=== PATIENT | female | born 1980 | race Caucasian/White ===

== ENCOUNTER 2022-11-02 15:25 | Emergency (ER) | payer MEDICAID, SELFPAY ==
[2022-11-02 15:31] VITALS: BP 133/90; PULSE 88; RESP 14; TEMP 36.8; O2SAT 96; BMI 48.2
--- NOTE | 2022-11-02 16:03 | ED.SKABFB1 ---
HPI - Skin/Abscess/Foreign Bdy General Chief complaint: Skin/Abscess/Foreign Body Stated complaint: POST OP COMPLICATION Time Seen by Provider: 11/02/22 15:32 Source: patient Mode of arrival: walk-in History of Present Illness HPI narrative: 42-year-old female presented for a surgical wound check. She had laparoscopic surgery and one of the wounds had a scab and she pulled at it and it mostly came off. No purulent drainage. No fever vomiting or complaints of abdominal pain. This occurred within the last day. Related Data Home Medications Medication Instructions Recorded Confirmed clonidine HCl 0.1 mg tablet 0.1 mg PO DAILY PRN anxiety 11/02/22 11/02/22 fexofenadine 180 mg tablet 180 mg PO DAILY 11/02/22 11/02/22 lamotrigine 100 mg tablet 150 mg PO QPM 11/02/22 11/02/22 meclizine 25 mg tablet 25 mg PO DAILY PRN dizziness 11/02/22 11/02/22 montelukast 10 mg tablet 10 mg PO QPM 11/02/22 11/02/22 omeprazole 20 mg capsule,delayed 20 mg PO BID 11/02/22 11/02/22 release oxycodone-acetaminophen 5 mg-325 1 tab PO .Q4HRs PRN pain 11/02/22 11/02/22 mg tablet tizanidine 4 mg tablet 4 mg PO TID PRN muscle spasticity 11/02/22 11/02/22 Allergies Allergy/AdvReac Type Severity Reaction Status Date / Time codeine Allergy Severe Verified 11/02/22 15:30 morphine Allergy Severe Verified 11/02/22 15:30 Penicillins Allergy Severe Verified 11/02/22 15:30 sulfamethoxazole Allergy Severe Verified 11/02/22 15:30 [From Bactrim] trimethoprim [From Bactrim] Allergy Severe Verified 11/02/22 15:30 Review of Systems ROS Narrative A ten point review of systems is negative except as noted above. Exam Narrative Exam Narrative: Nurses note and vital signs reviewed and patient is not hypoxic. General: The patient appears well and in no apparent distress. Patient is resting comfortably on cart. Skin: Warm, dry, no pallor noted. There is no rash noted. Head: Normocephalic, atraumatic Eye: Normal conjunctiva, no drainage Ears, Nose, Mouth, and Throat: oral mucosa is moist. Nares patent. Cardiovascular: Regular Rate and Rhythm Respiratory: Patient is in no distress, no accessory muscle use Back: non-tender GI: the abdominal wall is examined. Several surgical site wounds are healing quite well. A single one has a bandage over it and a scab which has now fallen off. There is minimal opening with no surrounding erythema or purulent drainage. Musculoskeletal: The patient has no evidence of calf tenderness, no pitting edema, symmetrical pulses noted bilaterally Neurological: A&O, normal speech Psychiatric: Cooperative Constitutional Vital Signs, click to edit/add: Last Vital Signs Temp 98.2 F 11/02/22 15:31 Pulse 88 11/02/22 15:31 Resp 14 11/02/22 15:31 BP 133/90 H 11/02/22 15:31 Pulse Ox 96 11/02/22 15:31 O2 Del Method Room Air 11/02/22 15:48 Course Vital Signs Vital signs: Vital Signs Temperature 98.2 F 11/02/22 15:31 Pulse Rate 88 11/02/22 15:31 Respiratory Rate 14 11/02/22 15:31 Blood Pressure 133/90 H 11/02/22 15:31 Pulse Oximetry 96 11/02/22 15:31 Oxygen Delivery Method Room Air 11/02/22 15:31 Temperature 98.2 F 11/02/22 15:31 Pulse Rate 88 11/02/22 15:31 Respiratory Rate 14 11/02/22 15:31 Blood Pressure 133/90 H 11/02/22 15:31 Pulse Oximetry 96 11/02/22 15:31 Oxygen Delivery Method Room Air 11/02/22 15:48 MDM - Skin/Abscess/Foreign Bdy MDM Narrative Medical decision making narrative: I've no suspicion of true dehiscence or infection. She's given bacitracin ointment. Treatment diagnosis and follow-up were discussed with the patient. Differential Diagnosis Differential diagnosis: Likely abscess of skin or subcutaneous tissue and other (cellulitis, surgical wound dehiscence) Discharge Plan Discharge Chief Complaint: Skin/Abscess/Foreign Body Clinical Impression: Visit for wound check Patient Disposition: Home, Self-Care Time of Disposition Decision: 16:01 Condition: Good Mode of Transportation: Private Vehicle Prescriptions / Home Meds: No Action clonidine HCl 0.1 mg tablet 0.1 mg PO DAILY PRN (Reason: anxiety) fexofenadine 180 mg tablet 180 mg PO DAILY lamotrigine 100 mg tablet 150 mg PO QPM meclizine 25 mg tablet 25 mg PO DAILY PRN (Reason: dizziness) montelukast 10 mg tablet 10 mg PO QPM omeprazole 20 mg capsule,delayed release(DR/EC) 20 mg PO BID oxycodone-acetaminophen 5-325 mg tablet 1 tab PO .Q4HRs PRN (Reason: pain) tizanidine 4 mg tablet 4 mg PO TID PRN (Reason: muscle spasticity) Instructions: Wound Healing and Your Diet (ED) Stand Alone Forms: Portal Instructions Referrals: Physician,Non-Staff, MD [Primary Care Provider] - 1 week
== END 2022-11-02 16:14 | disposition home or self-care (01) ==
PROVIDERS: Emergency Provider Emergency Medicine
DX: Z09 Encounter for follow-up examination after completed treatment for conditions other than malignant neoplasm (principal); Z79.899 Other long term (current) drug therapy
CPT/HCPCS: 99282

== ENCOUNTER 2023-05-03 11:03 | Outpatient (OUT) | payer MEDICAID, SELFPAY ==
[2023-05-03 11:42] LABS: Basophils Absolute Auto 0.1 10^3/uL (0.0-0.1); Eosinophils Absolute Auto 0.2 10^3/uL (0.0-0.7); Eosinophils Percent Auto 2.9 % (0.9-7.0); Hematocrit 41.9 % (36.0-48.0); Hemoglobin 13.8 g/dL (12.0-16.0); Immature Granulocytes Abs Auto 0.01 10^3/uL (0.00-0.03); Immature Granulocytes Pct Auto 0.1 % (0.0-0.5); Lymphocytes Absolute Auto 1.9 10^3/uL (1.2-3.8); Lymphocytes Percent Auto 26.1 % (20.5-60.0); Mean Corpuscular HGB Conc 32.9 g/dL (29.9-35.2); Mean Platelet Volume 11.9 fL (9.5-13.5); Monocytes Absolute Auto 0.5 10^3/uL (0.3-0.8); Monocytes Percent Auto 7.3 % (1.7-12.0); Neutrophils Absolute Auto 4.6 10^3/uL (1.4-6.5); Neutrophils Percent Auto 62.6 % (43.0-75.0); Platelet Count 297 10^3/uL (150-450); Red Blood Count 4.93 10^6/uL (4.20-5.40); Red Cell Distribution Width 13.8 % (11.0-15.0); White Blood Count 7.3 10^3/uL (4.0-11.0)
[2023-05-03 11:48] LABS: Alanine Aminotransferase 19 U/L (14-59); Albumin Level 3.5 g/dL (3.4-5.0); Alkaline Phosphatase 103 U/L (46-116); Anion Gap 10.1; Aspartate Amino Transferase 18 U/L (15-37); Bilirubin Total 0.6 mg/dL (0.2-1.0); Calcium 9.3 mg/dL (8.5-10.1); Carbon Dioxide 27.6 mmol/L (21.0-32.0); Chloride 106 mmol/L (98-107); Estimated GFR (African America >60 (>=60); Estimated GFR (Non-African Ame >60 (>=60); Globulin 3.4 g/dL; Glucose 90 mg/dL (74-106); Magnesium 1.9 mg/dL (1.8-2.4); Phosphorus 3.1 mg/dL (2.6-4.7); Potassium 3.7 mmol/L (3.5-5.1); Sodium 140 mmol/L (136-145); Total Protein 6.9 g/dL (6.4-8.2)
[2023-05-03 13:44] LABS: Percent Iron Saturation 19.8 %
== END 2023-05-03 11:04 | disposition home or self-care (01) ==
LOC: LAB 11:04
PROVIDERS: PCP Family Medicine
DX: R60.9 Edema, unspecified (principal); Z98.84 Bariatric surgery status; I10 Essential (primary) hypertension; K21.00 Gastro-esophageal reflux disease with esophagitis, without bleeding
CPT/HCPCS: 36415; 80053; 82306; 82607; 82728; 82746; 83540; 83550; 83735; 84100; 84425; 85025

== ENCOUNTER 2023-05-21 12:15 | Emergency (ER) | payer MEDICAID, SELFPAY ==
[2023-05-21 12:22] VITALS: BP 130/79; PULSE 80; RESP 15; TEMP 36.8; O2SAT 100; BMI 42.0
--- OUTSIDE RECORDS SUMMARY | 2023-05-21 12:22 | XMS_ITS | CCD ---
Author Name Unknown Address [address] [place] [address] Organization [facility] Care Team Providers Care Supervisor [employer] Name Role Phone HARRIS, DR YOEL Mcarthur Admitting Unavailable NADERER, DR YOEL Mcarthur Attending Unavailable NADERER, DR YOEL Mcarthur Primary Care Unavailable SRUTHI, DR YOSVANY Adames Consulting Unavailable NADERER, DR YOEL Mcarthur Consulting Unavailable NADERER, DR YOEL Mcarthur Admitting Unavailable NADERER, DR YOEL Mcarthur Attending Unavailable NADERER, DR YOEL Mcarthur Primary Care Unavailable NADERER, DR YOEL Mcarthur Consulting Unavailable NADERER, YOEL Attending Unavailable Allergies Allergy Classification Reported Allergen(s) Allergy Type Date of Onset Reaction(s) Facility (2 sources) Morphine; Translations: [morphine] Drug Allergy [facility] Repository (1 source) Penicillin; Translations: [penicillin] Drug Allergy [facility] Repository (1 source) Penicillins Drug allergy (disorder) 12-23-2012 [facility] Repository (1 source) Darvocet-N 100 Drug allergy (disorder) 12-23-2012 [facility] Repository Problems Active Problems Problem Classification Problem Date Documented Date Episodic/Chronic Spondylosis; intervertebral disc disorders; other back problems (4 sources) Other intervertebral disc degeneration, lumbar region; Translations: [OTH IV DISC DEGEN LUMBAR REGION] Onset: 09-08-2021 Chronic Unclassified (2 sources) CONTACT W/AND (SUSP) EXPOS COVID-19; Translations: [CONTACT W/AND (SUSP) EXPOS COVID-19] Onset: 03-12-2022 Viral infection (1 source) COVID-19; Translations: [COVID-19] Onset: 03-12-2022 Past or Other Problems Problem Classification Problem Date Documented Da te Episodic/Chronic Unclassified (1 source) CONTACT W/AND (SUSP) EXPOS COVID-19; Translations: [CONTACT W/AND (SUSP) EXPOS COVID-19] Onset: 02-09-2022 Results Test Name Value Interpretation Reference Range Facility Consultation Noteon 06-27-19 Consultation Note [id number] 2#1.00CD:127 Normal [facility] ECG 12-Leadon 06-26-2022 ECG 12-Lead [id number] 0#1.00CD:127 Normal [facility] RAD - MISCon 06-26-2022 RAD - MISC [id number] 9#1.00CD:127 Normal [facility] RAD - MISC [id number] 0#1.00CD:127 Normal [facility] RAD - Ultrasound Reporton RAD - Ultrasound Report [id number] #1.00CD:127 Normal [facility] Covid-19 PCR (CVDTBH)on 01-24 SARS-CoV-2 (COVID-19) RNA JUDE+probe Ql (Unsp spec) Detected Critically abnormal NOT DETECTED [facility] Comment on above: Result Comment: This test is not yet approved or cleared by the [place] FDA. When there are no FDA-approved or cleared tests available, and other criteria are met, FDA can make tests available under an emergency access mechanism called an Emergency Use Authorization (EUA). The EUA for this test is supported by the [place] of Health and Human Service's (HHS's) declaration that circumstances exist to justify the emergency use of in vitro diagnostics for the detection and/or diagnosis of the virus that causes COVID-19. This EUA will remain in effect (meaning this test can be used) for the duration of the COVID-19 declaration justifying emergency of IVDs, unless it is terminated or revoked by FDA (after which the test may no longer be used). Performed By: #### C VDTB #### [facility] [address] [place] [address] Dr. Abdelrahman Chisholm XR LSPINE 2_3 VIEWSon 2021 XR LSPINE 2_3 VIEWS EXAMINATION: XR LSPINE 2_3 VIEWS HISTORY: Degeneration of lumbar intervertebral disc ; chronic low back pain COMPARISON: CT abdomen pelvis 10/10/2019 FINDINGS: BONES: Mild degenerative facet arthropathy L3-4 through L5-S1. No fracture or spondylolisthesis. DISC SPACES: Mild-moderate narrowing L4-5. Mild narrowing L5-S1. PARASPINOUS: Negative. No paraspinous abnormality is seen. OTHER: Negative. IMPRESSION: 1. Mild/moderate degenerative changes of the lower lumbar spine. Electronically authenticated by: YOSVANY NEGRO Date: 2021-09-08 15:24 Normal [facility] Encounters Encounter Date Encounter Type Care Provider Facility Start: 05-11-2023 End: 05-11-2023 ambulatory YOEL IGLESIAS Not Available Start: 03-06-2022 [facility] Start: 02-09-2022 End: 08-10-[address] YOEL IGLESIAS Facility:[facility] Start: 09-08-2021 End: 09-09-[address] YOEL IGLESIAS Facility:[facility] Payers Date Payer Category Payer Medicaid [id number] 1980 Unknown [id number] 1980 Unknown [id number] 1980 Unknown [id number] 1961 Unknown [id number] Summary Purpose Family History No Family History Records FoundNo Family History Records FoundNo Family History Records Found Advance Directives No Advanced Directives Records FoundNo Advanced Directives Records FoundNo Advanced Directives Records Found Additional Source Comments INFORMATION SOURCE (unrecogn ized section and content) DATE CREATED AUTHOR [facility]/20[facility] DATE CREATED AUTHOR AUTHOR'S ORGANIZ ATION 08/10/2022 [facility] DATE CREATED AUTHOR AUTHOR'S ORGANIZ ATION 2023 [facility] EPIC FOR RECORDS PERTAINING TO PATIENTS WHO ARE OR HAVE BEEN ENROLLED IN A CHEMICAL DEPENDENCY/SUBSTANCEABUSE PROGRAM, SOME INFORMATION MAY BE OMITTED. This clinical summary was aggregated from multiple sources. Caution should be exercised in using it in the provision of clinical care. This summary normalizes information from multiple sources, and as a consequence, information in this document may materially change the coding, format and clinical context of patient data. In addition, data may be omitted in some cases. CLINICAL DECISIONS SHOULD BE BASED ON THE PRIMARY CLINICAL RECORDS. [facility]. provides no warranty or guarantee of the accuracy or completeness of information in this document.
--- NOTE | 2023-05-21 12:29 | ED.FEMALEGU1 ---
HPI - Female Genitourinary General Chief complaint: Abdominal Pain Stated complaint: BLOOD IN URINE/PAIN Time Seen by Provider: 05/21/23 12:25 History of Present Illness HPI Narrative: 43-year-old female presents for bilateral lower abdominal pain. She states that she was in the doctor's office last week and they told her she has blood in her urine and she scheduled next week to have an ultrasound of her kidneys and bladder. She's had no trauma or fever. No vomiting or dysuria. Related Data Home Medications Medication Instructions Recorded Confirmed clonidine HCl 0.1 mg tablet 0.1 mg PO DAILY PRN anxiety 11/02/22 11/02/22 fexofenadine 180 mg tablet 180 mg PO DAILY 11/02/22 11/02/22 lamotrigine 100 mg tablet 150 mg PO QPM 11/02/22 11/02/22 meclizine 25 mg tablet 25 mg PO DAILY PRN dizziness 11/02/22 11/02/22 montelukast 10 mg tablet 10 mg PO QPM 11/02/22 11/02/22 omeprazole 20 mg capsule,delayed 20 mg PO BID 11/02/22 11/02/22 release oxycodone-acetaminophen 5 mg-325 1 tab PO .Q4HRs PRN pain 11/02/22 11/02/22 mg tablet tizanidine 4 mg tablet 4 mg PO TID PRN muscle spasticity 11/02/22 11/02/22 Previous Rx's Medication Instructions Recorded ondansetron 4 mg disintegrating 4 mg PO Q6H PRN nausea and 05/21/23 tablet vomiting #20 tabs tamsulosin 0.4 mg capsule (Flomax) 0.4 mg PO DAILY #7 caps 05/21/23 Allergies Allergy/AdvReac Type Severity Reaction Status Date / Time codeine Allergy Severe Verified 11/02/22 15:30 morphine Allergy Severe Verified 11/02/22 15:30 Penicillins Allergy Severe Verified 11/02/22 15:30 sulfamethoxazole Allergy Severe Verified 11/02/22 15:30 [From Bactrim] trimethoprim [From Bactrim] Allergy Severe Verified 11/02/22 15:30 Review of Systems ROS Narrative A ten point review of systems is negative except as noted above. PFSH PFSH Social History Smoking status: Former smoker Exam Narrative Exam Narrative: Nurses note and vital signs reviewed and patient is not hypoxic. General: The patient appears in no apparent distress. Skin: Warm, dry, no pallor noted. There is no rash noted. Head: Normocephalic, atraumatic Eye: Normal conjunctiva, no drainage Ears, Nose, Mouth, and Throat: oral mucosa is moist. Nares patent. Cardiovascular: Regular Rate and Rhythm Respiratory: Patient is in no distress, no accessory muscle use, lungs are clear to auscultation, no wheezing, rales or rhonchi Back: non-tender, no CVA tenderness bilaterally to percussion. GI: soft, obese, nondistended. She has some mild bilateral lower abdominal tenderness without mass. Musculoskeletal: The patient has no evidence of calf tenderness, no pitting edema, symmetrical pulses noted bilaterally Neurological: A&O, normal speech Psychiatric: Cooperative Constitutional Vital Signs, click to edit/add: Last Vital Signs Temp 98.2 F 05/21/23 12:22 Pulse 80 05/21/23 12:22 Resp 15 05/21/23 12:22 BP 130/79 05/21/23 12:22 Pulse Ox 100 05/21/23 12:22 O2 Del Method Room Air 05/21/23 12:22 Course Vital Signs Vital signs: Vital Signs Temperature 98.2 F 05/21/23 12:22 Pulse Rate 80 05/21/23 12:22 Respiratory Rate 15 05/21/23 12:22 Blood Pressure 130/79 05/21/23 12:22 Pulse Oximetry 100 05/21/23 12:22 Oxygen Delivery Method Room Air 05/21/23 12:22 Temperature 98.2 F 05/21/23 12:22 Pulse Rate 80 05/21/23 12:22 Respiratory Rate 15 05/21/23 12:22 Blood Pressure 130/79 05/21/23 12:22 Pulse Oximetry 100 05/21/23 12:22 Oxygen Delivery Method Room Air 05/21/23 12:22 MDM - Female Genitourinary MDM Narrative Medical decision making narrative: 5 mm kidney stone is identified. She'll follow-up with urology. The patient is already on Percocet at home. Treatment diagnosis and follow up are discussed with the patient. Differential Diagnosis Differential diagnosis: Likely urinary tract infection and other (pyelonephritis, kidney stone) Lab Data Attestation: I reviewed the patient's lab results. Labs: Lab Results 05/21/23 Range/Units 12:30 Urine Color Yellow (YELLOW) Urine Clarity Clear (CLEAR) Urine pH 6.0 (5.0-9.0) Ur Specific [place] 1.025 (1.005-1.025) Urine Protein Negative (NEG/TRACE) mg/dL Urine Glucose (UA) Negative (NEGATIVE) mg/dL Urine Ketones Negative (NEGATIVE) mg/dL Urine Occult Blood Moderate A (NEGATIVE) Urine Nitrite Negative (NEGATIVE) Urine Bilirubin Negative (NEGATIVE) Urine Urobilinogen 0.2 (0.2-1.0) EU/dL Ur Leukocyte Esterase Negative (NEGATIVE) Urine RBC 20-50 A (0-2) #/HPF Urine WBC 2-5 A (NONE SEEN) #/HPF Ur Squamous Epith Cells Moderate A (NONE/RARE) #/LPF Urine Crystals None seen (None Seen) #/HPF Urine Bacteria Moderate A (NONE SEEN) #/HPF Urine Casts None seen (NONE SEEN) #/LPF Urine Mucus Moderate A (NONE SEEN) Imaging Data CT scan - abdomen: Radiologist's impression: ITS Impressions Abdomen/Pelvis CT 05/21/23 13:13 IMPRESSION: 5 mm right ureteropelvic junction stone with moderate associated right hydronephrosis Electronically authenticated by: LINCOLN FAM Date: 05/21/2023 14:11 Discharge Plan Discharge Chief Complaint: Abdominal Pain Clinical Impression: Kidney stone Patient Disposition: Home, Self-Care Time of Disposition Decision: 14:51 Condition: Good Mode of Transportation: Private Vehicle Prescriptions / Home Meds: New tamsulosin [Flomax] 0.4 mg capsule 0.4 mg PO DAILY Qty: 7 0RF ondansetron 4 mg tablet,disintegrating 4 mg PO Q6H PRN (Reason: nausea and vomiting) Qty: 20 0RF No Action clonidine HCl 0.1 mg tablet 0.1 mg PO DAILY PRN (Reason: anxiety) fexofenadine 180 mg tablet 180 mg PO DAILY lamotrigine 100 mg tablet 150 mg PO QPM meclizine 25 mg tablet 25 mg PO DAILY PRN (Reason: dizziness) montelukast 10 mg tablet 10 mg PO QPM omeprazole 20 mg capsule,delayed release(DR/EC) 20 mg PO BID oxycodone-acetaminophen 5-325 mg tablet 1 tab PO .Q4HRs PRN (Reason: pain) tizanidine 4 mg tablet 4 mg PO TID PRN (Reason: muscle spasticity) Instructions: Kidney Stones (ED) Additional Instructions: follow-up with Dr. Varela Stand Alone Forms: Portal Instructions Referrals: Hany Cohen MD [Primary Care Provider] - 1 week
[2023-05-21 13:05] LABS: Bilirubin Urine NEGATIVE (NEGATIVE); Blood Urine MODERATE (NEGATIVE); Clarity Urine CLEAR (CLEAR); Color Urine YELLOW (YELLOW); Glucose Urine UA NEGATIVE (NEGATIVE); Ketones Urine NEGATIVE (NEGATIVE); Leukocyte Esterase Urine NEGATIVE (NEGATIVE); Nitrite Urine NEGATIVE (NEGATIVE); Protein Urine NEGATIVE (NEG/TRACE); Specific Gravity Urine 1.025 (1.005-1.025); Urobilinogen Urine 0.2 EU/dL (0.2-1.0)
[2023-05-21 13:12] LABS: Bacteria Urine MODERATE #/HPF (NONE SEEN); Cast Seen? NONE SEEN #/LPF (NONE SEEN); Crystals Seen? None Seen #/HPF (None Seen); Mucus Urine MODERATE (NONE SEEN); RBC Urine 20-50 #/HPF (0-2); Squamous Epithelial Cell Urine MODERATE #/LPF (NONE/RARE)
--- NOTE | 2023-05-21 13:13 | CT_ITS ---
[address] [address] Patient Name: BEKAH RHODES MRN: [id number] date: 1980 Sex: F Assigned Patient Location: ER Current Patient Location: ER Accession/Order Number: [id number] Exam Date: 05/21/2023 13:47 Report Date: 05/21/2023 14:11 At the request of: JORDEN ORTIZ Procedure: CT abdomen pelvis wo con EXAMINATION: CT abdomen pelvis wo con HISTORY: hematuria, history of kidney stones COMPARISON: 10/10/2019 TECHNIQUE: Axial, Coronal, and Sagittal images were created without IV contrast. Dose reduction techniques were achieved by using automated exposure control and/or adjustment of mA and/or kV according to patient size and/or use of iterative reconstruction technique. FINDINGS: LUNG BASES: No visible pulmonary or pleural disease. LIVER: No enlargement, atrophy, abnormal density, or significant focal lesion. BILIARY: No dilatation or calcification. PANCREAS: No lesion, fluid collection, ductal dilatation, or atrophy. SPLEEN: No enlargement or focal lesion. ADRENALS: No mass or enlargement. KIDNEYS: 5 mm right ureteropelvic junction calcification axial image #55 with moderate right hydronephrosis. Cortical thinning lateral right mid pole kidney. Calcifications inferior right renal cortex. Multiple additional right nephroliths. Normal left kidney. BOWEL/MESENTERY: Suture line along the stomach and distal esophagus. Nonobstructive bowel gas pattern. Normal appendix. AORTA/VASCULAR: No aortic aneurysm RETROPERITONEUM: No mass or adenopathy. LYMPH NODES: No adenopathy. URINARY BLADDER: No visible focal wall thickening, lesion, or calculus. PELVIC ORGANS: Hysterectomy ABDOMINAL WALL: Suprarenal ventral hernia containing mesenteric fat measuring 7.4 cm through a neck measuring 2.8 cm. BONES: No bony lesion or fracture. OTHER: Negative. CT/CT abdomen pelvis wo con IMPRESSION: 5 mm right ureteropelvic junction stone with moderate associated right hydronephrosis Electronically authenticated by: LINCOLN FAM Date: 05/21/2023 14:11
[2023-05-21] MEDS: KETOROLAC TROMETHAMINE 60 MG/2 ML VIAL IM (14:09)
== END 2023-05-21 15:08 | disposition home or self-care (01) ==
PROVIDERS: Emergency Provider Emergency Medicine; PCP Family Medicine
DX: N13.2 Hydronephrosis with renal and ureteral calculous obstruction (principal); Z79.899 Other long term (current) drug therapy; Z87.891 Personal history of nicotine dependence
CPT/HCPCS: 74176; 81001; 84703; 96372; 99285; J1885

== ENCOUNTER 2023-06-11 10:03 | Outpatient (OUT) | payer MEDICAID, SELFPAY ==
--- OUTSIDE RECORDS SUMMARY | 2023-06-11 10:07 | XMS_ITS | CCD ---
Author Name Unknown Address [address] [place] [address] Organization [facility] Care Team Providers Care Time Study Engineer Name Role Phone HARRIS, DR YOEL Mcarthur Admitting Unavailable NADERER, DR YOEL Mcarthur Attending Unavailable NADERER, DR YOEL Mcarthur Primary Care Unavailable SRUTHI, DR YOSVANY Adames Consulting Unavailable NADERER, DR YOEL Mcarthur Consulting Unavailable NADERER, DR YOEL Mcarthur Admitting Unavailable NADERER, DR YOEL Mcarthur Attending Unavailable NADERER, DR YOEL Mcarthur Primary Care Unavailable NADERER, DR YOEL Mcarthur Consulting Unavailable NADERER, YOEL Attending Unavailable NADERER, YOEL Referring Unavailable COOK, Chencho Oneal Attending Unavailable Allergies Allergy Classification Reported Allergen(s) Allergy Type Date of Onset Reaction(s) Facility (2 sources) Morphine; Translations: [morphine] Drug Allergy [facility] Repository (1 source) Penicillins Drug allergy (disorder) 12-23-2012 [facility] Repository (1 source) Darvocet-N 100 Drug allergy (disorder) 12-23-2012 [facility] Rep[facility] (1 source) Penicillin; Translations: [penicillin] Drug Allergy [facility] Repository Problems Active Problems Problem Classification [...] Test Name Value Interpretation Reference Range Facility ED Note-Physicianon 06-08-19 ED Note-Physician [id number]#1.00TIFF Normal [facility] BI MAMMOGRAM SCREENING TOMOS YNTHESIS BILATERALon 05-26-2023 BI MAMMOGRAM SCREENING TOMOSYNTHESIS BILATERAL This is a summary report. The complete report is available in the patient's medical record. If you cannot access the medical record, please contact the sending organization for a detailed fax or copy. EXAMINATION: BI MAMMOGRAM SCREENING TOMOSYNTHESIS BILATERAL CLINICAL HISTORY:Screening COMPARISON: There are no previous mammograms available for comparison. RESULT: Digital mammography and 3D tomosynthesis of bilateral breasts was performed. Density: Almost entirely fatty [1] There is no suspicious mass, asymmetry, architectural distortion, or calcification. IMPRESSION: BIRADS 1 - Negative Follow-up: Routine Screening Mamm Board Certified Radiologists. Accredited by the ACR and FDA. MAMMOGRAPHY IS VERY IMPORTANT TO YOUR HEALTH. THE [employer] GUIDELINES RECOMMEND THAT WOMEN 40 YEARS OF AGE AND OLDER SHOULD HAVE A MAMMOGRAM EVERY YEAR. A REMINDER LETTER WILL BE SENT AT THE APPROPRIATE TIME. THIS FACILITY UTILIZES A REMINDER SYSTEM TO ENSURE ALL PATIENTS RECEIVE REMINDER NOTIFICATIONS AT THE APPROPRIATE TIME BASED ON THE RECOMMENDATIONS OF THIS EXAM. THIS INCLUDES REMINDERS FOR ROUTINE SCREENING MAMMOGRAMS, DIAGNOSTIC MAMMOGRAMS IN WHICH THE PATIENT IS ASKED TO RETURN FOR ADDITIONAL VIEWS, OR OTHER BREAST IMAGING INTERVENTIONS WHEN APPROPRIATE. THE PATIENT WILL BE PLACED IN THE APPROPRIATE REMINDER SYSTEM INCLUDING A REMINDER AT THE APPROPRIATE TIME FOR ANY PENDING ADDITIONAL VIEWS. TRANSCRIBED BY: ELECTRONICALLY SIGNED BY: Reji Mccoy MD Normal Not Available ECG 12-Leadon 06-26-2022 ECG 12-Lead [id number] 530#1.00CD:127 Normal [facility] RAD - MISCon 06-26-2022 RAD - MISC [id number] 539#1.00CD:127 Normal [facility] RAD - MISC [id number] 640#1.00CD:127 Normal [facility] RAD - Ultrasound Reporton RAD - Ultrasound Report [id number]#1.00CD:127 Normal [facility]24 SARS-CoV-2 (COVID-19) RNA JUDE+probe Ql (Unsp spec) Detected Critically abnormal NOT DETECTED [facility] Comment on above: Result Comment: This test is not yet approved or cleared by the [place] FDA. When there are no FDA-approved or cleared tests available, and other criteria are met, FDA can make tests available under an emergency access mechanism called an Emergency Use Authorization (EUA). The EUA for this test is supported by the [employer] of Health and Human Service's (HHS's) declaration [...] longer be used). Performed By: #### [facility] #### [facility] [address] [place] [address] Dr. Abdelrahman Chisholm XR LSPINE 2_3 VIEWSon [...] by: YOSVANY NEGRO Date: 2021-09-08 15:24 Normal [facility] Encounters Encounter Date Encounter Type Care Provider Facility Start: 06-15-2023 ambulatory Chencho ALVARADO Facility :[facility] Start: 05-26-2023 End: 05-27-2023 ambulatory YOEL IGLESIAS Not Available Start: 05-11-2023 End: 05-11-2023 ambulatory YOEL IGLESIAS Not Available Start: 02-09-2022 End: 08-10-[address] YOEL IGLESIAS Facility: Start: 09-08-2021 End: 09-09-[address] YOEL IGLESIAS Facility:[facility] Payers Date Payer Category Payer Medicaid [id number] 1980 Unknown [id number] 2.16.84 [id number] 1980 Unknown [id number] 2.16.84 [id number] 1980 Unknown [id number] 2.16.84 [id number] 1980 Unknown [id number] 2.16.84 [id number] 1980 Unknown [id number] 2.16.8 [id number] 1961 Unknown [id number] Summary Purpose Family History No Family History Records FoundNo Family History Records FoundNo Family History Records Found Advance Directives No Advanced Directives Records FoundNo Advanced Directives Records FoundNo Advanced Directives Records Found Additional Source Comments INFORMATION SOURCE (unrecogn ized section and content) DATE CREATED AUTHOR 08/10/2022 [facility] DATE CREATED AUTHOR AUTHOR'S ORGANIZ ATION 05/30/2023 [facility] dical [facility] DATE CREATED AUTHOR AUTHOR'S ORGANIZ ATION 06/10/2023 [facility] FOR RECORDS PERTAINING TO PATIENTS WHO ARE [...] BE BASED ON THE PRIMARY CLINICAL RECORDS. [facility] provides no warranty or guarantee of the accuracy or completeness of information in this document.
--- NOTE | 2023-06-11 10:18 | US_ITS ---
The [address] [address] Patient Name: BEKAH RHODES MRN: [id number] date: 1980 Sex: F Assigned Patient Location: US Current Patient Location: US Accession/Order Number: [id number] Exam Date: 06/11/2023 10:29 Report Date: 06/11/2023 11:24 At the request of: SHERRIE ALVARADO Procedure: US renal BI EXAM: US renal BI HISTORY: kidney stone COMPARISON: CT abdomen and pelvis 05/21/2023. TECHNIQUE: Real-time ultrasound imaging of the kidneys and bladder. Findings: The right and left kidneys measure 11.6 and 11.2 cm. There is good corticomedullary differentiation bilaterally. There are multiple nonobstructing right renal stones. The largest measures 1.0 cm. There is mild/moderate right renal collecting system dilatation. No left-sided renal stones or collecting system dilatation. No focal mass or perinephric fluid collection. The bladder is partially distended with a prevoid volume of 118 mL. The bilateral ureteral jets are identified. US/US renal BI IMPRESSION: 1. Nonobstructing right renal stones. 2. Mild to moderate right-sided collecting system dilatation. Electronically authenticated by: MOLINA CARRILLO Date: 06/11/2023 11:24
--- NOTE | 2023-06-11 10:18 | XR_ITS ---
The [address] [address] Patient Name: BEKAH RHODES MRN: [id number] date: 1980 Sex: F Assigned Patient Location: US Current Patient Location: US Accession/Order Number: [id number] Exam Date: 06/11/2023 11:01 Report Date: 06/11/2023 12:29 At the request of: SHERRIE ALVARADO Procedure: XR abdomen 1V EXAM: XR abdomen 1V HISTORY: kidney stone COMPARISON: None. TECHNIQUE: AP view of the abdomen. FINDINGS: Nonobstructive bowel gas pattern is noted. There are multiple right renal calculi. The osseous structures are intact. XR/XR abdomen 1V IMPRESSION: Nonobstructive bowel gas pattern. Right nephrolithiasis. Electronically authenticated by: CHARLENE GROSSMAN Date: 06/11/2023 12:29
== END 2023-06-11 10:04 | disposition home or self-care (01) ==
LOC: US 10:05
PROVIDERS: PCP Family Medicine; Visit Provider Urology
DX: N20.1 Calculus of ureter (principal); N20.0 Calculus of kidney
CPT/HCPCS: 74018; 76775

== ENCOUNTER 2023-06-25 08:57 | Outpatient (OUT) | payer MEDICAID, SELFPAY ==
--- OUTSIDE RECORDS SUMMARY | 2023-06-25 09:01 | XMS_ITS | CCD ---
Author Name Unknown Address [address] [place] [address] Organization [facility] Care Team Providers Care President + Publisher Name Role Phone HARRIS, DR YOEL Mcarthur Admitting Unavailable NADERER, DR YOEL Mcarthur Attending Unavailable NADERER, DR YOEL Mcarthur Primary Care Unavailable ZIEBER, DR YOSVANY Adames Consulting Unavailable NADERER, DR YOEL Mcarthur Consulting Unavailable NADERER, DR YOEL Mcarthur Admitting Unavailable NADERER, DR YOEL Mcrathur Attending Unavailable NADERER, DR YOEL Mcarthur Primary Care Unavailable NADERER, DR YOEL Mcarthur Consulting Unavailable NADERER, YOEL Attending Unavailable NADERER, YOEL Referring Unavailable NADERER, YOEL Primary Care Physician [phone] Chencho ALVARADO Attending Unavailable Allergies Allergy Classification Reported Allergen(s) Allergy Type Date of Onset Reaction(s) Facility (2 sources) Morphine; Translations: [morphine] Drug Allergy [facility] Repository (1 source) Penicillins Drug allergy (disorder) 3 [facility] Rep[facility] (1 source) Darvocet-N 100 Drug allergy (disorder) 3 [facility] Rep[facility] (1 source) Morphine; Translations: [morphine] Drug Allergy Unknown (qualifier value) [facility] (1 source) NITROFURANTOIN, MACROCRYSTALS / Nitrofurantoin, Monohydrate; Translations: [nitrofurantoin] Drug Allergy Eruption of skin (disorder), Swelling (finding) [facility] (2 sources) Penicillin; Translations: [penicillin] Drug Allergy Pharyngeal swelling (finding) [facility] Medications Current Medications Medication Drug Class(es) Dates Sig (Normalized) Sig (Original) ALPRAZolam 1 mg oral tablet (1 source) Benzodiazepine Start: 11-02-2019 take 1 tablet by mouth three times daily as needed for anxiety Xanax 1 mg Tab 1 mg = 1 tab(s), Oral, TID, PRN for anxiety, Refills(s) 0 Start Date: 11/02/19 Status: Ordered Lasix (1 source) Loop Diuretic Start: 11-02-2019 Lasix Daily, Refills(s) 0 Start Date: 11/02/19 Status: Ordered hydroCHLOROthiazide 25 mg / lisinopril 20 mg oral tablet (1 source) Thiazide Diuretic, Angiotensin Converting Enzyme Inhibitor Start: 11-02-2019 take 1 tablet by mouth once daily hydrochlorothia zide-lisinopril 25 mg-20 mg Tab tab(s), Oral, Daily, Refill(s) 0 Start Date: 11/02/19 Status: Ordered lamoTRIgine 25 mg oral tablet (1 source) Mood Stabilizer, Anti-epileptic Agent Start: 06-15-2023 take 1 mg by mouth twice daily Lamictal 25 mg Tab mg tab(s), Oral, BID, Refills(s) 0 Start Date: 06/15/23 Status: Ordered pantoprazole 40 mg oral granules (1 source) Proton Pump Inhibitor Start: 06-15-2023 take 1 mg by mouth once daily Protonix 40 mg oral Granule mg EA, Oral, Daily, Refills(s) 0 Start Date: 06/15/23 Status: Ordered Problems Active Problems Problem Classification Problem Date Documented Date Episodic/Chronic Abdominal pain (2 sources) Abdominal pain; Translations: [Unspecified abdominal pain] Onset: 06-15-2023 Episodic Calculus of urinary tract (4 sources) Kidney stone; Translations: [Calculus of kidney] Onset: 06-15-2023 Episodic Essential hypertension (1 source) Hypertensive disorder 11-02-2019 Chronic Genitourinary symptoms and ill-defined conditions (1 source) Urge incontinence of urine 07-23-2020 Chronic Genitourinary symptoms and ill-defined conditions (2 sources) Dysuria; Translations: [Incomplete emptying of bladder] 05-02-2020 Episodic Headache; including migraine (1 source) Headache 11-02-2019 Episodic Mood disorders (1 source) Depressive disorder 11-02-2019 Chronic Other diseases of kidney and ureters (1 source) Urinary tract obstruction; Translations: [Hydronephrosis with renal and ureteral calculous obstruction] Onset: 06-15-2023 Episodic Other diseases of kidney and ureters (1 source) Cyst of kidney 05-02-2020 Episodic Spondylosis; intervertebral disc disorders; other back problems (4 sources) Other intervertebral disc degeneration, lumbar region; Translations: [OTH IV DISC DEGEN LUMBAR REGION] Onset: 09-08-2021 Chronic Unclassified (2 sources) CONTACT W/AND (SUSP) EXPOS COVID-19; Translations: [CONTACT W/AND (SUSP) EXPOS COVID-19] Onset: 03-12-2022 Unclassified (1 source) Obstructive hydronephrosis 06-15-2023 Viral infection (1 source) COVID-19; Translations: [COVID-19] Onset: 03-12-2022 Past or Other Problems Problem Classification Problem Date Documented Da te Episodic/Chronic Unclassified (1 source) CONTACT W/AND (SUSP) EXPOS COVID-19; Translations: [CONTACT W/AND (SUSP) EXPOS COVID-19] Onset: 02-09-2022 Results Test Name Value Interpretation Reference Range Facility Lab Reportson 06-16-2023 Lab Reports [id number] #1.00TIFF Normal [facility] RAD - CT Reporton 06-16-2023 RAD - CT Report [id number] #1.00TIFF Normal [facility] RAD - Ultrasound Reporton RAD - Ultrasound Report [id number] #1.00TIFF Normal [facility] Ambulatory Visit Summaryon 0 06-15-2023 Ambulatory Visit Summary BEKAH RHODES Gerson :1980 Visit Date:06/15/2023 Ambulatory Visit Instructions Your Diagnosis Ureteral stone with hydronephrosis Kidney stone Flank pain Tests Performed XR IVP -- Results Pending -- Please visit your patient portal for your results or contact your primary care physician. Your Care Team Attending Physician - JENNY ARANGO, Chencho Oneal Primary Care Physician - YOEL IGLESIAS MD This Is Your Medications List Contact prescribing physician if questions or concerns alprazolam (Xanax 1 mg Tab) furosemide (Lasix) hydrochlorothiazide- lisinopril (hydrochlorothiazide -lisinopril 25 mg-20 mg Tab) lamotrigine (Lamictal 25 mg Tab) pantoprazole (Protonix 40 mg oral Granule) Procedures Performed Complete hernia, Hysterectomy. Discharge Vitals Blood Pressure 124/84 Height 153 cm Height 60 in Weight 93.4 kg Weight 205.48 lb BMI 39.9 What to do next You Need to Schedule the Following Appointments Follow Up with JENNY ARANGO, SHEA Lopez When: Comments: IVP in 1-2wks Where: [address] [address]- Medications What How Much When Instructions Unchanged alprazolam (Xanax 1 mg Tab) 1 Tablets By Mouth 3 times a day as needed for for anxiety Contact prescribing physician if questions or concerns Unchanged furosemide (Lasix) Every day Contact prescribing physician if questions or concerns Unchanged hydrochlorothiazide- lisinopril (hydrochlorothiazide -lisinopril 25 mg-20 mg Tab) By Mouth Every day Contact prescribing physician if questions or concerns Unchanged lamotrigine (Lamictal 25 mg Tab) By Mouth 2 times a day Contact prescribing physician if questions or concerns Unchanged pantoprazole (Protonix 40 mg oral Granule) By Mouth Every day Contact prescribing physician if questions or concerns Allergies Macrobid (Rash, Swelling) morphine (Unknown) penicillin (Swelling of throat) Problems Ongoing - Any problem that you are currently receiving treatment for. Depression Dysuria Flank pain Headache History of kidney stones Hypertension Incomplete bladder emptying Kidney stone Renal cyst Ureteral stone Ureteral stone with hydronephrosis Urge incontinence Patient Survey You may receive a survey via text or e-mail asking about your office visit. Please share your experience with us by completing your survey. We appreciate your feedback and thank you for choosing us for your care. Education Materials Kidney Stones Kidney stones are rock-like masses that form inside of the kidneys. Kidneys are organs that make pee (urine). A kidney stone may move into other parts of the urinary tract, including: ? The tubes that connect the kidneys to the bladder (ureters). ? The bladder. ? The tube that carries urine out of the body (urethra). Kidney stones can cause very bad pain and can block the flow of pee. The stone usually leaves your body (passes) through your pee. You may need to have a doctor take out the stone. What are the causes? Kidney stones may be caused by: ? A condition in which certain glands make too much parathyroid hormone (primary hyperparathyroidism) . ? A buildup of a type of crystals in the bladder made of a chemical called uric acid. The body makes uric acid when you eat certain foods. ? Narrowing (stricture) of one or both of the ureters. ? A kidney blockage that you were born with. ? Past surgery on the kidney or the ureters, such as gastric bypass surgery. What increases the risk? You are more likely to develop this condition if: ? You have had a kidney stone in the past. ? You have a family history of kidney stones. ? You do not drink enough water. ? You eat a diet that is high in protein, salt (sodium), or sugar. ? You are overweight or very overweight (obese). What are the signs or symptoms? Symptoms of a kidney stone may include: ? Pain in the side of the belly, right below the ribs (flank pain). Pain usually spreads (radiates) to the groin. ? Needing to pee often or right away (urgently). ? Pain when going pee (urinating). ? Blood in your pee (hematuria). ? Feeling like you may vomit (nauseous). ? Vomiting. ? Fever and chills. How is this treated? Treatment depends on the size, location, and makeup of the kidney stones. The stones will often pass out of the body through peeing. You may need to: ? Drink more fluid to help pass the stone. In some cases, you may be given fluids through an IV tube put into one of your veins at the hospital. ? Take medicine for pain. ? Make changes in your diet to help keep kidney stones from coming back. Sometimes, medical procedures are needed to remove a kidney stone. This may involve: ? A procedure to break up kidney stones using a beam of light (laser) or shock waves. ? Surgery to remove the kidney stones. Follow th (more content not included)... [facility] Patient Educationon 06-15-19 Patient Education Urology Kidney Stones Kidney stones are rock-like masses that form inside of the kidneys. Kidneys are organs that make pee (urine). A kidney stone may move into other parts of the urinary tract, including: ? The tubes that connect the kidneys to the bladder (ureters). ? The bladder. ? The tube that carries urine out of the body (urethra). Kidney stones can cause very bad pain and can block the flow of pee. The stone usually leaves your body (passes) through your pee. You may need to have a doctor take out the stone. What are the causes? Kidney stones may be caused by: ? A condition in which certain glands make too much parathyroid hormone (primary hyperparathyroidism) . ? A buildup of a type of crystals in the bladder made of a chemical called uric acid. The body makes uric acid when you eat certain foods. ? Narrowing (stricture) of one or both of the ureters. ? A kidney blockage that you were born with. ? Past surgery on the kidney or the ureters, such as gastric bypass surgery. What increases the risk? You are more likely to develop this condition if: ? You have had a kidney stone in the past. ? You have a family history of kidney stones. ? You do not drink enough water. ? You eat a diet that is high in protein, salt (sodium), or sugar. ? You are overweight or very overweight (obese). What are the signs or symptoms? Symptoms of a kidney stone may include: ? Pain in the side of the belly, right below the ribs (flank pain). Pain usually spreads (radiates) to the groin. ? Needing to pee often or right away (urgently). ? Pain when going pee (urinating). ? Blood in your pee (hematuria). ? Feeling like you may vomit (nauseous). ? Vomiting. ? Fever and chills. How is this treated? Treatment depends on the size, location, and makeup of the kidney stones. The stones will often pass out of the body through peeing. You may need to: ? Drink more fluid to help pass the stone. In some cases, you may be given fluids through an IV tube put into one of your veins at the hospital. ? Take medicine for pain. ? Make changes in your diet to help keep kidney stones from coming back. Sometimes, medical procedures are needed to remove a kidney stone. This may involve: ? A procedure to break up kidney stones using a beam of light (laser) or shock waves. ? Surgery to remove the kidney stones. Follow these instructions at home: Medicines ? Take gxtk-kru-uihstaj and prescription medicines only as told by your doctor. ? Ask your doctor if the medicine prescribed to you requires you to avoid driving or using heavy machinery. Eating and drinking ? Drink enough fluid to keep your pee pale yellow. You may be told to drink at least 8?10 glasses of water each day. This will help you pass the stone. ? If told by your doctor, change your diet. This may include: ? Limiting how much salt you eat. ? Eating more fruits and vegetables. ? Limiting how much meat, poultry, fish, and eggs you eat. ? Follow instructions from your doctor about eating or drinking restrictions. General instructions ? Collect pee samples as told by your doctor. You may need to collect a pee sample: ? 24 hours after a stone comes out. ? 8?12 weeks after a stone comes out, and every 6?12 months after that. ? Strain your pee every time you pee (urinate), for as long as told. Use the strainer that your doctor recommends. ? Do not throw out the stone. Keep it so that it can be tested by your doctor. ? Keep all follow-up visits as told by your doctor. This is important. You may need follow-up tests. How is this prevented? To prevent another kidney stone: ? Drink enough fluid to keep your pee pale yellow. This is the best way to prevent kidney stones. ? Eat healthy foods. ? Avoid certain foods as told by your doctor. You may be told to eat less protein. ? Stay at a healthy weight. Where to find more information ? National Kidney Foundation (NKF): www.kidney.org ? U[employer] Care Foundation (UCF): www.urologyhealth.or g Contact a doctor if: ? You have pain that gets worse or does not get better with medicine. Get help right away if: ? You have a fever or chills. ? You get very bad pain. ? You get new pain in your belly (abdomen). ? You pass out (faint). ? You cannot pee. Summary ? Kidney stones are rock-like masses that form inside of the kidneys. ? Kidney stones can cause very bad pain and can block the flow of pee. ? The stones will often pass out of the body through peeing. ? Drink enough fluid to keep your pee pale yellow. This information is not intended to replace advice given to you by your health care provider. Make sure you discuss any questions you have with your health care provider. Document Revised: 12/15/2021 Document Reviewed: 12/15/2021 [employer] Patient Education ? 2022 [employer]. [facility] Urology Office/Clinic Noteon 06-15-2023 Urology Office/Clinic Note Chief Complaint TBH F/U for lower abdominal pain HPI Staff Pt is here for TBH F/U CT abdominal pelvis wo con @ [facility] 05/21/23 CC lower abdominal pain Last OV was 07/23/20 Previous DX; Kidney stone, flank pain, microscopic hematuria, urge incontinence, hx kidney stones CT @ [facility] on 06/11/23 EMELI @ [facility] 06/11/23 Given Tamsulosin 0.4 mg qd at [facility] She did complete this no concerns with this Culture done- 2 days before ER at PCP PVR 139 Dysuria: denies Incomplete bladder emptying: no Hematuria: last seen blood 2 days before ER trip (Large on UA today) Frequency: _every couple hours Urgency: When she has to go she gets a bad pressure, then when she goes away Nocturia: _sometimes once Stream: _denies hesitation, normal stream Leaking: if she has to urinate bad enough she leaks Post void dripping: denies Wearing pads/ Depends: denies Urge incontinence: denies Stress incontinence: denies Incontinence without Sensory Awareness: denies Abdominal pain: denies Flank pain: denies Sexual complaints: denies History of Present Illness Tests reviewed: reviewed UA, ER notes, KUB, EMELI, CT scan I have reviewed the previous health record information and history for this patient from Dr. Key and external providers. I have reviewed and verified the staff HPI to be accurate for this encounter. Review of Systems PHQ Score Initial Depression Screen Score: 0 SCORE ROS - Provider Constitutional: denies weight loss, denies hot flashes. Eyes: denies eye problems. Gastrointestinal: denies nausea, denies vomiting. Cardiovascular: denies chest pain or angina. Integumentary: no dryness Musculoskeletal: denies musculoskeletal symptoms. ENMT: denies otolaryngeal symptoms. Respiratory: no shortness of breath. Heme/Lymph: denies easy bleeding tendency, denies easy bruising tendency. Psychiatric: no confusion, no anxiety. Genitourinary: See HPI. Physical Exam Vitals & Measurements BP: 124/84 HT: 60 in HT: 153 cm WT: 93.4 kg WT: 205.48 lb BMI: 39.9 General Appearance: alert , no acute distress, well nourished, well developed female. Genitourinary: bladder nonpalpable, no flank pain. Assessment/Plan Prior DLS pt, last seen 07/23/20. 1. Ureteral stone with hydronephrosis (N13.2: Hydronephrosis with renal and ureteral calculous obstruction) [facility] ER visit 05/21/23 c/o bilateral lower abdominal pain. Given Tamsulosin. CT AP wo con - 5mm R UPJ with moderate R hydro. EMELI 06/11/23 - Multiple R nonobstructing renal stones measuring up to 1cm. Mild/moderate R renal dilatation. KUB 06/11/23 - Multiple R renal calculi. Discussed imaging results w/ pt. Most recent pain was yesterday, mostly in lower abdomen. States Tamsulosin helped relieved pain. Reports she has been straining but denies passing any stones. Urine pH today 6. PVR today 139mL. UA today shows large blood and trace leuks, was treated by PCP prior to ER visit. Discussed management options including medical expulsive therapy x 4-6 week vs intervention including extracorporeal shockwave lithotripsy vs ureteroscopy with laser lithotripsy/stone basket extraction possible stent. Risks/benefits of each were discussed including but not limited to: MET- renal damage, pain or infection; ESWL- bleeding, hematoma, pain, infection, inability to break up the stone, ureteral obstruction, cardiac arrhythmias, damage to surrounding structures and need for additional procedures; ureteroscopy - bleeding, pain, infection, damage to surrounding structures, ureteral perforation, stricture, inability to treat the stone and need for additional procedures. If a stent is placed, pt understands this is not permanent and needs to be removed or exchanged within 3 months to prevent encrustation, infection, permanent renal damage and need for more invasive procedures. Given pt does not have severe pain and size of obstructing stone is passable, recommended MET and f/u with IVP to evaluate for stones. Pt agrees with plan. -Cont straining urine -Increase fluid intake -IVP in 1-2 wks -Consider treatment of nonobstructing renal stones after ureteral stone is treated/passed 2. Kidney stone (N20.0: Calculus of kidney) See #1. 3. Flank pain (R10.9: Unspecified abdominal pain) See #1. Portions of this record may have been created with voice recognition artificial intelligence software, specifically [employer], [employer] and or [employer]. Substitutions may have occurred due to the inherent limitations of voice recognition and artificial intelligence software. Follow-up With When Contact Information Chencho ALVARADO MD, URL [address] [address]- Additional Instructions: IVP in 1-2wks Patient Education Kidney Stones, Iaed-iw-Oucg Cleo Shaw, personally scribed for Dr. Alvarado on 06/15/2023 10:54:59. . Documentation recorded by the Cleo valenzuela (more content not included)... [facility] Comment on above: Result Comment: Elec tronically Signed By: Chencho ALVARADO MD\.br\Date and Time Signed: 06/15/23 21:50 EST\.br\Electronically Co-Signed By: Cleo Bonner\.br\Date and Time Co-Signed: 06/15/23 10:55 EST RAD - MISCon 06-14-2023 RAD - MISC [id number] #1.00TIFF [facility] RAD - Ultrasound Reporton RAD - Ultrasound Report [id number] #1.00TIFF [facility] ED Note-Physicianon 06-08-19 ED Note-Physician [id number] #1.00TIFF [facility] BI MAMMOGRAM SCREENING TOMOS YNTHESIS BILATERALon 05-26-2023 [...] IS VERY IMPORTANT TO YOUR HEALTH. THE [employer]IET[employer] GUIDELINES RECOMMEND THAT WOMEN 40 [...] BY: Reji Mccoy MD Normal Not Available Covid-19 PCR ([facility])on 01-24 SARS-CoV-2 (COVID-19) RNA JUDE+probe Ql (Unsp spec) Detected Critically abnormal NOT DETECTED [facility] Comment on above: Result Comment: This test is not yet approved or cleared by the [place] FDA. When there are no FDA-approved or cleared tests available, and other criteria are met, FDA can make tests available under an emergency access mechanism called an Emergency Use Authorization (EUA). The EUA for this test is supported by the [place] of Health and Human Service's (HHS's) declaration [...] longer be used). Performed By: #### C [facility] #### [facility] [address] [address] [address] Abdelrahman Chisholm XR LSPINE 2_3 VIEWSon [...] by: YOSVANY NEGRO Date: 2021-09-08 15:24 Normal [facility] Vital Signs Date Time Vital Sign Value Performing Clinician Telly jeffery 06-15-2023 09:59-0500 Blood Pressure Location Chencho ALVARADO [facility] 06-15-2023 09:59-0500 Diastolic blood pressure 84 mm[Hg] Chencho ALVARADO [facility] 06-15-2023 09:59-0500 Systolic blood pressure 124 mm[Hg] Chencho ALVARADO [facility] Encounters Encounter Date Encounter Type Care Provider Facility Start: 06-15-2023 End: 06-16-2023 ambulatory Chencho ALVARADO Facility:[facility] Start: 06-15-2023 End: 06-15-2023 Patient encounter procedure Chencho ALVARADO [facility] Start: 05-26-2023 End: 05-27-2023 ambulatory YOEL IGLESIAS Not Available Start: 05-11-2023 End: 05-11-2023 ambulatory YOEL IGLESIAS Not Available Start: 02-09-2022 End: 08-10-[address] YOEL IGLESIAS Facility: Start: 09-08-2021 End: 09-09-[address] YOEL IGLESIAS Facility:[facility] Procedures Date Procedure Procedure Detail Performing Clinician Complete hernia (mor phologic abnormality) Chencho ALVARADO Hysterectomy Chencho ALVARADO Immunizations Immunization Date Immunization Notes Care Provider Joaquín parkerelias 01-25-2020 influenza virus vaccine, unspecified formulation Chencho ALVARADO [facility] [place] Payers Date Payer Category Payer Medicaid [id number] 1980 Unknown [id number] 2.16.84 [id number] 1980 Unknown [id number] 2.16.84 [id number] 1980 Unknown [id number] 2.16.84 [id number] 1980 Unknown [id number] 2.16.84 [id number] 1980 Unknown [id number] 2.16.8 [id number] 1959 Unknown [id number] Social History Date Type Detail Facility Tobacco quit 7 years ago Tobacco Use:. Cigarettes [facility] Tobacco smoking status No Smoking Status Entered [facility] Sex Assigned At Female [facility] Functional Status Date Assessment Result Facility 06-15-2023 Functional Status N/A [facility] Discharge instructions 06-15-2023 Note Date & Type Note Facility 06-15-2023 Hospital Discharg e instructions Patient Education 06/15/2023 10:54:16 Kidney Stones, Jdru-pu-Faej Kidney Stones Kidney stones are rock-like masses that form inside of the kidneys. Kidneys are organs that make pee (urine). A kidney stone may move into other parts of the urinary tract, including: The tubes that connect the kidneys to the bladder (ureters). The bladder. The tube that carries urine out of the body (urethra). Kidney stones can cause very bad pain and can block the flow of pee. The stone usually leaves your body (passes) through your pee. You may need to have a doctor take out the stone. What are the causes? Kidney stones may be caused by: A condition in which certain glands make too much parathyroid hormone (primary hyperparathyroidism). A buildup of a type of crystals in the bladder made of a chemical called uric acid. The body makes uric acid when you eat certain foods. Narrowing (stricture) of one or both of the ureters. A kidney blockage that you were born with. Past surgery on the kidney or the ureters, such as gastric bypass surgery. What increases the risk? You are more likely to develop this condition if: You have had a kidney stone in the past. You have a family history of kidney stones. You do not drink enough water. You eat a diet that is high in protein, salt (sodium), or sugar. You are overweight or very overweight (obese). What are the signs or symptoms? Symptoms of a kidney stone may include: Pain in the side of the belly, right below the ribs (flank pain). Pain usually spreads (radiates) to the groin. Needing to pee often or right away (urgently). Pain when going pee (urinating). Blood in your pee (hematuria). Feeling like you may vomit (nauseous). Vomiting. Fever and chills. How is this treated? Treatment depends on the size, location, and makeup of the kidney stones. The stones will often pass out of the body through peeing. You may need to: Drink more fluid to help pass the stone. In some cases, you may be given fluids through an IV tube put into one of your veins at the hospital. Take medicine for pain. Make changes in your diet to help keep kidney stones from coming back. Sometimes, medical procedures are needed to remove a kidney stone. This may involve: A procedure to break up kidney stones using a beam of light (laser) or shock waves. Surgery to remove the kidney stones. Follow these instructions at home: Medicines Take oyca-aiw-mbxxlyq and prescription medicines only as told by your doctor. Ask your doctor if the medicine prescribed to you requires you to avoid driving or using heavy machinery. Eating and drinking Drink enough fluid to keep your pee pale yellow. You may be told to drink at least 8 10 glasses of water each day. This will help you pass the stone. If told by your doctor, change your diet. This may include: ?Limiting how much salt you eat. ?Eating more fruits and vegetables. ?Limiting how much meat, poultry, fish, and eggs you eat. Follow instructions from your doctor about eating or drinking restrictions. General instructions Collect pee samples as told by your doctor. You may need to collect a pee sample: ?24 hours after a stone comes out. ?8 12 weeks after a stone comes out, and every 6 12 months after that. Strain your pee every time you pee (urinate), for as long as told. Use the strainer that your doctor recommends. Do not throw out the stone. Keep it so that it can be tested by your doctor. Keep all follow-up visits as told by your doctor. This is important. You may need follow-up tests. How is this prevented? To prevent another kidney stone: Drink enough fluid to keep your pee pale yellow. This is the best way to prevent kidney stones. Eat healthy foods. Avoid certain foods as told by your doctor. You may be told to eat less protein. Stay at a healthy weight. Where to find more information National Kidney Foundation (NKF): www.kidney.org U[employer] Foundation (UCF): www.urologyhealth.org Contact a doctor if: You have pain that gets worse or does not get better with medicine. Get help right away if: You have a fever or chills. You get very bad pain. You get new pain in your belly (abdomen). You pass out (faint). You cannot pee. Summary Kidney stones are rock-like masses that form inside of the kidneys. Kidney stones can cause very bad pain and can block the flow of pee. The stones will often pass out of the body through peeing. Drink enough fluid to keep your pee pale yellow. This information is not intended to replace advice given to you by your health care provider. Make sure you discuss any questions you have with your health care provider. Document Revised: 12/15/2021 Document Reviewed: 12/15/2021 [employer] Patient Education 2022 [employer] Follow Up Care 06/08/2023 15:05:45 With:JENNY ARANGO, Chencho Oneal, URL Address: [address] [place] [address] [address]- When: Unknown Comments:IVP in 1-2wks [facility] Evaluation + Plan note Note Date & Type Note Facility Evaluation + Plan note No data available for this section [facility] Progress note Note Date & Type Note Facility Progress note No data available for this section [facility] Summary Purpose Family History No Family History Records FoundNo Family History Records Found No data available for this section No Family History Records Found Advance Directives No Advanced Directives Records FoundNo Advanced Directives Records FoundNo Advanced Directives Records Found Additional Source Comments INFORMATION SOURCE (unrecogn ized section and content) DATE CREATED AUTHOR 08/10/2022 [facility] DATE CREATED AUTHOR AUTHOR'S ORGANIZ ATION 05/30/2023 [facility] EPIC DATE CREATED AUTHOR AUTHOR'S ORGANIZ ATION 06/23/2023 [facility] Patient Care team informatio n (unrecognized section and content) Personnel Name: YOEL IGLESIAS MD Address: Address: [address] [place] [id number] FOR RECORDS PERTAINING TO PATIENTS WHO ARE [...] BE BASED ON THE PRIMARY CLINICAL RECORDS. [employer] provides no warranty or guarantee of the accuracy or completeness of information in this document.
--- NOTE | 2023-06-25 09:04 | XR_ITS ---
[address] [address] Patient Name: BEKAH RHODES MRN: [id number] date: 1980 Sex: F Assigned Patient Location: [place] Current Patient Location: [place] Accession/Order Number: [id number] Exam Date: 06/25/2023 09:20 Report Date: 06/25/2023 10:44 At the request of: SHERRIE ALVARADO Procedure: XR IVP w KUB EXAMINATION: XR IVP w KUB HISTORY: kidney stone COMPARISON: CT 05/21/2023, ultrasound 06/11/2023 TECHNIQUE: After obtaining patient consent a animal shelter worker image was obtained followed by injection of 100cc of Omnipaque 300 IV contrast. Immediate nephrographic images were obtained. Corticomedullary and urographic phase images were obtained at 5, 10, 15 and 20 minutes. 15 minute oblique images were also obtained. FINDINGS: KIDNEY/URETER - RIGHT: Extensive nephrolithiasis. KIDNEY/URETER - LEFT: No visible calcifications. PELVIS: Multiple right pelvic calcifications likely representing ureterolithiasis NEPHROGRAPHIC PHASE: Normal, symmetric size, contour, and orientation. Normal and symmetric time of contrast uptake. CORTICOMEDULLARY: No filling defect to suggest a mass. Multiple contrast filling lesions along the lower pole of the right kidney UROGRAPHIC PHASE: Normal caliber, course, and number of ureters. Filling defects in the distal right ureter consistent with ureterolithiasis BLADDER: Normal size and contour. BOWEL: No abnormal dilation or deviation. BONES: No acute abnormality. OTHER: Negative. No abnormal gaseous collections. XR/XR IVP w KUB IMPRESSION: Multiple distal right ureteroliths without hydronephrosis Extensive right nephrolithiasis Right lower pole renal parapelvic cysts/diverticula Electronically authenticated by: LINCOLN FAM Date: 06/25/2023 10:44
== END 2023-06-25 08:58 | disposition home or self-care (01) ==
LOC: FL 08:58
PROVIDERS: PCP Family Medicine; Visit Provider Urology
DX: N13.2 Hydronephrosis with renal and ureteral calculous obstruction (principal)
CPT/HCPCS: 74400; Q9967

== ENCOUNTER 2023-11-18 09:23 | Outpatient (OUT) | payer MEDICAID, SELFPAY ==
--- OUTSIDE RECORDS SUMMARY | 2023-11-18 09:28 | XMS_ITS | CCD ---
Author Organization [facility] Care Team Providers Care Oyster Bed Worker Name Role Phone HARRIS, DR YOEL Mcarthur [...] Referring Unavailable NADERER, YOEL Primary Care Physician COOK, Chencho P Attending Unavailable COOK, Chencho P Referring Unavailable COOK, Chencho P Attending Unavailable COOK, Chencho P Admitting Unavailable COOK, Chencho P Admitting Unavailable COOK, Chencho P Referring Unavailable COOK, Chencho P Attending Unavailable COOK, Chencho P Referring Unavailable COOK, Chencho P Attending Unavailable COOK, Chencho P Admitting Unavailable Allergies Allergy Classification Reported Allergen(s) Allergy Type Date of Onset Reaction(s) Facility (3 sources) Morphine; Translations: [morphine] Drug Allergy [facility] Repository (1 source) Penicillins Drug allergy (disorder) 3 [facility] Rep[facility] (1 source) Darvocet-N 100 Drug allergy (disorder) 3 [facility] (3 sources) Morphine; Translations: [morphine] Drug Allergy Unknown (qualifier value) [facility] (5 sources) NITROFURANTOIN, MACROCRYSTALS / Nitrofurantoin, Monohydrate; Translations: [nitrofurantoin] Drug Allergy Eruption of skin (disorder), Swelling (finding) [facility] (5 sources) Penicillin; Translations: [penicillin] Drug Allergy Pharyngeal swelling (finding) [facility] Medications Current Medications Medication Drug Class(es) Dates Sig (Normalized) Sig (Original) acetaminophen 325 mg / HYDROcodone bitartrate 5 mg oral tablet (1 source) Opioid Agonist Start: 4 End: 4 acetaminophen-hyd rocodone 325 mg-5 mg oral tablet 1 tab(s), Oral, q4hr Pain for 2 day(s), 7 tab(s), Refill(s) 0, [facility] #[id number], 147.4, cm, 10/27/23 13:16:00 EDT, Height/Length Dosing, 89.2, kg, 10/27/23 13:16:00 EDT, Weight Dosing Start Date: 11/11/23 Stop Date: 11/13/23 Status: Ordered ALPRAZolam 1 mg oral tablet (1 source) Benzodiazepine Start: 0 take 1 tablet by mouth three times daily as needed for anxiety Xanax 1 mg Tab 1 mg = 1 tab(s), Oral, TID, PRN for anxiety, Refills(s) 0 Start Date: 11/02/19 Status: Ordered ciprofloxacin 500 mg oral tablet (1 source) Quinolone Antimicrobial Start: 4 End: 4 take 1 tablet by mouth twice daily Cipro 500 mg Tab 500 mg = 1 tab(s), Oral, BID, X 5 day(s), # 10 tab(s), Refills(s) 0, Pharmacy: [facility] #[id number], 147.4, cm, 10/27/23 13:16:00 EDT, Height/Length Dosing, 89.2, kg, 10/27/23 13:16:00 EDT, Weight Dosing Start Date: 11/11/23 Stop Date: 11/16/23 Status: Ordered Lasix (1 source) Loop Diuretic Start: 0 Lasix Daily, Refills(s) 0 Start Date: 11/02/19 Status: Ordered Hair Skin and Nails (2 sources) Start: 4 take 1 tablet by mouth once daily Hair Skin and Nails 1 tab(s), Oral, Daily, Refill(s) 0 Start Date: 10/27/23 Status: Ordered hydroCHLOROthiazide 25 mg / lisinopril 20 mg oral tablet (1 source) Thiazide Diuretic, Angiotensin Converting Enzyme Inhibitor Start: 0 take 1 tablet by mouth once daily hydrochlorothiazi de-lisinopril 25 mg-20 mg Tab tab(s), Oral, Daily, Refill(s) 0 Start Date: 11/02/19 Status: Ordered hydrOXYzine hydrochloride 25 mg oral tablet (2 sources) Antihistamine Start: 4 hydrOXYzine hydrochloride 25 mg Tab 25 mg = 1 tab(s), Oral, PRN as needed for anxiety, Refills(s) 0, Anxiety Start Date: 10/27/23 Status: Ordered lamoTRIgine 150 mg oral tablet (3 sources) Mood Stabilizer, Anti-epileptic Agent Start: 4 take 1 tablet by mouth at bedtime lamotrigine 150 mg Tab 150 mg = 1 tab(s), Oral, Bedtime, Refills(s) 0, Other (see comment) Start Date: 10/27/23 Status: Ordered Start: 06-15-2023 take 1 mg by mouth twice daily Lamictal 25 mg Tab mg tab(s), Oral, BID, Refills(s) 0 Start Date: 06/15/23 Status: Ordered One-A-Day (2 sources) Start: 10-27-2023 take 2 tablets by mouth once daily One-A-Day 2 tab(s), Oral, Daily, Refill(s) 0 Start Date: 10/27/23 Status: Ordered oxybutynin chloride 5 mg oral tablet (1 source) Cholinergic Muscarinic Antagonist Start: 11-11-2023 End: 01-10-2024 take 1 tablet by mouth twice daily oxybutynin 5 mg Tab 5 mg = 1 tab(s), Oral, BID, X 30 day(s), # 60 tab(s), Refills(s) 1, Pharmacy: [facility] #[id number], 147.4, cm, 10/27/23 13:16:00 EDT, Height/Length Dosing, 89.2, kg, 10/27/23 13:16:00 EDT, Weight Dosing Start Date: 11/11/23 Stop Date: 01/10/24 Status: Ordered pantoprazole 40 mg oral granules (3 sources) Proton Pump Inhibitor Start: 06-15-2023 take 1 tablet by mouth twice daily Protonix 40 mg oral Granule 1 tab, Oral, BID, Refills(s) 0, Indigestion Start Date: 06/15/23 Status: Ordered Start: 06-15-2023 take 1 mg by mouth once daily Protonix 40 mg oral Granule mg EA, Oral, Daily, Refills(s) 0 Start Date: 06/15/23 Status: Ordered prazosin 1 mg oral capsule (2 sources) alpha-Adrenergic Eileen Start: 10-27-2023 take 1 capsule by mouth at bedtime prazosin 1 mg Cap 1 mg = 1 cap(s), Oral, Bedtime, Refills(s) 0, Other (see comment) Start Date: 10/27/23 Status: Ordered tamsulosin hydrochloride 0.4 mg oral capsule (2 sources) alpha-Adrenergic Eileen Start: 06-17-2023 take 1 capsule by mouth once daily tamsulosin 0.4 mg Cap 0.4 mg = 1 cap(s), Oral, Daily, # 30 cap(s), Refills(s) 0, Pharmacy: [facility] #[id number], 153, cm, 06/15/23 10:00:00 EST, Height/Length Dosing, 93.4, kg, 06/15/23 10:00:00 EST, Weight Dosing Start Date: 06/17/23 Status: Ordered traZODone hydrochloride 50 mg oral tablet (2 sources) Serotonin Reuptake Inhibitor Start: 10-27-2023 take 1 tablet by mouth once daily at bedtime traZODONE 50 mg Tab 50 mg = 1 tab(s), Oral, Once a day (at bedtime), Refills(s) 0, Insomnia Start Date: 10/27/23 Status: Ordered Viactiv Soft Calcium Chews (2 sources) Start: 10-27-2023 Viactiv Soft Calcium Chews 4, Chewed, Daily, Refill(s) 0 Start Date: 10/27/23 Status: Ordered Problems Active Problems Problem Classification Problem Date Documented Date Episodic/Chronic Abdominal pain (4 sources) Abdominal pain; Translations: [Unspecified abdominal pain] Onset: 06-15-2023 Episodic Anxiety disorders (4 sources) Anxiety; Translations: [Posttraumatic stress disorder] 10-27-2023 Chronic Calculus of urinary tract (10 sources) Kidney stone; Translations: [Calculus of kidney] Onset: 06-15-2023 Episodic Essential hypertension (3 sources) Hypertensive disorder 11-02-2019 Chronic Genitourinary symptoms and ill-defined conditions (3 sources) Urge incontinence of urine 07-23-2020 Chronic Genitourinary symptoms and ill-defined conditions (6 sources) Dysuria; Translations: [Incomplete emptying of bladder] 05-02-2020 Episodic Headache; including migraine (3 sources) Headache 11-02-2019 Episodic Mood disorders (3 sources) Depressive disorder 11-02-2019 Chronic Other diseases of kidney and ureters (1 source) Urinary tract obstruction; Translations: [Hydronephrosis with renal and ureteral calculous obstruction] Onset: 06-15-2023 Episodic Other diseases of kidney and ureters (3 sources) Cyst of kidney 05-02-2020 Episodic Spondylosis; intervertebral disc disorders; other back problems (4 sources) Other intervertebral disc degeneration, lumbar region; Translations: [OTH IV DISC DEGEN LUMBAR REGION] Onset: 09-08-2021 Chronic Unclassified (2 sources) CONTACT W/AND (SUSP) EXPOS COVID-19; Translations: [CONTACT W/AND (SUSP) EXPOS COVID-19] Onset: 03-12-2022 Unclassified (3 sources) Obstructive hydronephrosis 06-15-2023 Viral infection (1 source) COVID-19; Translations: [COVID-19] Onset: 03-12-2022 Past or Other Problems Problem Classification Problem Date Documented Da te Episodic/Chronic Unclassified (1 source) CONTACT W/AND (SUSP) EXPOS COVID-19; Translations: [CONTACT W/AND (SUSP) EXPOS COVID-19] Onset: 02-09-2022 Results Test Name Value Interpretation Reference Range Facility Main OR Intraoperative Recor don 11-12-2023 Main OR Intraoperative Record Main OR Intraoperative Record IntraOp Document Type FT Summary Primary Physician: Chencho ALVARADO MD Finalized Date/Time: 11/12/23 13:35:24 Pt. Name: JUNE RHODES/Sex: 1980 Female Med Rec #: [id number] Physician: Chencho ALVARADO MD Financial #: [id number] Pt. Type: A Room/Bed: 06/24 Admit/Disch: 11/11/23 09:03:11 - 11/11/23 16:16:29 Institution: Case Times FT Entry 1 Patient Times In Room 11/11/23 13:13:00 Out Room 11/11/23 13:51:00 Procedure Times Start 11/11/23 13:27:00 Stop 11/11/23 13:48:00 Anesthesia Times Start 11/11/23 13:13:00 Stop 11/11/23 13:51:00 Last Modified By: Pako CORTEZ, Kristie Lainez 11/11/23 13:52:02 General Comments: 11/12/23 Chart opened to review and send charges [facility] Case Attendance FT Entry 1 Entry 2 Entry 3 Case Attendee Betzy BARRON, Sonja ALVARADO MD, Chencho Bailey RN,Paige Brown Role Performed CAPTAIN'S ASSISTANT Surgeon - Primary Staff - Other Time In 11/11/23 13:13:00 11/11/23 13:13:00 11/11/23 13:13:00 Time Out 11/11/23 13:51:00 11/11/23 13:51:00 11/11/23 13:51:00 Procedure EXTRACORPOREAL SHOCK EXTRACORPOREAL SHOCK EXTRACORPOREAL SHOCK WAVE WAVE WAVE LITHOTRIPSY(Right), LITHOTRIPSY(Right), LITHOTRIPSY(Right), CYSTOSCOPY STENT CYSTOSCOPY STENT CYSTOSCOPY STENT INSERTION(Right) INSERTION(Right) INSERTION(Right) Comments Dr. Goss supervising orientation Last Modified By: Pako CORTEZ, Kristie Min RN, Kristie Min RN, Kristie Lainez 11/11/23 13:52:03 11/11/23 13:52:03 11/11/23 13:52:03 Entry 4 Entry 5 Case Attendee Pako CORTEZ, Parveen Yoder CST Role Performed Groundwater Consultant - Primary Scrub - Primary Time In 11/11/23 13:13:00 11/11/23 13:13:00 Time Out 11/11/23 13:51:00 11/11/23 13:51:00 Procedure EXTRACORPOREAL SHOCK EXTRACORPOREAL SHOCK WAVE WAVE LITHOTRIPSY(Right), LITHOTRIPSY(Right), CYSTOSCOPY STENT CYSTOSCOPY STENT INSERTION(Right) INSERTION(Right) Comments preceptor Last Modified By: Pako CORTEZ, Kristie Min RN, Kristie Lainez 11/11/23 13:52:03 11/11/23 13:52:03 Perioperative Protocols FT Pre-Care Text: Implements protective measures prior to operative or invasive procedure, confirms identity before the operative or invasive procedure, verifies operative procedure, surgical site, and laterality Entry 1 Procedure(s) EXTRACORPOREAL SHOCK Patient Identity Birthday, ID Band Check WAVE Verified (select at LITHOTRIPSY(Right), least 2): CYSTOSCOPY STENT INSERTION(Right) Consents / H and P Anesthesia Consent, Operative Site Present Verified HandP, Surgery/Procedure Marking Verified Consent Surgical Site Yes Laterality Verified Yes Verified Procedure Verified Yes Correct Patient Yes Position Verified Availability Equipment, Implant, Prep Dry n/a Verified (If Medication, X-ray Applicable) PreOp Antibiotic Yes Time Out Sonja Bo CRNA, Given Participants JENNY ARANGO, Lynn Lopez RN,Pako Cobb RN, Anitha Koehler CST, Beau Time Out Complete 11/11/23 13:26:00 Outcomes Met? Yes Last Modified By: Kristie Min RN 11/11/23 13:28:54 Post-Care Text: The patient is free from signs and symptoms of injury caused by extraneous objects Allergy Information FT Pre-Care Text: Verifies allergies Entry 1 Allergies Reviewed? Yes Allergies Reviewed Self/Patient With Outcomes Met? Yes Last Modified By: Paige Bailey RN 11/11/23 12:14:33 Post-Care Text: The patient received appropriate medication(s) safely administered during the perioperative period Surgical Procedures FT Entry 1 Entry 2 Procedure Description Procedure EXTRACORPOREAL SHOCK CYSTOSCOPY STENT WAVE LITHOTRIPSY INSERTION Modifiers Right Right Surgeon Description CYSTOSCOPY RIGHT ESWL CYSTOSCOPY RIGHT ESWL RIGHT STENT PLACEMENT RIGHT STENT PLACEMENT Primary Procedure Yes No Primary Surgeon JENNY ARANGO, Chencho ALVARADO MD, Chencho Oneal Start 11/11/23 13:27:00 11/11/23 13:27:00 Stop 11/11/23 13:48:00 11/11/23 13:48:00 Anesthesia Type General General Surgical Service Urology Urology Wound Class 1 - Clean 2 - Clean-Contaminated Last Modified By: Pako CORTEZ, Kristie Min RN, Kristie Lainez 11/11/23 13:57:50 11/11/23 13:57:50 General Case Data FT Pre-Care Text: Classifies surgical wound, implements aseptic technique, initiates traffic control Entry 1 Case Information OR OR 4 FT Case Level Level 3 Wound Class 2 - Clean-Contaminated Specialty Urology Preop Diagnosis KIDNEY STONE RIGHT Postop Same As Preop Yes Postop Diagnosis KIDNEY STONE RIGHT Outcomes Met? Yes Last Modified By: Kristie Min RN 11/11/23 13:36:23 Post-Care Text: The patient is free from signs and symptoms of infection Skin Assessment (Pre Procedure) FT Pre-Care Text: Implements protective measures to prevent skin/ tissue injury due to thermal or mechanical sources Evaluates for signs and symptoms of physical injury to skin and tissue Entry 1 Skin Integrity Intact, [place], Warm, and Skin Abnormality No Dry Outcomes Met? Yes Last Sandhya (more content not included)... [facility] XR Abdomen 1 Viewon 11-12-19 XR Abdomen 1 View Exam Date/Time: 11/11/2023 09:19 EDT Reason for Exam: Kidney stone Report IMPRESSION: Calcifications as discussed. EXAMINATION/TECHNIQU E: XR Abdomen 1 View HISTORY: Kidney stones. COMPARISON: None RESULT: 1 large calcification versus cluster of multiple calcifications projecting over the right kidney measuring around 1.8 cm. Few possible additional smaller right renal calculi. No distinct calcifications radiographically projecting over the left kidney, or expected course of the ureters. Nonspecific nondilated bowel gas pattern. Lung bases unremarkable. No acute osseous findings. Degenerative changes. Postsurgical material within the epigastric region. No other significant abnormality. Ordering Provider: Chencho ALVARADO FINAL REPORT Dictated: 11/12/2023 12:51 pm Ruddy Ocampo MD Signed (Electronic Signature): 11/12/2023 12:51 pm Signed by: Ruddy Ocampo MD Transcribed by: CRISTOPHER Technologist: JAELYN Technical Comments Radiation Dose: Ka,r in mGy = na DAP = na [facility] Discharge Instructionson Discharge Instructions Discharge Instructions JUNE RHODES Gerson :1980 Visit Date:11/11/2023 Inpatient Discharge Instructions Your Care Team Admitting Physician - Chencho ALVARADO MD Referring Physician - Chencho ALVARADO MD Reason for Your Visit KIDNEY STONE RIGHT Tests Performed XR Abdomen 1 View -- Results Pending -- Please visit your patient portal for your results or contact your primary care physician. This Is Your Medications List acetaminophen-hydroc odone (acetaminophen-hydro codone 325 mg-5 mg oral tablet) ciprofloxacin (Cipro 500 mg Tab) hydrOXYzine (hydrOXYzine hydrochloride 25 mg Tab) lamotrigine (lamotrigine 150 mg Tab) multivitamin (One-A-Day) multivitamin with minerals (Hair Skin and Nails) multivitamin with minerals (Viactiv Soft Calcium Chews) oxybutynin (oxybutynin 5 mg Tab) pantoprazole (Protonix 40 mg oral Granule) prazosin (prazosin 1 mg Cap) tamsulosin (tamsulosin 0.4 mg Cap) trazodone (traZODONE 50 mg Tab) Procedure History Gastric sleeve (2022), Complete hernia, Cyst of fallopian tube, Hysterectomy. What to do next Instructions From Your Doctor Event Name Event Result Discharge Activity Arrange for a responsible adult supervision for 24 hours, Expect mild pain, Expect minimal amount of drainage and/or bleeding Discharge Restrictions No driving, Do not operate machinery or tools, Do not make important decisions for 24 hours, Do not drink alcoholic beverages for 24 hours Discharge Diet(s) Regular Call Your Doctor For Persistent or heavy bleeding, Temperature above 101.5 degrees Discharge Instructions Discharge Instructions New Follow Up Appointments after Discharge Follow Up with Chencho ALVARADO When: Comments: Please call my office to speak with Elizabeth, she is my chief financial officer. Please asked to have the abdominal x-ray request sent to the hospital. Please get this x-ray towards the middle of next week so we can assess what the next step will be. Hopefully we will discuss that the neck step will be to remove the stent. There appears to be excellent fragmentation of your stone today. Please finish your antibiotics as we discussed and I did send prescription for some pain medications and some bladder spasm medications as well. Where: [facility] [address] [address]- Business (1) Medications What How Much When Instructions Next Dose New acetaminophen-hydroc odone (acetaminophen-hydro codone 325 mg-5 mg oral tablet) 1 Tablets By Mouth Every 4 hours as needed for Pain Duration: 2 Days Pickup at [email or web address] #[id number] New ciprofloxacin (Cipro 500 mg Tab) 1 Tablets By Mouth 2 times a day Duration: 5 Days Pickup at [email or web address] #[id number] New oxybutynin (oxybutynin 5 mg Tab) 1 Tablets By Mouth 2 times a day Duration: 30 Days Refills: 1 Pickup at [email or web address] #[email or web address] Unchanged hydrOXYzine (hydrOXYzine hydrochloride 25 mg Tab) 1 Tablets By Mouth As needed for as needed for anxiety Unchanged lamotrigine (lamotrigine 150 mg Tab) 1 Tablets By Mouth At bedtime Unchanged multivitamin (One-A-Day) 2 Tablets By Mouth Every day Unchanged multivitamin with minerals (Hair Skin and Nails) 1 Tablets By Mouth Every day Unchanged multivitamin with minerals (Viactiv Soft Calcium Chews) 4 Chewed Every day Unchanged pantoprazole (Protonix 40 mg oral Granule) 1 tab By Mouth 2 times a day Unchanged prazosin (prazosin 1 mg Cap) 1 Capsules By Mouth At bedtime Unchanged tamsulosin (tamsulosin 0.4 mg Cap) 1 Capsules By Mouth Every day Unchanged trazodone (traZODONE 50 mg Tab) 1 Tablets By Mouth Once a day (at bedtime) Pharmacy Information [email or web address] #[id number]: [address], [place] [id number] [phone] Test Results No qualifying data available. Allergies Macrobid (Rash, Swelling) morphine (Unknown) penicillin (Swelling of throat) Problems Ongoing - Any problem that you are currently receiving treatment for. Anxiety Depression Dysuria Flank pain Headache History of kidney stones Hypertension Incomplete bladder emptying Kidney stone PTSD (post-traumatic stress disorder) Renal cyst Ureteral stone Ureteral stone with hydronephrosis Urge incontinence Devices Implanted/Removed This Visit Notice: You have devices implanted this visit that may not be MRI compatible. Implanted CYSTOSCOPY STENT INSERTION Ureter R VALERIO URETERAL STENT CASCADE 4.9FR VARIABLE 11/11/2023 Education Materials Lithotripsy, Care After This sheet gives you information about how to care for yourself after your procedure. Your health care provider may also give you more specific instructions. If you have problems or questions, contact your health care provider. What can I expect after the procedure? After the procedure, it is common to have: ? Some blood in your urine. This should only last for a few days. ? Soreness in your back, sides, or upper abdomen for a few days. ? Bl (more content not included)... [facility] Comment on above: Result Comment: Elec tronically Signed By: Myrtle CORTEZ, Janene Rodriguez\.sophie\Date and Time Signed: 11/11/23 14:47 EDT Inpatient Patient Summaryon 11-11-2023 Inpatient Patient Summary Inpatient Patient Summary [address] [address] [facility] Clinical Discharge Instructions PERSON INFORMATION Name: JUNE RHODES [facility] Admitting Physician: Chencho ALVARADO MD Attending Physician: Chencho ALVARADO MD PCP: HARRIS ARANGO, YOEL Discharge Diagnosis: Comment: PATIENT EDUCATION INFORMATION Instructions: Lithotripsy, Care After Medication Leaflets: Follow up: With: Address: When: Chencho ALVARADO [address] [place] [address], [address], [place] [phone] Business (1) Comments: Please call my office to speak with Elizabeth, she is my chief financial officer. Please asked to have the abdominal x-ray request sent to the hospital. Please get this x-ray towards the middle of next week so we can assess what the next step will be. Hopefully we will discuss that the neck step will be to remove the stent. There appears to be excellent fragmentation of your stone today. Please finish your antibiotics as we discussed and I did send prescription for some pain medications and some bladder spasm medications as well. MEDICATION LIST New Medications [facility] #[id number], [address], [place] [phone], [phone] acetaminophen-hydroc odone (acetaminophen-hydro codone 325 mg-5 mg oral tablet) 1 Tablets By Mouth every 4 hours as needed Pain for 2 Days. Refills: 0. ciprofloxacin (Cipro 500 mg Tab) 1 Tablets By Mouth 2 times a day for 5 Days. Refills: 0. oxybutynin (oxybutynin 5 mg Tab) 1 Tablets By Mouth 2 times a day for 30 Days. Refills: 1. Medications to Continue with No Changes Other Medications hydrOXYzine (hydrOXYzine hydrochloride 25 mg Tab) 1 Tablets By Mouth as needed as needed for anxiety. lamotrigine (lamotrigine 150 mg Tab) 1 Tablets By Mouth at bedtime., restless leg multivitamin (One-A-Day) 2 Tablets By Mouth every day., bariatric multivitamin with minerals (Hair Skin and Nails) 1 Tablets By Mouth every day. multivitamin with minerals (Viactiv Soft Calcium Chews) 4 Chewed every day. pantoprazole (Protonix 40 mg oral Granule) 1 tab By Mouth 2 times a day. prazosin (prazosin 1 mg Cap) 1 Capsules By Mouth at bedtime., night terror tamsulosin (tamsulosin 0.4 mg Cap) 1 Capsules By Mouth every day. Refills: 0. trazodone (traZODONE 50 mg Tab) 1 Tablets By Mouth once a day (at bedtime). Comment: [facility] Main OR PACU I Recordon 10-24 Main OR PACU I Record Main OR PACU I Record PACU Phase I Document Type FT Summary Primary Physician: Chencho ALVARADO MD Finalized Date/Time: 11/11/23 14:56:51 Pt. Name: MEAGANJUNE/Sex: 1980 Female Med Rec #: [id number] Physician: Chencho ALVARADO MD Financial #: [id number] Pt. Type: A Room/Bed: Admit/Disch: 11/11/23 09:03:11 - Institution: Case Times PACU I FT Pre-Care Text: Identifies barriers to communication and implements measures to provide psychological support Develops individualized plan of care, and ensures continuity of care Maintains patient's dignity and privacy, and maintains patient confidentiality Identifies and reports philosophical, cultural, and spiritual beliefs and values Identifies individual values and wishes concerning care Implements aseptic technique, and administers prescribed antibiotic therapy and immunizing agents as ordered Evaluates postoperative tissue perfusion Implements thermoregulation measures, and monitors body temperature Evaluates postoperative respiratory status Evaluates postoperative cardiac status Evaluates postoperative neurological status Assesses pain control, collaborated in initiating patient-controlled analgesia and implements alternative methods of pain control Verifies allergies, administers prescribed medications and solutions, evaluates response to medications Entry 1 In PACU I 11/11/23 13:53:00 Discharge from PACU 11/11/23 14:23:00 I Outcomes Met? Yes Last Modified By: Nancy Galloway RN 11/11/23 14:56:11 Post-Care Text: The patient demonstrates knowledge of the expected response to the operative or invasive procedure The patient's care is consistent with the individualized perioperative plan of care The patient's right to privacy is maintained The patient's value system, lifestyle, ethnicity, and culture are considered, respected, and incorporated into the perioperative plan of care The patient participates in decisions affecting his or her perioperative plan of care The patient is free from signs and symptoms of infection The patient has wound/tissue perfusion consistent with or improved from baseline levels established preoperatively The patient is at or returning to normothermia at the conclusion of the immediate postoperative period The patient's respiratory function is consistent with or improved from baseline levels established preoperatively The patient's cardiovascular status is consistent with or improved from baseline levels established preoperatively The patient's cardiovascular status is consistent with or improved from baseline levels established preoperatively The patient demonstrates and/or reports adequate pain control throughout the perioperative period The patient received appropriate medication(s), safely administered during the perioperative period Acuity Level PACU I FT Entry 1 Start Time 11/11/23 13:53:00 Stop Time 11/11/23 14:23:00 Acuity Level Acuity Level I Last Modified By: Nancy Galloway RN 11/11/23 14:56:39 Finalized By: Nancy Galloway RN Document Signatures Signed By: Nancy Galloway RN 11/11/23 14:56 Nancy Galloway RN 11/11/23 14:56 Normal [facility] Main OR PACU II Recordon Main OR PACU II Record Main OR PACU II Record PACU Phase II Document Type FT Summary Primary Physician: Chencho ALVARADO MD Finalized Date/Time: 11/11/23 16:13:12 Pt. Name: JUNE RHODES/Sex: 1980 Female Med Rec #: [id number] Physician: Chencho ALVARADO MD Financial #: [id number] Pt. Type: A Room/Bed: Admit/Disch: 11/11/23 09:03:11 - Institution: Case Times PACU II FT Pre-Care Text: Identifies barriers to communication and implements measures to provide psychological support and determines knowledge level Develops individualized plan of care, and ensures continuity of care Maintains patient's dignity and privacy, and maintains patient confidentiality Identifies and reports philosophical, cultural, and spiritual beliefs and values Identifies individual values and wishes concerning care administers prescribed antibiotic therapy and immunizing agents as ordered, Evaluates postoperative tissue perfusion Implements thermoregulation measures, and monitors body temperature Evaluates postoperative respiratory status Evaluates postoperative cardiac status Evaluates postoperative neurological status Assesses pain control, collaborated in initiating patient-controlled analgesia and implements alternative methods of pain control Verifies allergies, administers prescribed medications and solutions, evaluates response to medications Entry 1 In PACU II 11/11/23 14:28:00 Discharge from PACU 11/11/23 15:48:00 II Outcomes Met? Yes Last Modified By: Janene Iraheta RN 11/11/23 16:13:11 Post-Care Text: The patient demonstrates knowledge of the expected response to the operative or invasive procedure The patient's care is consistent with the individualized perioperative plan of care The patient's right to privacy is maintained The patient's value system, lifestyle, ethnicity, and culture are considered, respected, and incorporated into the perioperative plan of care The patient participates in decisions affecting his or her perioperative plan of care. The patient is free from signs and symptoms of infection The patient has wound/tissue perfusion consistent with or improved from baseline levels established preoperatively The patient is at or returning to normothermia at the conclusion of the immediate postoperative period The patient's respiratory function is consistent with or improved from baseline levels established preoperatively The patient's cardiovascular status is consistent with or improved from baseline levels established preoperatively The patient's neurological status is consistent with or improved from baseline levels established preoperatively The patient demonstrates and/or reports adequate pain control throughout the perioperative period The patient received appropriate medication(s), safely administered during the perioperative period Finalized By: Janene Iraheta RN Document Signatures Signed By: Janene Iraheta RN 11/11/23 16:13 Normal [facility] Main OR Preoperative Recordo n 11-11-2023 Main OR Preoperative Record Main OR Preoperative Record PreOp Document Type FT Summary Primary Physician: Chencho ALVARADO MD Finalized Date/Time: 11/11/23 13:47:17 Pt. Name: JUNE RHODES /Sex: 1980 Female Med Rec #: [id number] Physician: Chencho ALVARADO MD Financial #: [id number] Pt. Type: A Room/Bed: Admit/Disch: 11/11/23 09:03:11 - Institution: Case Times PreOp FT Pre-Care Text: Verifies consent for planned procedure, identifies individual values and wishes concerning care, includes family members in perioperative teaching Entry 1 Patient Times. In Pre Surgery 11/11/23 09:05:00 Out Pre Surgery 11/11/23 13:11:00 Outcomes Met? Yes Last Modified By: Kristie Min RN 11/11/23 13:47:16 Post-Care Text: The patient participates in decisions affecting his or her perioperative plan of care Finalized By: Kristie Min RN Document Signatures Signed By: Kristie Min RN 11/11/23 13:47 Normal [facility] Operative Reporton Operative Report Operative Report Patient: JUNE RHODES Age: 43 years Sex: Female : 1980 Associated Diagnoses: None Author: Chencho ALVARADO MD Postoperative Information Date/ Time: 11/11/2023 13:44:00 Postoperative Diagnosis: Right renal calculus, 1.5 cm. Performed by: Chencho Alvarado MD.. Findings: Procedure: Cystoscopy Right double-J stent placement under fluoroscopic guidance ESWL right lower pole renal calculus Anesthesia: General, LMA, 2% Xylocaine jelly per urethra Indications: This is a 43-year-old female who presents for cystoscopy stent placement and lithotripsy of a large right lower pole stone. She states she passes stones all the time. Plan will be for cystoscopy, right stent, and ESWL of this large stone with the inherent risk of bleeding, infection, need for additional procedural intervention, heart and lung problems under anesthesia, stent pain and irritation, among others. She wishes to proceed. She did have preoperative antibiotics she does have sequential compression devices in place and functional bilateral lower extremities throughout the case. Procedure: The patient was brought back to the operating room and a timeout was performed. All are in agreement with the operative plan. After the successful induction of general anesthesia she is placed in a modified dorsolithotomy position on the Siemens litho-star lithotripsy table. She is prepped in usual fashion Betadine solution, draped appropriately. 2% Xylocaine jelly is placed per urethra and a well-lubricated 22 Korean is urethroscope with 30 degree lens then passed into the bladder without difficulty. Panendoscopy reveals no tumors, no stones, no diverticuli. Ureteral orifices are normal. No suspicious lesions. I was able to cannulate the right ureteral orifice with a point 035 guidewire and over that a 4.9 [place] Dornier double-J ureteral stent is then passed into the kidney. Upon removal of the wire there is good curl within the kidney and the urinary bladder. Bladder emptied and the scope was removed. She is repositioned into the supine position and the lithotripsy was initiated. A total of 3000 shocks were given up to level 5 per protocol. There appears to be excellent stone fragmentation of this large lower pole calculus. She tolerates it well. She is transferred [facility] and then back to PACU in satisfactory condition, stable vital signs. Plan to be for discharge home with plans to follow-up hopefully for stent removal after a KUB next week confirms adequate fragmentation. Discussed this postop with her family and she is in agreement with the plan. Antibiotic prescription as well as [place] as well as oxybutynin sent to the pharmacy. Antibiotic consists of Cipro 500 mg p.o. twice daily #10.. Estimated Blood Loss: 0 ml. Complications: None. Anesthesia type: General. Normal [facility] Comment on above: Result Comment: Elec tronically Signed By: Chencho ALVARADO MD\.br\Date and Time Signed: 11/11/23 13:48 EDT Outpatient Surgery Discharge Instructionon 11-11-2023 Outpatient Surgery Discharge Instruction Outpatient Surgery Discharge Instruction [address] [address] Patient Discharge Instructions PERSON INFORMATION Name: JUNE RHODES Date of : 1980 Current Date: 11/11/2023 13:44:41 PHYSICIANS Admitting Physician: Chencho ALVARADO MD Discharge Diagnosis: JUNE RHODES has been given the following list of follow-up instructions, prescriptions, and patient education materials: PATIENT FOLLOW-UP INFORMATION Diet: Regular Discharge Activity: Arrange for a responsible adult supervision for 24 hours, Expect mild pain, Expect minimal amount of drainage and/or bleeding Discharge Restrictions: No driving, Do not operate machinery or tools, Do not make important decisions for 24 hours, Do not drink alcoholic beverages for 24 hours Call Your Doctor For: Persistent or heavy bleeding, Temperature above 101.5 degrees IF UNABLE TO CONTACT YOUR PHYSICIAN AND YOU FEEL IT IS AN EMERGENCY, GO TO THE NEAREST EMERGENCY ROOM OR CALL [address] COURTNEY E, have received the attached patient education materials/instructio ns and have verbalized understanding: May we do a follow up call? Yes No I was present when discharge instructions were given Patient Signature Date Clinican/Nurse Signature Date Follow up: With: Address: When: Chencho ALVARADO [address] [place] [address], [address], [place] [address] Business (1) Comments: Please call my office to speak with Elizabeth, she is my chief financial officer. Please asked to have the abdominal x-ray request sent to the hospital. Please get this x-ray towards the middle of next week so we can assess what the next step will be. Hopefully we will discuss that the neck step will be to remove the stent. There appears to be excellent fragmentation of your stone today. Please finish your antibiotics as we discussed and I did send prescription for some pain medications and some bladder spasm medications as well. Pharmacy Information: You may receive a survey from [employer] asking you to rate your care experience. Your feedback is important and will help us understand what we do well and how we can improve the quality of care we provide to you, your loved ones and our community. It?s an honor to serve you. Thank you for choosing [facility] HERE ARE THE MEDICATION CHANGES THAT OCCURRED DURING YOUR HOSPITAL STAY New Medications [id number], [address], [place] [id number], [phone] acetaminophen-hydroc odone (acetaminophen-hydro codone 325 mg-5 mg oral tablet) 1 Tablets By Mouth every 4 hours as needed Pain for 2 Days. Refills: 0. ciprofloxacin (Cipro 500 mg Tab) 1 Tablets By Mouth 2 times a day for 5 Days. Refills: 0. oxybutynin (oxybutynin 5 mg Tab) 1 Tablets By Mouth 2 times a day for 30 Days. Refills: 1. Medications to Continue with No Changes Other Medications hydrOXYzine (hydrOXYzine hydrochloride 25 mg Tab) 1 Tablets By Mouth as needed as needed for anxiety. lamotrigine (lamotrigine 150 mg Tab) 1 Tablets By Mouth at bedtime., restless leg multivitamin (One-A-Day) 2 Tablets By Mouth every day., bariatric multivitamin with minerals (Hair Skin and Nails) 1 Tablets By Mouth every day. multivitamin with minerals (Viactiv Soft Calcium Chews) 4 Chewed every day. pantoprazole (Protonix 40 mg oral Granule) 1 tab By Mouth 2 times a day. prazosin (prazosin 1 mg Cap) 1 Capsules By Mouth at bedtime., night terror tamsulosin (tamsulosin 0.4 mg Cap) 1 Capsules By Mouth every day. Refills: 0. trazodone (traZODONE 50 mg Tab) 1 Tablets By Mouth once a day (at bedtime). PATIENT EDUCATION INFORMATION Instructions: Lithotripsy, Care After This sheet gives you information about how to care for yourself after your procedure. Your health care provider may also give you more specific instructions. If you have problems or questions, contact your health care provider. What can I expect after the procedure? After the procedure, it is common to have: ? Some blood in your urine. This should only last for a few days. ? Soreness in your back, sides, or upper abdomen for a few days. ? Blotches or bruises on the area where the shock wave entered the skin. ? Pain, discomfort, or nausea when pieces (fragments) of the kidney stone move through the tube that carries urine from the kidney to the bladder (ureter). Stone fragments may pass soon after the procedure, but they may continue to pass for up to 4?8 weeks. ? If you have severe pain or nausea, contact your health care provider. This may be caused by a large stone that was not broken up, and this may m (more content not included)... Normal [facility] BMPon 10-27-2023 Anion gap [Moles/Vol] 10 mmol/L Normal 6-16 [facility] Comment on above: Performed By: #### 2 [id number] #### [facility] [address] [place] [address] Calcium [Mass/Vol] 8.9 mg/dL Normal 8.9-11.1 [facility] Comment on above: Performed By: #### 2 [id number] #### [facility] [address] [place] [address] Chloride [Moles/Vol] 107 mmol/L Normal 101-111 [facility] Comment on above: Performed By: #### 2 [id number] #### [facility] [address] [place] [address] CO2 [Moles/Vol] 28 mmol/L Normal 21-31 [facility] Comment on above: Performed By: #### 2 [id number] #### [facility] [address] [place] [address] Creatinine [Mass/Vol] 0.7 mg/dL Normal 0.5-1.3 [facility] Comment on above: Performed By: #### 2 [id number] #### [facility] [address] [place] [address] Glucose [Mass/Vol] 81 mg/dL Normal 55-199 [facility] Comment on above: Performed By: #### 2 [id number] #### [facility] [address] [place] [address] Potassium [Moles/Vol] 4.2 mmol/L Normal 3.5-5.3 [facility] Comment on above: Performed By: #### 2 [id number] #### [facility] [address] [place] [address] Sodium [Moles/Vol] 141 mmol/L Normal 135-145 [facility] Comment on above: Performed By: #### 2 [id number] #### [facility] [address] [place] [address] Urea nitrogen [Mass/Vol] 18 mg/dL Normal 5-21 [facility] Comment on above: Performed By: #### 2 [id number] #### [facility] [address] [place] [address] Urea nitrogen/Creatinine [Mass ratio] 26 No Units High 10-20 [facility] Comment on above: Performed By: #### 2 [id number] #### [facility] [address] [place] [address] CBC w/ Auto Diffon 4 Basophils/100 WBC (Bld) 0.7 % Normal 0.0-2.0 [facility] Comment on above: Performed By: #### 2 [id number] #### [facility] [address] [place] [address] Basophils/Leukocytes Auto (Bld) [Pure # fraction] 0.0 E9/L Normal 0.0-0.2 [facility] Comment on above: Performed By: #### 2 [id number] #### [facility] [address] [place] [address] Eosinophils (Bld) [#/Vol] 0.2 E9/L Normal 0.0-0.5 [facility] Comment on above: Performed By: #### 2 [id number] #### [facility] [address] [place] [address] Eosinophils/100 WBC (Bld) 2.6 % Normal 0.0-8.0 [facility] Comment on above: Performed By: #### 2 [id number] #### [facility] [address] [place] [address] Erythrocyte distribution width (RBC) [Ratio] 13.5 % Normal 10.9-14.2 [facility] Comment on above: Performed By: #### 2 [id number] #### [facility] [address] [place] [address] Hematocrit (Bld) [Volume fraction] 39.3 % Normal 34.0-46.0 [facility] Comment on above: Performed By: #### 2 [id number] #### [facility] [address] [place] [address] Hemoglobin (Bld) [Mass/Vol] 13.9 g/dL Normal 12.0-16.0 [facility] Comment on above: Performed By: #### 2 [id number] #### [facility] [address] [place] [address] Lymphocytes (Bld) [#/Vol] 1.9 E9/L Normal 1.0-4.0 [facility] Comment on above: Performed By: #### 2 [id number] #### [facility] [address] [place] [address] Lymphocytes/100 WBC (Bld) 27.1 % Normal 14.0-50.0 [facility] Comment on above: Performed By: #### 2 [id number] #### [facility] [address] [place] [address] MCH (RBC) [Entitic mass] 29.7 pg Normal 27.0-34.0 [facility] Comment on above: Performed By: #### 2 [id number] #### [facility] [address] [place] [address] MCHC (RBC) [Mass/Vol] 35.3 g/dL Normal 31.4-36.0 [facility] Comment on above: Performed By: #### 2 [id number] #### [facility] [address] [place] [address] MCV (RBC) [Entitic vol] 84.2 fL Normal 80.0-100.0 [facility] Comment on above: Performed By: #### 2 [id number] #### [facility] [address] [place] [address] Monocytes (Bld) [#/Vol] 0.5 E9/L Normal 0.2-1.0 [facility] Comment on above: Performed By: #### 2 [id number] #### [facility] [address] [place] [address] Neutrophils (Bld) [#/Vol] 4.4 E9/L Normal 2.0-7.5 [facility] Comment on above: Performed By: #### 2 [id number] #### [facility] [address] [place] [address] Neutrophils/100 WBC (Bld) 62.1 % Normal 36.0-75.0 [facility] Comment on above: Performed By: #### 2 [id number] #### [facility] [address] [place] [address] Platelet 272.0 E9/L Normal 150.0-500.0 [facility] Comment on above: Performed By: #### 2 [id number] #### [facility] [address] [place] [address] Platelet mean volume (Bld) [Entitic vol] 9.8 fL Normal 6.4-10.8 [facility] Comment on above: Performed By: #### 2 [id number] #### [facility] [address] [place] [address] RBC (Bld) [#/Vol] 4.7 E12/L Normal 4.3-5.9 [facility] Comment on above: Performed By: #### 2 [id number] #### [facility] [address] [place] [address] WBC corrected for nucl RBC Auto (Bld) [#/Vol] 7.0 E9/L Normal 4.0-11.0 [facility] Comment on above: Performed By: #### 2 [id number] #### [facility] [address] [place] [address] CHEMISTRYOrdered By: SYSTEM SYSTEM on 10-27-2023 Anion gap [Moles/Vol] 10 mmol/L Normal 6 - 16 mEq/L R emisol Chem Calcium [Mass/Vol] 8.9 mg/dL Normal 8.9 - 11. 1 mg/dL [facility] Chloride [Moles/Vol] 107 mmol/L Normal 101 - 1 11 mmol/L [facility] CO2 [Moles/Vol] 28 mmol/L Normal 21 - 31 mmol/L [facility] Creatinine [Mass/Vol] 0.7 mg/dL Normal 0.5 - 1.3 mg/dL [facility] eGFR 108 mL/min/1.73 m2 Normal >=59mL/mi n/1. 73 m2 [facility] Glucose [Mass/Vol] 81 mg/dL Normal 55 - 199 mg/dL [facility] Potassium [Moles/Vol] 4.2 mmol/L Normal 3.5 - 5.3 mmol/L [facility] Sodium [Moles/Vol] 141 mmol/L Normal 135 - 145 mmol/L [facility] Urea nitrogen [Mass/Vol] 18 mg/dL Normal 5 - 21 mg/dL [facility] Urea nitrogen/Creatinine [Mass ratio] 26 mg/mg High 10 - 20 [facility] COAGULATIONOrdered By: Javi Warner on 10-27-2023 aPTT Coag (PPP) [Time] 39.3 s High 25.1 - 36.5 second(s) [facility] Comment on above: Interpretive Data: Jm urban 15 days - 4 weeks 1 - 5 months 6 - 11 months 1 - 5 years 6 - 10 years 11 - 17 years PTT Mean: 35.4 (27.6-45.6) Mean: 33.5 (24.8-40.7) Mean: 32.4 (25.1-40.7) Mean: 31.6 (24.0-39.2) Mean: 31.6 (26.9-38.7) Mean: 31.0 (24.6-38.4) Pediatric Reference ranges were obtained from a study by rosalind Deleon al. prepared from 1437 samples obtained at 7 different centers using the same coagulation reagent and instrumentation as [facility]. Currently there are no coagulation studies available worldwide for children to 14 days, and no normal ranges. Heparin therapeutic range (represented by Anti-Factor Xa activity of 0.2 - 0.4 U/mL) corresponds to PTT of 56.6 - 109.0 sec. INR Coag (PPP) [Relative time] 1.07 {INR} Invalid Interpretation Code [facility] Comment on above: Interpretive Data: I NR results are specifically intended to assess patients stabilized on long-term Anticoagulation therapy suggested INR s Less Intensive Anticoagulation 2.0 3.0 Conventional Range 3.0 4.5 PT Coag (PPP) [Time] 12.0 s Normal 9.4 - 1 2.5 second(s) [facility] Comment on above: Interpretive Data: 1 5 days - 4 weeks 1 - 5 months 6 -11 months 1 5 years 6 10 years 11 -17 years Mean: 11.2 (9.5 12.6) Mean: 11.0 (9.7 12.8) Mean: 11.0 (9.8 13.0) Mean: 11.3 (9.9 13.4) Mean: 11.7 (10.0 14.6) Mean: 11.8 (10.0 - 14.1) Pediatric Reference ranges were obtained from a study by rosalind Deleon al. prepared from 1437 samples obtained at 7 different centers using the same coagulation reagent and instrumentation as [facility]. Currently there are no coagulation studies available worldwide for children to 14 days, and no normal ranges. HEMATOLOGYOrdered By: SYSTEM SYSTEM on 10-27-2023 Basophils/100 WBC (Bld) 0.7 % Normal 0.0 - 2.0 % [facility] Basophils/Leukocytes Auto (Bld) [Pure # fraction] 0.0 E9/L Normal 0.0 - 0.2 E9/L [facility] Eosinophils (Bld) [#/Vol] 0.2 E9/L Normal 0.0 - 0.5 E9/L [facility] Eosinophils/100 WBC (Bld) 2.6 % Normal 0.0 - 8.0 % [facility] Erythrocyte distribution width (RBC) [Ratio] 13.5 % Normal 10.9 - 14.2 % [facility] Hematocrit (Bld) [Volume fraction] 39.3 % Normal 34.0 - 46.0 % [facility] Hemoglobin (Bld) [Mass/Vol] 13.9 g/dL Normal 12.0 - 16.0 gm/dL [facility] Lymphocytes (Bld) [#/Vol] 1.9 E9/L Normal 1.0 - 4.0 E9/L [facility] Lymphocytes/100 WBC (Bld) 27.1 % Normal 14.0 - 50.0 % [facility] MCH (RBC) [Entitic mass] 29.7 pg Normal 27.0 - 34.0 pg [facility] MCHC (RBC) [Mass/Vol] 35.3 g/dL Normal 31.4 - 36.0 gm/dL [facility] MCV (RBC) [Entitic vol] 84.2 fL Normal 80.0 - 100.0 fL [facility] Monocytes (Bld) [#/Vol] 0.5 E9/L Normal 0.2 - 1.0 E9/L [facility] Monocytes/100 WBC (Bld) 7.5 % Normal 4.0 - 14.0 % [facility] Neutrophils (Bld) [#/Vol] 4.4 E9/L Normal 2.0 - 7.5 E9/L [facility] Neutrophils/100 WBC (Bld) 62.1 % Normal 36.0 - 75.0 % [facility] Platelet 272.0 E9/L Normal 150.0 - 500.0 E9/L [facility] Platelet mean volume (Bld) [Entitic vol] 9.8 fL Normal 6.4 - 10.8 fL [facility] RBC (Bld) [#/Vol] 4.7 E12/L Normal 4.3 - 5.9 E12/L [facility] WBC corrected for nucl RBC Auto (Bld) [#/Vol] 7.0 E9/L Normal 4.0 - 11.0 E9/L [facility] PT & PTTon 10-27-2023 aPTT Coag (PPP) [Time] 39.3 second(s) High 25.1-36.5 [facility] Comment on above: Result Comment: Para meter 15 days - 4 weeks 1 - 5 months 6 - 11 months 1 - 5 years 6 - 10 years 11 - 17 years PTT Mean: 35.4 (27.6-45.6) Mean: 33.5 (24.8-40.7) Mean: 32.4 (25.1-40.7) Mean: 31.6 (24.0-39.2) Mean: 31.6 (26.9-38.7) Mean: 31.0 (24.6-38.4) Pediatric Reference ranges were obtained from a study by Cullen Mays et al. prepared from 1437 samples obtained at 7 different centers using the same coagulation reagent and instrumentation as [facility]. Currently there are no coagulation studies available worldwide for children to 14 days, and no normal ranges. Heparin therapeutic range (represented by Anti-Factor Xa activity of 0.2 - 0.4 U/mL) corresponds to PTT of 56.6 - 109.0 sec. Performed By: #### 1 [id number] ####[facility] [address] [place] [address] INR Coag (PPP) [Relative time] 1.07 {INR} Invalid Interpretation Code [facility] Comment on above: Result Comment: INR results are specifically intended to assess patients stabilized on long-term Anticoagulation therapy suggested INR?s ?Less Intensive Anticoagulation? 2.0 ? 3.0 Conventional Range 3.0 ? 4.5 Performed By: #### 1 [id number] ####[facility] [address] [place] [address] PT Coag (PPP) [Time] 12.0 second(s) Normal 9.4-12.5 [facility] Comment on above: Result Comment: 15 d ays - 4 weeks 1 - 5 months 6 -11 months 1 ? 5 years 6 ? 10 years 11 -17 years Mean: 11.2 (9.5 ? 12.6) Mean: 11.0 (9.7 ? 12.8) Mean: 11.0 (9.8 ? 13.0) Mean: 11.3 (9.9 ? 13.4) Mean: 11.7 (10.0 ? 14.6) Mean: 11.8 (10.0 - 14.1) Pediatric Reference ranges were obtained from a study by Cullen Mays et al. prepared from 1437 samples obtained at 7 different centers using the same coagulation reagent and instrumentation as [facility]. Currently there are no coagulation studies available worldwide for children to 14 days, and no normal ranges. Performed By: #### 1 [id number] ####[facility] [address] [place] [address] UA with Cult Rflxon 10-27-19 24 Bacteria Auto Ql (U) Trace Normal Trace [facility] Comment on above: Performed By: #### 4 [id number] #### [facility] [address] [place] [address] Bilirubin Ql (U) Negative Normal Negative [facility] Comment on above: Performed By: #### 4 [id number] #### [facility] [address] [place] [address] Clarity (U) Clear Normal Clear [facility] Comment on above: Performed By: #### 4 [id number] #### [facility] [address] [place] [address] Color (U) Light-Yellow Normal Yellow [facility] Comment on above: Result Comment: Micr oscopic readings are only performed on those samples that meet specific criteria set forth by [facility]. Performed By: #### 4 [id number] #### [facility] [address] [place] [address] Epithelial cells.squamous Auto (Urine sed) [#/Area] 0-2 Invalid Interpretation Code [facility] Comment on above: Performed By: #### 4 [id number] #### [facility] [address] [place] [address] Glucose Ql (U) Negative Normal Negative [place] [facility] Comment on above: Performed By: #### 4 [id number] #### [facility] [address] [place] [address] Hemoglobin Auto test strip (U) [Mass/Vol] Negative Normal Negative [facility] Comment on above: Performed By: #### 4 [id number] #### [facility] [address] [place] [address] Hyaline casts LM Ql (Urine sed) 0-3 Normal 0-3 [facility] Comment on above: Performed By: #### 4 [id number] #### [facility] [address] [place] [address] Ketones Auto test strip Ql (U) Negative Normal Negative [facility] Comment on above: Performed By: #### 4 [id number] #### [facility] [address] [place] [address] Leukocyte esterase Auto test strip Ql (U) 25 Pinky/uL Normal Negative [facility] Comment on above: Performed By: #### 4 [id number] #### [facility] [address] [place] [address] Mucus Auto Ql (U) Trace Normal Negative [facility] Comment on above: Performed By: #### 4 [id number] #### [facility] [address] [place] [address] Nitrite Auto test strip Ql (U) Negative Normal Negative [facility] Comment on above: Performed By: #### 4 [id number] #### [facility] [address] [place] [address] pH (U) 6.0 [pH] Invalid Interpretation Code 5.0-9.0 [facility] Comment on above: Performed By: #### 4 [id number] #### [facility] [address] [place] [address] Protein Ql (U) Negative Normal Negative [facility] Comment on above: Performed By: #### 4 [id number] #### [facility] [address] [place] [address] RBC Ql (U) 4-20 Abnormal 0-3 [facility] Comment on above: Performed By: #### 4 [id number] #### [facility] [address] [place] [address] Specific gravity (U) [Rel density] 1.025 Invalid Interpretation Code 1.005-1.030 [facility] Comment on above: Performed By: #### 4 [id number] #### [facility] [address] [id number] Urobilinogen (U) [Mass/Vol] Negative Normal Negative [facility] Comment on above: Performed By: #### 4 [id number] #### [facility] [address] [id number] WBC Auto (Urine sed) [#/Area] 0-5 Normal 0-5 [facility] Comment on above: Performed By: #### 4 [id number] #### [facility] [address] [id number] Type of Urine collection method Clean Catch Normal [facility] Comment on above: Performed By: #### 4 [id number] #### [facility] [address] [place] [address] URINALYSISOrdered By: SYSTEM SYSTEM on 10-27-2023 Bacteria Auto Ql (U) Trace /HPF Normal Trace/HPF [facility] UA Auto SS Bilirubin Ql (U) Negative Normal Negativemg/dL [facility] Auto SS Clarity (U) Clear (10/27/23 10:58 AM) Normal Clear [facility] UA Auto SS Color (U) Light-Yellow 1 (10/27/23 10:58 AM) Normal Yellow [facility] UA Auto SS Comment on above: Interpretive Data: M icroscopic readings are only performed on those samples that meet specific criteria set forth by [facility]. Epithelial cells.squamous Auto (Urine sed) [#/Area] 0-2 graded/HPF Invalid Interpretation Code [facility] UA Auto SS Glucose Ql (U) Negative Normal Negativemg/dL [facility] UA Auto SS Hemoglobin Auto test strip (U) [Mass/Vol] Negative Normal Negativemg/dL [facility] UA Aut o SS Hyaline casts LM Ql (Urine sed) 0-3 graded/LPF Normal 0-3graded/LPF [facility] UA Auto SS Ketones Auto test strip Ql (U) Negative Normal Negativemg/dL [facility] UA Auto SS Leukocyte esterase Auto test strip Ql (U) 25 Pinky/uL Pinky/uL Normal NegativeLeu/u L [facility] UA Auto SS Mucus Auto Ql (U) Trace graded/LPF Normal Negati vegrade d/LPF [facility] UA Auto SS Nitrite Auto test strip Ql (U) Negative Normal Negativemg/dL [facility] UA Auto SS pH (U) 6.0 *NA* (10/27/23 10:58 AM) Invalid Interpretation Code 5.0 - 9.0 [facility] UA Auto SS Protein Ql (U) Negative Normal Negativemg/dL [facility] UA Auto SS RBC Ql (U) 4-20 graded/HPF Invalid Interpretation Code 0-3graded/HPF [facility] UA Auto SS Specific gravity (U) [Rel density] 1.025 *NA* (10/27/23 10:58 AM) Invalid Interpretation Code 1.005 - 1.030 [facility] UA Auto SS Urobilinogen (U) [Mass/Vol] Negative Normal Negativemg/dL [facility] Auto SS WBC Auto (Urine sed) [#/Area] 0-5 graded/HPF Normal 0-5graded/HPF [facility] UA Auto SS URINALYSISOrdered By: Shayne Butler on 10-27-2023 UA Spec Desc Clean Catch (10/27/23 10:58 AM) Normal [facility] UA Auto SS eGFRon 10-27-2023 eGFR 108 mL/min/1.73 m2 Normal >=59 [facility] Comment on above: Order Comment: Order added by Discern Expert. Performed By: #### 1 [id number] #### [facility] [address] [place] [address] Provider Letteron 07-19-2023 Provider Letter July 19, 2023 JUNE RHODES [address] [place] [id number] : 1980 Dear June , We have been trying to reach you with no success. It is important that you return our call regarding your next kidney stone surgery upon receiving this letter. Also, at the time of your call, please provide us with your current information. Thank you for your prompt attention to this matter. Sincerely, Dr. Chencho Alvarado MD [facility] RAD - MISCon 06-25-2023 [facility] - MISC [id number] #1.00TIFF Normal [facility] Reportson 06-16-2023 Lab Reports [id number] #1.00TIFF Normal [facility] RAD - CT Reporton 06-16-2023 RAD - CT Report [id number] #1.00TIFF Normal [facility] RAD - Ultrasound Reporton RAD - Ultrasound Report [id number] #1.00TIFF Normal [facility] Ambulatory Visit Summaryon 0 06-15-2023 Ambulatory Visit Summary JUNE RHODES :1980 Visit Date:06/15/2023 Ambulatory Visit Instructions Your Diagnosis Ureteral stone with hydronephrosis Kidney stone Flank pain Tests Performed XR IVP -- Results Pending -- Please visit your patient portal for your results or contact your primary care physician. Your Care Team Attending Physician - Chencho ALVARADO MD Primary Care Physician - YOEL IGLESIAS MD [...] Schedule the Following Appointments Follow Up with Chencho ALVARADO MD, SHEA When: Comments: IVP in 1-2wks Where: [address] [place] [id number]- Medications What How Much When Instructions Unchanged [...] Follow th (more content not included)... Normal [facility] Patient Educationon 06-15-19 Patient Education Urology [...] these instructions at home: Medicines ? Take pesz-qnq-ycbdoir and prescription medicines only as told by [...] provider. Document Revised: 12/15/2021 Document Reviewed: 12/15/2021 [employer] Patient Education ? 2022 [employer]. [facility] Urology Office/Clinic Noteon 06-15-2023 Urology Office/Clinic Note Chief Complaint [facility] F/U for lower abdominal pain HPI Staff Pt is here for [facility] F/U CT abdominal pelvis wo con @ [facility] 05/21/23 CC lower abdominal pain Last OV was 07/23/20 Previous DX; Kidney stone, flank pain, microscopic hematuria, urge incontinence, hx kidney stones CT @ [facility] on 06/11/23 EMELI @ [facility] 06/11/23 Given Tamsulosin 0.4 mg qd at [facility] She did complete this no concerns with [...] Hydronephrosis with renal and ureteral calculous obstruction) [facility] ER visit 05/21/23 c/o bilateral lower abdominal [...] with voice recognition artificial intelligence software, specifically Tinitell, Vericant and or [employer] Response. Substitutions may have occurred due to the inherent limitations of voice recognition and artificial intelligence software. Follow-up With When Contact Information JENNY ARANGO, Chencho Oneal, URL [address] [employer] [address] [employer] [address] [address]- Additional Instructions: IVP in 1-2wks Patient Education Kidney Stones, Koim-fg-Ljqb Cleo Shaw, personally scribed for Dr. Alvarado on 06/15/2023 10:54:59. . Documentation recorded by the Cleo valenzuela (more content not included)... Normal [facility] Comment on above: Result Comment: Elec tronically Signed By: Chencho ALVARADO MD\.br\Date and Time Signed: 06/15/23 21:50 EST\.br\Electronically Co-Signed By: Cleo Bonner\.br\Date and Time Co-Signed: 06/15/23 10:55 EST RAD - MISCon 06-13-2023 RAD - MISC [id number] #1.00TIFF Normal [facility] RAD - Ultrasound Reporton RAD - Ultrasound Report [id number] #1.00TIFF Normal [facility] ED Note-Physicianon 06-08-19 ED Note-Physician [id number] #1.00TIFF Normal [facility] BI MAMMOGRAM SCREENING TOMOS YNTHESIS BILATERALon [...] IS VERY IMPORTANT TO YOUR HEALTH. THE [employer] GUIDELINES RECOMMEND THAT WOMEN 40 [...] Mccoy MD Normal Not Available [facility]24 SARS-CoV-2 (COVID-19) RNA JUDE+probe Ql (Unsp spec) Detected Critically abnormal NOT DETECTED [facility] Comment on above: Result Comment: This test is not yet approved or cleared by the [place] FDA. When there are no FDA-approved or cleared tests available, and other criteria are met, FDA can make tests available under an emergency access mechanism called an Emergency Use Authorization (EUA). The EUA for this test is supported by the Nuclear Equipment Research Engineer of Health and Human Service's (HHS's) declaration [...] longer be used). Performed By: #### C [facility] #### [facility] [address] [place] [address] Dr. Abdelrahman Chisholm XR LSPINE 2_3 VIEWSon [...] YOSVANY NEGRO Date: 2021-09-08 15:24 Normal [facility] Vital Signs Date Time Vital Sign Value Performing Clinician Facility 11-11-2023 15:43-0400 Heart rate 58 /min Chencho JENNY [facility] 11-11-2023 15:42-0400 Heart rate 47 /min Chencho COOK [facility] 11-11-2023 15:42-0400 SaO2% (BldA) [Mass fraction] 97 % Chencho COOK [facility] 11-11-2023 15:42-0400 Respiratory rate 16 /min Chencho COOK [facility] 11-11-2023 15:42-0400 Diastolic blood pressure 60 mm[Hg] Chencho COOK [facility] 11-11-2023 15:42-0400 Mean blood pressure 72 mm[Hg] Chencho COOK [facility] 11-11-2023 15:42-0400 Systolic blood pressure 97 mm[Hg] Chencho ALVARADO [facility] 11-11-2023 15:00-0400 Body temperature 97.88 [degF] Chencho ALVARADO [facility] 11-11-2023 14:29-0400 Heart rate 45 /min Chencho ALVARADO [facility] 11-11-2023 14:29-0400 SaO2% (BldA) [Mass fraction] 99 % Chencho ALVARADO [facility] 11-11-2023 14:28-0400 Diastolic blood pressure 71 mm[Hg] Chencho COOK [facility] 11-11-2023 14:28-0400 Mean blood pressure 83 mm[Hg] Chencho COOK [facility] 11-11-2023 14:28-0400 Systolic blood pressure 106 mm[Hg] Chencho COOK [facility] 11-11-2023 14:28-0400 Respiratory rate 16 /min Chencho ALVARADO [facility] 11-11-2023 14:18-0400 Blood Pressure Location Chencho ALVARADO [facility] 11-11-2023 14:18-0400 Body temperature 97.7 [degF] Chencho ALVARADO [facility] 11-11-2023 14:18-0400 Diastolic blood pressure 72 mm[Hg] Chencho ALVARADO [facility] 11-11-2023 14:18-0400 Respiratory rate 10 /min Chencho ALVARADO [facility] 11-11-2023 14:18-0400 SaO2% (BldA) [Mass fraction] 97 % Chencho ALVARADO [facility] 11-11-2023 14:18-0400 Systolic blood pressure 108 mm[Hg] Chencho ALVARADO [facility] 11-11-2023 14:08-0400 Blood Pressure Location Chencho ALVARADO [facility] 11-11-2023 14:08-0400 Respiratory rate 9 /min Chencho ALVARADO [facility] 11-11-2023 14:03-0400 Blood Pressure Location Chencho ALVARADO [facility] 11-11-2023 14:03-0400 Respiratory rate 10 /min Chencho ALVARADO [facility] 11-11-2023 13:53-0400 Body temperature 97.52 [degF] Chencho ALVARADO [facility] 11-11-2023 09:25-0400 Mean blood pressure 72 mm[Hg] Chencho ALVARADO [facility] 11-11-2023 09:25-0400 Respiratory rate 18 /min Chencho ALVARADO [facility] 11-11-2023 09:25-0400 Heart rate 56 /min Chencho ALVARADO [facility] 11-11-2023 09:24-0400 Body temperature 97.7 [degF] Chencho COOK [facility] 10-27-2023 10:35-0400 Blood Pressure Location Chencho ALVARADO [facility] 10-27-2023 10:35-0400 Diastolic blood pressure 80 mm[Hg] Chencho ALVARADO [facility] 10-27-2023 10:35-0400 Heart rate 79 /min Chencho ALVARADO [facility] 10-27-2023 10:35-0400 Mean blood pressure 94 mm[Hg] Chencho ALVARADO [facility] 10-27-2023 10:35-0400 Systolic blood pressure 120 mm[Hg] Chencho ALVARADO [facility] 10-27-2023 10:34-0400 Heart rate 75 /min Chencho ALVARADO [facility] 10-27-2023 10:34-0400 SaO2% (BldA) [Mass fraction] 98 % Chencho ALVARADO [facility] 10-27-2023 10:34-0400 Respiratory rate 18 /min Chencho ALVARADO [facility] 10-27-2023 10:34-0400 Blood Pressure Location Chencho ALVARADO [facility] 10-27-2023 10:34-0400 Diastolic blood pressure 79 mm[Hg] Chencho ALVARADO [facility] 10-27-2023 10:34-0400 Mean blood pressure 96 mm[Hg] Chencho ALVARADO [facility] 10-27-2023 10:34-0400 Systolic blood pressure 129 mm[Hg] Chencho ALVARADO [facility] 10-27-2023 10:34-0400 Body temperature 98.78 [degF] Chencho ALVARADO [facility] 06-15-2023 09:59-0500 Blood Pressure Location Chencho ALVARADO [facility] 06-15-2023 09:59-0500 Diastolic blood pressure 84 mm[Hg] Chencho ALVARADO [facility] 06-15-2023 09:59-0500 Systolic blood pressure 124 mm[Hg] Chencho ALVARADO [facility] Encounters Encounter Date Encounter Type Care Provider Facility Start: 11-11-2023 End: 11-11-2023 Admission to same day surgery center Chencho Jm ALVARADO [facility] Start: 11-11-2023 End: 11-11-2023 ambulatory Chencho ALVARADO [place] Start: 10-27-2023 End: 10-27-2023 ambulatory Chencho ALVARADO [facility] Start: 10-27-2023 End: 10-27-2023 Patient encounter procedure Chencho ALVARADO [facility] Start: 06-15-2023 End: 06-15-2023 ambulatory Chencho ALVARADO Facility:[facility] Start: 06-15-2023 End: 06-15-2023 Patient encounter procedure Chencho ALVARADO [facility] Start: 05-26-2023 End: 05-27-2023 ambulatory YOEL IGLESIAS Not Available Start: 05-11-2023 End: 05-11-2023 ambulatory YOEL IGLESIAS Not Available Start: 02-09-2022 End: 08-10-[address] YOEL IGLESIAS Facility:[facility] Start: 09-08-2021 End: 09-09-[address] YOEL IGLESIAS Facility:[facility] Procedures Date Procedure Procedure Detail Performing Clinician Start: 11-11-2023 Extracorporeal shock wave lithotripsy of calculus of kidney [facility] Start: 04-26-2022 Gastric sleeve [facility] Complete hernia (morphologic abnormality) [facility] Cyst of fallopian tu be (disorder) [facility] Hysterectomy [facility] Immunizations Immunization Date Immunization Notes Care Provider Fa arianna 01-25-2020 influenza virus vaccine, unspecified formulation [facility] Payers Date Payer Category Payer Medicaid [id number] 1980 Unknown [id number] 2.16.84 [id number] 1980 Unknown [id number] 2.16.84 [id number] 1980 Unknown [id number] 2.16.84 [id number] 1980 Unknown [id number] 2.16.84 [id number] 1980 Unknown [id number] 2.16.8 [id number] 1980 Unknown [id number] 2.16.8 [id number] 1980 Unknown [id number] 2.16.8 [id number] 1961 Unknown [id number] Social History Date Type Detail Facility Tobacco quit 7 years ago Tobacco Use:. Cigarettes [facility] Tobacco smoking status No Smoking Status Entered [facility] Sex Assigned At Female [facility] Medical Equipment Procedure Code Equipment Code Equipment Origin al Text Equipment Identifier Dates CYSTOSCOPY STENT INSERTION Chencho ALVARADO MD 11/11/23 Unknown Ureter R FDA Start: 11-11-2023 Functional Status Date Assessment Result Facility 10-27-2023 Functional Status No [facility] 06-15-2023 Functional Status N/A [facility] 11-11-2023 Note Date & Type Note Facility 11-11-2023 Hospital Discharg e instructions Patient Education 11/11/2023 14:46:10 Post Op Patient Instructions - FT (CUSTOM) 11/11/2023 13:40:14 Lithotripsy, Care After Lithotripsy, Care After This sheet gives you information about how to care for yourself after your procedure. Your health care provider may also give you more specific instructions. If you have problems or questions, contact your health care provider. What can I expect after the procedure? After the procedure, it is common to have: Some blood in your urine. This should only last for a few days. Soreness in your back, sides, or upper abdomen for a few days. Blotches or bruises on the area where the shock wave entered the skin. Pain, discomfort, or nausea when pieces (fragments) of the kidney stone move through the tube that carries urine from the kidney to the bladder (ureter). Stone fragments may pass soon after the procedure, but they may continue to pass for up to 4 8 weeks. ?If you have severe pain or nausea, contact your health care provider. This may be caused by a large stone that was not broken up, and this may mean that you need more treatment. Some pain or discomfort during urination. Some pain or discomfort in the lower abdomen or (in men) at the base of the penis. Follow these instructions at home: Medicines Take qjfr-ssh-yzmkjsg and prescription medicines only as told by your health care provider. If you were prescribed an antibiotic medicine, take it as told by your health care provider. Do not stop taking the antibiotic even if you start to feel better. Ask your health care provider if the medicine prescribed to you requires you to avoid driving or using machinery. Eating and drinking Drink enough fluid to keep your urine pale yellow. This helps any remaining pieces of the stone to pass. It can also help prevent new stones from forming. Eat plenty of fresh fruits and vegetables. Follow instructions from your health care provider about eating or drinking restrictions. You may be instructed to: ?Reduce how much salt (sodium) you eat or drink. Check ingredients and nutrition facts on packaged foods and beverages to see how much sodium they contain. ?Reduce how much meat you eat. Eat the recommended amount of calcium for your age and gender. Ask your health care provider how much calcium you should have. General instructions Get plenty of rest. Return to your normal activities as told by your health care provider. Ask your health care provider what activities are safe for you. Most people can resume normal activities 1 2 days after the procedure. If you were given a sedative during the procedure, it can affect you for several hours. Do not drive or operate machinery until your health care provider says that it is safe. Your health care provider may direct you to lie in a certain position (postural drainage) and tap firmly (percuss) over your kidney area to help stone fragments pass. Follow instructions as told by your health care provider. If directed, strain all urine through the strainer that was provided by your health care provider. ?Keep all fragments for your health care provider to see. Any stones that are found may be sent to a medical lab for examination. The stone may be as small as a grain of salt. Keep all follow-up visits as told by your health care provider. This is important. Contact a health care provider if: You have a fever or chills. You have nausea that is severe or does not go away. You have any of these urinary symptoms: ?Blood in your urine for longer than your health care provider told you to expect. ?Urine that smells bad or unusual. ?Feeling a strong urge to urinate after emptying your bladder. ?Pain or burning with urination that does not go away. ?Urinating more often than usual and this does not go away. You have a stent and it comes out. Get help right away if: You have severe pain in your back, sides, or upper abdomen. You have any of these urinary symptoms: ?Severe pain while urinating. ?More blood in your urine or having blood in your urine when you did not before. ?Passing blood clots in your urine. ?Passing only a small amount of urine or being unable to pass any urine at all. You have severe nausea that leads to persistent vomiting. You faint. Summary After this procedure, it is common to have some pain, discomfort, or nausea when pieces (fragments) of the kidney stone move through the tube that carries urine from the kidney to the bladder (ureter). If this pain or nausea is severe, however, you should contact your health care provider. Return to your normal activities as told by your health care provider. Ask your health care provider what activities are safe for you. Drink enough fluid to keep your urine pale yellow. This helps any remaining pieces of the stone to pass, and it can help prevent new stones from forming. If directed, strain your urine and keep all fragments for your health care provider to see. Fragments or stones may be as small as a grain of salt. Get help right away if you have severe pain in your back, sides, or upper abdomen, or if you have severe pain while urinating. This information is not intended to replace advice given to you by your health care provider. Make sure you discuss any questions you have with your health care provider. Document Revised: 03/09/2022 Document Reviewed: 12/15/2021 [employer] Patient Education 2022 [employer]. Follow Up Care 09/15/2023 10:32:08 With:Chencho ALVARADO Address: [address] [id number] [facility] (1) When: Unknown Comments:Please call my office to speak with Elizabeth, she is my chief financial officer. Please asked to have the abdominal x-ray request sent to the hospital. Please get this x-ray towards the middle of next week so we can assess what the next step will be. Hopefully we will discuss that the neck step will be to remove the stent. There appears to be excellent fragmentation of your stone today.Please finish your antibiotics as we discussed and I did send prescription for some pain medications and some bladder spasm medications as well. [facility] Clinical Note 11-11-2023 Note Date & Type Note Facility 11-11-2023 Note Patient Education - Text Nephrology Lithotripsy, Care After This sheet gives you information about how to care for yourself after your procedure. Your health care provider may also give you more specific instructions. If you have problems or questions, contact your health care provider. What can I expect after the procedure? After the procedure, it is common to have: ? Some blood in your urine. This should only last for a few days. ? Soreness in your back, sides, or upper abdomen for a few days. ? Blotches or bruises on the area where the shock wave entered the skin. ? Pain, discomfort, or nausea when pieces (fragments) of the kidney stone move through the tube that carries urine from the kidney to the bladder (ureter). Stone fragments may pass soon after the procedure, but they may continue to pass for up to 4?8 weeks. ? If you have severe pain or nausea, contact your health care provider. This may be caused by a large stone that was not broken up, and this may mean that you need more treatment. ? Some pain or discomfort during urination. ? Some pain or discomfort in the lower abdomen or (in men) at the base of the penis. Follow these instructions at home: Medicines ? Take plqo-mut-brzehqm and prescription medicines only as told by your health care provider. ? If you were prescribed an antibiotic medicine, take it as told by your health care provider. Do not stop taking the antibiotic even if you start to feel better. ? Ask your health care provider if the medicine prescribed to you requires you to avoid driving or using machinery. Eating and drinking ? Drink enough fluid to keep your urine pale yellow. This helps any remaining pieces of the stone to pass. It can also help prevent new stones from forming. ? Eat plenty of fresh fruits and vegetables. ? Follow instructions from your health care provider about eating or drinking restrictions. You may be instructed to: ? Reduce how much salt (sodium) you eat or drink. Check ingredients and nutrition facts on packaged foods and beverages to see how much sodium they contain. ? Reduce how much meat you eat. ? Eat the recommended amount of calcium for your age and gender. Ask your health care provider how much calcium you should have. General instructions ? Get plenty of rest. ? Return to your normal activities as told by your health care provider. Ask your health care provider what activities are safe for you. Most people can resume normal activities 1?2 days after the procedure. ? If you were given a sedative during the procedure, it can affect you for several hours. Do not drive or operate machinery until your health care provider says that it is safe. ? Your health care provider may direct you to lie in a certain position (postural drainage) and tap firmly (percuss) over your kidney area to help stone fragments pass. Follow instructions as told by your health care provider. ? If directed, strain all urine through the strainer that was provided by your health care provider. ? Keep all fragments for your health care provider to see. Any stones that are found may be sent to a medical lab for examination. The stone may be as small as a grain of salt. ? Keep all follow-up visits as told by your health care provider. This is important. Contact a health care provider if: ? You have a fever or chills. ? You have nausea that is severe or does not go away. ? You have any of these urinary symptoms: ? Blood in your urine for longer than your health care provider told you to expect. ? Urine that smells bad or unusual. ? Feeling a strong urge to urinate after emptying your bladder. ? Pain or burning with urination that does not go away. ? Urinating more often than usual and this does not go away. ? You have a stent and it comes out. Get help right away if: ? You have severe pain in your back, sides, or upper abdomen. ? You have any of these urinary symptoms: ? Severe pain while urinating. ? More blood in your urine or having blood in your urine when you did not before. ? Passing blood clots in your urine. ? Passing only a small amount of urine or being unable to pass any urine at all. ? You have severe nausea that leads to persistent vomiting. ? You faint. Summary ? After this procedure, it is common to have some pain, discomfort, or nausea when pieces (fragments) of the kidney stone move through the tube that carries urine from the kidney to the bladder (ureter). If this pain or nausea is severe, however, you should contact your health care provider. ? Return to your normal activities as told by your health care provider. Ask your health care provider what activities are safe for you. ? Drink enough fluid to keep your urine pale yellow. This helps any remaining pieces of the stone to pass, and it can help prevent ne (more content not included)... [facility] Discharge instructions 06-15-2023 Note Date & Type Note Facility 06-15-2023 Hospital Discharg e instructions Patient Education 06/15/2023 10:54:16 Kidney Stones, [id number] Kidney Stones Kidney stones are rock-like masses [...] Follow these instructions at home: Medicines Take [id number] and prescription medicines only as told by [...] provider. Document Revised: 12/15/2021 Document Reviewed: 12/15/2021 [employer] Patient Education 2022 [employer]. Follow Up Care 06/08/2023 15:05:45 With:JENNY ARANGO, Chencho Oneal, URL Address: [address] [place], [place] [id number]- When: Unknown Comments:IVP in 1-2wks [facility] Evaluation + Plan note Note Date & Type Note Facility Evaluation + Plan note No data available for this section [facility] Evaluation + Plan note Note Date & Type Note Facility Evaluation + Plan note Future Appointments Appointment Date:11/11/2023 11:15:00 AM Scheduled Provider: Location:[facility] Appointment Type:Surgery [facility] Hospital Discharge instructions Note Date & Type Note Facility Hospital Discharge instructions No data available for this section [facility] Progress note Note Date & Type Note Facility Progress note No data available for this section [facility] Summary Purpose Family History No Family History Records FoundNo Family History Records Found No data available for this section No data available for this section No Family History Records FoundNo Family History [...] content) DATE CREATED AUTHOR 08/10/2022 [facility] DATE CREATED AUTHOR AUTHOR'S ORGANIZ ATION 05/30/2023 [facility] EPIC DATE CREATED AUTHOR AUTHOR'S ORGANIZ ATION 10/28/2023 [facility] DATE CREATED AUTHOR AUTHOR'S ORGANIZ ATION 11/18/2023 [facility] Patient Care team informatio n (unrecognized section and content) Personnel Name: YOEL IGLESIAS MD Address: Address: [address] [place] [address] Personnel Name: YOEL IGLESIAS MD Address: Address: [address] [place] [address] Personnel Name: YOEL IGLESIAS MD Address: Address: [address] [place] [address] FOR RECORDS PERTAINING TO PATIENTS WHO ARE [...] BE BASED ON THE PRIMARY CLINICAL RECORDS. [facility] [employer] [facility]. provides no warranty or guarantee of the accuracy or completeness of information in this document.
--- NOTE | 2023-11-18 09:29 | XR_ITS ---
The [address] [address] Patient Name: BEKAH RHODES MRN: [id number] date: 1980 Sex: F Assigned Patient Location: RAD Current Patient Location: [facility] Accession/Order Number: [id number] Exam Date: 11/18/2023 09:30 Report Date: 11/18/2023 13:25 At the request of: SHERRIE ALVARADO Procedure: XR abdomen 1V EXAMINATION: XR abdomen 1V HISTORY: Kidney Stones N20.0 COMPARISON: 06/11/2023 FINDINGS: KIDNEY/URETER - RIGHT: Decreased and right nephrolithiasis. Right double-J ureteral stent in normal position KIDNEY/URETER - LEFT: No visible renal or ureteral calcifications. PELVIS: No visible ureteral calcifications. Any visible calcifications favor phleboliths. BOWEL: No abnormal dilation or deviation. BONES: No acute abnormality. OTHER: Negative. No abnormal gaseous collections. XR/XR abdomen 1V IMPRESSION: Right ureteral stent with nephrolithiasis Electronically authenticated by: [facility] Date: 11/18/2023 13:25
== END 2023-11-18 09:24 | disposition home or self-care (01) ==
LOC: RAD 09:24
PROVIDERS: PCP Family Medicine; Visit Provider Urology
DX: N20.0 Calculus of kidney (principal); Z96.0 Presence of urogenital implants
CPT/HCPCS: 74018

== ENCOUNTER 2024-03-01 12:51 | Outpatient (RCR) | payer MEDICAID, SELFPAY | END 2024-03-18 13:50 | disposition home or self-care (01) | LOC: PT 12:51 | PROVIDERS: PCP Family Medicine; Visit Provider Family Medicine | DX: M54.50 Low back pain, unspecified (principal) | CPT/HCPCS: 97113; 97162 ==

== ENCOUNTER 2024-06-24 09:22 | Emergency (ER) | payer MEDICAID, SELFPAY ==
--- OUTSIDE RECORDS SUMMARY | 2024-06-24 09:33 | XMS_ITS | CCD ---
Author Organization [facility] Care Team Providers Care Medical Insurance Clerk Name Role Phone HARRIS, DR HANY Mcarthur Admitting Unavailable NADERER, DR HANY Mcarthur Attending Unavailable NADERER, DR HANY Mcarthur Primary Care Unavailable ZIEBER, DR YOSVANY Adames Consulting Unavailable NADERER, DR HANY Mcarthur Consulting Unavailable NADERER, DR HANY Mcarthur Admitting Unavailable NADERER, DR HANY Mcarthur Attending Unavailable NADERER, DR HANY Mcarthur Primary Care Unavailable NADERER, DR HANY Mcarthur Consulting Unavailable NADEREZacarias, HANY Primary Care Physician Chencho HANEY Attending Unavailable COOK, Chencho P Referring Unavailable COOK, Chencho P Attending Unavailable COOK, Chencho P Admitting Unavailable Naderer Hany ARANGO Primary Care Provider Chencho HANEY P Admitting Unavailable COOK, Chencho P Attending Unavailable COOK, Chencho P Referring Unavailable COOK, Chencho P Admitting Unavailable COOK, Chencho P Attending Unavailable COOK, Chencho P Referring Unavailable COOK, Chencho P Admitting Unavailable COOK, Chencho P Attending Unavailable COOK, Chencho P Referring Unavailable Jaycee Khanna Attending Unavailable Madi PMHNP-BC, Rosina Unavailable Lyndon ARANGO, Chencho P Unavailable [phone] 1 HANY IGLESIAS Attending Unavailable NADERER, HANY Attending Unavailable BARRAZAROSINA CHENG Attending Unavailable NADERER, HANY Referring Unavailable NADERER, HANY Attending Unavailable NADERER, HANY Attending Unavailable NADERER, HANY Attending Unavailable Allergies Allergy Classification Reported Allergen(s) Allergy Type Date of Onset Reaction(s) Facility (3 sources) Morphine; Translations: [morphine] Drug Allergy [facility] (1 source) Penicillins Drug allergy (disorder) 3 [facility] (1 source) Darvocet-N 100 Drug allergy (disorder) 3 [facility] (4 sources) Morphine; Translations: [morphine] Drug Allergy Unknown (qualifier value) [facility] (6 sources) NITROFURANTOIN, MACROCRYSTALS / Nitrofurantoin, Monohydrate; Translations: [nitrofurantoin] Drug Allergy Eruption of skin (disorder), Swelling (finding) [facility] (6 sources) Penicillin; Translations: [penicillin] Drug Allergy Pharyngeal swelling (finding) [facility] (20 sources) Ciprofloxacin; Translations: [ciprofloxacin] Drug Allergy 4 Eruption of skin (disorder) [facility] (19 sources) Morphine Drug Allergy 4 [facility] (19 sources) Penicillins Propensity to adverse reactions 4 [facility] (3 sources) fentaNYL Drug Allergy 5 Other [facility] (3 sources) venlafaxine Drug Allergy 5 GI intolerance [facility] Medications Current Medications Medication Drug Class(es) Dates Sig (Normalized) Sig (Original) acetaminophen 325 mg / HYDROcodone bitartrate 5 mg oral tablet (1 source) Opioid Agonist Start: 11-11-2023 End: 11-13-2023 acetaminophen-hyd rocodone 325 mg-5 mg oral tablet 1 tab(s), Oral, q4hr Pain for 2 day(s), 7 tab(s), Refill(s) 0, [id number], 147.4, cm, 10/27/23 13:16:00 EDT, Height/Length Dosing, 89.2, kg, 10/27/23 13:16:00 EDT, Weight Dosing Start Date: 11/11/23 Stop Date: 11/13/23 Status: Ordered acetaminophen 325 mg / oxyCODONE hydrochloride 5 mg oral tablet (20 sources) Opioid Agonist Start: 06-22-2024 End: 07-22-2024 take 1 tablet by mouth four times daily as needed for pain oxyCODONE-acetami nophen (Percocet) 5-325 MG tablet Indications: DDD (degenerative disc disease), lumbar Take 1 tablet by mouth 4 (four) times a day as needed for severe pain 120 tablet 06/22/2024 07/22/2024 Active Start: 03-09-2024 End: 06-22-2024 take 1 tablet by mouth every six hours for pain oxyCODONE-acetaminophen (Percocet) 5-325 MG tablet Indications: DDD (degenerative disc disease), lumbar Take 1 tablet by mouth every 6 (six) hours if needed for severe pain 120 tablet 05/19/2024 06/22/2024 Discontinued (Reorder) Start: 12-14-2023 take 1 tablet by campos th every six hours for pain acetaminophen-oxycodone 300 mg-5 mg oral tablet 1 tab(s), Oral, q6hr for pain, Refill(s) 0 Start Date: 12/14/23 Status: Ordered Start: 11-29-2023 End: 03-15-2024 take 1 tablet by mouth four times daily as needed for pain oxyCODONE-acetaminophen (Percocet) 5-325 MG tablet Indications: DDD (degenerative disc disease), lumbar Take 1 tablet by mouth 4 (four) times a day as needed for severe pain 120 tablet 12/17/2023 01/17/2024 Discontinued (Reorder) ALPRAZolam 1 mg oral tablet (1 source) Benzodiazepine Start: 11-02-2019 take 1 tablet by mouth three times daily as needed for anxiety Xanax 1 mg Tab 1 mg = 1 tab(s), Oral, TID, PRN for anxiety, Refills(s) 0 Start Date: 11/02/19 Status: Ordered betamethasone 0.5 mg/ml / clotrimazole 10 mg/ml topical cream (11 sources) Azole Antifungal, Corticosteroid Start: 05-19-2024 End: 06-13-2024 clotrimazole-betamethas one (Lotrisone) cream Indications: Tinea corporis Apply topically 2 (two) times a day 45 g 06/13/2024 Active cefdinir 300 mg oral capsule (2 sources) Cephalosporin Antibacterial Start: 04-12-2024 End: 04-22-2024 take 1 capsule by mouth in the morning cefdinir (Omnicef) 300 MG capsule Indications: Acute bronchitis due to other specified organisms Take 1 capsule (300 mg) by mouth in the morning and 1 capsule (300 mg) before bedtime. Do all this for 10 days. 20 capsule 04/12/2024 04/22/2024 Active celecoxib 200 mg oral capsule (5 sources) Nonsteroidal Anti-inflammatory Drug Start: 12-17-2023 End: 12-16-2024 take 1 capsule by mouth in the morning celecoxib (CeleBREX) 200 MG capsule Indications: DDD (degenerative disc disease), lumbar Take 1 capsule (200 mg) by mouth in the morning and 1 capsule (200 mg) before bedtime. 60 capsule 11 12/17/2023 03/01/2024 Discontinued ciprofloxacin 500 mg oral tablet (1 source) Quinolone Antimicrobial Start: 11-11-2023 End: 11-16-2023 take 1 tablet by mouth twice daily Cipro 500 mg Tab 500 mg = 1 tab(s), Oral, BID, X 5 day(s), # 10 tab(s), Refills(s) 0, Pharmacy: [facility] #[id number], 147.4, cm, 10/27/23 13:16:00 EDT, Height/Length Dosing, 89.2, kg, 10/27/23 13:16:00 EDT, Weight Dosing Start Date: 11/11/23 Stop Date: 11/16/23 Status: Ordered cloNIDine hydrochloride 0.1 mg oral tablet (5 sources) Central alpha-2 Adrenergic Agonist Start: 06-13-2024 End: 06-21-2024 take 1 tablet by mouth four times daily as needed for anxiety cloNIDine (Catapres) 0.1 MG tablet Indications: Generalized anxiety disorder (CMS/HCC) Take 1 tablet (0.1 mg) by mouth 4 (four) times a day as needed (Anxiety) 60 tablet 3 06/13/2024 06/21/2024 Discontinued (Ineffective) doxepin hydrochloride 25 mg oral capsule (20 sources) Tricyclic Antidepressant Start: 06-21-2024 End: 07-05-2024 doxepin (SINEquan) 25 MG capsule Indications: Psychophysiological insomnia Take 2 capsules (50 mg) by mouth at bedtime for 7 days, THEN 1 capsule (25 mg) at bedtime for 7 days. Take 2 capsules by mouth at bedtime for 7 days then 1 capsule by mouth at bedtime for 7 days, then stop medication.. 21 capsule 06/21/2024 07/05/2024 Active Start: 04-12-2024 End: 06-21-2024 take 1 capsule by mouth at bedtime doxepin (SINEquan) 75 MG capsule Indications: Primary insomnia Take 1 capsule (75 mg) by mouth at bedtime 30 capsule 5 04/12/2024 06/21/2024 Discontinued (Ineffective) Start: 03-01-2024 End: 04-12-2024 take 1 capsule by mouth at bedtime doxepin (SINEquan) 50 MG capsule Indications: Primary insomnia Take 1 capsule (50 mg) by mouth at bedtime 30 capsule 3 03/01/2024 04/12/2024 Discontinued (Reorder) fexofenadine hydrochloride 180 mg oral tablet (18 sources) Histamine-1 Receptor Antagonist Start: 03-03-2023 End: 06-21-2024 take 1 tablet by mouth in the morning RA Allergy Relief 180 MG tablet Take 180 mg by mouth in the morning. 03/03/2023 06/21/2024 Discontinued (Therapy completed) furosemide 40 mg oral tablet (7 sources) Loop Diuretic Start: 06-13-2024 take 1 tablet by mouth once daily furosemide (Lasix) 40 MG tablet Indications: Bilateral leg edema Take 1 tablet (40 mg) by mouth Daily 30 tablet 5 06/13/2024 Active Start: 11-02-2019 Lasix Daily, R efills(s) 0 Start Date: 11/02/19 Status: Ordered Hair Skin and Nails (3 sources) Start: 10-27-2023 take 1 tablet by mouth once daily Hair Skin and Nails 1 tab(s), Oral, Daily, Refill(s) 0 Start Date: 10/27/23 Status: Ordered hydroCHLOROthiazide 25 mg / lisinopril 20 mg oral tablet (1 source) Thiazide Diuretic, Angiotensin Converting Enzyme Inhibitor Start: 11-02-2019 take 1 tablet by mouth once daily hydrochlorothiaz leonie-lisinopril 25 mg-20 mg Tab tab(s), Oral, Daily, Refill(s) 0 Start Date: 11/02/19 Status: Ordered hydrOXYzine hydrochloride 25 mg oral tablet (20 sources) Antihistamine Start: 12-17-2023 End: 12-16-2024 take 1 tablet by mouth four times daily as needed for anxiety hydrOXYzine HCl (Atarax) 25 MG tablet Indications: Generalized anxiety disorder (CMS/HCC) Take 1 tablet (25 mg) by mouth 4 (four) times a day as needed for anxiety 60 tablet 4 06/13/2024 Active Start: 10-27-2023 hydrOXYzine hy drochloride 25 mg Tab 25 mg = 1 tab(s), Oral, PRN as needed for anxiety, Refills(s) 0, Anxiety Start Date: 10/27/23 Status: Ordered lamoTRIgine 150 mg oral tablet (20 sources) Mood Stabilizer, Anti-epileptic Agent Start: 12-17-2023 End: 12-16-2024 take 1 tablet by mouth at bedtime lamoTRIgine (LaMICtal) 150 MG tablet Indications: Moderate mood disorder (CMS/HCC) Take 1 tablet (150 mg) by mouth at bedtime 90 tablet 3 12/17/2023 12/16/2024 Active Start: 10-27-2023 take 1 tablet by campos th at bedtime lamotrigine 150 mg Tab 150 mg = 1 tab(s), Oral, Bedtime, Refills(s) 0, Other (see comment) Start Date: 10/27/23 Status: Ordered Start: 06-15-2023 take 1 mg by mouth twice daily Lamictal 25 mg Tab mg tab(s), Oral, BID, Refills(s) 0 Start Date: 06/15/23 Status: Ordered meclizine hydrochloride 25 mg oral tablet (19 sources) Antiemetic Start: 12-17-2023 End: 12-16-2024 take 1 tablet by mouth four times daily as needed for dizziness meclizine (Antivert) 25 MG tablet Indications: Other acute sinusitis, recurrence not specified Take 1 tablet (25 mg) by mouth 4 (four) times a day as needed for dizziness 30 tablet 2 12/17/2023 12/16/2024 Active montelukast 10 mg oral tablet (19 sources) Leukotriene Receptor Antagonist Start: 12-17-2023 End: 12-16-2024 take 1 tablet by mouth at bedtime montelukast (Singulair) 10 MG tablet Indications: Other acute sinusitis, recurrence not specified Take 1 tablet (10 mg) by mouth at bedtime 30 tablet 11 12/17/2023 12/16/2024 Active nystatin 100 unt/mg topical powder (16 sources) Polyene Antifungal Start: 03-01-2024 nystatin (Mycostatin) [id number] UNIT/GM powder Indications: Panniculitis Apply topically 2 (two) times a day 60 g 3 03/01/2024 Active One-A-Day (3 sources) Start: 10-27-2023 take 2 tablets by mouth once daily One-A-Day 2 tab(s), Oral, Daily, Refill(s) 0 Start Date: 10/27/23 Status: Ordered oxybutynin chloride 5 mg oral tablet (2 sources) Cholinergic Muscarinic Antagonist Start: 11-11-2023 End: 01-10-2024 take 1 tablet by mouth twice daily oxybutynin 5 mg Tab 5 mg = 1 tab(s), Oral, BID, X 30 day(s), # 60 tab(s), Refills(s) 1, Pharmacy: [facility] #[id number], 147.4, cm, 10/27/23 13:16:00 EDT, Height/Length Dosing, 89.2, kg, 10/27/23 13:16:00 EDT, Weight Dosing Start Date: 11/11/23 Stop Date: 01/10/24 Status: Ordered pantoprazole 40 mg delayed release oral tablet (20 sources) Proton Pump Inhibitor Start: 03-01-2024 take 1 tablet by mouth in the morning pantoprazole (ProtoNix) 40 MG EC tablet Indications: Gastroesophageal reflux disease without esophagitis Take 1 tablet (40 mg) by mouth in the morning and 1 tablet (40 mg) before bedtime. Do not crush, chew, or split.. 03/01/2024 Active Start: 12-17-2023 End: 12-16-2024 take 1 tablet by mouth before mealtime pantoprazole (ProtoNix) 20 MG EC tablet Indications: Gastroesophageal reflux disease without esophagitis Take 1 tablet (20 mg) by mouth in the morning. Take before meals. Do not crush, chew, or split.. 30 tablet 12/17/2023 03/01/2024 Discontinued (Dose adjustment) Start: 06-15-2023 take 1 tablet by campos th twice daily Protonix 40 mg oral Granule 1 tab, Oral, BID, Refills(s) 0, Indigestion Start Date: 06/15/23 Status: Ordered Start: 06-15-2023 take 1 mg by mouth once daily Protonix 40 mg oral Granule mg EA, Oral, Daily, Refills(s) 0 Start Date: 06/15/23 Status: Ordered PARoxetine hydrochloride 40 mg oral tablet (20 sources) Serotonin Reuptake Inhibitor Start: 06-13-2024 take 1 tablet by mouth in the morning PARoxetine (Paxil) 40 MG tablet Indications: Mild mood disorder (CMS/HCC) Take 1 tablet (40 mg) by mouth in the morning. 30 tablet 5 06/13/2024 Active Start: 04-12-2024 End: 06-13-2024 take 1 tablet by mouth in the morning PARoxetine (Paxil) 20 MG tablet Indications: Mild mood disorder (CMS/HCC) Take 1 tablet (20 mg) by mouth in the morning. 30 tablet 3 04/12/2024 06/13/2024 Discontinued (Reorder) Start: 03-01-2024 End: 04-12-2024 take 1 tablet by mouth in the morning PARoxetine (Paxil) 10 MG tablet Indications: Mild mood disorder (CMS/HCC) Take 1 tablet (10 mg) by mouth in the morning. 30 tablet 3 03/01/2024 04/12/2024 Discontinued (Reorder) pramipexole dihydrochloride 0.5 mg oral tablet (19 sources) Nonergot Dopamine Agonist Start: 12-17-2023 End: 12-16-2024 take 1 tablet by mouth at bedtime pramipexole (Mirapex) 0.5 MG tablet Indications: Restless leg syndrome TAKE 1 TABLET BY MOUTH AT BEDTIME 30 tablet 5 06/13/2024 Active prazosin 5 mg oral capsule (20 sources) alpha-Adrenergi c Eileen Start: 12-17-2023 End: 12-16-2024 take 1 capsule by mouth at bedtime prazosin (Minipress) 5 MG capsule Indications: Generalized anxiety disorder (CMS/HCC) Take 1 capsule (5 mg) by mouth at bedtime 30 capsule 11 12/17/2023 12/16/2024 Active Start: 10-27-2023 take 1 capsule by mo [facility] at bedtime prazosin 1 mg Cap 1 mg = 1 cap(s), Oral, Bedtime, Refills(s) 0, Other (see comment) Start Date: 10/27/23 Status: Ordered predniSONE 50 mg oral tablet (2 sources) Start: 04-12-2024 End: 04-18-2024 take 1 tablet by mouth once daily predniSONE (Deltasone) 50 MG tablet Indications: Acute bronchitis due to other specified organisms Take 1 tablet (50 mg) by mouth Daily for 6 days 6 tablet 04/12/2024 04/18/2024 Active QUEtiapine 25 mg oral tablet (3 sources) Atypical Antipsychotic Start: 06-21-2024 End: 07-21-2024 take 0.5 tablet by mouth at bedtime QUEtiapine (SEROquel) 25 MG tablet Indications: Cyclothymic disorder (CMS/HCC) , PTSD (post-traumatic stress disorder) (CMS/HCC) , Moderate episode of recurrent major depressive disorder (CMS/HCC) , Generalized anxiety disorder (CMS/HCC) Take 0.5 tablets (12.5 mg) by mouth at bedtime 15 tablet 1 06/21/2024 07/21/2024 Active sucralfate 100 mg/ml oral suspension (19 sources) Aluminum Complex Start: 12-17-2023 End: 12-16-2024 take 10 mL by mouth every six hours sucralfate (Carafate) 1 GM/10ML suspension Indications: Gastroesophageal reflux disease without esophagitis Take 10 mL (1 g) by mouth every 6 (six) hours 1200 mL 11 12/17/2023 12/16/2024 Active sulfamethoxazole 800 mg / trimethoprim 160 mg oral tablet (1 source) Dihydrofolate Reductase Inhibitor Antibacterial, Sulfonamide Antimicrobial Start: 12-15-2023 End: 12-20-2023 Bactrim D.S. 800 mg-160 mg Tab 1 tab(s), Oral, BID for 5 day(s), 10 tab(s), Refill(s) 0, [facility], 147.5, cm, 12/15/23 14:23:00 EDT, Height/Length Dosing, 87.9, kg, 12/15/23 14:23:00 EDT, Weight Dosing Start Date: 12/15/23 Stop Date: 12/20/23 Status: Ordered tamsulosin hydrochloride 0.4 mg oral capsule (2 sources) alpha-Adrenergic Eileen Start: 06-17-2023 take 1 capsule by mouth once daily tamsulosin 0.4 mg Cap 0.4 mg = 1 cap(s), Oral, Daily, # 30 cap(s), Refills(s) 0, Pharmacy: [facility] #[id number], 153, cm, 06/15/23 10:00:00 EST, Height/Length Dosing, 93.4, kg, 06/15/23 10:00:00 EST, Weight Dosing Start Date: 06/17/23 Status: Ordered terbinafine 250 mg oral tablet (2 sources) Allylamine Antifungal Start: 05-19-2024 End: 06-02-2024 take 1 tablet by mouth once daily terbinafine (LamISIL) 250 MG tablet Indications: Tinea corporis Take 1 tablet (250 mg) by mouth Daily for 14 days 14 tablet 05/19/2024 06/02/2024 Active traZODone hydrochloride 50 mg oral tablet (8 sources) Serotonin Reuptake Inhibitor Start: 12-17-2023 End: 03-01-2024 take 1 tablet by mouth at bedtime traZODone (Desyrel) 50 MG tablet Indications: Primary insomnia Take 1 tablet (50 mg) by mouth at bedtime 30 tablet 3 12/17/2023 03/01/2024 Discontinued Start: 10-27-2023 take 1 tablet by campos th once daily at bedtime traZODONE 50 mg Tab 50 mg = 1 tab(s), Oral, Once a day (at bedtime), Refills(s) 0, Insomnia Start Date: 10/27/23 Status: Ordered triamcinolone acetonide 5 mg/ml topical cream (18 sources) Corticosteroid Start: 05-11-2023 End: 06-21-2024 triamcinolone (Kenalog) 0.5 % cream Indications: Dyshidrotic eczema Apply topically 3 (three) times a day 60 g 2 05/11/2023 06/21/2024 Discontinued (Therapy completed) Viactiv Soft Calcium Chews (3 sources) Start: 10-27-2023 Viactiv Soft C alcium Chews 4, Chewed, Daily, Refill(s) 0 Start Date: 10/27/23 Status: Ordered Problems Active Problems Problem Classification Problem Date Documented Date Episodic/Chronic Abdominal pain (5 sources) Abdominal pain; Translations: [Unspecified abdominal pain] Onset: 06-15-2023 Episodic Anxiety disorders (20 sources) Anxiety; Translations: [Posttraumatic stress disorder] Onset: 05-11-2023 10-27-2023 Chronic Esophageal disorders (20 sources) Gastroesophageal reflux disease without esophagitis; Translations: [Gastro-esophageal reflux disease without esophagitis] Onset: 05-11-2023 05-11-2023 Chronic Essential hypertension (20 sources) Hypertensive disorder; Translations: [Benign essential hypertension] Onset: 05-11-2023 11-02-2019 Chronic Genitourinary symptoms and ill-defined conditions (4 sources) Urge incontinence of urine 07-23-2020 Chronic Headache; including migraine (4 sources) Headache 11-02-2019 Episodic Miscellaneous mental health disorders (20 sources) Primary insomnia; Translations: [Primary insomnia] Onset: 05-11-2023 Resolved: 06-21-2024 05-11-2023 Chronic Mood disorders (20 sources) Depressive disorder; Translations: [Mild mood disorder] Onset: 05-11-2023 Resolved: 06-21-2024 11-02-2019 Chronic Mycoses (13 sources) Tinea corporis; Translations: [Tinea corporis] Onset: 05-19-2024 05-19-2024 Episodic Other diseases of kidney and ureters (19 sources) Renal mass; Translations: [Other specified disorders of kidney and ureter] Onset: 05-11-2023 05-11-2023 Chronic Other diseases of kidney and ureters (1 source) Urinary tract obstruction; Translations: [Hydronephrosis with renal and ureteral calculous obstruction] Onset: 06-15-2023 Episodic Other diseases of kidney and ureters (4 sources) Cyst of kidney 05-02-2020 Episodic Other hereditary and degenerative nervous system conditions (19 sources) Restless legs; Translations: [Restless legs syndrome] Onset: 05-11-2023 05-11-2023 Chronic Other nutritional; endocrine; and metabolic disorders (13 sources) Obesity caused by energy imbalance; Translations: [Class 2 obesity due to excess calories without serious comorbidity with body mass index (BMI) of 39.0 to 39.9 in adult] Onset: 05-19-2024 05-19-2024 Chronic Other upper respiratory disease (19 sources) Allergic rhinitis due to pollen; Translations: [Allergic rhinitis due to pollen] Onset: 05-11-2023 05-11-2023 Chronic Residual codes; unclassified (8 sources) Bilateral lower limb edema; Translations: [Localized edema] Onset: 06-13-2024 06-13-2024 Episodic Spondylosis; intervertebral disc disorders; other back problems (20 sources) Other intervertebral disc degeneration, lumbar region; Translations: [Degeneration of lumbar intervertebral disc] Onset: 09-08-2021 Chronic Unclassified (2 sources) CONTACT W/AND (SUSP) EXPOS COVID-19; Translations: [CONTACT W/AND (SUSP) EXPOS COVID-19] Onset: 03-12-2022 Unclassified (4 sources) Obstructive hydronephrosis 06-15-2023 Viral infection (1 source) COVID-19; Translations: [COVID-19] Onset: 03-12-2022 Past or Other Problems Problem Classification Problem Date Documented Da te Episodic/Chronic Acute bronchitis (14 sources) Acute infective bronchitis; Translations: [Acute bronchitis due to other specified organisms] Onset: 04-12-2024 Resolved: 04-24-2024 04-12-2024 Episodic Calculus of urinary tract (20 sources) Kidney stone; Translations: [Calculus of kidney] Onset: 05-11-2023 Episodic Genitourinary symptoms and ill-defined conditions (20 sources) Dysuria; Translations: [Incomplete emptying of bladder] Onset: 05-11-2023 Resolved: 04-24-2024 05-02-2020 Episodic Mood disorders (19 sources) Mood disorders Onset: 05-11-2023 05-11-2023 Other connective tissue disease (18 sources) Panniculitis; Translations: [Panniculitis, unspecified] Onset: 03-01-2024 Resolved: 04-24-2024 03-01-2024 Episodic Other endocrine disorders (19 sources) Disorder of endocrine system; Translations: [Endocrine disorder, unspecified] Onset: 05-11-2023 05-11-2023 Episodic Other non-traumatic joint disorders (19 sources) Pain in left knee; Translations: [Pain in joint, lower leg] Onset: 05-11-2023 05-11-2023 Episodic Other screening for suspected conditions (not mental disorders or infectious disease) (19 sources) Patient encounter status; Translations: [Encounter for screening mammogram for malignant neoplasm of breast] Onset: 05-11-2023 Resolved: 04-24-2024 05-11-2023 Episodic Other skin disorders (19 sources) Vesicular eczema; Translations: [Dyshidrosis [pompholyx]] Onset: 05-11-2023 05-11-2023 Episodic Otitis media and related conditions (19 sources) Dysfunction of left eustachian tube; Translations: [Unspecified Eustachian tube disorder, left ear] Onset: 05-11-2023 Resolved: 04-24-2024 05-11-2023 Episodic Residual codes; unclassified (19 sources) History of bilateral salpingo-oophorecto my; Translations: [Acquired absence of ovaries, bilateral] Onset: 05-11-2023 05-11-2023 Episodic Unclassified (1 source) CONTACT W/AND (SUSP) EXPOS COVID-19; Translations: [CONTACT W/AND (SUSP) EXPOS COVID-19] Onset: 02-09-2022 Results Test Name Value Interpretation Reference Range Facility [facility] 12-26-19 24 Calcium oxalate dihydrate Infrared spectroscopy (Stone) [Mass fraction] 20 % Invalid Interpretation Code [facility] Comment on above: Performed By: #### 1 [id number] #### [facility] [address] [place] [address] Calcium oxalate monohydrate (Stone) [Mass fraction] 60 % Invalid Interpretation Code [facility] Comment on above: Performed By: #### [id number] #### [facility] [address] [place] [address] Calculus analysis [Interp] Comment Invalid Interpretation Code [facility] Comment on above: Result Comment: Calc ium phosphate (hydroxyl form) includes hydroxyapatite, amorphous calcium phosphate, and whitlockite. Hydroxyapatite is the most common of the calcium phosphate salts found in human kidney stones. Performed By: #### 1 [id number] #### [facility] [address] [place] [address] Color (Stone) Stevenson Invalid Interpretation Code [facility] Comment on above: Performed By: #### 1 [id number] #### [facility] [address] [place] [address] Composition Comment Invalid Interpretation Code [facility] Comment on above: Result Comment: Perc entage (Represents the % composition) Performed By: #### 1 [id number] #### [facility] [address] [place] [address] Disclaimer: Comment Invalid Interpretation Code [facility] Comment on above: Result Comment: This test was developed and its performance characteristics determined by [facility]. It has not been cleared or approved by the Food and Drug Administration. Performed at: [facility] [address] [id number] PhD Jamil San Performed By: #### 1 [id number] #### [facility] [address] [place] [address] Hydroxyapatite: 20 % Invalid Interpretation Code [facility] Comment on above: Performed By: #### 1 [id number] #### [facility] [address] [place] [address] Laboratory comment Nikhil (Report) Comment Invalid Interpretation Code [facility] Comment on above: Result Comment: Gwyn marx questions regarding Calculi Analysis contact [facility] at: [phone]. Performed By: #### 1 [id number] #### [facility] [address] [place] [address] Please Note: Comment Invalid Interpretation Code [facility] Comment on above: Result Comment: Calc deana report will follow via computer, mail or sulfuric acid plant supervisor delivery. Performed By: #### 1 [id number] #### [facility] [address] [place] [address] Size (Stone) [Entitic vol] 2x2 Invalid Interpretation Code [facility] Comment on above: Result Comment: Mult iple pieces received. Dimensions of the largest piece reported. Performed By: #### 1 [id number] #### [facility] [address] [place] [address] Specimen source subject Nom Kidney Invalid Interpretation Code [facility] Comment on above: Performed By: #### 1 [id number] #### [facility] [address] [place] [address] Stone Photo Comment Invalid Interpretation Code [facility] Comment on above: Result Comment: Phot ograph will follow under a separate cover Performed By: #### 1 [id number] #### [facility] [address] [place] [address] Weight (Stone) 8 mg Invalid Interpretation Code [facility] Comment on above: Performed By: #### 1 [id number] #### [facility] [address] [place] [address] Main OR Intraoperative Recor don 12-16-2023 Main OR Intraoperative Record Main OR Intraoperative Record IntraOp Document Type FT Summary Primary Physician: Chencho HANEY MD Finalized Date/Time: 12/16/23 11:46:04 Pt. Name: RHODESJUNE HANCOCK D.O.B./Sex: 1980 Female Med Rec #: [id number] Physician: Chencho HANEY MD Financial #: [id number] Pt. Type: A Room/Bed: [place] [address] Admit/Disch: 12/15/23 13:42:32 - 12/15/23 18:45:00 Institution: Case Times FT Entry 1 Patient Times In Room 12/15/23 16:32:00 Out Room 12/15/23 17:15:00 Procedure Times Start 12/15/23 16:41:00 Stop 12/15/23 17:10:00 Anesthesia Times Start 12/15/23 16:32:00 Stop 12/15/23 17:15:00 Last Modified By: Frida Carmona 12/15/23 17:19:18 General Comments: 12/16/23 Chart opened to review and send charges [facility]oth CSFA Case Attendance FT Entry 1 Entry 2 Entry 3 Case Attendee Hernandez Jerez MD, Frida Henry Role Performed Anesthesiologist Surgeon - Primary Combiner - Primary Manager Site Time In 12/15/23 16:32:00 12/15/23 16:32:00 12/15/23 16:32:00 Time Out 12/15/23 17:15:00 12/15/23 17:15:00 12/15/23 17:15:00 Procedure CYSTOSCOPY CYSTOSCOPY CYSTOSCOPY URETEROSCOPY(Right), URETEROSCOPY(Right), URETEROSCOPY(Right), CYSTOSCOPY STENT CYSTOSCOPY STENT CYSTOSCOPY STENT REMOVAL(Right) REMOVAL(Right) REMOVAL(Right) Comments IS SUPERVISING Last Modified By: Frida Carmona Kelsie E Burgderfer, Kelsie E 12/15/23 17:19:18 12/15/23 17:19:18 12/15/23 17:19:18 Entry 4 Entry 5 Entry 6 Case Attendee Misha Uriarte Courtney N Lyons, Courtney M Role Performed Scrub - Primary Textile Conservator Textile Conservator Time In 12/15/23 16:32:00 12/15/23 16:32:00 12/15/23 16:32:00 Time Out 12/15/23 17:15:00 12/15/23 17:15:00 12/15/23 17:15:00 Procedure CYSTOSCOPY CYSTOSCOPY CYSTOSCOPY URETEROSCOPY(Right), URETEROSCOPY(Right), URETEROSCOPY(Right), CYSTOSCOPY STENT CYSTOSCOPY STENT CYSTOSCOPY STENT REMOVAL(Right) REMOVAL(Right) REMOVAL(Right) Comments Last Modified By: Frida Carmona Kelsie E Burgderfer, Kelsie E 12/15/23 17:19:18 12/15/23 17:19:18 12/15/23 17:19:18 Entry 7 Case Attendee Jesus Parson Role Performed Staff - Other Time In 12/15/23 16:32:00 Time Out 12/15/23 17:15:00 Procedure CYSTOSCOPY URETEROSCOPY(Right), CYSTOSCOPY STENT REMOVAL(Right) Comments Last Modified By: Frida Carmona 12/15/23 17:19:18 General Comments: MARIANO TOVAR [facility] REP, IN ATTENDANCE.DAWNA KOCH RN. Perioperative Protocols FT Pre-Care Text: Implements protective measures prior to operative or invasive procedure, confirms identity before the operative or invasive procedure, verifies operative procedure, surgical site, and laterality Entry 1 Procedure(s) CYSTOSCOPY Patient Identity Birthday, ID Band URETEROSCOPY(Right), Verified (select at Check, Patient CYSTOSCOPY STENT least 2): Participation REMOVAL(Right) Consents / H and P Anesthesia Consent, Operative Site N/A Verified H&P, Surgery/Procedure Marking Verified Consent, Transfusion Consent Surgical Site Yes Laterality Verified Yes Verified Procedure Verified Yes Correct Patient Yes Position Verified Availability Equipment, Implant, Prep Dry n/a Verified (If Medication, X-ray Applicable) PreOp Antibiotic Yes Time Out Hernandez Jerez, Given Participants LYNDON ARANGO, Chencho Oneal, Frida Carmona, Misha Uriarte, June San, June Garcia Time Out Complete 12/15/23 16:39:00 Outcomes Met? Yes Last Modified By: Frida Carmona 12/15/23 16:45:05 Post-Care Text: The patient is free from signs and symptoms of injury caused by extraneous objects Allergy Information FT Pre-Care Text: Verifies allergies Entry 1 Allergies Reviewed? Yes Allergies Reviewed Self/Patient With Outcomes Met? Yes Last Modified By: Frida Carmona 12/15/23 16:27:34 Post-Care Text: The patient received appropriate medication(s) safely administered during the perioperative period Surgical Procedures FT Entry 1 Entry 2 Procedure Description Procedure CYSTOSCOPY URETEROSCOPY CYSTOSCOPY STENT REMOVAL Modifiers Right Right Surgeon Description CYSTO, URETEROSCOPY, CYSTO, URETEROSCOPY, NEPHROSCOPY, BASKET AND NEPHROSCOPY, BASKET AND RIGHT STENT REMOVAL RIGHT STENT REMOVAL Primary Procedure Yes No Primary Surgeon Chencho HANEY MD, MD, Gregory P Start 12/15/23 16:41:00 12/15/23 16:41:00 Stop 12/15/23 17:10:00 12/15/23 17:10:00 Anesthesia Type General General Surgical Service Urology Urology Wound Class 2 - Clean-Contaminated 2 - Clean-Contaminated Last Modified By: Frida Carmona Kelsie E 12/15/23 17:12:44 12/15/23 17:12:49 General Case Data FT Pre-Care Text: Classifies surgical wound, implements aseptic technique, initiates traffic control Entry 1 Case Information OR OR 1 FT Case Level Level 3 Wound Class 2 - Clean-Contaminated Sp (more content not included)... Normal [facility] Discharge Instructionson Discharge Instructions Discharge Instructions JUNE RHODES :1980 Visit Date:12/15/2023 Inpatient Discharge Instructions Your Care Team Admitting Physician - Chencho HANEY MD Referring Physician - Chencho HANEY MD Reason for Your Visit KIDNEY STONE Tests Performed Calculi Analysis Urinary -- Results Pending -- XR Abdomen 1 View -- Results Pending -- Please visit your patient portal for your results or contact your primary care physician. This Is Your Medications List acetaminophen-oxycod one (acetaminophen-oxyco done 300 mg-5 mg oral tablet) hydrOXYzine (hydrOXYzine hydrochloride 25 mg Tab) lamotrigine (lamotrigine 150 mg Tab) multivitamin (One-A-Day) multivitamin with minerals (Hair Skin and Nails) multivitamin with minerals (Viactiv Soft Calcium Chews) oxybutynin (oxybutynin 5 mg Tab) pantoprazole (Protonix 40 mg oral Granule) prazosin (prazosin 1 mg Cap) sulfamethoxazole-tri methoprim (Bactrim D.S. 800 mg-160 mg Tab) trazodone (traZODONE 50 mg Tab) Procedure History ESWL of kidney (11/11/2023), Gastric sleeve (2022), Complete hernia, Cyst of [...] Appointments after Discharge Follow Up with Chencho HANEY When: Within 6 months Comments: Call for followup appointment, with an abdominal X-ray prior to your visit. You may have had the metabolic workup in the past, which would require a 24-hour urine collection and some blood work. If this has not been within the last 2 to 3 years however you may consider repeating this. Please call my office to let us know if you would like to proceed with that prior to your next visit. I did send an antibiotic prescription to your pharmacy. Where: [facility] [address] [place], [place] [id number] Business (1) Medications What How Much When Instructions Next Dose New sulfamethoxazole-tri methoprim (Bactrim D.S. 800 mg-160 mg Tab) 1 Tablets By Mouth 2 times a day Duration: 5 Days Pickup at [facility] Unchanged acetaminophen-oxycod one (acetaminophen-oxyco done 300 mg-5 mg oral tablet) 1 Tablets By Mouth Every 6 hours as needed for for pain Unchanged hydrOXYzine (hydrOXYzine hydrochloride 25 mg Tab) [...] Calcium Chews) 4 Chewed Every day Unchanged oxybutynin (oxybutynin 5 mg Tab) 1 Tablets By Mouth 2 times a day Duration: 30 Days Unchanged pantoprazole (Protonix 40 mg oral Granule) 1 tab By Mouth 2 times a day Unchanged prazosin (prazosin 1 mg Cap) 1 Capsules By Mouth At bedtime Unchanged trazodone (traZODONE 50 mg Tab) 1 Tablets By Mouth Once a day (at bedtime) Pharmacy Information [facility]: [address], [place] [id number] [phone] Test Results No qualifying data available. Allergies Macrobid (Rash, Swelling) ciprofloxacin (Rash) morphine (Unknown) penicillin (Swelling of throat) Problems Ongoing - Any problem that you are currently receiving treatment for. Anxiety Depression Dysuria Flank pain Headache History of kidney stones Hypertension Incomplete bladder emptying Kidney stone PTSD (post-traumatic stress disorder) Renal cyst Ureteral stone Ureteral stone with hydronephrosis Urge incontinence Education Materials [facility] [place], [place] Dr. Chencho Garza Post-operative Instructions for Ureteroscopy, Laser Lithotripsy, Stone Extraction and Stent Placement There are no incisions or dressings to be concerned with, as the procedure was performed inside the urinary system. For 24 hours after surgery: ? No driving or operating machinery ? Do not make important decisions ? Do not consume alcohol, sleeping pills Stent Placement Your stent was removed and not replaced! You could however have some flank pain from the procedure today, due to some swelling of the ureter which is the tube between the kidney and the bladder. This usually last less than 24 hours or so if it occurs. Diet You may resume your normal di (more content not included)... Normal [facility] Comment on above: Result Comment: Elec tronically Signed By: Wiliam CORTEZ, Saritha Brown\.sophie\Date and Time Signed: 12/15/23 17:36 EDT Inpatient Patient Summaryon 12-15-2023 Inpatient Patient Summary Inpatient Patient Summary [address] [address] [facility] Clinical Discharge Instructions PERSON INFORMATION Name: JUNE RHODES [facility]#:[id number] PHYSICIANS Admitting Physician: Chencho HANEY MD Attending Physician: Chencho HANEY MD PCP: HARRIS ARANGO, HANY Discharge Diagnosis: Comment: PATIENT EDUCATION INFORMATION Instructions: [id number] Utereroscopy,Lithotr ipsy, Stone Extraction, Stent Placement (Custom); Post Op Patient Instructions - FT (Custom) (CUSTOM) Medication Leaflets: Follow up: With: Address: When: Chencho HANEY [address] [place] [address], [address], [place] [id number] Business (1) Within 6 months Comments: Call for followup appointment, with an abdominal X-ray prior to your visit. You may have had the metabolic workup in the past, which would require a 24-hour urine collection and some blood work. If this has not been within the last 2 to 3 years however you may consider repeating this. Please call my office to let us know if you would like to proceed with that prior to your next visit. I did send an antibiotic prescription to your pharmacy. MEDICATION LIST New Medications [facility], [address], [place] [id number], [phone] sulfamethoxazole-tri methoprim (Bactrim D.S. 800 mg-160 mg Tab) 1 Tablets By Mouth 2 times a day for 5 Days. Refills: 0. Medications to Continue with No Changes Other Medications acetaminophen-oxycod one (acetaminophen-oxyco done 300 mg-5 mg oral tablet) 1 Tablets By Mouth every 6 hours as needed for pain. hydrOXYzine (hydrOXYzine hydrochloride 25 mg Tab) 1 Tablets By Mouth as needed as needed for anxiety. lamotrigine (lamotrigine 150 mg Tab) 1 Tablets By Mouth at bedtime., restless leg multivitamin (One-A-Day) 2 Tablets By Mouth every day., bariatric multivitamin with minerals (Hair Skin and Nails) 1 Tablets By Mouth every day. multivitamin with minerals (Viactiv Soft Calcium Chews) 4 Chewed every day. oxybutynin (oxybutynin 5 mg Tab) 1 Tablets By Mouth 2 times a day for 30 Days. Refills: 1. pantoprazole (Protonix 40 mg oral Granule) 1 tab By Mouth 2 times a day. prazosin (prazosin 1 mg Cap) 1 Capsules By Mouth at bedtime., night terror trazodone (traZODONE 50 mg Tab) 1 Tablets By Mouth once a day (at bedtime). Comment: Normal [facility] Main OR PACU I Recordon 11-25 Main OR PACU I Record Main OR PACU I Record PACU Phase I Document Type FT Summary Primary Physician: Chencho HANEY MD Finalized Date/Time: 12/15/23 17:49:49 Pt. Name: JUNE RHODES/Sex: 1980 Female Med Rec #: [id number] Physician: Chencho HANYE MD Financial #: [id number] Pt. Type: A Room/Bed: [place] [address] Admit/Disch: 12/15/23 13:42:32 - Institution: Case Times PACU I FT [...] to medications Entry 1 In PACU I 12/15/23 17:17:00 Discharge from PACU 12/15/23 17:47:00 I Outcomes Met? Yes Last Modified By: RANDY VARNER RN 12/15/23 17:49:37 Post-Care Text: The patient demonstrates knowledge of [...] PACU I FT Entry 1 Start Time 12/15/23 17:17:00 Stop Time 12/15/23 17:47:00 Acuity Level Acuity Level I Last Modified By: RANDY VARNER RN 12/15/23 17:49:46 Finalized By: RANDY VARNER RN Document Signatures Signed By: RANDY VARNER RN 12/15/23 17:49 Normal [facility] Main OR PACU II Recordon Main OR PACU II Record Main OR PACU II Record PACU Phase II Document Type FT Summary Primary Physician: Chencho HANEY MD Finalized Date/Time: 12/15/23 18:27:49 Pt. Name: JUNE RHODES/Sex: 1980 Female Med Rec #: [id number] Physician: Chencho HANEY MD Financial #: [id number] Pt. Type: A Room/Bed: [place] [address] Admit/Disch: 12/15/23 13:42:32 - 12/15/23 18:45:00 Institution: Case Times PACU II FT Pre-Care [...] to medications Entry 1 In PACU II 12/15/23 17:45:00 Discharge from PACU 12/15/23 18:45:00 II Outcomes Met? Yes Last Modified By: Saritha Swain RN 12/15/23 18:27:48 Post-Care Text: The patient demonstrates knowledge of [...] administered during the perioperative period Finalized By: Saritha Swain RN Document Signatures Signed By: Saritha Swain RN 12/15/23 18:27 [facility] Main OR Preoperative Recordo n 12-15-2023 Main OR Preoperative Record Main OR Preoperative Record PreOp Document Type FT Summary Primary Physician: Chencho HANEY MD Finalized Date/Time: 12/15/23 16:42:28 Pt. Name: JUNE RHODES /Sex: 1980 Female Med Rec #: [id number] Physician: Chencho HANEY MD Financial #: [id number] Pt. Type: A Room/Bed: [facility] Admit/Disch: 12/15/23 13:42:32 - Institution: Case Times PreOp FT Pre-Care Text: Verifies consent for planned procedure, identifies individual values and wishes concerning care, includes family members in perioperative teaching Entry 1 Patient Times. In Pre Surgery 12/15/23 13:55:00 Out Pre Surgery 12/15/23 16:30:00 Outcomes Met? Yes Last Modified By: Frida Carmona 12/15/23 16:42:27 Post-Care Text: The patient participates in decisions affecting his or her perioperative plan of care Finalized By: Frida Carmona Document Signatures Signed By: Frida Carmona 12/15/23 16:42 Normal [facility] Operative Reporton Operative Report Operative Report Patient: JUNE RHODES Age: 43 years Sex: Female : 1980 Associated Diagnoses: None Author: Chencho HANEY MD Postoperative Information Date/ Time: 12/15/2023 17:21:00 Postoperative Diagnosis: Right renal calculi Status post cystoscopy, right double-J stent, right ESWL. Performed by: Chencho Haney MD. Findings: Procedure: Cystoscopy Right ureteral stent removal Right ureteroscopy/nephros copy with basket extraction right renal calculi Right retrograde pyelogram Anesthesia: General, LMA, 2% Xylocaine jelly per urethra Indications: This is a 43-year-old female with a history of multiple kidney stones and she is status post cystoscopy, right double-J stent, and ESWL right renal calculi. Postoperative KUB demonstrated multiple small fragments and she agrees with my recommendation to proceed with a retrograde ureteroscopic and nephroscopic approach with basket extraction of remaining fragments and possible laser ablation. She is aware that a stent replacement could be indicated. She understands and agrees with that plan. She is aware the risk of bleeding, infection, heart and lung problems under anesthesia, among others. She did receive preoperative antibiotics and she does have sequential compression devices in place and functional bilateral lower extremities throughout the case. Procedure: The patient was brought back to the operating room and a timeout was performed. All are in agreement with the operative plan as she is identified appropriately. After the successful induction of general anesthesia she is placed in a modified dorsolithotomy position and prepped in usual fashion Betadine solution. She is draped appropriately and 2% Xylocaine jelly is placed per urethra. A well-lubricated 22 Swedish is urethroscope with 30 degree lens then passed into the bladder without difficulty. No tumors, no stones, no diverticuli. The left orifice is normal. The right orifice is seen and has the stent coming through it with a moderate amount of inflammation around it. A 0.035 guidewire was negotiated up the right ureter without difficulty into the kidney. The existing stent was grasped with an alligator forceps, removed, and discarded. The ureteral access sheath was subsequently placed over the wire up to the level of the right ureteropelvic junction and the inner trocar portion was removed. Panendoscopy subsequently was performed. Retrograde pyelogram was performed to aid in negotiating throughout the entire kidney. Each infundibulum and calyx was identified and examined. Only minimal stone dust was noted except in the extreme right lower pole. There was a stone fragment still present but this was located medially and the most inferior calyx. I could barely see the lateral aspect of the stone but could not negotiate the scope in order for a basket to either retrieve or move the stone. Multiple attempts were made and after about 15 minutes further attempts were aborted. The rest of the kidney was again examined. Ureteroscopy was carried down the entire ureter at the and the extreme proximal portion contain 2 small stones which were basketed free and sent to pathology for evaluation. Ureteroscopy was carried all the way down to the ureterovesical junction. Although there is some moderate excoriation and some moderate oozing I did not feel that a stent replacement was indicated. Therefore I decided not to replace it. All instruments were removed as well as the access sheath. The bladder was inspected and found to be without any stone fragments. Bladder emptied scope removed and the procedure was terminated. She tolerates it well. She is transferred to the [facility] and then back to PACU in satisfactory condition, stable vital signs. Plan to be for discharge home with plans to follow-up in 6 months with a KUB. Discussed this with her postop and he is in agreement with the plan. She already has some pain medications to use on a as needed basis. I sent a prescription for Bactrim DS 1 tab p.o. twice daily to her pharmacy. She will make a decision whether or not to repeat a metabolic workup prior to the 6-month visit.. Estimated Blood Loss: 2 ml. Complications: None. Normal [facility] Comment on above: Result Comment: Elec tronically Signed By: Chencho HANEY MD\.br\Date and Time Signed: 12/15/23 17:25 EDT Outpatient Surgery Discharge Instructionon 12-15-2023 Outpatient Surgery Discharge Instruction Outpatient Surgery Discharge Instruction [place] [id number] Patient Discharge Instructions PERSON INFORMATION Name: JUNE RHODES Date of : 1980 Current Date: 12/15/2023 17:21:10 PHYSICIANS Admitting Physician: Chencho HANEY MD Discharge Diagnosis: RHODES JUNE Nieto has been given the following list of [...] THE NEAREST EMERGENCY ROOM OR CALL [address], have received the attached patient education materials/instructio ns and have verbalized understanding: May we do a follow up call? Yes No I was present when discharge instructions were given Patient Signature Date Clinican/Nurse Signature Date Follow up: With: Address: When: Chencho HANEY [address] [place], [place] [address], [address], [facility] [place] [address] Business (1) Within 6 months Comments: Call for followup appointment, with an abdominal X-ray prior to your visit. You may have had the metabolic workup in the past, which would require a 24-hour urine collection and some blood work. If this has not been within the last 2 to 3 years however you may consider repeating this. Please call my office to let us know if you would like to proceed with that prior to your next visit. I did send an antibiotic prescription to your pharmacy. Pharmacy Information: You may receive a survey from [facility] Arguello asking you to rate your care experience. Your feedback is important and will help us understand what we do well and how we can improve the quality of care we provide to you, your loved ones and our community. It?s an honor to serve you. Thank you for choosing [facility] HERE ARE THE MEDICATION CHANGES THAT OCCURRED DURING YOUR HOSPITAL STAY New Medications [facility], [address] [place] [id number], [phone] sulfamethoxazole-tri methoprim (Bactrim D.S. 800 mg-160 mg Tab) 1 Tablets By Mouth 2 times a day for 5 Days. Refills: 0. Medications to Continue with No Changes Other Medications acetaminophen-oxycod one (acetaminophen-oxyco done 300 mg-5 mg oral tablet) 1 Tablets By Mouth every 6 hours as needed for pain. hydrOXYzine (hydrOXYzine hydrochloride 25 mg Tab) 1 Tablets By Mouth as needed as needed for anxiety. lamotrigine (lamotrigine 150 mg Tab) 1 Tablets By Mouth at bedtime., restless leg multivitamin (One-A-Day) 2 Tablets By Mouth every day., bariatric multivitamin with minerals (Hair Skin and Nails) 1 Tablets By Mouth every day. multivitamin with minerals (Viactiv Soft Calcium Chews) 4 Chewed every day. oxybutynin (oxybutynin 5 mg Tab) 1 Tablets By Mouth 2 times a day for 30 Days. Refills: 1. pantoprazole (Protonix 40 mg oral Granule) 1 tab By Mouth 2 times a day. prazosin (prazosin 1 mg Cap) 1 Capsules By Mouth at bedtime., night terror trazodone (traZODONE 50 mg Tab) 1 Tablets By Mouth once a day (at bedtime). PATIENT EDUCATION INFORMATION Instructions: [facility] [place], [place] Dr. Chencho Garza Post-operative Instructions for Ureteroscopy, Laser Lithotripsy, Stone Extraction and Stent Placement There are no incisions or dressings to be concerned with, as the procedure was performed inside the urinary system. For 24 hours after surgery: ? No driving or operating machinery ? Do not make important decisions ? Do not consume alcohol, sleeping pills Stent Placement Your stent was removed and not replaced! You could however have some flank pain from the procedure today, due to some swelling of the ureter which is the tube between the kidney and the bladder. This usually last less than 24 hours or so if it occurs. Diet You may resume your normal diet, but you may want to start slowly and avoid spicy food, caffeine, carbonated beverages and alcohol, especially if you have a stent. Your diet and fluid intake may make irritation from the stent worse. Activity You may resume your normal activities, although you should take (more content not included)... Normal [facility] XR Abdomen 1 Viewon 12-15-19 24 XR Abdomen 1 View Exam Date/Time: 12/15/2023 13:59 EDT Reason for Exam: Kidney stone Report IMPRESSION: RIGHT URETERAL STENT IN EXPECTED POSITION. APPROXIMATELY 2 MM RIGHT LOWER POLE RENAL CALCULUS. EXAM: XR Abdomen 1 View DATE: 12/15/2023 1:47 PM CLINICAL HISTORY: Kidney stone. COMPARISON: 11/11/2023. TECHNIQUE: Two supine radiographs of the abdomen and pelvis were obtained. FINDINGS: A right ureteral stent is noted in expected position. An approximately 2 mm right lower pole renal calculus appears similar. There are no other urinary tract calculi identified, by plain radiography. There is a nonobstructive bowel gas pattern, with mild gas and stool noted in the colon and rectum. There are no other significant changes identified. The visualized lung bases are clear. Ordering Provider: Chencho HANEY FINAL REPORT Dictated: 12/15/2023 2:16 pm Osvaldo Heaton MD Signed (Electronic Signature): 12/15/2023 2:16 pm Signed by: Osvaldo Heaton MD Transcribed by: CRISTOPHER Technologist: MAURICIO Technical Comments Radiation Dose: Ka,r in mGy = na DAP = na Normal [facility] Main OR Intraoperative Recor don 11-12-2023 Main OR Intraoperative Record Main OR Intraoperative Record IntraOp Document Type FT Summary Primary Physician: Chencho HANEY MD Finalized Date/Time: 11/12/23 13:35:24 Pt. Name: MEAGANJUNE/Sex: 1980 Female Med Rec #: [id number] Physician: Chencho HANEY MD Financial #: [id number] Pt. Type: A Room/Bed: Admit/Disch: 11/11/23 09:03:11 - 11/11/23 16:16:29 Institution: Case Times FT Entry 1 Patient Times In Room 11/11/23 13:13:00 Out Room 11/11/23 13:51:00 Procedure Times Start 11/11/23 13:27:00 Stop 11/11/23 13:48:00 Anesthesia Times Start 11/11/23 13:13:00 Stop 11/11/23 13:51:00 Last Modified By: Kristie Min RN 11/11/23 13:52:02 General Comments: 11/12/23 Chart opened to review and send charges [facility] CSFA Case Attendance FT Entry 1 Entry 2 Entry 3 Case Attendee Betzy BARRON, Sonja HANEY MD, Chencho Bailey RN,Paige Brown Role Performed AIR FILLER Surgeon - Primary Staff - Other Time In 11/11/23 13:13:00 11/11/23 13:13:00 11/11/23 13:13:00 Time Out 11/11/23 13:51:00 11/11/23 13:51:00 11/11/23 13:51:00 Procedure EXTRACORPOREAL SHOCK EXTRACORPOREAL SHOCK EXTRACORPOREAL SHOCK WAVE WAVE WAVE LITHOTRIPSY(Right), LITHOTRIPSY(Right), LITHOTRIPSY(Right), CYSTOSCOPY STENT CYSTOSCOPY STENT CYSTOSCOPY STENT INSERTION(Right) INSERTION(Right) INSERTION(Right) Comments Dr. Goss supervising orientation Last Modified By: Pako RN, Kristie Min RN, Kristie Min RN, Kristie Lainez 11/11/23 13:52:03 11/11/23 13:52:03 11/11/23 13:52:03 Entry 4 Entry 5 Case Attendee Pako CORTEZ, Parveen Yoder CST Role Performed Combiner - Primary Scrub - Primary Time In [...] Time Out Sonja Bo CRNA, Given Participants LYNDON ARANGO, Chencho Oneal, Lynn CORTEZ,Pako Cobb RN, Anitha Koehler CST, Beau Time [...] PLACEMENT Primary Procedure Yes No Primary Surgeon LYNDON ARANGO, Chencho HANEY MD, Chencho Oneal Start 11/11/23 13:27:00 11/11/23 13:27:00 Stop 11/11/23 13:48:00 11/11/23 13:48:00 Anesthesia Type General General Surgical Service Urology Urology Wound Class 1 - Clean 2 - Clean-Contaminated Last Modified By: Kristie Min RN, RN, Amy J 11/11/23 13:57:50 11/11/23 13:57:50 General Case Data [...] and tissue Entry 1 Skin Integrity Intact, [place], Warm, and Skin Abnormality No Dry Outcomes Met? Yes Last Sandhya (more content not included)... Normal [facility] XR Abdomen 1 Viewon 11-12-19 24 XR Abdomen 1 View Exam Date/Time: 11/11/2023 [...] No other significant abnormality. Ordering Provider: Chencho HANEY FINAL REPORT Dictated: 11/12/2023 12:51 pm Ruddy Ocampo MD Signed (Electronic Signature): 11/12/2023 12:51 pm Signed by: Ruddy Ocampo MD Transcribed by: DP Technologist: DPR Technical Comments Radiation Dose: Ka,r in mGy = na DAP = na Normal [facility] Discharge Instructionson Discharge Instructions Discharge Instructions JUNE RHODES :1980 Visit Date:11/11/2023 Inpatient Discharge Instructions Your Care Team Admitting Physician - Chencho HANEY MD Referring Physician - Chencho HANEY MD Reason for Your Visit KIDNEY STONE [...] Appointments after Discharge Follow Up with Chencho HANEY When: Comments: Please call my office to speak with Elizabeth, she is my operations scheduler. Please asked to have the abdominal x-ray [...] some bladder spasm medications as well. Where: [facility] [address] [place] [phone] Business (1) Medications What How Much When Instructions Next Dose New acetaminophen-hydroc odone (acetaminophen-hydro codone 325 mg-5 mg oral tablet) 1 Tablets By Mouth Every 4 hours as needed for Pain Duration: 2 Days Pickup at [facility]77100 New ciprofloxacin (Cipro 500 mg Tab) 1 Tablets By Mouth 2 times a day Duration: 5 Days Pickup at [facility]98 New oxybutynin (oxybutynin 5 mg Tab) 1 Tablets By Mouth 2 times a day Duration: 30 Days Refills: 1 Pickup at [facility] #[id number] Unchanged hydrOXYzine (hydrOXYzine hydrochloride 25 mg Tab) [...] Once a day (at bedtime) Pharmacy Information [facility] #[id number]: [address], [place] [id number] [phone] Test Results No qualifying data available. Allergies [...] ? Bl (more content not included)... Normal [facility] Comment on above: Result Comment: Elec tronically Signed By: Janene Iraheta RN\.br\Date and Time Signed: 11/11/23 14:47 EDT Inpatient Patient Summaryon 11-11-2023 Inpatient Patient Summary Inpatient Patient Summary [address] [address] [facility] Clinical Discharge Instructions PERSON INFORMATION Name: JUNE RHODES [facility]#:[id number] PHYSICIANS Admitting Physician: Chencho HANEY MD Attending Physician: Chencho HANEY MD PCP: HANY IGLESIAS MD Discharge Diagnosis: Comment: PATIENT EDUCATION INFORMATION Instructions: Lithotripsy, Care After Medication Leaflets: Follow up: With: Address: When: Chencho LYNDON [address], [address], [facility] [address] [place] [address] Business (1) Comments: Please call my office to speak with Elizabeth, she is my operations scheduler. Please asked to have the abdominal x-ray [...] well. MEDICATION LIST New Medications [id number], [address], [place] [id number], [phone] acetaminophen-hydroc odone (acetaminophen-hydro codone 325 mg-5 mg [...] once a day (at bedtime). Comment: Brittney [facility] Main OR PACU I Recordon 10-24 Main OR PACU I Record Main OR PACU I Record PACU Phase I Document Type FT Summary Primary Physician: Chencho HANEY MD Finalized Date/Time: 11/11/23 14:56:51 Pt. Name: JUNE RHODES [place] Sow/Sex: 1980 Female Med Rec #: [id number] Physician: Chencho HANEY MD Financial #: [id number] Pt. Type: A Room/Bed: 06/24 Admit/Disch: 11/11/23 09:03:11 - Institution: Case Times [...] 11/11/23 14:56 Nancy Galloway RN 11/11/23 14:56 [facility] Main OR PACU II Recordon Main OR PACU II Record Main OR PACU II Record PACU Phase II Document Type FT Summary Primary Physician: Chencho HANEY MD Finalized Date/Time: 11/11/23 16:13:12 Pt. Name: JUNE RHODES/Sex: 1980 Female Med Rec #: [id number] Physician: Chencho HANEY MD Financial #: [id number] Pt. Type: A Room/Bed: [place] [address] Admit/Disch: 11/11/23 09:03:11 - Institution: Case Times [...] By: Janene Iraheta RN 11/11/23 16:13 Normal [facility] Main OR Preoperative Recordo n 11-11-2023 Main OR Preoperative Record Main OR Preoperative Record PreOp Document Type FT Summary Primary Physician: Chencho HANEY MD Finalized Date/Time: 11/11/23 13:47:17 Pt. Name: JUNE RHODES/Sex: 1980 Female Med Rec #: [id number] Physician: Chencho HANEY MD Financial #: [id number] Pt. Type: A Room/Bed: Admit/Disch: 11/11/23 09:03:11 [...] By: Kristie Min RN 11/11/23 13:47 Normal [facility] Operative Reporton Operative Report Operative Report Patient: JUNE RHODES Age: 43 years Sex: Female : 1980 Associated Diagnoses: None Author: Chencho HANEY MD Postoperative Information Date/ Time: 11/11/2023 13:44:00 Postoperative Diagnosis: Right renal calculus, 1.5 cm. Performed by: Chencho Haney MD. Findings: Procedure: Cystoscopy Right double-J stent placement [...] placed per urethra and a well-lubricated 22 Swedish is urethroscope with 30 degree lens then passed into the bladder without difficulty. Panendoscopy reveals no tumors, no stones, no diverticuli. Ureteral orifices are normal. No suspicious lesions. I was able to cannulate the right ureteral orifice with a point 035 guidewire and over that a 4.9 Swedish Dornier double-J ureteral stent is then passed [...] it well. She is transferred to the rbig arm and then back to PACU in satisfactory condition, stable vital signs. Plan to be for discharge home with plans to follow-up hopefully for stent removal after a KUB next week confirms adequate fragmentation. Discussed this postop with her family and she is in agreement with the plan. Antibiotic prescription as well as [place] as well as oxybutynin sent to the pharmacy. Antibiotic consists of Cipro 500 mg p.o. twice daily #10.. Estimated Blood Loss: 0 ml. Complications: None. Anesthesia type: General. Normal [facility] Comment on above: Result Comment: Elec tronically Signed By: Chencho HANEY MD\.br\Date and Time Signed: 11/11/23 13:48 EDT Outpatient Surgery Discharge Instructionon 11-11-2023 Outpatient Surgery Discharge Instruction Outpatient Surgery Discharge Instruction [place] [id number] Patient Discharge Instructions PERSON INFORMATION Name: JUNE RHODES Date of : 1980 Current Date: 11/11/2023 13:44:41 PHYSICIANS Admitting Physician: Chencho HANEY MD Discharge Diagnosis: JUNE RHODES has been [...] THE NEAREST EMERGENCY ROOM OR CALL 911 I, RHODES, JUNE E, have received the attached patient education materials/instructio ns and have verbalized understanding: May we do a follow up call? Yes No I was present when discharge instructions were given Patient Signature Date Clinican/Nurse Signature Date Follow up: With: Address: When: Chencho HANEY [address] [place], [place] [address], [address], [place] [address] Business (1) Comments: Please call my office to speak with Elizabeth, she is my operations scheduler. Please asked to have the abdominal x-ray [...] Information: You may receive a survey from Dayana Arguello asking you to rate your care experience. Your feedback is important and will help us understand what we do well and how we can improve the quality of care we provide to you, your loved ones and our community. It?s an honor to serve you. Thank you for choosing [facility] HERE ARE THE MEDICATION CHANGES THAT OCCURRED DURING YOUR HOSPITAL STAY New Medications [id number], [address], [place] [id number], [phone] acetaminophen-hydroc odone (acetaminophen-hydro codone 325 mg-5 mg [...] may m (more content not included)... Normal [facility] BMPon 10-27-2023 Anion gap [Moles/Vol] 10 mmol/L Normal 6-16 [facility] Comment on above: Performed By: #### 2 [id number] #### [facility] [address] [place] [address] Calcium [Mass/Vol] 8.9 mg/dL Normal 8.9-11.1 [facility] Comment on above: Performed By: #### 2 [id number] #### [facility] [address] [place] [address] Chloride [Moles/Vol] 107 mmol/L Normal 101-111 [facility] Comment on above: Performed By: #### 2 [id number] #### [facility] [address] [place] [address] CO2 [Moles/Vol] 28 mmol/L Normal 21-[address] [facility] Comment on above: Performed By: #### 2 [id number] #### [facility] [address] [place] [address] Creatinine [Mass/Vol] 0.7 mg/dL Normal 0.5-1.3 [facility] Comment on above: Performed By: #### 2 [id number] #### [facility] [address] [place] [address] Glucose [Mass/Vol] 81 mg/dL Normal 55-199 [facility] Comment on above: Performed By: #### 2 [id number] #### [facility] [address] [place] [address] Potassium [Moles/Vol] 4.2 mmol/L Normal 3.5-5.3 [facility] Comment on above: Performed By: #### 2 [id number] #### [facility] [address] [place] [address] Sodium [Moles/Vol] 141 mmol/L Normal 135-145 [facility] Comment on above: Performed By: #### 2 [id number] #### [facility] [address] [place] [address] Urea nitrogen [Mass/Vol] 18 mg/dL Normal 5-21 [facility] Comment on above: Performed By: #### 2 [id number] #### [facility] [address] [place] [address] Urea nitrogen/Creatinine [Mass ratio] 26 No Units High 10-20 [facility] Comment on above: Performed By: #### 2 [id number] #### [facility] [address] [place] [address] CBC w/ Auto Diffon 4 Basophils/100 WBC (Bld) 0.7 % Normal 0.0-2.0 [facility] Comment on above: Performed By: #### 2 [id number] #### [facility] [address] [place] [address] Basophils/Leukocytes Auto (Bld) [Pure # fraction] 0.0 E9/L Normal 0.0-0.2 [facility] Comment on above: Performed By: #### 2 [id number] #### [facility] [address] [place] [address] Eosinophils (Bld) [#/Vol] 0.2 E9/L Normal 0.0-0.5 [facility] Comment on above: Performed By: #### 2 [id number] #### [facility] [address] [place] [address] Eosinophils/100 WBC (Bld) 2.6 % Normal 0.0-8.0 [facility] Comment on above: Performed By: #### 2 [id number] #### [facility] [address] [place] [address] Erythrocyte distribution width (RBC) [Ratio] 13.5 % Normal 10.9-14.2 [facility] Comment on above: Performed By: #### 2 [id number] #### [facility] [address] [place] [address] Hematocrit (Bld) [Volume fraction] 39.3 % Normal 34.0-46.0 [facility] Comment on above: Performed By: #### 2 [id number] #### [facility] [address] [place] [address] Hemoglobin (Bld) [Mass/Vol] 13.9 g/dL Normal 12.0-16.0 [facility] Comment on above: Performed By: #### 2 [id number] #### [facility] [address] [place] [address] Lymphocytes (Bld) [#/Vol] 1.9 E9/L Normal 1.0-4.0 [facility] Comment on above: Performed By: #### 2 [id number] #### [facility] [address] [place] [address] Lymphocytes/100 WBC (Bld) 27.1 % Normal 14.0-50.0 [facility] Comment on above: Performed By: #### 2 [id number] #### [facility] [address] [place] [address] MCH (RBC) [Entitic mass] 29.7 pg Normal 27.0-34.0 [facility] Comment on above: Performed By: #### 2 [id number] #### [facility] [address] [place] [address] MCHC (RBC) [Mass/Vol] 35.3 g/dL Normal 31.4-36.0 [facility] Comment on above: Performed By: #### 2 [id number] #### [facility] [address] [place] [address] MCV (RBC) [Entitic vol] 84.2 fL Normal 80.0-100.0 [facility] Comment on above: Performed By: #### 2 [id number] #### [facility] [address] [place] [address] Monocytes (Bld) [#/Vol] 0.5 E9/L Normal 0.2-1.0 [facility] Comment on above: Performed By: #### 2 [id number] #### [facility] [address] [place] [address] Neutrophils (Bld) [#/Vol] 4.4 E9/L Normal 2.0-7.5 [facility] Comment on above: Performed By: #### 2 [id number] #### [facility] [address] [place] [address] Neutrophils/100 WBC (Bld) 62.1 % Normal 36.0-75.0 [facility] Comment on above: Performed By: #### 2 026191 #### [facility] [address] [place] [address] Platelet 272.0 E9/L Normal 150.0-500.0 [facility] Comment on above: Performed By: #### 2 [id number] #### [facility] [address] [place] [address] Platelet mean volume (Bld) [Entitic vol] 9.8 fL Normal 6.4-10.8 [facility] Comment on above: Performed By: #### 2 [id number] #### [facility] [address] [place] [address] RBC (Bld) [#/Vol] 4.7 E12/L Normal 4.3-5.9 [facility] Comment on above: Performed By: #### 2 [id number] #### [facility] [address] [place] [address] WBC corrected for nucl RBC Auto (Bld) [#/Vol] 7.0 E9/L Normal 4.0-11.[address] [facility] Comment on above: Performed By: #### 2 [id number] #### [facility] [address] [place] [address] CHEMISTRYOrdered By: SYSTEM SYSTEM on 10-27-2023 Anion [...] 39.3 s High 25.1 - 36.5 second(s) [facility] Auto Coag Comment on above: Interpretive Data: [...] the same coagulation reagent and instrumentation as [facility]. Currently there are no coagulation studies available worldwide for children to 14 days, and no normal ranges. Heparin therapeutic range (represented by Anti-Factor Xa activity of 0.2 - 0.4 U/mL) corresponds to PTT of 56.6 - 109.0 sec. INR Coag (PPP) [Relative time] 1.07 {INR} Invalid Interpretation Code [facility] Auto Coag Comment on above: Interpretive Data: I NR results are specifically intended to assess patients stabilized on long-term Anticoagulation therapy suggested INR s Less Intensive Anticoagulation 2.0 3.0 Conventional Range 3.0 4.5 PT Coag (PPP) [Time] 12.0 s Normal 9.4 - 1 2.5 second(s) [facility] Auto Coag Comment on above: Interpretive Data: [...] the same coagulation reagent and instrumentation as [facility]. Currently there are no coagulation studies available [...] Coag (PPP) [Time] 39.3 second(s) High 25.1-36.5 [facility] Comment on above: Result Comment: Para [...] the same coagulation reagent and instrumentation as [facility]. Currently there are no coagulation studies available worldwide for children to 14 days, and no normal ranges. Heparin therapeutic range (represented by Anti-Factor Xa activity of 0.2 - 0.4 U/mL) corresponds to PTT of 56.6 - 109.0 sec. Performed By: #### 1 [id number] ####[facility] [address] [place] [address] INR Coag (PPP) [Relative time] 1.07 {INR} Invalid Interpretation Code [facility] Comment on above: Result Comment: INR results are specifically intended to assess patients stabilized on long-term Anticoagulation therapy suggested INR?s ?Less Intensive Anticoagulation? 2.0 ? 3.0 Conventional Range 3.0 ? 4.5 Performed By: #### 1 [id number] ####[facility] [address] [place] [address] PT Coag (PPP) [Time] 12.0 second(s) Normal 9.4-12.5 [facility] Comment on above: Result Comment: 15 [...] the same coagulation reagent and instrumentation as [facility]. Currently there are no coagulation studies available worldwide for children to 14 days, and no normal ranges. Performed By: #### 1 [id number] ####[facility] [address] [place] [address] UA with Cult Rflxon 10-27-19 24 Bacteria Auto Ql (U) Trace Normal Trace Fish er [facility] Comment on above: Performed By: #### 4 [id number] #### [facility] [address] [place] [address] Bilirubin Ql (U) Negative Normal Negative [facility] Comment on above: Performed By: #### 4 [id number] #### [facility] [address] [place] [address] Clarity (U) Clear Normal Clear [facility] Comment on above: Performed By: #### 4 [id number] #### [facility] [address] [place] [address] Color (U) Light-Yellow Normal Yellow [facility] Comment on above: Result Comment: Micr oscopic readings are only performed on those samples that meet specific criteria set forth by [facility]. Performed By: #### 4 [id number] #### [facility] [address] [place] [address] Epithelial cells.squamous Auto (Urine sed) [#/Area] 0-2 Invalid Interpretation Code [facility] Comment on above: Performed By: #### 4 [id number] #### [facility] [address] [place] [address] Glucose Ql (U) Negative Normal Negative [facility] Comment on above: Performed By: #### 4 [id number] #### [facility] [address] [place] [address] Hemoglobin Auto test strip (U) [Mass/Vol] Negative Normal Negative [facility] Comment on above: Performed By: #### 4 [id number] #### [facility] [address] [place] [address] Hyaline casts LM Ql (Urine sed) 0-3 Normal 0-3 [facility] Comment on above: Performed By: #### 4 [id number] #### [facility] [address] [place] [address] Ketones Auto test strip Ql (U) Negative Normal Negative [facility] Comment on above: Performed By: #### 4 [id number] #### [facility] [address] [place] [address] Leukocyte esterase Auto test strip Ql (U) 25 Pinky/uL Normal Negative [facility] Comment on above: Performed By: #### 4 [id number] #### [facility] [address] [place] [address] Mucus Auto Ql (U) Trace Normal Negative [facility] Comment on above: Performed By: #### 4 [id number] #### [facility] [address] [place] [address] Nitrite Auto test strip Ql (U) Negative Normal Negative [facility] Comment on above: Performed By: #### 4 [id number] #### [facility] [address] [place] [address] pH (U) 6.0 [pH] Invalid Interpretation Code 5.0-9.0 [facility] Comment on above: Performed By: #### 4 [id number] #### [facility] [address] [place] [address] Protein Ql (U) Negative Normal Negative [facility] Comment on above: Performed By: #### 4 [id number] #### [facility] [address] [place] [address] RBC Ql (U) 4-20 Abnormal 0-3 [facility] Comment on above: Performed By: #### 4 [id number] #### [facility] [address] [place] [address] Specific gravity (U) [Rel density] 1.025 Invalid Interpretation Code 1.005-1.030 [facility] Comment on above: Performed By: #### 4 [id number] #### [facility] [address] [place] [address] Urobilinogen (U) [Mass/Vol] Negative Normal Negative [facility] Comment on above: Performed By: #### 4 [id number] #### [facility] [address] [place] [address] WBC Auto (Urine sed) [#/Area] 0-5 Normal 0-5 [facility] Comment on above: Performed By: #### [id number] #### [facility] [address] [place] [address] Type of Urine collection method Clean Catch Normal [facility] Comment on above: Performed By: #### [id number] #### [facility] [address] [place] [address] URINALYSISOrdered By: SYSTEM SYSTEM on 10-27-2023 Bacteria Auto Ql (U) Trace /HPF Normal Trace/HPF [facility] UA Auto SS Bilirubin Ql (U) Negative Normal Negativemg/dL [facility] UA Auto SS Clarity (U) Clear (10/27/23 10:58 AM) Normal Clear [facility] UA Auto SS Color (U) Light-Yellow 1 (10/27/23 10:58 AM) Normal Yellow [facility] UA Auto SS Comment on above: Interpretive Data: M icroscopic readings are only performed on those samples that meet specific criteria set forth by [facility]. Epithelial cells.squamous Auto (Urine sed) [...] (U) 4-20 graded/HPF Invalid Interpretation Code 0-3graded/HPF [facility] UA Auto SS Specific gravity (U) [Rel density] 1.025 *NA* (10/27/23 10:58 AM) Invalid Interpretation Code 1.005 - 1.030 [facility] UA Auto SS Urobilinogen (U) [Mass/Vol] Negative Normal Negativemg/dL [facility] UA Auto SS WBC Auto (Urine sed) [#/Area] 0-5 graded/HPF Normal 0-5graded/HPF [facility] UA Auto SS URINALYSISOrdered By: Shayne Butler on 10-27-2023 UA Spec Desc Clean Catch (10/27/23 10:58 AM) Normal [facility] UA Auto SS eGFRon 10-27-2023 eGFR 108 mL/min/1.73 m2 Normal >=59 [facility] Comment on above: Order Comment: Order added by Discern Expert. Performed By: #### 1 [id number] #### [facility] [address] [place] [address] Provider Letteron 07-19-2023 Provider Letter July 19, 2023 JUNE RHODES [address] [place] [id number] : 1980 Dear June , We have been trying to reach you with no success. It is important that you return our call regarding your next kidney stone surgery upon receiving this letter. Also, at the time of your call, please provide us with your current information. Thank you for your prompt attention to this matter. Sincerely, Dr. Chencho Haney MD Normal [facility] RAD - MISCon 06-25-2023 RAD - MISC [id number] #1.00TIFF Normal [facility] Lab Reportson 06-16-2023 Lab Reports [id number] #1.00TIFF Normal [facility] RAD - CT Reporton 06-16-2023 RAD - CT Report [id number] #1.00TIFF Normal [facility] RAD - Ultrasound Reporton RAD - Ultrasound Report [id number] #1.00TIFF Brittney Campos [facility] Ambulatory Visit Summaryon 0 06-15-2023 Ambulatory Visit Summary JUNE RHODES :1980 Visit Date:06/15/2023 Ambulatory Visit Instructions Your Diagnosis Ureteral stone with hydronephrosis Kidney stone Flank pain Tests Performed XR IVP -- Results Pending -- Please visit your patient portal for your results or contact your primary care physician. Your Care Team Attending Physician - Chencho HANEY MD Primary Care Physician - HANY IGLESIAS MD This Is Your Medications List [...] Schedule the Following Appointments Follow Up with LYNDON ARANGO, Chencho Oneal, URL When: Comments: IVP in 1-2wks Where: [address] [place] [address]- Medications What How Much When Instructions Unchanged [...] Follow th (more content not included)... Normal [facility] Patient Educationon 06-15-19 Patient Education Urology [...] these instructions at home: Medicines ? Take nhqj-iqn-qqtnhud and prescription medicines only as told by [...] provider. Document Revised: 12/15/2021 Document Reviewed: 12/15/2021 [employer] Patient Education ? 2022 [employer]. [employer]yeeeah [facility] Urology Office/Clinic Noteon 06-15-2023 Urology Office/Clinic Note Chief Complaint [facility] F/U for lower abdominal pain HPI Staff Pt is here for TBH F/U CT abdominal pelvis wo con @ [facility] 05/21/23 CC lower abdominal pain Last OV was 07/23/20 Previous DX; Kidney stone, flank pain, microscopic hematuria, urge incontinence, hx kidney stones CT @ [facility] on 06/11/23 EMELI @ [facility] 06/11/23 Given Tamsulosin 0.4 mg qd at [facility] She did complete this no concerns [...] Hydronephrosis with renal and ureteral calculous obstruction) [facility] ER visit 05/21/23 c/o bilateral lower [...] with voice recognition artificial intelligence software, specifically Machine [employer], [employer] and or [employer]. Substitutions may have occurred due to the inherent limitations of voice recognition and artificial intelligence software. Follow-up With When Contact Information Chencho HANEY MD, URL [address] [address]- Additional Instructions: IVP in 1-2wks Patient Education Kidney Stones, Cxsf-qk-Moyy Cleo Shaw, personally scribed for Dr. Haney on 06/15/2023 10:54:59. . Documentation recorded by the Cleo valenzuela (more content not included)... Normal [facility] Comment on above: Result Comment: Elec tronically Signed By: Chencho HANEY MD\.br\Date and Time Signed: 06/15/23 21:50 EST\.br\Electronically Co-Signed By: Cleo Bonner\.br\Date and Time Co-Signed: 06/15/23 10:55 EST RAD - MISCon 06-13-2023 RAD - MISC [id number] #1.00TIFF Normal [facility] RAD - Ultrasound Reporton RAD - Ultrasound Report [id number] #1.00TIFF Normal [facility] ED Note-Physicianon 06-08-19 ED Note-Physician [id number] #1.00TIFF Normal [facility]24 SARS-CoV-2 (COVID-19) RNA JUDE+probe Ql (Unsp spec) Detected Critically abnormal NOT DETECTED [facility] Comment on above: Result Comment: This test is not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 irritability, mind going blank, muscle tension, sleep disturbance. Symptoms have been going on for over 6 months. MARLYS-7 score of 19 Panic attacks: Patient admits to panic attacks that is triggered by thoughts, people or things. She denies having unexpected episodes of panic attacks. Social anxiety: Patient DOES ENDORSE having symptoms of unrealistic fear of embarrassing or humiliating self, being scrutinized by others, and reports of avoiding social situations. Symptoms have been going on for over 6 months. PTSD: Patient DOES ENDORSE a history of trauma or traumatic stress. Patient also admits to experiencing hypervigilance, feeling hyper-alert, increased startle response, intrusive thoughts, nightmares, flashbacks, avoidance and agoraphobia. OCD: Patient DOES ENDORSE obsessive thoughts that are recurrent and persistent; compulsive and repetitive behaviors; both of which the patient considers to be time-consuming and causing significant distress in daily life. Patient examples include: putting things in a certain order and always having to put things in even numbers. Psychosis: Patient DENIES having delusions, visual hallucinations, auditory hallucinations, thought insertion, paranoia, thought broadcasting. Eating Disorder: Patient DENIES any significant weight loss/gain, purging food, counting calories, intense fear of weight gain, episodes of binge eating. Patient denies any history of being diagnosed with an eating disorder. SUBJECTIVE: PAST MEDICAL HISTORY: Past Medical History: Diagnosis Date Benign essential hypertension (CMS/HCC) Chronic pain of left knee Chronic seasonal allergic rhinitis due to pollen DDD (degenerative disc disease), lumbar Eustachian tube dysfunction, left MARLYS (generalized anxiety disorder) (CMS/HCC) GERD without esophagitis H/O gastric sleeve 2022 Hormone disorder Insomnia, persistent Mood disorder (CMS/HCC) Multiple renal calculi Right kidney mass RLS (restless legs syndrome) S/P bilateral salpingo-oophorectomy Sleep difficulties Surgical menopause Patient denies any history of heart problems, head trauma, seizures, stroke/TIA, infectious disorders (e.g., meningitis), lung disorders, tics/tourette s, eating disorders. MEDICATIONS: Current Outpatient Medications Medication Instructions clotrimazole-betamethasone (Lotrisone) cream Topical, 2 times daily doxepin (SINEquan) 25 MG capsule Take 2 capsules (50 mg) by mouth at bedtime for 7 days, THEN 1 capsule (25 mg) at bedtime for 7 days. Take 2 capsules by mouth at bedtime for 7 days then 1 capsule by mouth at bedtime for 7 days, then stop medication.. furosemide (LASIX) 40 mg, Oral, Daily hydrOXYzine HCl (ATARAX) 25 mg, Oral, 4 times daily PRN lamoTRIgine (LAMICTAL) 150 mg, Oral, Nightly meclizine (ANTIVERT) 25 mg, Oral, 4 times daily PRN montelukast (SINGULAIR) 10 mg, Oral, Nightly nystatin (Mycostatin) 378809 UNIT/GM powder Topical, 2 times daily oxyCODONE-acetaminophen (Percocet) 5-325 MG tablet 1 tablet, Oral, Every 6 hours PRN pantoprazole (PROTONIX) 40 mg, Oral, 2 times daily, Do not crush, chew, or split. PARoxetine (PAXIL) 40 mg, Oral, Every morning pramipexole (MIRAPEX) 0.5 mg, Oral, Nightly prazosin (MINIPRESS) 5 mg, Oral, Nightly QUEtiapine (SEROQUEL) 12.5 mg, Oral, Nightly sucralfate (CARAFATE) 1 g, Oral, Every 6 hours scheduled ALLERGIES: Allergies Allergen Reactions Ciprofloxacin Effexor [Venlafaxine] GI intolerance Profuse vomiting Fentanyl Other Went into shock Morphine Sulfate (Concentrate) Penicillins SURGICAL HISTORY: Past Surgical History: Procedure Laterality Date SECTION, LOW TRANSVERSE 06/1999 SECTION, LOW TRANSVERSE 01/2002 EXPLORATORY LAPAROTOMY bilateral salpingo-oophorectomy and lysis of adhesions GASTRIC BYPASS Gastric sleeve SALPINGOOPHORECTOMY Bilateral Lysis of adhesions TOTAL ABDOMINAL HYSTERECTOMY TB FAMILY HISTORY: Family History Problem Relation Name Age of Onset Kidney disease Mother Diabetes Mother Bipolar disorder Mother Schizophrenia Mother Suicidality Mother Heart disease Father Suicidality Sister Suicidality Brother comitted suicide Bulimia Mother's Sister Hypertension Maternal Grandfather Kidney disease Maternal Grandmother Diabetes Maternal Grandmother Osteoporosis Maternal Grandmother Hypotension Maternal Grandmother SOCIAL HISTORY: Social History Tobacco Use Smoking status: Former Current packs/day: 0.50 Average packs/day: 0.5 packs/day for 20.0 years (10.0 ttl pk-yrs) Types: Cigarettes Smokeless tobacco: Never Vaping Use Vaping status: Never Used Substance Use Topics Alcohol use: Not Currently Comment: caffiene- occasional pop Drug use: Not Currently Types: Marijuana Comment: teenahe Patient Care Team: Hany Iglesias MD as PCP - General (Family Medicine) [facility] Practitioner (Behavioral Health) Chencho Haney MD as Referring Physician (Urology) MENTAL STATUS EXAM Appearance Appearance: Normal grooming and hygiene. Appears stated age. Dressed appropriately for weather. Behavior Calm, cooperative, pleasant. Good posture. Psychomotor Activity Intact. No abnormal movements noted. Eye contact Good Speech Normal, clear, regular rate, rhythm and volume Affect Full range. Stable. Appropriate and congruent with mood. Tearful Mood Anxious, Depressed, and Irritable Thought Process Organized, logical, and goal directed Thought Content: Denies suicidal and homicidal ideation. Perception: Denies auditory or visual hallucinations. No evidence of delusions. Cognition Alert and attentive during visit Memory Immediate, recent and remote memory intact Insight Good. Acknowledges predominant symptoms of illness and need for treatment Judgement Good. Able to make reasonable life decisions. OBJECTIVE: Visit Vitals BP 138/82 (BP Location: Right arm, Patient Position: Sitting) Pulse 84 Wt 199 lb BMI 38.86 kg/m OB Status Hysterectomy Smoking Status Former BSA 1.96 m Lab results: Lab Results Component Value Date GLU 90 05/03/2023 CALCIUM 9.3 05/03/2023 NA 140 05/03/2023 K 3.7 05/03/2023 CO2 27.6 05/03/2023 BUN 16.0 05/03/2023 CREATININE 0.80 05/03/2023 ASSESSMENT AND PLAN: Impression: Patient's symptoms do not fit criteria for bipolar 2 disorder given her symptoms have only last 3 days at the most. She has significant history of trauma that I feel is contributing to a lot of her symptoms. She believes she is on a lot of medications and would like to be less if she can. She does not feel that the Clonidine and Doxepin have been effective and is willing to stop these. She was encouraged to utilize the PRN Hydroxyzine up to 4 times a day for her anxiety. We discussed recently changes to her Paroxetine and how it can take up to 8 weeks to see full benefit from her recent med change. We discussed other options with an SGA to help with her mood, irritability, anxiety and sleep. We discussed Seroquel as a potential option and she is willing to try this. She is also agreeable to counseling to help with coping skills and treatment of her grief and trauma. She does have a history of gastric bypass so she may need higher doses of medications due to how she metabolizes. She also states she is getting lab work completed through PCP and urologist in the future. Will review these once they are complete and add any additional labs if needed. 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[facility]) - Ambulatory referral to Psychiatry PTSD (post-traumatic stress disorder) ([facility]) Moderate episode of recurrent major depressive disorder ([facility]) Generalized anxiety disorder ([facility]) - Ambulatory referral to Psychiatry Social anxiety disorder ([facility]) Mixed obsessional thoughts and acts ([facility]) Psychophysiological insomnia Treatment Plan/Recommendations: - Continue Lamictal for bipolar depression. - Continue Prazosin for PTSD-related nightmares. - Continue Paroxetine 40 mg for depression, anxiety, PTSD. - Continue Hydroxyzine PRN for anxiety. Encouraged her to utilize this more frequently. - Stop Clonidine due to ineffectiveness in improvement anxiety. - Wean off Doxepin due to ineffectiveness. Decrease Doxepin to 50 mg daily for 1 week then decrease to 25 mg daily for 1 week, then stop medication. - Start Seroquel 12.5 mg for bipolar disorder, anxiety, sleep, mood irritability. - Encouraged counseling for additional mental health support and treatment. Patient agreeable to this and informed how to schedule appointment. - RTC in 4-6 weeks to re-evaluate symptoms. Discussed follow-up plan with patient, and encouraged patient to call office sooner if symptoms worsen or if any questions/concerns arise. Reviewed the risks, benefits, and potential side effects from the medications. The patient agrees the benefits outweigh the risks and agrees to treat their symptoms. Discussed treatment plan, the patient was allowed time to ask questions, and the patient agreed with the plan moving forward. Instructed patient to call office with any complications or potential side effects. Patient instructed to present to the local ER or call Suicide Hotline (259) for any psychosis, suicidal or homicidal ideation, or with any risk of harm to self or others. Patient was seen Face to Face, Total time spent with patient was 70 minutes, which includes reviewing chart documents, previous notes/records, counseling and discussion with patient and/or coordination of care as described above. documented in this encounter [facility] 06-13-2024 History of Present illness Narrative Associated Problem(s): Primary insomnia Sleeping well with medication and continue. Associated Problem(s): Mild mood disorder (CMS/HCC) Symptoms improved but still present and increase paxil. Warned will take 2-3 weeks to notice improvement in mood. Continue lamictal. Associated Problem(s): Generalized anxiety disorder (CMS/HCC) Symptoms improved but still present and increase paxil. Warned will take 2-3 weeks to notice improvement in mood. Continue lamictal. Start clonidine PRN. Associated Problem(s): Essential hypertension, benign (CMS/HCC) BP elevated but previously controlled and monitor PRN. Discussed DASH diet. Associated Problem(s): Degeneration of 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 back pain and lower extremity pain Pain unchanged and continue medication PRN. Associated Problem(s): Class 2 obesity due to excess calories without serious comorbidity with body mass index (BMI) of 39.0 to 39.9 in adult Weight loss indicated. Associated Problem(s): Bilateral leg edema Edema worse and start lasix PRN. Elevate legs PRN. Images from the original note were not included. Subjective Patient ID: June Rhodes is a 44 y.o. female who presents for Follow-up (2 M). Follow up HTN, back pain, mood disorder, anxiety, and insomnia. BP elevated today and not on medication since weight loss surgery. Not monitoring BP away from office. BP normal the past several office visits. Back pain unchanged. Continued pain in low back and across top hips. Pain radiates into gluteal region and down both legs. Frequent tightness and spasms in back. Continued radicular symptoms and weakness in right leg. At times hard to lift leg and difficult to go up stairs. Using percocet and helps. Mood improved with paxil. Not as down or sad and overall happier. Able to do more and interacting better with others. Tolerating medication without side effects. Still occasional symptoms and room for improvement. Anxiety worse. Nervous and worry all the time. Stressed out and overwhelmed. Thought racing and hard to clear mind. Muñoz, irritable and snapping at others. Easily upset and overreact. Sleeping well with doxepin and prazosin. Able to fall asleep and but still wakes up after few hours and hard to stay asleep. Not rested in rested in am. C/o swelling to feet and ankles for several weeks. Review of Systems Respiratory: Negative for cough, shortness of breath and wheezing. Cardiovascular: Negative for chest pain and palpitations. Gastrointestinal: Negative for abdominal pain, diarrhea, nausea and vomiting. Genitourinary: Negative for dysuria. Objective Physical Exam Constitutional: General: She is not in acute distress. Appearance: Normal appearance. HENT: Head: Normocephalic. Right Ear: Tympanic membrane normal. Left Ear: Tympanic membrane normal. Eyes: Extraocular Movements: Extraocular movements intact. Pupils: Pupils are equal, round, and reactive to light. Cardiovascular: Rate and Rhythm: Normal rate and regular rhythm. Heart sounds: No murmur heard. No friction rub. No gallop. Pulmonary: Effort: Pulmonary effort is normal. Breath sounds: Normal breath sounds. No wheezing, rhonchi or rales. Abdominal: General: Bowel sounds are normal. There is no distension. Palpations: Abdomen is soft. Tenderness: There is no abdominal tenderness. There is no guarding or rebound. Musculoskeletal: Cervical back: Neck supple. Right lower leg: No edema. Left lower leg: No edema. Neurological: Mental Status: She is alert. Assessment/Plan Problem List Items Addressed This Visit Essential hypertension, benign (CMS/HCC) - Primary BP elevated but previously controlled and monitor PRN. Discussed DASH diet. Degeneration of 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 back pain and lower extremity pain Pain unchanged and continue medication PRN. Generalized anxiety disorder (CMS/HCC) Symptoms improved but still present and increase paxil. Warned will take 2-3 weeks to notice improvement in mood. Continue lamictal. Start clonidine PRN. Relevant Medications cloNIDine (Catapres) 0.1 MG tablet Primary insomnia Sleeping well with medication and continue. Mild mood disorder (CMS/HCC) Symptoms improved but still present and increase paxil. Warned will take 2-3 weeks to notice improvement in mood. Continue lamictal. Relevant Medications PARoxetine (Paxil) 40 MG tablet Tinea corporis Relevant Medications clotrimazole-betamethasone (Lotrisone) cream Class 2 obesity due to excess calories without serious comorbidity with body mass index (BMI) of 39.0 to 39.9 in adult Weight loss indicated. Bilateral leg edema Edema worse and start lasix PRN. Elevate legs PRN. Relevant Medications furosemide (Lasix) 40 MG tablet documented in this encounter [facility] 05-19-2024 History of Present illness Narrative Associated Problem(s): Class 2 obesity due to excess calories without serious comorbidity with body mass index (BMI) of 39.0 to 39.9 in adult Weight loss indicated. Images from the original note were not included. Subjective Patient ID: June Rhodes is a 44 y.o. female who presents for Follow-up (Ring worm on left leg,). C/o rash for about 2 weeks. Taking care of cats for past 1 1/2 months and found to have ringworm. Her own cats developed ringworm then patient and boyfriend developed rash. Round, red spots on chest, arms, and legs. Very itchy and occasionally valdivia. Raised edges and central crusting. Using OTC antifungal cream and most spots improved but no change to lesions on legs or arm. Continues to be very itchy. Review of Systems Respiratory: Negative for cough, shortness of breath and wheezing. Cardiovascular: Negative for chest pain and palpitations. Gastrointestinal: Negative for abdominal pain, diarrhea, nausea and vomiting. Genitourinary: Negative for dysuria. Objective Physical Exam Constitutional: General: She is not in acute distress. Appearance: Normal appearance. HENT: Head: Normocephalic. Right Ear: Tympanic membrane normal. Left Ear: Tympanic membrane normal. Eyes: Extraocular Movements: Extraocular movements intact. Pupils: Pupils are equal, round, and reactive to light. Cardiovascular: Rate and Rhythm: Normal rate and regular rhythm. Heart sounds: No murmur heard. No friction rub. No gallop. Pulmonary: Effort: Pulmonary effort is normal. Breath sounds: Normal breath sounds. No wheezing, rhonchi or rales. Abdominal: General: Bowel sounds are normal. There is no distension. Palpations: Abdomen is soft. Tenderness: There is no abdominal tenderness. There is no guarding or rebound. Musculoskeletal: Cervical back: Neck supple. Right lower leg: No edema. Left lower leg: No edema. Neurological: Mental Status: She is alert. Assessment/Plan Problem List Items Addressed This Visit Tinea corporis - Primary Relevant Medications clotrimazole-betamethasone (Lotrisone) cream terbinafine (LamISIL) 250 MG tablet Class 2 obesity due to excess calories without serious comorbidity with body mass index (BMI) of 39.0 to 39.9 in adult Weight loss indicated. Other Visit Diagnoses DDD (degenerative disc disease), lumbar Relevant Medications oxyCODONE-acetaminophen (Percocet) 5-325 MG tablet documented in this encounter [facility] 04-12-2024 History of Present illness Narrative Associated Problem(s): Primary insomnia Sleeping improved with doxepin but still waking up and increase dose. Associated Problem(s): Mild mood disorder (CMS/HCC) Symptoms improved but still present and increase paxil. Warned will take 2-3 weeks to notice improvement in mood. Continue lamictal. Associated Problem(s): Generalized anxiety disorder (CMS/HCC) Symptoms improved but still present and increase paxil. Warned will take 2-3 weeks to notice improvement in mood. Continue lamictal. Associated Problem(s): Essential hypertension, benign (CMS/HCC) BP stable and monitor. Increase fluids. Associated Problem(s): Degeneration of 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 back pain and lower extremity pain Pain unchanged and continue medication PRN. Associated Problem(s): Acute bronchitis due to other specified organisms Take antibiotics BID for 10 days. Use prednisone for inflammation. Use sudafed or other decongestants as needed. Use Robitussin or Robitussin-DM for cough. Can use afrin for congestion but no longer than 3 days. Can use Mucinex to bring up phlegm. Use Motrin or Tylenol as needed for fever, aches, or pains. Increase fluid intake and rest. Should improve over next 5-7 days and if no better or worse call for re-evaluation. Images from the original note were not included. Subjective Patient ID: June Rhodes is a 43 y.o. female who presents for Follow-up (1 m) and Cough. Follow up HTN, back pain, mood disorder, anxiety, and insomnia. BP remains normal after weight loss surgery and not on medication. Tries to increase fluids. Back pain unchanged. Continued pain in low back and across top hips. Pain radiates into gluteal region and down both legs. Frequent tightness and spasms in back. Continued radicular symptoms and weakness in right leg. At times hard to lift leg and difficult to go up stairs. Using percocet and helps. Mood improved with paxil. Not as down or sad and overall happier. Able to do more and interacting better with others. Tolerating medication without side effects. Still occasional symptoms and room for improvement. Sleeping better with doxepin and prazosin. Able to fall asleep and but still wakes up after few hours and hard to stay asleep. Not rested in rested in am. C/o cough, congestion, and rhinorrhea x 2 weeks. Afebrile. Severe fatigue and no energy. Frequent cough productive green sputum. Chest tight and SOB. SEN and sinus pressure in forehead and cheeks along with postnasal drip. Ears plugged and popping. Sore throat and pain to swallow. Mild nausea. Son recently sick. Using OTC medication and mild relief. No improvement in symptoms since onset. Review of Systems Respiratory: Negative for cough, shortness of breath and wheezing. Cardiovascular: Negative for chest pain and palpitations. Gastrointestinal: Negative for abdominal pain, diarrhea, nausea and vomiting. Genitourinary: Negative for dysuria. Objective Physical Exam Constitutional: General: She is not in acute distress. Appearance: Normal appearance. HENT: Head: Normocephalic. Right Ear: Tympanic membrane normal. Left Ear: Tympanic membrane normal. Eyes: Extraocular Movements: Extraocular movements intact. Pupils: Pupils are equal, round, and reactive to light. Cardiovascular: Rate and Rhythm: Normal rate and regular rhythm. Heart sounds: No murmur heard. No friction rub. No gallop. Pulmonary: Effort: Pulmonary effort is normal. Breath sounds: Normal breath sounds. No wheezing, rhonchi or rales. Abdominal: General: Bowel sounds are normal. There is no distension. Palpations: Abdomen is soft. Tenderness: There is no abdominal tenderness. There is no guarding or rebound. Musculoskeletal: Cervical back: Neck supple. Right lower leg: No edema. Left lower leg: No edema. Neurological: Mental Status: She is alert. Assessment/Plan Problem List Items Addressed This Visit Essential hypertension, benign (CMS/HCC) - Primary BP stable and monitor. Increase fluids. Degeneration of 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 back pain and lower extremity pain Pain unchanged and continue medication PRN. Relevant Medications oxyCODONE-acetaminophen (Percocet) 5-325 MG tablet Generalized anxiety disorder (CMS/HCC) Symptoms improved but still present and increase paxil. Warned will take 2-3 weeks to notice improvement in mood. Continue lamictal. Primary insomnia Sleeping improved with doxepin but still waking up and increase dose. Relevant Medications doxepin (SINEquan) 75 MG capsule Mild mood disorder (CMS/HCC) Symptoms improved but still present and increase paxil. Warned will take 2-3 weeks to notice improvement in mood. Continue lamictal. Relevant Medications PARoxetine (Paxil) 20 MG tablet Acute bronchitis due to other specified organisms Take antibiotics BID for 10 days. Use prednisone for inflammation. Use sudafed or other decongestants as needed. Use Robitussin or Robitussin-DM for cough. Can use afrin for congestion but no longer than 3 days. Can use Mucinex to bring up phlegm. Use Motrin or Tylenol as needed for fever, aches, or pains. Increase fluid intake and rest. Should improve over next 5-7 days and if no better or worse call for re-evaluation. Relevant Medications predniSONE (Deltasone) 50 MG tablet cefdinir (Omnicef) 300 MG capsule documented in this encounter [facility] 03-01-2024 History of Present illness Narrative Associated Problem(s): Primary insomnia Able to fall asleep but waking up and add doxepin. Associated Problem(s): Generalized anxiety disorder (CMS/HCC) Symptoms worse and add paxil. Warned will take 2-3 weeks to notice improvement in mood. Continue lamictal. Use hydroxyzine PRN. Associated Problem(s): Mild mood disorder (CMS/HCC) Symptoms worse and add paxil. Warned will take 2-3 weeks to notice improvement in mood. Continue lamictal. Associated Problem(s): Essential hypertension, benign (CMS/HCC) BP stable and monitor. Increase fluids. Associated Problem(s): DDD (degenerative disc disease), lumbar Pain unchanged and continue medication PRN. Images from the original note were not included. Subjective Patient ID: June Rhodes is a 43 y.o. female who presents for Follow-up (3 m) and Tremors (In hands/ goes numb as well). Follow up HTN, back pain, mood disorder, anxiety, insomnia, and GERD. BP remains normal after weight loss surgery and not on medication. Tries to increase fluids. Back pain unchanged. Continued pain in low back and across top hips. Pain radiates into gluteal region and down both legs. Frequent tightness and spasms in back. Continued radicular symptoms and weakness in right leg. At times hard to lift leg and difficult to go up stairs. Using percocet and helps. Mood recently worse. Down, sad, and no motivation. Not want to do things or be around others. Tired all the time and doesn't feel happy. Anxiety worse. Nervous and worry all the time. Stressed out and overwhelmed. Thought racing and hard to clear mind. Muñoz, irritable and snapping at others. Easily upset and overreact. Still not sleeping well and did not tolerate trazodone due to sedation. Taking prazosin which helps with nightmares. Able to fall asleep and but wakes up after few hours and hard to stay asleep. Not rested in rested in am. Prior weight loss surgery and lost over 150 pounds. C/o excess folds of abdominal skin and developing rash. Skin red and raw. At times itchy and other times open and bleeding. Using OTC but not helping. Tremor Review of Systems Respiratory: Negative for cough, shortness of breath and wheezing. Cardiovascular: Negative for chest pain and palpitations. Gastrointestinal: Negative for abdominal pain, diarrhea, nausea and vomiting. Genitourinary: Negative for dysuria. Neurological: Positive for tremors. Objective Physical Exam Constitutional: General: She is not in acute distress. Appearance: Normal appearance. HENT: Head: Normocephalic. Right Ear: Tympanic membrane normal. Left Ear: Tympanic membrane normal. Eyes: Extraocular Movements: Extraocular movements intact. Pupils: Pupils are equal, round, and reactive to light. Cardiovascular: Rate and Rhythm: Normal rate and regular rhythm. Heart sounds: No murmur heard. No friction rub. No gallop. Pulmonary: Effort: Pulmonary effort is normal. Breath sounds: Normal breath sounds. No wheezing, rhonchi or rales. Abdominal: General: Bowel sounds are normal. There is no distension. Palpations: Abdomen is soft. Tenderness: There is no abdominal tenderness. There is no guarding or rebound. Musculoskeletal: Cervical back: Neck supple. Right lower leg: No edema. Left lower leg: No edema. Neurological: Mental Status: She is alert. Assessment/Plan Problem List Items Addressed This Visit Essential hypertension, benign (CMS/HCC) - Primary BP stable and monitor. Increase fluids. DDD (degenerative disc disease), lumbar Pain unchanged and continue medication PRN. Generalized anxiety disorder (CMS/HCC) Symptoms worse and add paxil. Warned will take 2-3 weeks to notice improvement in mood. Continue lamictal. Use hydroxyzine PRN. Relevant Orders Ambulatory referral to Psychiatry Gastroesophageal reflux disease without esophagitis Relevant Medications pantoprazole (ProtoNix) 40 MG EC tablet Primary insomnia Able to fall asleep but waking up and add doxepin. Relevant Medications doxepin (SINEquan) 50 MG capsule Mild mood disorder (CMS/HCC) Symptoms worse and add paxil. Warned will take 2-3 weeks to notice improvement in mood. Continue lamictal. Relevant Medications PARoxetine (Paxil) 10 MG tablet Other Relevant Orders Ambulatory referral to Psychiatry Panniculitis Relevant Medications nystatin (Mycostatin) 009463 UNIT/GM powder documented in this encounter [facility] 12-19-2023 Note Progress Note-Mimi brown Patient: JUNE RHODES Age: 43 years Sex: Female : 1980 Associated Diagnoses: None Author: MD Wolfgang, [facility] Postoperative Information Postoperative disposition: Postoperative disposition: To PACU. Optimetrix number: Optimetrix number [id number]. Anesthetic utilized: General. Health Status Allergies: Allergic Reactions (Selected) Moderate Macrobid- Rash and swelling. Severity Not Documented Ciprofloxacin- Rash. Morphine- Unknown. Penicillin- Swelling of throat. Physical Examination VS/Measurements Pain Assessment: Controlled. General: Awake, Alert, Appropriate. Respiratory: Adequate air exchange. Cardiovascular: Stable, Normal peripheral perfusion. Neurological: Normal sensory function, Normal motor function. Assessment Anesthetic outcome No anesthetic complications noted. Adequate pain relief. able to void without difficulty, able to ambulate with assist, tolerating PO intake, no N/V. Review / Management Condition: Stable. Plan Transfer/Discharge: Transfer/Discharge Discharge when meets criteria ( To home ). [facility] Comment on above: Result Comment: Elec tronically Signed By: MD Wolfgang, Julius Olsen\.br\Date and Time Signed: 12/19/23 16:48 EDT 12-19-2023 Note Progress Note-Physic stephanie Patient: JUNE RHODES Age: 43 years Sex: Female : 1980 Associated Diagnoses: None Author: MD Goss Ahmad F Preoperative Information Time patient last ate or drank:=== (npo 8 hours) Anesthesia history: Patient history: No prior anesthesia problems. Re-evaluation prior to induction: Completed, Initial evaluation reviewed. Review of Systems Respiratory: No shortness of breath. Cardiovascular: No chest pain. Hematology/Lymphatics: No bruising tendency, No bleeding tendency. Health Status Allergies: Allergic Reactions (All) Moderate Macrobid- Rash and swelling. Severity Not Documented Ciprofloxacin- Rash. Morphine- Unknown. Penicillin- Swelling of throat. Current medications: (Selected) Prescriptions Prescribed Bactrim D.S. 800 mg-160 mg Tab: 1 tab(s), Oral, BID for 5 day(s), 10 tab(s), Refill(s) 0, [id number], 147.5, cm, 12/15/23 14:23:00 EDT, Height/Length Dosing, 87.9, kg, 12/15/23 14:23:00 EDT, Weight Dosing oxybutynin 5 mg Tab: 5 mg = 1 tab(s), Oral, BID, X 30 day(s), # 60 tab(s), Refills(s) 1, Pharmacy: [facility][id number], 147.4, cm, 10/27/23 13:16:00 EDT, Height/Length Dosing, 89.2, kg, 10/27/23 13:16:00 EDT, Weight Dosing Documented Medications Documented Hair Skin and Nails: 1 tab(s), Oral, Daily, Refill(s) 0 One-A-Day: 2 tab(s), Oral, Daily, Refill(s) 0 Protonix 40 mg oral Granule: 1 tab, Oral, BID, Refills(s) 0, Indigestion Viactiv Soft Calcium Chews: 4, Chewed, Daily, Refill(s) 0 acetaminophen-oxycodone 300 mg-5 mg oral tablet: 1 tab(s), Oral, q6hr for pain, Refill(s) 0 hydrOXYzine hydrochloride 25 mg Tab: 25 mg = 1 tab(s), Oral, PRN as needed for anxiety, Refills(s) 0, Anxiety lamotrigine 150 mg Tab: 150 mg = 1 tab(s), Oral, Bedtime, Refills(s) 0, Other (see comment) prazosin 1 mg Cap: 1 mg = 1 cap(s), Oral, Bedtime, Refills(s) 0, Other (see comment) traZODONE 50 mg Tab: 50 mg = 1 tab(s), Oral, Once a day (at bedtime), Refills(s) 0, Insomnia Problem list: All Problems Depression / SNOMED CT 53826339 / Confirmed Headache / SNOMED CT 77650530 / Confirmed Hypertension / SNOMED CT 4244504231 / Confirmed Renal cyst / SNOMED CT 6635155604 / Confirmed Ureteral stone / SNOMED CT 46666033 / Confirmed Dysuria / SNOMED CT 96504536 / Confirmed Urge incontinence / SNOMED CT 448197291 / Confirmed Incomplete bladder emptying / SNOMED CT 437142028 / Confirmed History of kidney stones / SNOMED CT 2099510694 / Confirmed Kidney stone / SNOMED CT 480941577 / Confirmed Ureteral stone with hydronephrosis / SNOMED CT 1727165943 / Confirmed Flank pain / SNOMED CT 683878583 / Confirmed PTSD (post-traumatic stress disorder) / SNOMED CT 78314346 / Confirmed Anxiety / SNOMED CT 07418664 / Confirmed Canceled: Kidney stone / SNOMED CT 969657416 Histories Past Medical History: No active or resolved past medical history items have been selected or recorded. Family History: Kidney stone Mother Grandparent Hypertension Grandparent Heart disease Grandparent Mother Diabetes mellitus type 1 Mother Procedure history: Cystoscopy, stent removal ([id number]) on 12/15/2023 at 43 Years. R ESWL and cysto stent insert ([id number]) on 11/11/2023 at 43 Years. Gastric sleeve ([id number]) in 2022 at 42 Years. Hysterectomy (205150510). Complete hernia (330784182). Cyst of fallopian tube removal (86964300). Social History Social & Psychosocial Habits Alcohol 12/15/2023 Risk Assessment: Denies Alcohol Use Substance Abuse 12/15/2023 Risk Assessment: Denies Substance Abuse Tobacco 12/15/2023 Risk Assessment: Denies Tobacco Use 12/15/2023 Tobacco Use: Former smoker, quit more 12/15/2023 Tobacco Use: quit 7 years ago Type: Cigarettes . Physical Examination Please see preop flow sheet Airway: Mallampati classification: II (soft palate, fauces, uvula visible). Respiratory: Lungs are clear to auscultation. Cardiovascular: Normal rate, Regular rhythm. Neurologic: Alert. Review / Management Results review Interpretation of Outside Results Chest x-ray results Radiology results ECG interpretation Condition Plan [place] [employer]hesi[employer] (ASA) physical status classification: Class III. Anesthetic Preoperative Plan Anesthesia: General. . Anesthetic plan, risks, benefits, and alternatives discussed with the patient and/or family. Risks discussed: nausea, vomiting, headache, sore throat, dental injury, serious complications. Patient verbalized understanding. Communication: face to face with patient 5 minutes. [facility] Comment on above: Result Comment: Elec tronically Signed By: MD Wolfgang, Julius Olsen\.br\Date and Time Signed: 12/19/23 16:47 EDT 12-15-2023 Hospital Discharge instructions Patient Education 12/15/2023 17:19:12 [id number] Utereroscopy,Lithotripsy, Stone Extraction, Stent Placement (Custom) [facility] [place], [place] Dr. Chencho Garza Post-operative Instructions for Ureteroscopy, Laser Lithotripsy, Stone Extraction and Stent Placement There are no incisions or dressings to be concerned with, as the procedure was performed inside the urinary system. For 24 hours after surgery: No driving or operating machinery Do not make important decisions Do not consume alcohol, sleeping pills Stent Placement Your stent was removed and not replaced! You could however have some flank pain from the procedure today, due to some swelling of the ureter which is the tube between the kidney and the bladder. This usually last less than 24 hours or so if it occurs. Diet You may resume your normal diet, but you may want to start slowly and avoid spicy food, caffeine, carbonated beverages and alcohol, especially if you have a stent. Your diet and fluid intake may make irritation from the stent worse. Activity You may resume your normal activities, although you should take it easy on the day of the procedure. Minimizing activity may decrease the back discomfort and irritation from the stent, if present. Medications You may resume your home medications unless instructed otherwise. Hold aspirin, ibuprofen, Coumadin (warfarin) and other blood thinners until your office visit (we will discuss when to resume these medications) Take your prescribed medications as directed, including your antibiotics. You may also be given a prescription for pain medicine or medicines to help with the bladder irritation from stent, if present. Things to watch for which would require an Emergency Room Visit (or call 911) (This is not a complete list) Fever over 101.5 degrees, with or without chills Severe bleeding Severe drug reactions with itching, hives, rash, or severe flank pain Tenderness or swelling or the calves, chest pain, or shortness of breath Please call the office to arrange for your post-operative appointment (with XRAY) in about six months [phone] 12/15/2023 17:16:21 Post Op Patient Instructions - FT (Custom) (CUSTOM) Follow Up Care 12/02/2023 14:11:05 With:Chencho HANEY Address: [address] [id number]- Business (1) When:6 months Comments:Call for followup appointment, with an abdominal X-ray prior to your visit. You may have had the metabolic workup in the past, which would require a 24-hour urine collection and some blood work. If this has not been within the last 2 to 3 years however you may consider repeating this. Please call my office to let us know if you would like to proceed with that prior to your next visit.I did send an antibiotic prescription to your pharmacy. [facility] 12-15-2023 Note Patient Education - Text [facility] [place], [place] Dr. Chencho Garza Post-operative Instructions for Ureteroscopy, Laser Lithotripsy, Stone Extraction and Stent Placement There are no incisions or dressings to be concerned with, as the procedure was performed inside the urinary system. For 24 hours after surgery: ? No driving or operating machinery ? Do not make important decisions ? Do not consume alcohol, sleeping pills Stent Placement Your stent was removed and not replaced! You could however have some flank pain from the procedure today, due to some swelling of the ureter which is the tube between the kidney and the bladder. This usually last less than 24 hours or so if it occurs. Diet You may resume your normal diet, but you may want to start slowly and avoid spicy food, caffeine, carbonated beverages and alcohol, especially if you have a stent. Your diet and fluid intake may make irritation from the stent worse. Activity You may resume your normal activities, although you should take it easy on the day of the procedure. Minimizing activity may decrease the back discomfort and irritation from the stent, if present. Medications ? You may resume your home medications unless instructed otherwise. ? Hold aspirin, ibuprofen, Coumadin (warfarin) and other blood thinners until your office visit (we will discuss when to resume these medications) ? Take your prescribed medications as directed, including your antibiotics. You may also be given a prescription for pain medicine or medicines to help with the bladder irritation from stent, if present. Things to watch for which would require an Emergency Room Visit (or call 911) (This is not a complete list) ? Fever over 101.5 degrees, with or without chills ? Severe bleeding ? Severe drug reactions with itching, hives, rash, or severe flank pain ? Tenderness or swelling or the calves, chest pain, or shortness of breath Please call the office to arrange for your post-operative appointment (with XRAY) in about six months [phone] [facility] 12-15-2023 Evaluation + Plan note Diagnostic Tests PendingCalculi Analysis Urinary 12/15/23 [facility] 11-18-2023 Note Progress Note-Mimi brown Patient: JUNE RHODES Age: 43 years Sex: Female : 1980 Associated Diagnoses: None Author: MD Wolfgang, Julius Olsen Postoperative Information Postoperative disposition: Postoperative disposition: To PACU. Optimetrix number: Optimetrix number [id number]. Anesthetic utilized: General. Health Status Allergies: Allergic Reactions (Selected) Moderate Macrobid- Rash and swelling. Severity Not Documented Morphine- Unknown. Penicillin- Swelling of throat. Physical Examination VS/Measurements Pain Assessment: Controlled. General: Awake, Alert, Appropriate. Respiratory: Adequate air exchange. Cardiovascular: Stable, Normal peripheral perfusion. Neurological: Normal sensory function, Normal motor function. Assessment Anesthetic outcome No anesthetic complications noted. Adequate pain relief. able to void without difficulty, able to ambulate with assist, tolerating PO intake, no N/V. Review / Management Condition: Stable. Plan Transfer/Discharge: Transfer/Discharge Discharge when meets criteria ( To home ). [facility] Comment on above: Result Comment: Elec tronically Signed By: MD Goss Ahmad F\.br\Date and Time Signed: 11/18/23 07:46 EDT 11-18-2023 Note Progress Note-Physic stephanie Patient: JUNE RHODES Age: 43 years Sex: Female : 1980 Associated Diagnoses: None Author: MD Goss Ahmad F Preoperative Information Time patient last ate or drank:=== (npo 8 hours) Anesthesia history: Patient history: No prior anesthesia problems. Re-evaluation prior to induction: Completed, Initial evaluation reviewed. Review of Systems Respiratory: No shortness of breath. Cardiovascular: No chest pain. Hematology/Lymphatics: No bruising tendency, No bleeding tendency. Health Status Allergies: Allergic Reactions (All) Moderate Macrobid- Rash and swelling. Severity Not Documented Morphine- Unknown. Penicillin- Swelling of throat. Current medications: (Selected) Prescriptions Prescribed oxybutynin 5 mg Tab: 5 mg = 1 tab(s), Oral, BID, X 30 day(s), # 60 tab(s), Refills(s) 1, Pharmacy: [facility] #[id number], 147.4, cm, 10/27/23 13:16:00 EDT, Height/Length Dosing, 89.2, kg, 10/27/23 13:16:00 EDT, Weight Dosing tamsulosin 0.4 mg Cap: 0.4 mg = 1 cap(s), Oral, Daily, # 30 cap(s), Refills(s) 0, Pharmacy: [facility] #[id number], 153, cm, 06/15/23 10:00:00 EST, Height/Length Dosing, 93.4, kg, 06/15/23 10:00:00 EST, Weight Dosing Documented Medications Documented Hair Skin and Nails: 1 tab(s), Oral, Daily, Refill(s) 0 One-A-Day: 2 tab(s), Oral, Daily, Refill(s) 0 Protonix 40 mg oral Granule: 1 tab, Oral, BID, Refills(s) 0, Indigestion Viactiv Soft Calcium Chews: 4, Chewed, Daily, Refill(s) 0 hydrOXYzine hydrochloride 25 mg Tab: 25 mg = 1 tab(s), Oral, PRN as needed for anxiety, Refills(s) 0, Anxiety lamotrigine 150 mg Tab: 150 mg = 1 tab(s), Oral, Bedtime, Refills(s) 0, Other (see comment) prazosin 1 mg Cap: 1 mg = 1 cap(s), Oral, Bedtime, Refills(s) 0, Other (see comment) traZODONE 50 mg Tab: 50 mg = 1 tab(s), Oral, Once a day (at bedtime), Refills(s) 0, Insomnia Problem list: All Problems Depression / SNOMED CT 57539347 / Confirmed Headache / SNOMED CT 63015908 / Confirmed Hypertension / SNOMED CT 8245857509 / Confirmed Renal cyst / SNOMED CT 0671059636 / Confirmed Ureteral stone / SNOMED CT 01908847 / Confirmed Dysuria / SNOMED CT 55909466 / Confirmed Urge incontinence / SNOMED CT 229750036 / Confirmed Incomplete bladder emptying / SNOMED CT 759830629 / Confirmed History of kidney stones / SNOMED CT 9487471008 / Confirmed Kidney stone / SNOMED CT 722427173 / Confirmed Ureteral stone with hydronephrosis / SNOMED CT 3610876826 / Confirmed Flank pain / SNOMED CT 628583523 / Confirmed PTSD (post-traumatic stress disorder) / SNOMED CT 37580049 / Confirmed Anxiety / SNOMED CT 96954823 / Confirmed Canceled: Kidney stone / SNOMED CT 185492347 Histories Past Medical History: No active or resolved past medical history items have been selected or recorded. Family History: Kidney stone Mother Grandparent Hypertension Grandparent Heart disease Grandparent Mother Diabetes mellitus type 1 Mother Procedure history: R ESWL and cysto stent insert ([id number]) on 11/11/2023 at 43 Years. Gastric sleeve ([id number]) in 2022 at 42 Years. Hysterectomy (166818019). Complete hernia (490333706). Cyst of fallopian tube removal (67959720). Social History Social & Psychosocial Habits Alcohol 10/27/2023 Risk Assessment: Denies Alcohol Use Substance Abuse 10/27/2023 Risk Assessment: Denies Substance Abuse Tobacco 10/27/2023 Risk Assessment: Denies Tobacco Use 10/27/2023 Tobacco Use: Former smoker, quit more 10/27/2023 Tobacco Use: quit 7 years ago Type: Cigarettes . Physical Examination Please see preop flow sheet Airway: Mallampati classification: II (soft palate, fauces, uvula visible). Respiratory: Lungs are clear to auscultation. Cardiovascular: Normal rate, Regular rhythm. Neurologic: Alert. Review / Management Results review Interpretation of Outside Results Chest x-ray results Radiology results ECG interpretation Condition Plan [place] [employer] (ASA) physical status classification: Class III. Anesthetic Preoperative Plan Anesthesia: General. . Anesthetic plan, risks, benefits, and alternatives discussed with the patient and/or family. Risks discussed: nausea, vomiting, headache, sore throat, dental injury, serious complications. Patient verbalized understanding. Communication: face to face with patient 5 minutes. [facility] Comment on above: Result Comment: Elec tronically Signed By: MD Wolfgang, Julius Olsen\.sophie\Date and Time Signed: 11/18/23 07:41 EDT 11-11-2023 Hospital Discharge instructions Patient Education 11/11/2023 14:46:10 Post Op [...] Follow these instructions at home: Medicines Take cpfq-sur-jehyzyy and prescription medicines only as told by [...] provider. Document Revised: 03/09/2022 Document Reviewed: 12/15/2021 [employer] Patient Education 2022 [employer]. Follow Up Care 09/15/2023 10:32:08 With:Chencho HANEY Address: [address] [place] [phone] Business (1) When: Unknown Comments:Please call my office to speak with Elizabeth, she is my operations scheduler. Please asked to have the abdominal x-ray [...] and some bladder spasm medications as well. [facility] 11-11-2023 Note Patient Education - Text Nephrology [...] these instructions at home: Medicines ? Take eenq-ktz-hjaetmd and prescription medicines only as told by [...] help prevent ne (more content not included)... [facility] 06-15-2023 Hospital Discharge instructions Patient Education 06/15/2023 10:54:16 Kidney Stones, Cwxy-ks-Otgq Kidney Stones Kidney stones are rock-like masses [...] Follow these instructions at home: Medicines Take qqhy-vaz-qxdppgz and prescription medicines only as told by [...] provider. Document Revised: 12/15/2021 Document Reviewed: 12/15/2021 [employer] Patient Education 2022 [employer]. Follow Up Care 06/08/2023 15:05:45 With:LYNDON ARANGO, Chencho Oneal, URL Address: [address] [place], [place] [id number]- When: Unknown Comments:IVP in 1-2wks [facility] Evaluation + Plan note No data available for this section [facility] Evaluation + Plan note Future Appointments Appointment Date:11/11/2023 11:15:00 AM Scheduled Provider: Location:[facility] Appointment Type:Surgery FT [facility] Evaluation note Diagnosis Essential hypertension, benign (CMS/HCC)- Primary Essential hypertension, benign DDD (degenerative disc disease), lumbar Degeneration of lumbar or lumbosacral intervertebral disc Gross hematuria Calculus, renal Calculus of kidney Dyshidrotic eczema Primary insomnia Persistent disorder of initiating or maintaining sleep Mild mood disorder (CMS/HCC) Unspecified episodic mood disorder Generalized anxiety disorder (CMS/HCC) Generalized anxiety disorder Gastroesophageal reflux disease without esophagitis Esophageal reflux Screening mammogram for breast cancer Annual physical exam- Primary Routine general medical examination at a health care facility Renal calculi Calculus of kidney Colon cancer screening Special screening for malignant neoplasms, colon DDD (degenerative disc disease), lumbar Degeneration of lumbar or lumbosacral intervertebral disc Mild mood disorder (CMS/HCC) Unspecified episodic mood disorder Morbid (severe) obesity due to excess calories (CMS/HCC) Body mass index (BMI) 40.0-44.9, adult (CMS/HCC) DDD (degenerative disc disease), lumbar Degeneration of lumbar or lumbosacral intervertebral disc [facility] Diagnosis Essential hypertension, benign (CMS/HCC)- Primary Essential hypertension, benign DDD (degenerative disc disease), lumbar Degeneration of lumbar or lumbosacral intervertebral disc Gross hematuria Calculus, renal Calculus of kidney Dyshidrotic eczema Primary insomnia Persistent disorder of initiating or maintaining sleep Mild mood disorder (CMS/HCC) Unspecified episodic mood disorder Generalized anxiety disorder (CMS/HCC) Generalized anxiety disorder Gastroesophageal reflux disease without esophagitis Esophageal reflux Screening mammogram for breast cancer Annual physical exam- Primary Routine general medical examination at a health care facility Renal calculi Calculus of kidney Colon cancer screening Special screening for malignant neoplasms, colon DDD (degenerative disc disease), lumbar Degeneration of lumbar or lumbosacral intervertebral disc Mild mood disorder (CMS/HCC) Unspecified episodic mood disorder Morbid (severe) obesity due to excess calories (CMS/HCC) Body mass index (BMI) 40.0-44.9, adult (CMS/HCC) Essential hypertension, benign (CMS/HCC)- Primary Essential hypertension, benign Gastroesophageal reflux disease without esophagitis Esophageal reflux Mild mood disorder (CMS/HCC) Unspecified episodic mood disorder Generalized anxiety disorder (CMS/HCC) Generalized anxiety disorder Primary insomnia Persistent disorder of initiating or maintaining sleep Degeneration of 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 back pain and lower extremity pain Panniculitis Panniculitis, unspecified site [facility]* Diagnosis Essential hypertension, benign (CMS/HCC)- Primary Essential hypertension, benign DDD (degenerative disc disease), lumbar Degeneration of lumbar or lumbosacral intervertebral disc Gross hematuria Calculus, renal Calculus of kidney Dyshidrotic eczema Primary insomnia Persistent disorder of initiating or maintaining sleep Mild mood disorder (CMS/HCC) Unspecified episodic mood disorder Generalized anxiety disorder (CMS/HCC) Generalized anxiety disorder Gastroesophageal reflux disease without esophagitis Esophageal reflux Screening mammogram for breast cancer Annual physical exam- Primary Routine general medical examination at a health care facility Renal calculi Calculus of kidney Colon cancer screening Special screening for malignant neoplasms, colon DDD (degenerative disc disease), lumbar Degeneration of lumbar or lumbosacral intervertebral disc Mild mood disorder (CMS/HCC) Unspecified episodic mood disorder Morbid (severe) obesity due to excess calories (CMS/HCC) Body mass index (BMI) 40.0-44.9, adult (CMS/HCC) Essential hypertension, benign (CMS/HCC)- Primary Essential hypertension, benign Gastroesophageal reflux disease without esophagitis Esophageal reflux Mild mood disorder (CMS/HCC) Unspecified episodic mood disorder Generalized anxiety disorder (CMS/HCC) Generalized anxiety disorder Primary insomnia Persistent disorder of initiating or maintaining sleep Degeneration of 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 back pain and lower extremity pain Panniculitis Panniculitis, unspecified site DDD (degenerative disc disease), lumbar Degeneration of lumbar or lumbosacral intervertebral disc [facility]* Diagnosis Essential hypertension, benign (CMS/HCC)- Primary Essential hypertension, benign DDD (degenerative disc disease), lumbar Degeneration of lumbar or lumbosacral intervertebral disc Gross hematuria Calculus, renal Calculus of kidney Dyshidrotic eczema Primary insomnia Persistent disorder of initiating or maintaining sleep Mild mood disorder (CMS/HCC) Unspecified episodic mood disorder Generalized anxiety disorder (CMS/HCC) Generalized anxiety disorder Gastroesophageal reflux disease without esophagitis Esophageal reflux Screening mammogram for breast cancer Annual physical exam- Primary Routine general medical examination at a health care facility Renal calculi Calculus of kidney Colon cancer screening Special screening for malignant neoplasms, colon DDD (degenerative disc disease), lumbar Degeneration of lumbar or lumbosacral intervertebral disc Mild mood disorder (CMS/HCC) Unspecified episodic mood disorder Morbid (severe) obesity due to excess calories (CMS/HCC) Body mass index (BMI) 40.0-44.9, adult (CMS/HCC) Essential hypertension, benign (CMS/HCC)- Primary Essential hypertension, benign Gastroesophageal reflux disease without esophagitis Esophageal reflux Mild mood disorder (CMS/HCC) Unspecified episodic mood disorder Generalized anxiety disorder (CMS/HCC) Generalized anxiety disorder Primary insomnia Persistent disorder of initiating or maintaining sleep Degeneration of 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 back pain and lower extremity pain Panniculitis Panniculitis, unspecified site Essential hypertension, benign (CMS/HCC)- Primary Essential hypertension, benign Mild mood disorder (CMS/HCC) Unspecified episodic mood disorder Generalized anxiety disorder (CMS/HCC) Generalized anxiety disorder Primary insomnia Persistent disorder of initiating or maintaining sleep Acute bronchitis due to other specified organisms Degeneration of 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 back pain and lower extremity pain documented [facility]* Diagnosis DDD (degenerative disc disease), lumbar Degeneration of lumbar or lumbosacral intervertebral disc documented [facility]* Diagnosis Essential hypertension, benign (CMS/HCC)- Primary Essential hypertension, benign DDD (degenerative disc disease), lumbar Degeneration of lumbar or lumbosacral intervertebral disc Gross hematuria Calculus, renal Calculus of kidney Dyshidrotic eczema Primary insomnia Persistent disorder of initiating or maintaining sleep Mild mood disorder (CMS/HCC) Unspecified episodic mood disorder Generalized anxiety disorder (CMS/HCC) Generalized anxiety disorder Gastroesophageal reflux disease without esophagitis Esophageal reflux Screening mammogram for breast cancer Annual physical exam- Primary Routine general medical examination at a health care facility Renal calculi Calculus of kidney Colon cancer screening Special screening for malignant neoplasms, colon DDD (degenerative disc disease), lumbar Degeneration of lumbar or lumbosacral intervertebral disc Mild mood disorder (CMS/HCC) Unspecified episodic mood disorder Morbid (severe) obesity due to excess calories (CMS/HCC) Body mass index (BMI) 40.0-44.9, adult (CMS/HCC) Essential hypertension, benign (CMS/HCC)- Primary Essential hypertension, benign Gastroesophageal reflux disease without esophagitis Esophageal reflux Mild mood disorder (CMS/HCC) Unspecified episodic mood disorder Generalized anxiety disorder (CMS/HCC) Generalized anxiety disorder Primary insomnia Persistent disorder of initiating or maintaining sleep Degeneration of 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 back pain and lower extremity pain Panniculitis Panniculitis, unspecified site Essential hypertension, benign (CMS/HCC)- Primary Essential hypertension, benign Mild mood disorder (CMS/HCC) Unspecified episodic mood disorder Generalized anxiety disorder (CMS/HCC) Generalized anxiety disorder Primary insomnia Persistent disorder of initiating or maintaining sleep Acute bronchitis due to other specified organisms Degeneration of 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 back pain and lower extremity pain Tinea corporis- Primary Dermatophytosis of the body DDD (degenerative disc disease), lumbar Degeneration of lumbar or lumbosacral intervertebral disc Class 2 obesity due to excess calories without serious comorbidity with body mass index (BMI) of 39.0 to 39.9 in adult documented [facility]* Diagnosis Essential hypertension, benign (CMS/HCC)- Primary Essential hypertension, benign DDD (degenerative disc disease), lumbar Degeneration of lumbar or lumbosacral intervertebral disc Gross hematuria Calculus, renal Calculus of kidney Dyshidrotic eczema Primary insomnia Persistent disorder of initiating or maintaining sleep Mild mood disorder (CMS/HCC) Unspecified episodic mood disorder Generalized anxiety disorder (CMS/HCC) Generalized anxiety disorder Gastroesophageal reflux disease without esophagitis Esophageal reflux Screening mammogram for breast cancer Annual physical exam- Primary Routine general medical examination at a health care facility Renal calculi Calculus of kidney Colon cancer screening Special screening for malignant neoplasms, colon DDD (degenerative disc disease), lumbar Degeneration of lumbar or lumbosacral intervertebral disc Mild mood disorder (CMS/HCC) Unspecified episodic mood disorder Morbid (severe) obesity due to excess calories (CMS/HCC) Body mass index (BMI) 40.0-44.9, adult (CMS/HCC) Essential hypertension, benign (CMS/HCC)- Primary Essential hypertension, benign Gastroesophageal reflux disease without esophagitis Esophageal reflux Mild mood disorder (CMS/HCC) Unspecified episodic mood disorder Generalized anxiety disorder (CMS/HCC) Generalized anxiety disorder Primary insomnia Persistent disorder of initiating or maintaining sleep Degeneration of 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 back pain and lower extremity pain Panniculitis Panniculitis, unspecified site Essential hypertension, benign (CMS/HCC)- Primary Essential hypertension, benign Mild mood disorder (CMS/HCC) Unspecified episodic mood disorder Generalized anxiety disorder (CMS/HCC) Generalized anxiety disorder Primary insomnia Persistent disorder of initiating or maintaining sleep Acute bronchitis due to other specified organisms Degeneration of 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 back pain and lower extremity pain Tinea corporis- Primary Dermatophytosis of the body DDD (degenerative disc disease), lumbar Degeneration of lumbar or lumbosacral intervertebral disc Class 2 obesity due to excess calories without serious comorbidity with body mass index (BMI) of 39.0 to 39.9 in adult Essential hypertension, benign (CMS/HCC)- Primary Essential hypertension, benign Bilateral leg edema Edema Mild mood disorder (CMS/HCC) Unspecified episodic mood disorder Generalized anxiety disorder (CMS/HCC) Generalized anxiety disorder Degeneration of 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 back pain and lower extremity pain Primary insomnia Persistent disorder of initiating or maintaining sleep Class 2 obesity due to excess calories without serious comorbidity with body mass index (BMI) of 39.0 to 39.9 in adult Tinea corporis Dermatophytosis of the body documented in [facility]* Diagnosis Essential hypertension, benign (CMS/HCC)- Primary Essential hypertension, benign DDD (degenerative disc disease), lumbar Degeneration of lumbar or lumbosacral intervertebral disc Gross hematuria Calculus, renal Calculus of kidney Dyshidrotic eczema Primary insomnia Persistent disorder of initiating or maintaining sleep Mild mood disorder (CMS/HCC) Unspecified episodic mood disorder Generalized anxiety disorder (CMS/HCC) Generalized anxiety disorder Gastroesophageal reflux disease without esophagitis Esophageal reflux Screening mammogram for breast cancer Annual physical exam- Primary Routine general medical examination at a health care facility Renal calculi Calculus of kidney Colon cancer screening Special screening for malignant neoplasms, colon DDD (degenerative disc disease), lumbar Degeneration of lumbar or lumbosacral intervertebral disc Mild mood disorder (CMS/HCC) Unspecified episodic mood disorder Morbid (severe) obesity due to excess calories (CMS/HCC) Body mass index (BMI) 40.0-44.9, adult (CMS/HCC) Essential hypertension, benign (CMS/HCC)- Primary Essential hypertension, benign Gastroesophageal reflux disease without esophagitis Esophageal reflux Mild mood disorder (CMS/HCC) Unspecified episodic mood disorder Generalized anxiety disorder (CMS/HCC) Generalized anxiety disorder Primary insomnia Persistent disorder of initiating or maintaining sleep Degeneration of 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 back pain and lower extremity pain Panniculitis Panniculitis, unspecified site Essential hypertension, benign (CMS/HCC)- Primary Essential hypertension, benign Mild mood disorder (CMS/HCC) Unspecified episodic mood disorder Generalized anxiety disorder (CMS/HCC) Generalized anxiety disorder Primary insomnia Persistent disorder of initiating or maintaining sleep Acute bronchitis due to other specified organisms Degeneration of 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 back pain and lower extremity pain Tinea corporis- Primary Dermatophytosis of the body DDD (degenerative disc disease), lumbar Degeneration of lumbar or lumbosacral intervertebral disc Class 2 obesity due to excess calories without serious comorbidity with body mass index (BMI) of 39.0 to 39.9 in adult Essential hypertension, benign (CMS/HCC)- Primary Essential hypertension, benign Bilateral leg edema Edema Mild mood disorder (CMS/HCC) Unspecified episodic mood disorder Generalized anxiety disorder (CMS/HCC) Generalized anxiety disorder Degeneration of 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 back pain and lower extremity pain Primary insomnia Persistent disorder of initiating or maintaining sleep Class 2 obesity due to excess calories without serious comorbidity with body mass index (BMI) of 39.0 to 39.9 in adult Tinea corporis Dermatophytosis of the body Cyclothymic disorder (CMS/HCC) Cyclothymic disorder PTSD (post-traumatic stress disorder) (CMS/HCC) Posttraumatic stress disorder Moderate episode of recurrent major depressive disorder (CMS/HCC) Generalized anxiety disorder (CMS/HCC) Generalized anxiety disorder Social anxiety disorder (CMS/HCC) Social phobia Mixed obsessional thoughts and acts (CMS/HCC) Psychophysiological insomnia Persistent disorder of initiating or maintaining sleep documented [facility]* Diagnosis Essential hypertension, benign (CMS/HCC)- Primary Essential hypertension, benign DDD (degenerative disc disease), lumbar Degeneration of lumbar or lumbosacral intervertebral disc Gross hematuria Calculus, renal Calculus of kidney Dyshidrotic eczema Primary insomnia Persistent disorder of initiating or maintaining sleep Mild mood disorder (CMS/HCC) Unspecified episodic mood disorder Generalized anxiety disorder (CMS/HCC) Generalized anxiety disorder Gastroesophageal reflux disease without esophagitis Esophageal reflux Screening mammogram for breast cancer Annual physical exam- Primary Routine general medical examination at a health care facility Renal calculi Calculus of kidney Colon cancer screening Special screening for malignant neoplasms, colon DDD (degenerative disc disease), lumbar Degeneration of lumbar or lumbosacral intervertebral disc Mild mood disorder (CMS/HCC) Unspecified episodic mood disorder Morbid (severe) obesity due to excess calories (CMS/HCC) Body mass index (BMI) 40.0-44.9, adult (CMS/HCC) Essential hypertension, benign (CMS/HCC)- Primary Essential hypertension, benign Gastroesophageal reflux disease without esophagitis Esophageal reflux Mild mood disorder (CMS/HCC) Unspecified episodic mood disorder Generalized anxiety disorder (CMS/HCC) Generalized anxiety disorder Primary insomnia Persistent disorder of initiating or maintaining sleep Degeneration of 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 back pain and lower extremity pain Panniculitis Panniculitis, unspecified site Essential hypertension, benign (CMS/HCC)- Primary Essential hypertension, benign Mild mood disorder (CMS/HCC) Unspecified episodic mood disorder Generalized anxiety disorder (CMS/HCC) Generalized anxiety disorder Primary insomnia Persistent disorder of initiating or maintaining sleep Acute bronchitis due to other specified organisms Degeneration of 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 back pain and lower extremity pain Tinea corporis- Primary Dermatophytosis of the body DDD (degenerative disc disease), lumbar Degeneration of lumbar or lumbosacral intervertebral disc Class 2 obesity due to excess calories without serious comorbidity with body mass index (BMI) of 39.0 to 39.9 in adult Essential hypertension, benign (CMS/HCC)- Primary Essential hypertension, benign Bilateral leg edema Edema Mild mood disorder (CMS/HCC) Unspecified episodic mood disorder Generalized anxiety disorder (CMS/HCC) Generalized anxiety disorder Degeneration of 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 back pain and lower extremity pain Primary insomnia Persistent disorder of initiating or maintaining sleep Class 2 obesity due to excess calories without serious comorbidity with body mass index (BMI) of 39.0 to 39.9 in adult Tinea corporis Dermatophytosis of the body DDD (degenerative disc disease), lumbar Degeneration of lumbar or lumbosacral intervertebral disc documented in this encounter [facility] No data available for this section [facility] No data available for this section [facility] Marya Summary Purpose Family History No Family History Records Found No data available [...] content) DATE CREATED AUTHOR 08/10/2022 [facility] DATE CREATED AUTHOR AUTHOR'S ORGANIZ ATION 10/28/2023 [facility] DATE CREATED AUTHOR AUTHOR'S ORGANIZ ATION 12/26/2023 Campos Otto [facility] DATE CREATED AUTHOR AUTHOR'S ORGANIZ ATION 06/19/2024 Campos Otto [facility] DATE CREATED AUTHOR AUTHOR'S ORGANIZ ATION 06/23/2024 [facility] EPIC Patient Care team informatio n (unrecognized section and content) Medical Insurance Clerk Relationship Specialty Start Date End Date Hany Iglesias MD [address] [place] [address] PCP - General Family Medicine 11/29/23 Medical Insurance Clerk Relationship Specialty Start Date End Date Hany Iglesias MD [address] [place] [address] PCP - General Family Medicine 11/29/23 Medical Insurance Clerk Relationship Specialty Start Date End Date Hany Iglesias MD [address] [place] [address] PCP - General Family Medicine 11/29/23 Medical Insurance Clerk Relationship Specialty Start Date End Date Hany Iglesias MD [address] [place] [address] PCP - General Family Medicine 11/29/23 Medical Insurance Clerk Relationship Specialty Start Date End Date Hany Iglesias MD [address] [place] [address] PCP - General Family Medicine 11/29/23 Medical Insurance Clerk Relationship Specialty Start Date End Date Hany Iglesias MD [address] [place] [address] PCP - General Family Medicine 11/29/23 Medical Insurance Clerk Relationship Specialty Start Date End Date Hany Iglesias MD [address] [place] [phone] PCP - General Family Medicine 11/29/23 Medical Insurance Clerk Relationship Specialty Start Date End Date Hany Iglesias MD [address] [place] [phone] PCP - General Family Medicine 11/29/23 Medical Insurance Clerk Relationship Specialty Start Date End Date Hany Iglesias MD [address] [place] [phone] PCP - General Family Medicine 11/29/23 Medical Insurance Clerk Relationship Specialty Start Date End Date Hany Iglesias MD [address] [place] [phone] PCP - General Family Medicine 11/29/23 Medical Insurance Clerk Relationship Specialty Start Date End Date Hany Iglesias MD [address] [place] [phone] PCP - General Family Medicine 11/29/23 Medical Insurance Clerk Relationship Specialty Start Date End Date Hany Iglesias MD [address] [place] [phone] PCP - General Family Medicine 11/29/23 Rosina Barraza, [facility]- [address] [facility] [place] [phone] Nurse Practitioner Behavioral Health 06/21/24 Chencho Haney MD [address] [place] [address] Referring Physician Urology 06/21/24 Medical Insurance Clerk Relationship Specialty Start Date End Date Hany Iglesias MD [address] [place] [phone] PCP - General Family Medicine 11/29/23 Rosina Barraza [facility] [address] [facility] [address] [place] [address] Nurse Practitioner Behavioral Health 06/21/24 Chencho Haney MD [address] [place] [address] Referring Physician Urology 06/21/24 Reason for Visit (unrecogniz ed section and content) Reason Onset Date Comments Med Refill 02/14/2024 Reason Comments Follow-up 3 m Tremors In hands/ goes numb as well Reason Comments Med Refill Reason Comments Follow-up 1 m Cough Reason Onset Date Comments Med Refill 12/17/2023 Reason Onset Date Comments Med Refill 01/17/2024 Reason Comments Follow-up Ring worm on left le g, Reason Comments Follow-up 2 M Reason Comments Psychiatric Evaluation Specialty Diagnoses / Procedures Referred By Contact Referred To Contact Psychiatry / Behavioral Health Diagnoses Mild mood disorder (CMS/HCC) Generalized anxiety disorder (CMS/HCC) Procedures [facility] OFFICE/OUTPATIENT NEW HIGH MDM 60 MINUTES Hany Iglesias MD [address] [place] [address] Phone: tel: fax: Rosina Barraza, [facility] [address] [facility] [address] [place] [address] Phone: tel: fax: Referral ID Status Reason Start Date Expiration Date V isits Requested Visits Authorized [id number] Closed Specialty Services Required 03/01/2024 08/28/2024 1 1 Reason Onset Date Comments Med Refill 06/22/2024 FOR RECORDS PERTAINING TO PATIENTS WHO ARE [...] BE BASED ON THE PRIMARY CLINICAL RECORDS. [facility]. provides no warranty or guarantee of the accuracy or completeness of information in this document.
[2024-06-24 09:37] VITALS: BP 114/84; PULSE 93; TEMP 37.8; O2SAT 96; BMI 38.1
--- NOTE | 2024-06-24 10:11 | ED.GENADUL1 ---
HPI HPI - General Adult General Chief complaint: Upper Respiratory Infection Stated complaint: FEVER Time Seen by Provider: 06/24/24 09:31 Source: patient Mode of arrival: walk-in Limitations: no limitations History of Present Illness HPI narrative: cc = flulike illness Patient complains of 2 days of headaches, fatigue, generalized muscle aches, cough. She denies any GI symptoms. She has been taking Tylenol but is unable to take NSAIDs due to her gastric bypass history. She admits to some sore throat. No known ill contacts Related Data Home Medications ?Medication ?Instructions ?Recorded ?Confirmed clonidine HCl 0.1 mg tablet 0.1 mg PO DAILY PRN anxiety 11/02/22 11/02/22 fexofenadine 180 mg tablet 180 mg PO DAILY 11/02/22 11/02/22 lamotrigine 100 mg tablet 150 mg PO QPM 11/02/22 11/02/22 meclizine 25 mg tablet 25 mg PO DAILY PRN dizziness 11/02/22 11/02/22 montelukast 10 mg tablet 10 mg PO QPM 11/02/22 11/02/22 omeprazole 20 mg capsule,delayed 20 mg PO BID 11/02/22 11/02/22 release oxycodone-acetaminophen 5 mg-325 1 tab PO .Q4HRs PRN pain 11/02/22 11/02/22 mg tablet tizanidine 4 mg tablet 4 mg PO TID PRN muscle spasticity 11/02/22 11/02/22 Previous Rx's ?Medication ?Instructions ?Recorded ondansetron 4 mg disintegrating 4 mg PO Q6H PRN nausea and 05/21/23 tablet vomiting #20 tabs tamsulosin 0.4 mg capsule (Flomax) 0.4 mg PO DAILY #7 caps 05/21/23 kcelytsvualztto-hofvppjxfceaarh-OV 10 ml PO Q6H PRN cold symptoms 06/24/24 2 mg-30 mg-10 mg/5 mL oral syrup #200 mL (Bromfed DM) Allergies Allergy/AdvReac Type Severity Reaction Status Date / Time codeine Allergy Severe Verified 11/02/22 15:30 morphine Allergy Severe Verified 11/02/22 15:30 Penicillins Allergy Severe Verified 11/02/22 15:30 sulfamethoxazole (From Allergy Severe Verified 11/02/22 15:30 Bactrim) trimethoprim (From Bactrim) Allergy Severe Verified 11/02/22 15:30 Opioid HPI Opioid Management Most Recent Opioid Data: Last Pain Scale 8 05/21/23 14:09 05/21/23 [facility] Social History Smoking status: Former smoker Exam Narrative Exam Narrative: Nurses notes and vital signs reviewed and patient is not hypoxic. Temperature elevation at 100.1 General: Well-appearing and in no apparent distress. Skin: Warm, dry, no pallor noted. No rash. Neck: Supple, non-tender. No meningismus Eye: Pupils are equal, round and EOMI. No scleral icterus. Ears, Nose, Mouth, and Throat: TM are clear, mild posterior oropharynx erythema without exudate or oral lesions. Moderate nasal mucosal hypertrophy Oral mucosa is moist, uvula is mid-line Cardiovascular: Regular Rate and Rhythm without murmur, gallop or rub. Respiratory: No accessory muscle use or respiratory distress. Lungs are clear to auscultation, no wheezing, rales or rhonchi Back: No CVA tenderness Musculoskeletal: normal ROM GI: Abdomen is soft, non-distended. Normal bowel sounds. No tenderness to palpation. No rebound, guarding, or rigidity noted. Neurological: A&O x4. No cranial nerve dysfunction observed. No truncal ataxia. Moves all extremities. Sensation intact. Psychiatric: Cooperative and interactive. Normal mood and affect. Constitutional Vital Signs, click to edit/add: Last Vital Signs Temp 100.1 F 06/24/24 09:37 Pulse 93 H 06/24/24 09:37 Resp 18 06/24/24 09:37 BP 114/84 06/24/24 09:37 Pulse Ox 96 06/24/24 09:37 O2 Del Method Room Air 06/24/24 09:37 Course Vital Signs Vital signs: Vital Signs Temperature 100.1 F 06/24/24 09:37 Pulse Rate 93 H 06/24/24 09:37 Respiratory Rate 18 06/24/24 09:37 Blood Pressure 114/84 06/24/24 09:37 Pulse Oximetry 96 06/24/24 09:37 Oxygen Delivery Method Room Air 06/24/24 09:37 Temperature 100.1 F 06/24/24 09:37 Pulse Rate 93 H 06/24/24 09:37 Respiratory Rate 18 06/24/24 09:37 Blood Pressure 114/84 06/24/24 09:37 Pulse Oximetry 96 06/24/24 09:37 Oxygen Delivery Method Room Air 06/24/24 09:37 Medical Decision Making MDM Narrative Medical decision making narrative: Patient presents with flulike illness. She is taking Tylenol at home. She complains about the cough causing throat pain but I do not see any evidence of acute bacterial infection of the throat. She had I discussed her symptoms, her diagnosis and expectations for treatment. I recommend that she continue to take Tylenol. I prescribed Bromfed for her cough. Discharge Plan Discharge Chief Complaint: Upper Respiratory Infection Clinical Impression: Viral infection, Upper respiratory infection Patient Disposition: Home, Self-Care Time of Disposition Decision: 10:13 Prescriptions / Home Meds: New axjeyogoffajdir-gaastmrhi-MX [Bromfed DM] 2-30-10 mg/5 mL syrup 10 ml PO Q6H PRN (Reason: cold symptoms) Qty: 200 0RF No Action clonidine HCl 0.1 mg tablet 0.1 mg PO DAILY PRN (Reason: anxiety) fexofenadine 180 mg tablet 180 mg PO DAILY lamotrigine 100 mg tablet 150 mg PO QPM meclizine 25 mg tablet 25 mg PO DAILY PRN (Reason: dizziness) montelukast 10 mg tablet 10 mg PO QPM omeprazole 20 mg capsule,delayed release(DR/EC) 20 mg PO BID oxycodone-acetaminophen 5-325 mg tablet 1 tab PO .Q4HRs PRN (Reason: pain) tizanidine 4 mg tablet 4 mg PO TID PRN (Reason: muscle spasticity) tamsulosin [Flomax] 0.4 mg capsule 0.4 mg PO DAILY Qty: 7 0RF ondansetron 4 mg tablet,disintegrating 4 mg PO Q6H PRN (Reason: nausea and vomiting) Qty: 20 0RF Print Language: Arabic Instructions: Upper Respiratory Infection (ED), Viral Syndrome (ED) Referrals: Hany Cohen MD [Primary Care Provider] - 1 week
[2024-06-24 10:25] VITALS: O2SAT 97
[2024-06-24 10:26] VITALS: BP 120/74; PULSE 87; O2SAT 97
== END 2024-06-24 10:31 | disposition home or self-care (01) ==
PROVIDERS: Emergency Provider Emergency Medicine; PCP Family Medicine
DX: J06.9 Acute upper respiratory infection, unspecified (principal); Z98.84 Bariatric surgery status; Z87.891 Personal history of nicotine dependence; R50.9 Fever, unspecified
CPT/HCPCS: 99283

== ENCOUNTER 2024-06-29 09:14 | Outpatient (OUT) | payer MEDICAID, SELFPAY ==
--- OUTSIDE RECORDS SUMMARY | 2024-06-29 09:34 | XMS_ITS | CCD ---
Author Organization [facility] Care Team Providers Care Filter Press Pumper Name Role Phone HARRIS, DR HANY Mcarthur [...] Khanna Attending Unavailable Madi PMHNP-BC, Rosina Unavailable [phone] Lyndon ARANGO, Chencho P Unavailable [phone] HANY IGLESIAS Attending Unavailable NADERER, HANY Attending Unavailable BARRAZAROSINA CHENG Attending Unavailable NADERER, HANY Referring Unavailable NADERER, HANY Attending Unavailable NADERER, HANY Attending Unavailable NADERER, HANY Attending Unavailable Allergies Allergy Classification Reported Allergen(s) Allergy Type Date of Onset Reaction(s) Facility (3 sources) Morphine; Translations: [morphine] Drug Allergy [facility] (1 source) Penicillins Drug allergy (disorder) 3 [facility] (1 source) Darvocet-N 100 Drug allergy (disorder) 3 [facility] (4 sources) Morphine; Translations: [morphine] Drug Allergy Unknown (qualifier value) [facility] (6 sources) NITROFURANTOIN, MACROCRYSTALS / Nitrofurantoin, Monohydrate; Translations: [nitrofurantoin] Drug Allergy Eruption of skin (disorder), Swelling (finding) [facility] (6 sources) Penicillin; Translations: [penicillin] Drug Allergy Pharyngeal swelling (finding) [facility] (20 sources) Ciprofloxacin; Translations: [ciprofloxacin] Drug Allergy 4 Eruption of skin (disorder) [facility] (19 sources) Morphine Drug Allergy 4 [facility] (19 sources) Penicillins Propensity to adverse reactions 4 [facility] (3 sources) fentaNYL Drug Allergy 5 Other [facility] (3 sources) venlafaxine Drug Allergy 5 GI intolerance [facility] Medications Current Medications Medication Drug Class(es) Dates Sig (Normalized) Sig (Original) acetaminophen 325 mg / HYDROcodone bitartrate 5 mg oral tablet (1 source) Opioid Agonist Start: 11-11-2023 End: 11-13-2023 acetaminophen-hyd rocodone 325 mg-5 mg oral tablet 1 tab(s), Oral, q4hr Pain for 2 day(s), 7 tab(s), Refill(s) 0, [id number], 147.4, cm, 10/27/23 13:16:00 EDT, Height/Length Dosing, [...] day(s), # 10 tab(s), Refills(s) 0, Pharmacy: [facility] #[id number], 147.4, cm, 10/27/23 13:16:00 EDT, Height/Length Dosing, [...] sources) Polyene Antifungal Start: 03-01-2024 nystatin (Mycostatin) 196283 UNIT/GM powder Indications: Panniculitis Apply topically 2 [...] day(s), # 60 tab(s), Refills(s) 1, Pharmacy: [facility] #[id number], 147.4, cm, 10/27/23 13:16:00 EDT, Height/Length Dosing, [...] Start: 10-27-2023 take 1 capsule by mo [facility] at bedtime prazosin 1 mg Cap 1 [...] 5 day(s), 10 tab(s), Refill(s) 0, [facility], 147.5, cm, 12/15/23 14:23:00 EDT, Height/Length Dosing, 87.9, kg, 12/15/23 14:23:00 EDT, Weight Dosing Start Date: 12/15/23 Stop Date: 12/20/23 Status: Ordered tamsulosin hydrochloride 0.4 mg oral capsule (2 sources) alpha-Adrenergic Elieen Start: 06-17-2023 take 1 capsule by mouth once daily tamsulosin 0.4 mg Cap 0.4 mg = 1 cap(s), Oral, Daily, # 30 cap(s), Refills(s) 0, Pharmacy: [facility] #[id number], 153, cm, 06/15/23 10:00:00 EST, Height/Length Dosing, [...] [Mass fraction] 20 % Invalid Interpretation Code [facility] Comment on above: Performed By: #### 1 [id number] #### [facility] [address] [place] [address] Calcium oxalate monohydrate (Stone) [Mass fraction] 60 % Invalid Interpretation Code [facility] Comment on above: Performed By: #### 1 [id number] #### [facility] [address] [place] [address] Calculus analysis [Interp] Comment Invalid Interpretation Code [facility] Comment on above: Result Comment: Calc ium phosphate (hydroxyl form) includes hydroxyapatite, amorphous calcium phosphate, and whitlockite. Hydroxyapatite is the most common of the calcium phosphate salts found in human kidney stones. Performed By: #### 1 [id number] #### [facility] [address] [place] [address] Color (Stone) Stevenson Invalid Interpretation Code [facility] Comment on above: Performed By: #### 1 [id number] #### [facility] [address] [place] [address] Composition Comment Invalid Interpretation Code [facility] Comment on above: Result Comment: Perc entage (Represents the % composition) Performed By: #### 1 [id number] #### [facility] [address] [place] [address] Disclaimer: Comment Invalid Interpretation Code [facility] Comment on above: Result Comment: This test was developed and its performance characteristics determined by [facility]. It has not been cleared or approved by the Food and Drug Administration. Performed at: [facility] [address] [id number] PhD Jamil San Performed By: #### 1 [id number] #### [facility] [address] [place] [address] Hydroxyapatite: 20 % Invalid Interpretation Code [facility] Comment on above: Performed By: #### 1 [id number] #### [facility] [address] [place] [address] Laboratory comment Nikhil (Report) Comment Invalid Interpretation Code [facility] Comment on above: Result Comment: Gwyn marx questions regarding Calculi Analysis contact [facility] at: [phone]. Performed By: #### 1 [id number] #### [facility] [address] [place] [address] Please Note: Comment Invalid Interpretation Code [facility] Comment on above: Result Comment: Calc deana report will follow via computer, mail or raw juice weigher delivery. Performed By: #### 1 [id number] #### [facility] [address] [place] [address] Size (Stone) [Entitic vol] 2x2 Invalid Interpretation Code [facility] Comment on above: Result Comment: Mult iple pieces received. Dimensions of the largest piece reported. Performed By: #### 1 [id number] #### [facility] [address] [place] [address] Specimen source subject Nom Kidney Invalid Interpretation Code [facility] Comment on above: Performed By: #### 1 [id number] #### [facility] [address] [place] [address] Stone Photo Comment Invalid Interpretation Code [facility] Comment on above: Result Comment: Phot ograph will follow under a separate cover Performed By: #### 1 [id number] #### [facility] [address] [place] [address] Weight (Stone) 8 mg Invalid Interpretation Code [facility] Comment on above: Performed By: #### 1 [id number] #### [facility] [address] [place] [address] Main OR Intraoperative Recor don 12-16-2023 Main OR Intraoperative Record Main OR Intraoperative Record IntraOp Document Type FT Summary Primary Physician: Chencho HANEY MD Finalized Date/Time: 12/16/23 11:46:04 Pt. Name: RHODESJUNE HANCOCK D.O.B./Sex: 1980 Female Med Rec #: [id number] Physician: Chencho HANEY MD Financial #: [id number] Pt. Type: A Room/Bed: [place] [address] Admit/Disch: 12/15/23 13:42:32 - 12/15/23 18:45:00 Institution: [...] Henry Role Performed Anesthesiologist Surgeon - Primary Cupola Repairer - Primary Residential Team Leader Time In 12/15/23 16:32:00 12/15/23 16:32:00 12/15/23 [...] Courtney M Role Performed Scrub - Primary Acoustical Tile Drill Press Operator Acoustical Tile Drill Press Operator Time In 12/15/23 16:32:00 12/15/23 16:32:00 12/15/23 [...] Carmona 12/15/23 17:19:18 General Comments: MARIANO TOVAR [employer] [facility], [place] ATTENDANCE.DAWNA KOCH RN. Perioperative Protocols [...] Jerez, Given Participants LYNDON ARANGO, Chencho Oneal, rFida Carmona, Misha Uriarte, June aSn, June Garcia Time Out Complete 12/15/23 16:39:00 [...] Clean-Contaminated Sp (more content not included)... Normal [facility] Discharge Instructionson Discharge Instructions Discharge Instructions [...] an antibiotic prescription to your pharmacy. Where: [facility] [address] [place], [place] [id number] Business (1) Medications What How Much When Instructions Next Dose New sulfamethoxazole-tri methoprim (Bactrim D.S. 800 mg-160 mg Tab) 1 Tablets By Mouth 2 times a day Duration: 5 Days Pickup at [facility] Unchanged acetaminophen-oxycod one (acetaminophen-oxyco done 300 [...] Once a day (at bedtime) Pharmacy Information [facility]: [address], [place] [id number] [phone] Test Results No qualifying data available. Allergies [...] hydronephrosis Urge incontinence [employer] [facility] [place], [place] Dr. Chencho Garza Post-operative Instructions for [...] normal di (more content not included)... Normal [facility] Comment on above: Result Comment: Elec tronically Signed By: Wiliam CORTEZ, Saritha Brown\.sophie\Date and Time Signed: 12/15/23 17:36 EDT Inpatient Patient Summaryon 12-15-2023 Inpatient Patient Summary Inpatient Patient Summary [address] [address] [facility] Clinical Discharge Instructions PERSON INFORMATION Name: JUNE RHODES [facility]#:[id number] PHYSICIANS Admitting Physician: Chencho HANEY MD Attending Physician: Chencho HANEY MD PCP: HARRIS ARANGO, HANY Discharge Diagnosis: Comment: PATIENT EDUCATION INFORMATION Instructions: [id number]-Mpqt-ec Utereroscopy,Lithotr ipsy, Stone Extraction, Stent Placement (Custom); Post Op Patient Instructions - FT (Custom) (CUSTOM) Medication Leaflets: Follow up: With: Address: When: Chencho HANEY [address] [place] [address], [address], [place] [id number] Business (1) Within 6 months Comments: Call [...] to your pharmacy. MEDICATION LIST New Medications [facility], [address], [place] [id number], [phone] sulfamethoxazole-tri methoprim (Bactrim D.S. 800 mg-160 mg [...] once a day (at bedtime). Comment: Normal [facility] Main OR PACU I Recordon 11-25 Main OR PACU I Record Main OR PACU I Record PACU Phase I Document Type FT Summary Primary Physician: Chencho HANEY MD Finalized Date/Time: 12/15/23 17:49:49 Pt. Name: UJNE RHODES/Sex: 1980 Female Med Rec #: [id number] Physician: Chencho HANEY MD Financial #: [id number] Pt. Type: A Room/Bed: [place] [address] Admit/Disch: 12/15/23 13:42:32 - Institution: Case Times [...] By: RANDY VARNER RN 12/15/23 17:49 Normal [facility] Main OR PACU II Recordon Main OR PACU II Record Main OR PACU II Record PACU Phase II Document Type FT Summary Primary Physician: Chencho HANEY MD Finalized Date/Time: 12/15/23 18:27:49 Pt. Name: JUNE RHODES/Sex: 1980 Female Med Rec #: [id number] Physician: Chencho HANEY MD Financial #: [id number] Pt. Type: A Room/Bed: [place] [address] Admit/Disch: 12/15/23 13:42:32 - 12/15/23 18:45:00 Institution: [...] Signed By: Saritha Swain RN 12/15/23 18:27 [facility] Main OR Preoperative Recordo n 12-15-2023 Main OR Preoperative Record Main OR Preoperative Record PreOp Document Type FT Summary Primary Physician: Chencho HANEY MD Finalized Date/Time: 12/15/23 16:42:28 Pt. Name: JUNE RHODES /Sex: 1980 Female Med Rec #: [id number] Physician: Chencho HANEY MD Financial #: [id number] Pt. Type: A Room/Bed: [facility] Admit/Disch: 12/15/23 13:42:32 - Institution: Case Times [...] Signed By: Frida Carmona 12/15/23 16:42 Normal [facility] Operative Reporton Operative Report Operative Report [...] is placed per urethra. A well-lubricated 22 Uzbek is urethroscope with 30 degree lens then [...] it well. She is transferred to the [facility] and then back to PACU in [...] Blood Loss: 2 ml. Complications: None. Normal [facility] Comment on above: Result Comment: Elec tronically Signed By: Chencho HANEY MD\.br\Date and Time Signed: 12/15/23 17:25 EDT Outpatient Surgery Discharge Instructionon 12-15-2023 Outpatient Surgery Discharge Instruction Outpatient Surgery Discharge Instruction [place] [address] Patient Discharge Instructions PERSON INFORMATION Name: JUNE [...] Follow up: With: Address: When: Chencho HANEY [address] [place], [place] [address], [address], [facility] [address] [place] [address] Business (1) Within 6 months Comments: Call [...] You may receive a survey from [employer] asking you to rate your care experience. Your feedback is important and will help us understand what we do well and how we can improve the quality of care we provide to you, your loved ones and our community. It?s an honor to serve you. Thank you for choosing [facility] HERE ARE THE MEDICATION CHANGES THAT OCCURRED DURING YOUR HOSPITAL STAY New Medications [facility], [address] [place] [id number], [phone] sulfamethoxazole-tri methoprim (Bactrim D.S. 800 mg-160 mg [...] bedtime). PATIENT EDUCATION INFORMATION Instructions: [facility] [place], [place] Dr. Chencho Garza Post-operative Instructions for [...] should take (more content not included)... Normal [facility] XR Abdomen 1 Viewon 12-15-19 24 [...] mGy = na DAP = na Normal [facility] Main OR Intraoperative Recor don 11-12-2023 Main OR Intraoperative Record Main OR Intraoperative Record IntraOp Document Type FT Summary Primary Physician: Chencho HANEY MD Finalized Date/Time: 11/12/23 13:35:24 Pt. Name: MEAGANJUNE/Sex: 1980 Female Med Rec #: [id number] Physician: Chencho HANEY MD Financial #: [id number] Pt. Type: A Room/Bed: Admit/Disch: 11/11/23 09:03:11 [...] MD, Chencho Bailey RN,Paige Brown Role Performed FISH SKINNING MACHINE FEEDER Surgeon - Primary Staff - Other Time [...] Pako CORTEZ, Parveen Yoder CST Role Performed Cupola Repairer - Primary Scrub - Primary Time In [...] and tissue Entry 1 Skin Integrity Intact, [place], Warm, and Skin Abnormality No Dry Outcomes Met? Yes Last Sandhya (more content not included)... Normal [facility] XR Abdomen 1 Viewon 11-12-19 24 [...] mGy = na DAP = na Normal [facility] Discharge Instructionson Discharge Instructions Discharge Instructions [...] to speak with Elizabeth, she is my farm operations technical director. Please asked to have the abdominal x-ray [...] some bladder spasm medications as well. Where: [facility] [address] [place] [phone] Business (1) Medications What How Much When Instructions Next Dose New acetaminophen-hydroc odone (acetaminophen-hydro codone 325 mg-5 mg oral tablet) 1 Tablets By Mouth Every 4 hours as needed for Pain Duration: 2 Days Pickup at [facility] #26798 New ciprofloxacin (Cipro 500 mg Tab) 1 Tablets By Mouth 2 times a day Duration: 5 Days Pickup at [facility] #67153 New oxybutynin (oxybutynin 5 mg Tab) 1 Tablets By Mouth 2 times a day Duration: 30 Days Refills: 1 Pickup at [facility] #89947 Unchanged hydrOXYzine (hydrOXYzine hydrochloride 25 mg Tab) [...] day (at bedtime) Pharmacy Information [facility] #[id number]: [address], [place] [id number] [phone] Test Results No qualifying data available. Allergies [...] ? Bl (more content not included)... Normal [facility] Comment on above: Result Comment: Elec tronically Signed By: Janene Iraheta RN\.br\Date and Time Signed: 11/11/23 14:47 EDT Inpatient Patient Summaryon 11-11-2023 Inpatient Patient Summary Inpatient Patient Summary [address] [address] [facility] Clinical Discharge Instructions PERSON INFORMATION Name: JUNE RHODES [facility]#:[id number] PHYSICIANS Admitting Physician: Chencho HANEY MD Attending Physician: Chencho HANEY MD PCP: HANY IGLESIAS MD Discharge Diagnosis: Comment: PATIENT EDUCATION INFORMATION Instructions: Lithotripsy, Care After Medication Leaflets: Follow up: With: Address: When: Chencho LYNDON [address], [address], [facility] [address] [place] [address] Business (1) Comments: Please call my office to speak with Elizabeth, she is my farm operations technical director. Please asked to have the abdominal x-ray [...] well. MEDICATION LIST New Medications [facility] #[id number], [address], [place] [id number], [phone] acetaminophen-hydroc odone (acetaminophen-hydro codone 325 mg-5 mg [...] once a day (at bedtime). Comment: Brittney [facility] Main OR PACU I Recordon 10-24 Main OR PACU I Record Main OR PACU I Record PACU Phase I Document Type FT Summary Primary Physician: Chencho HANEY MD Finalized Date/Time: 11/11/23 14:56:51 Pt. Name: JUNE RHODES [place] Sow/Sex: 1980 Female Med Rec #: [id number] Physician: Chencho HANEY MD Financial #: [id number] Pt. Type: A Room/Bed: 06/24 Admit/Disch: 11/11/23 [...] 11/11/23 14:56 Nancy Galloway RN 11/11/23 14:56 [facility] Main OR PACU II Recordon Main OR PACU II Record Main OR PACU II Record PACU Phase II Document Type FT Summary Primary Physician: Chencho HANEY MD Finalized Date/Time: 11/11/23 16:13:12 Pt. Name: JUNE RHODES/Sex: 1980 Female Med Rec #: [id number] Physician: Chencho HANEY MD Financial #: [id number] Pt. Type: A Room/Bed: [place] [address] Admit/Disch: 11/11/23 09:03:11 - Institution: Case Times [...] By: Janene Iraheta RN 11/11/23 16:13 Normal [facility] Main OR Preoperative Recordo n 11-11-2023 Main OR Preoperative Record Main OR Preoperative Record PreOp Document Type FT Summary Primary Physician: Chencho HANEY MD Finalized Date/Time: 11/11/23 13:47:17 Pt. Name: JUNE RHODES/Sex: 1980 Female Med Rec #: [id number] Physician: Chencho HANEY MD Financial #: [id number] Pt. Type: A Room/Bed: Admit/Disch: 11/11/23 09:03:11 [...] Kristie Min RN 11/11/23 13:47 Normal [facility] Operative Reporton Operative Report Operative Report [...] placed per urethra and a well-lubricated 22 Uzbek is urethroscope with 30 degree lens then passed into the bladder without difficulty. Panendoscopy reveals no tumors, no stones, no diverticuli. Ureteral orifices are normal. No suspicious lesions. I was able to cannulate the right ureteral orifice with a point 035 guidewire and over that a 4.9 Uzbek Dornier double-J ureteral stent is then passed [...] it well. She is transferred to the [facility] and then back to PACU in satisfactory condition, stable vital signs. Plan to be for discharge home with plans to follow-up hopefully for stent removal after a KUB next week confirms adequate fragmentation. Discussed this postop with her family and she is in agreement with the plan. Antibiotic prescription as well as [place] as well as oxybutynin sent to the pharmacy. Antibiotic consists of Cipro 500 mg p.o. twice daily #10.. Estimated Blood Loss: 0 ml. Complications: None. Anesthesia type: General. Normal [facility] Comment on above: Result Comment: Elec tronically Signed By: Chencho HANEY MD\.br\Date and Time Signed: 11/11/23 13:48 EDT Outpatient Surgery Discharge Instructionon 11-11-2023 Outpatient Surgery Discharge Instruction Outpatient Surgery Discharge Instruction [place] [id number] Patient Discharge Instructions PERSON INFORMATION Name: JUNE [...] Follow up: With: Address: When: Chencho HANEY [address] [place], [place] [address], [address], [place] [address] Business (1) Comments: Please call my office to speak with Elizabeth, she is my farm operations technical director. Please asked to have the abdominal x-ray [...] to serve you. Thank you for choosing [facility] HERE ARE THE MEDICATION CHANGES THAT OCCURRED DURING YOUR HOSPITAL STAY New Medications [id number], [address], [place] [phone], [phone] acetaminophen-hydroc odone (acetaminophen-hydro codone 325 mg-5 mg [...] may m (more content not included)... Normal [facility] BMPon 10-27-2023 Anion gap [Moles/Vol] 10 mmol/L Normal 6-16 [facility] Comment on above: Performed By: #### 2 [id number] #### [facility] [address] [place] [address] Calcium [Mass/Vol] 8.9 mg/dL Normal 8.9-11.1 [facility] Comment on above: Performed By: #### 2 [id number] #### [facility] [address] [place] [address] Chloride [Moles/Vol] 107 mmol/L Normal 101-111 [facility] Comment on above: Performed By: #### 2 [id number] #### [facility] [address] [place] [address] CO2 [Moles/Vol] 28 mmol/L Normal 21-[address] [facility] Comment on above: Performed By: #### 2 [id number] #### [facility] [address] [place] [address] Creatinine [Mass/Vol] 0.7 mg/dL Normal 0.5-1.3 [facility] Comment on above: Performed By: #### 2 [id number] #### [facility] [address] [place] [address] Glucose [Mass/Vol] 81 mg/dL Normal 55-199 [facility] Comment on above: Performed By: #### 2 [id number] #### [facility] [address] [place] [address] Potassium [Moles/Vol] 4.2 mmol/L Normal 3.5-5.3 [facility] Comment on above: Performed By: #### 2 [id number] #### [facility] [address] [place] [address] Sodium [Moles/Vol] 141 mmol/L Normal 135-145 [facility] Comment on above: Performed By: #### 2 [id number] #### [facility] [address] [place] [address] Urea nitrogen [Mass/Vol] 18 mg/dL Normal 5-21 [facility] Comment on above: Performed By: #### 2 [id number] #### [facility] [address] [place] [address] Urea nitrogen/Creatinine [Mass ratio] 26 No Units High 10-20 [facility] Comment on above: Performed By: #### 2 [id number] #### [facility] [address] [place] [address] CBC w/ Auto Diffon 4 Basophils/100 WBC (Bld) 0.7 % Normal 0.0-2.0 [facility] Comment on above: Performed By: #### 2 [id number] #### [facility] [address] [place] [address] Basophils/Leukocytes Auto (Bld) [Pure # fraction] 0.0 E9/L Normal 0.0-0.2 [facility] Comment on above: Performed By: #### 2 [id number] #### [facility] [address] [place] [address] Eosinophils (Bld) [#/Vol] 0.2 E9/L Normal 0.0-0.5 [facility] Comment on above: Performed By: #### 2 [id number] #### [facility] [address] [place] [address] Eosinophils/100 WBC (Bld) 2.6 % Normal 0.0-8.0 [facility] Comment on above: Performed By: #### 2 [id number] #### [facility] [address] [place] [address] Erythrocyte distribution width (RBC) [Ratio] 13.5 % Normal 10.9-14.2 [facility] Comment on above: Performed By: #### 2 [id number] #### [facility] [address] [place] [address] Hematocrit (Bld) [Volume fraction] 39.3 % Normal 34.0-46.0 [facility] Comment on above: Performed By: #### 2 [id number] #### [facility] [address] [place] [address] Hemoglobin (Bld) [Mass/Vol] 13.9 g/dL Normal 12.0-16.0 [facility] Comment on above: Performed By: #### 2 [id number] #### [facility] [address] [place] [address] Lymphocytes (Bld) [#/Vol] 1.9 E9/L Normal 1.0-4.0 [facility] Comment on above: Performed By: #### 2 [id number] #### [facility] [address] [place] [address] Lymphocytes/100 WBC (Bld) 27.1 % Normal 14.0-50.0 [facility] Comment on above: Performed By: #### 2 [id number] #### [facility] [address] [place] [address] MCH (RBC) [Entitic mass] 29.7 pg Normal 27.0-34.0 [facility] Comment on above: Performed By: #### 2 [id number] #### [facility] [address] [place] [address] MCHC (RBC) [Mass/Vol] 35.3 g/dL Normal 31.4-36.0 [facility] Comment on above: Performed By: #### 2 [id number] #### [facility] [address] [place] [address] MCV (RBC) [Entitic vol] 84.2 fL Normal 80.0-100.0 [facility] Comment on above: Performed By: #### 2 [id number] #### [facility] [address] [place] [address] Monocytes (Bld) [#/Vol] 0.5 E9/L Normal 0.2-1.0 [facility] Comment on above: Performed By: #### 2 [id number] #### [facility] [address] [place] [address] Neutrophils (Bld) [#/Vol] 4.4 E9/L Normal 2.0-7.5 [facility] Comment on above: Performed By: #### 2 [id number] #### [facility] [address] [place] [address] Neutrophils/100 WBC (Bld) 62.1 % Normal 36.0-75.0 [facility] Comment on above: Performed By: #### 2 [id number] #### [facility] [address] [place] [address] Platelet 272.0 E9/L Normal 150.0-500.0 [facility] Comment on above: Performed By: #### 2 [id number] #### [facility] [address] [place] [address] Platelet mean volume (Bld) [Entitic vol] 9.8 fL Normal 6.4-10.8 [facility] Comment on above: Performed By: #### 2 [id number] #### [facility] [address] [place] [address] RBC (Bld) [#/Vol] 4.7 E12/L Normal 4.3-5.9 [facility] Comment on above: Performed By: #### 2 [id number] #### [facility] [address] [place] [address] WBC corrected for nucl RBC Auto (Bld) [#/Vol] 7.0 E9/L Normal 4.0-11.[address] [facility] Comment on above: Performed By: #### 2 [id number] #### [facility] [address] [place] [address] CHEMISTRYOrdered By: SYSTEM SYSTEM on 10-27-2023 Anion [...] 39.3 s High 25.1 - 36.5 second(s) [facility] Comment on above: Interpretive Data: [...] the same coagulation reagent and instrumentation as [facility]. Currently there are no coagulation studies available worldwide for children to 14 days, and no normal ranges. Heparin therapeutic range (represented by Anti-Factor Xa activity of 0.2 - 0.4 U/mL) corresponds to PTT of 56.6 - 109.0 sec. INR Coag (PPP) [Relative time] 1.07 {INR} Invalid Interpretation Code [facility] Comment on above: Interpretive Data: I NR results are specifically intended to assess patients stabilized on long-term Anticoagulation therapy suggested INR s Less Intensive Anticoagulation 2.0 3.0 Conventional Range 3.0 4.5 PT Coag (PPP) [Time] 12.0 s Normal 9.4 - 1 2.5 second(s) [facility] Comment on above: Interpretive Data: [...] the same coagulation reagent and instrumentation as [facility]. Currently there are no coagulation studies available [...] Coag (PPP) [Time] 39.3 second(s) High 25.1-36.5 [facility] Comment on above: Result Comment: Para [...] the same coagulation reagent and instrumentation as [facility]. Currently there are no coagulation studies available worldwide for children to 14 days, and no normal ranges. Heparin therapeutic range (represented by Anti-Factor Xa activity of 0.2 - 0.4 U/mL) corresponds to PTT of 56.6 - 109.0 sec. Performed By: #### 1 [id number] ####[facility] [address] [place] [address] INR Coag (PPP) [Relative time] 1.07 {INR} Invalid Interpretation Code [facility] Comment on above: Result Comment: INR results are specifically intended to assess patients stabilized on long-term Anticoagulation therapy suggested INR?s ?Less Intensive Anticoagulation? 2.0 ? 3.0 Conventional Range 3.0 ? 4.5 Performed By: #### 1 [id number] ####[facility] [address] [place] [address] PT Coag (PPP) [Time] 12.0 second(s) Normal 9.4-12.5 [facility] Comment on above: Result Comment: 15 [...] the same coagulation reagent and instrumentation as [facility]. Currently there are no coagulation studies available worldwide for children to 14 days, and no normal ranges. Performed By: #### 1 [id number] ####[facility] [address] [place] [address] UA with Cult Rflxon 10-27-19 24 Bacteria Auto Ql (U) Trace Normal Trace Fish er [facility] Comment on above: Performed By: #### 4 [id number] #### [facility] [address] [place] [address] Bilirubin Ql (U) Negative Normal Negative [facility] Comment on above: Performed By: #### 4 [id number] #### [facility] [address] [place] [address] Clarity (U) Clear Normal Clear [facility] Comment on above: Performed By: #### 4 [id number] #### [facility] [address] [place] [address] Color (U) Light-Yellow Normal Yellow [facility] Comment on above: Result Comment: Micr oscopic readings are only performed on those samples that meet specific criteria set forth by [facility]. Performed By: #### 4 [id number] #### [facility] [address] [place] [address] Epithelial cells.squamous Auto (Urine sed) [#/Area] 0-2 Invalid Interpretation Code [facility] Comment on above: Performed By: #### 4 [id number] #### [facility] [address] [place] [address] Glucose Ql (U) Negative Normal Negative [facility] Comment on above: Performed By: #### 4 [id number] #### [facility] [address] [place] [address] Hemoglobin Auto test strip (U) [Mass/Vol] Negative Normal Negative [facility] Comment on above: Performed By: #### 4 [id number] #### [facility] [address] [place] [address] Hyaline casts LM Ql (Urine sed) 0-3 Normal 0-3 [facility] Comment on above: Performed By: #### 4 [id number] #### [facility] [address] [place] [address] Ketones Auto test strip Ql (U) Negative Normal Negative [facility] Comment on above: Performed By: #### 4 [id number] #### [facility] [address] [place] [address] Leukocyte esterase Auto test strip Ql (U) 25 Pinky/uL Normal Negative [facility] Comment on above: Performed By: #### 4 [id number] #### [facility] [address] [place] [address] Mucus Auto Ql (U) Trace Normal Negative [facility] Comment on above: Performed By: #### 4 [id number] #### [facility] [address] [place] [address] Nitrite Auto test strip Ql (U) Negative Normal Negative [facility] Comment on above: Performed By: #### 4 [id number] #### [facility] [address] [place] [address] pH (U) 6.0 [pH] Invalid Interpretation Code 5.0-9.0 [facility] Comment on above: Performed By: #### 4 [id number] #### [facility] [address] [place] [address] Protein Ql (U) Negative Normal Negative [facility] Comment on above: Performed By: #### 4 [id number] #### [facility] [address] [place] [address] RBC Ql (U) 4-20 Abnormal 0-3 [facility] Comment on above: Performed By: #### 4 [id number] #### [facility] [address] [place] [address] Specific gravity (U) [Rel density] 1.025 Invalid Interpretation Code 1.005-1.030 [facility] Comment on above: Performed By: #### 4 [id number] #### [facility] [address] [place] [address] Urobilinogen (U) [Mass/Vol] Negative Normal Negative [facility] Comment on above: Performed By: #### 4 [id number] #### [facility] [address] [place] [address] WBC Auto (Urine sed) [#/Area] 0-5 Normal 0-5 [facility] Comment on above: Performed By: #### 4 [id number] #### [facility] [address] [place] [address] Type of Urine collection method Clean Catch Normal [facility] Comment on above: Performed By: #### 4 [id number] #### [facility] [address] [place] [address] URINALYSISOrdered By: SYSTEM SYSTEM on 10-27-2023 Bacteria [...] that meet specific criteria set forth by [facility]. Epithelial cells.squamous Auto (Urine sed) [...] (U) 4-20 graded/HPF Invalid Interpretation Code 0-3graded/HPF [facility] UA Auto SS Specific gravity (U) [Rel density] 1.025 *NA* (10/27/23 10:58 AM) Invalid Interpretation Code 1.005 - 1.030 [facility] UA Auto SS Urobilinogen (U) [Mass/Vol] Negative Normal Negativemg/dL [facility] UA Auto SS WBC Auto (Urine sed) [#/Area] 0-5 graded/HPF Normal 0-5graded/HPF [facility] UA Auto SS URINALYSISOrdered By: Shayne Butler on 10-27-2023 UA Spec Desc Clean Catch (10/27/23 10:58 AM) Normal [facility] UA Auto SS eGFRon 10-27-2023 eGFR 108 mL/min/1.73 m2 Normal >=59 [facility] Comment on above: Order Comment: Order added by Discern Expert. Performed By: #### 1 [id number] #### [facility] [address] [place] [address] Provider Letteron 07-19-2023 Provider Letter July 19, 2023 JUNE RHODES [address] [place] [id number] : 1980 Dear June , We have been trying to reach you with no success. It is important that you return our call regarding your next kidney stone surgery upon receiving this letter. Also, at the time of your call, please provide us with your current information. Thank you for your prompt attention to this matter. Sincerely, Dr. Chencho Haney MD Normal [facility] RAD - MISCon 06-25-2023 RAD - MISC [id number] #1.00TIFF Normal [facility] Lab Reportson 06-16-2023 Lab Reports [id number] #1.00TIFF Normal [facility] RAD - CT Reporton 06-16-2023 RAD - CT Report [id number] #1.00TIFF Normal [facility] RAD - Ultrasound Reporton RAD - Ultrasound Report [id number] #1.00TIFF Brittney Campos [facility] Ambulatory Visit Summaryon 0 06-15-2023 [...] 1-2wks Where: [address] [place] [address]- Medications What How Much When Instructions Unchanged [...] Follow th (more content not included)... Normal [facility] Patient Educationon 06-15-19 Patient Education Urology [...] these instructions at home: Medicines ? Take tcha-ryq-pfzkzza and prescription medicines only as told by [...] provider. Document Revised: 12/15/2021 Document Reviewed: 12/15/2021 [employer] Patient Education ? 2022 [employer] [facility] Urology Office/Clinic Noteon 06-15-2023 Urology Office/Clinic Note Chief Complaint [facility] F/U for lower abdominal pain HPI Staff Pt is here for [facility] F/U CT abdominal pelvis wo con @ [facility] 05/21/23 CC lower abdominal pain Last OV was 07/23/20 Previous DX; Kidney stone, flank pain, microscopic hematuria, urge incontinence, hx kidney stones CT @ [facility] on 06/11/23 EMELI @ [facility] 06/11/23 Given Tamsulosin 0.4 mg qd at [facility] She did complete this no concerns with [...] Hydronephrosis with renal and ureteral calculous obstruction) [facility] ER visit 05/21/23 c/o bilateral lower abdominal [...] with voice recognition artificial intelligence software, specifically [employer], [email or web address] and or [employer]. Substitutions may have occurred due to the inherent limitations of voice recognition and artificial intelligence software. Follow-up With When Contact Information Chencho HANEY MD, URL [address] [address]- Additional Instructions: IVP in 1-2wks Patient Education Kidney Stones, Dbhw-iv-Qzel Cleo Shaw, personally scribed for Dr. Haney on 06/15/2023 10:54:59. . Documentation recorded by the Cleo valenzuela (more content not included)... Normal [facility] Comment on above: Result Comment: Elec tronically Signed By: Chencho HANEY MD\.br\Date and Time Signed: 06/15/23 21:50 EST\.br\Electronically Co-Signed By: Cleo Bonner\.br\Date and Time Co-Signed: 06/15/23 10:55 EST RAD - MISCon 06-13-2023 RAD - MISC [id number] #1.00TIFF Normal [facility] RAD - Ultrasound Reporton RAD - Ultrasound Report [id number] #1.00TIFF Normal [facility] ED Note-Physicianon 06-08-19 ED Note-Physician [id number] #1.00TIFF Normal [facility] Cov[facility] 01[facility]24 SARS-CoV-2 (COVID-19) RNA JUDE+probe Ql (Unsp spec) Detected Critically abnormal NOT DETECTED [facility] Comment on above: Result Comment: This test is not yet approved or cleared by the [place] FDA. When there are no FDA-approved or cleared tests available, and other criteria are met, FDA can make tests available under an emergency access mechanism called an Emergency Use Authorization (EUA). The EUA for this test is supported by the [employer] Superintendent of Health and Human Service's (HHS's) declaration [...] be used). Performed By: #### [facility] #### [facility] [address] [place] [address] Dr. Abdelrahman Chisholm XR LSPINE 2_3 VIEWSon [...] by: YOSVANY NEGRO Date: 2021-09-08 15:24 Normal [facility] Vital Signs Date Time Vital Sign Value Performing Clinician Facility 06-21-2024 08:54-0500 Body mass index (BMI) [Ratio] 38.86 kg/m2 Rosina Barraza PMHNP-BC Work Phone: [facility] 06-21-2024 08:54-0500 Body weight 90.27 kg RosinaJeNaCell PMHNP-BC Work Phone: [facility] 06-21-2024 08:54-0500 Diastolic blood pressure 82 mm[Hg] Rosina Barraza PMHNP-BC Work Phone: [facility] 06-21-2024 08:54-0500 Heart rate 84 /min Rosina Barraza PMHNP-BC Work Phone: [facility] 06-21-2024 08:54-0500 Systolic blood pressure 138 mm[Hg] Rosina Barraza PMHNP-BC Work Phone: [facility] 06-13-2024 09:37-0500 Body height 152.4 cm Hany Iglesias MD Work Phone: [facility] 06-13-2024 09:37-0500 Body mass index (BMI) [Ratio] 39.84 kg/m2 Hany Iglesias MD Work Phone: [facility] 06-13-2024 09:37-0500 Body temperature 97.11 [degF] Hany Iglesias MD Work Phone: [facility] 06-13-2024 09:37-0500 Body weight 92.53 kg Hany Iglesias MD Work Phone: [facility] 06-13-2024 09:37-0500 Diastolic blood pressure 84 mm[Hg] Hany Iglesias MD Work Phone: [facility] 06-13-2024 09:37-0500 Heart rate 85 /min Hany Iglesias MD Work Phone: [facility] 06-13-2024 09:37-0500 Respiratory rate 20 /min Hany Iglesias MD Work Phone: [facility] 06-13-2024 09:37-0500 SaO2% (BldA) [Mass fraction] 99 % Hany Iglesias MD Work Phone: [facility] 06-13-2024 09:37-0500 Systolic blood pressure 154 mm[Hg] Hany Iglesias MD Work Phone: [facility] 05-19-2024 09:25-0500 Body height 152.4 cm Hany Iglesias MD Work Phone: [facility] 05-19-2024 09:25-0500 Body mass index (BMI) [Ratio] 39.65 kg/m2 Hany Iglesias MD Work Phone: [facility] 05-19-2024 09:25-0500 Body temperature 97.81 [degF] Hany Iglesias MD Work Phone: [facility] 05-19-2024 09:25-0500 Body weight 92.08 kg Hany Iglesias MD Work Phone: [facility] 05-19-2024 09:25-0500 Diastolic blood pressure 70 mm[Hg] Hany Iglesias MD Work Phone: [facility] 05-19-2024 09:25-0500 Heart rate 86 /min Hany Iglesias MD Work Phone: [facility] 05-19-2024 09:25-0500 Respiratory rate 22 /min Hany Iglesias MD Work Phone: [facility] 05-19-2024 09:25-0500 SaO2% (BldA) [Mass fraction] 99 % Hany Iglesias MD Work Phone: [facility] 05-19-2024 09:25-0500 Systolic blood pressure 126 mm[Hg] Hany Iglesias MD Work Phone: [facility] 04-12-2024 09:42-0500 Body height 147.3 cm Hany Iglesias MD Work Phone: [facility] 04-12-2024 09:42-0500 Body mass index (BMI) [Ratio] 40.34 kg/m2 Hany Iglesias MD Work Phone: [facility] 04-12-2024 09:42-0500 Body temperature 96.6 [degF] Hany Iglesias MD Work Phone: [facility] 04-12-2024 09:42-0500 Body weight 87.54 kg Hany Iglesias MD Work Phone: [facility] 04-12-2024 09:42-0500 Diastolic blood pressure 78 mm[Hg] Hany Iglesias MD Work Phone: [facility] 04-12-2024 09:42-0500 Heart rate 91 /min Hany Iglesias MD Work Phone: [facility] 04-12-2024 09:42-0500 Respiratory rate 20 /min Hany Iglesias MD Work Phone: [facility] 04-12-2024 09:42-0500 SaO2% (BldA) [Mass fraction] 99 % Hany Iglesias MD Work Phone: [facility] 04-12-2024 09:42-0500 Systolic blood pressure 130 mm[Hg] Hany Iglesias MD Work Phone: [facility] 03-01-2024 10:14-0500 Body height 147.3 cm Hany Iglesias MD Work Phone: [facility] 03-01-2024 10:14-0500 Body mass index (BMI) [Ratio] 40.96 kg/m2 Hany Iglesias MD Work Phone: [facility] 03-01-2024 10:14-0500 Body temperature 97.81 [degF] Hany Iglesias MD Work Phone: [facility] 03-01-2024 10:14-0500 Body weight 88.91 kg Hany Iglesias MD Work Phone: [facility] 03-01-2024 10:14-0500 Diastolic blood pressure 70 mm[Hg] Hany Iglesias MD Work Phone: [facility] 03-01-2024 10:14-0500 Heart rate 79 /min Hany Iglesias MD Work Phone: [facility] 03-01-2024 10:14-0500 Respiratory rate 20 /min Hany Iglesias MD Work Phone: [facility] 03-01-2024 10:14-0500 SaO2% (BldA) [Mass fraction] 99 % Hany Iglesias MD Work Phone: [facility] 03-01-2024 10:14-0500 Systolic blood pressure 120 mm[Hg] Hany Iglesias MD Work Phone: [facility] 12-15-2023 17:49-0400 Heart rate 43 /min Chencho HANEY [facility] 12-15-2023 17:49-0400 SaO2% (BldA) [Mass fraction] 99 % Chencho HANEY [facility] 12-15-2023 17:48-0400 Diastolic blood pressure 69 mm[Hg] Chencho HANEY [facility] 12-15-2023 17:48-0400 Mean blood pressure 96 mm[Hg] Chencho HANEY [facility] 12-15-2023 17:48-0400 Systolic blood pressure 151 mm[Hg] Chencho HANEY [facility] 12-15-2023 17:47-0400 Respiratory rate 16 /min Chencho HANEY [facility] 12-15-2023 17:42-0400 Body temperature 98.24 [degF] Chencho HANEY [facility] 12-15-2023 17:30-0400 Diastolic blood pressure 93 mm[Hg] Chencho COOK [facility] 12-15-2023 17:30-0400 Heart rate 67 /min Chencho COOK [facility] 12-15-2023 17:30-0400 Mean blood pressure 105 mm[Hg] Chencho COOK [facility] 12-15-2023 17:30-0400 Respiratory rate 11 /min Chencho COOK [facility] 12-15-2023 17:30-0400 SaO2% (BldA) [Mass fraction] 98 % Chencho COOK [facility] 12-15-2023 17:30-0400 Systolic blood pressure 128 mm[Hg] Chencho COOK [facility] 12-15-2023 17:25-0400 Diastolic blood pressure 74 mm[Hg] Chencho COOK [facility] 12-15-2023 17:25-0400 Heart rate 72 /min Chencho COOK [facility] 12-15-2023 17:25-0400 Mean blood pressure 93 mm[Hg] Chencho COOK [facility] 12-15-2023 17:25-0400 Respiratory rate 17 /min Chencho COOK [facility] 12-15-2023 17:25-0400 SaO2% (BldA) [Mass fraction] 100 % Chencho COOK [facility] 12-15-2023 17:25-0400 Systolic blood pressure 131 mm[Hg] Chencho COOK [facility] 12-15-2023 17:20-0400 Mean blood pressure 100 mm[Hg] Chencho COOK [facility] 12-15-2023 17:20-0400 Respiratory rate 15 /min Chencho HANEY [facility] 12-15-2023 17:17-0400 Body temperature 97.7 [degF] Chencho COOK [facility] 12-15-2023 14:18-0400 Mean blood pressure 96 mm[Hg] Chencho COOK [facility] 12-15-2023 14:17-0400 Body temperature 98.06 [degF] Chencho HANEY [facility] 12-15-2023 14:17-0400 Mean blood pressure 82 mm[Hg] Chencho HANEY [facility] 12-15-2023 14:17-0400 Respiratory rate 18 /min Chencho HANEY [facility] 11-11-2023 15:43-0400 Heart rate 58 /min Chencho HANEY [facility] 11-11-2023 15:42-0400 Heart rate 47 /min Chencho HANEY [facility] 11-11-2023 15:42-0400 SaO2% (BldA) [Mass fraction] 97 % Chencho HANEY [facility] 11-11-2023 15:42-0400 Respiratory rate 16 /min Chencho COOK [facility] 11-11-2023 15:42-0400 Diastolic blood pressure 60 mm[Hg] Chencho COOK [facility] 11-11-2023 15:42-0400 Mean blood pressure 72 mm[Hg] Chencho COOK [facility] 11-11-2023 15:42-0400 Systolic blood pressure 97 mm[Hg] Chencho HANEY [facility] 11-11-2023 15:00-0400 Body temperature 97.88 [degF] Chencho HANEY [facility] 11-11-2023 14:29-0400 Heart rate 45 /min Chencho HANEY [facility] 11-11-2023 14:29-0400 SaO2% (BldA) [Mass fraction] 99 % Chencho HANEY [facility] 11-11-2023 14:28-0400 Diastolic blood pressure 71 mm[Hg] Chencho HANEY [facility] 11-11-2023 14:28-0400 Mean blood pressure 83 mm[Hg] Chencho HANEY [facility] 11-11-2023 14:28-0400 Systolic blood pressure 106 mm[Hg] Chencho HANEY [facility] 11-11-2023 14:28-0400 Respiratory rate 16 /min Chencho HANEY [facility] 11-11-2023 14:18-0400 Blood Pressure Location Chencho HANEY [facility] 11-11-2023 14:18-0400 Body temperature 97.7 [degF] Chencho HANEY [facility] 11-11-2023 14:18-0400 Diastolic blood pressure 72 mm[Hg] Chencho HANEY [facility] 11-11-2023 14:18-0400 Respiratory rate 10 /min Chencho HANEY [facility] 11-11-2023 14:18-0400 SaO2% (BldA) [Mass fraction] 97 % Chencho HANEY [facility] 11-11-2023 14:18-0400 Systolic blood pressure 108 mm[Hg] Chencho COOK [facility] 11-11-2023 14:08-0400 Blood Pressure Location Chencho COOK [facility] 11-11-2023 14:08-0400 Respiratory rate 9 /min Chencho COOK [facility] 11-11-2023 14:03-0400 Blood Pressure Location Chencho COOK [facility] 11-11-2023 14:03-0400 Respiratory rate 10 /min Chencho COOK [facility] 11-11-2023 13:53-0400 Body temperature 97.52 [degF] [facility] [facility] 11-11-2023 09:25-0400 Mean blood pressure 72 mm[Hg] Chencho COOK [facility] 11-11-2023 09:25-0400 Respiratory rate 18 /min Chencho COOK [facility] 11-11-2023 09:25-0400 Heart rate 56 /min Chencho COOK [facility] 11-11-2023 09:24-0400 Body temperature 97.7 [degF] Chencho COOK [facility] 10-27-2023 10:35-0400 Blood Pressure Location Chencho COOK [facility] 10-27-2023 10:35-0400 Diastolic blood pressure 80 mm[Hg] Chencho COOK [facility] 10-27-2023 10:35-0400 Heart rate 79 /min Chencho COOK [facility] 10-27-2023 10:35-0400 Mean blood pressure 94 mm[Hg] Chencho COOK [facility] 10-27-2023 10:35-0400 Systolic blood pressure 120 mm[Hg] Chencho COOK [facility] 10-27-2023 10:34-0400 Heart rate 75 /min Chencho COOK [facility] 10-27-2023 10:34-0400 SaO2% (BldA) [Mass fraction] 98 % Chencho HANEY [facility] 10-27-2023 10:34-0400 Respiratory rate 18 /min Chencho HANEY [facility] 10-27-2023 10:34-0400 Blood Pressure Location Chencho HANEY [facility] 10-27-2023 10:34-0400 Diastolic blood pressure 79 mm[Hg] Chencho COOK [facility] 10-27-2023 10:34-0400 Mean blood pressure 96 mm[Hg] Chencho COOK [facility] 10-27-2023 10:34-0400 Systolic blood pressure 129 mm[Hg] Chencho COOK [facility] 10-27-2023 10:34-0400 Body temperature 98.78 [degF] Chencho COOK [facility] 06-15-2023 09:59-0500 Blood Pressure Location Chencho COOK [facility] 06-15-2023 09:59-0500 Diastolic blood pressure 84 mm[Hg] Chencho COOK [facility] 06-15-2023 09:59-0500 Systolic blood pressure 124 mm[Hg] Chencho COOK [facility] Encounters Encounter Date Encounter Type Care Provider Facility Start: 07-11-2024 ambulatory Jaycee Robbins y:ROMY Gustafson Start: 06-22-2024 End: 06-22-2024 Refill Hany Iglesias MD Work Phone: [facility] Comment on above: DDD (degenerative di sc disease), lumbar Start: 06-21-2024 End: 06-21-2024 Bamboo flowsheet [facility]: [facility] Start: 06-21-2024 End: 06-21-2024 Bamboo flowsheet Rosina Barraza [facility]- Work Phone: [facility] Start: [...] 02-14-2024 Refill Hany Iglesias MD Work Phone: [facility] Comment on above: DDD (degenerative di sc disease), lumbar Start: 01-17-2024 End: 01-17-2024 Refill Lisette Rodas [facility] Comment on above: DDD (degenerative di sc disease), lumbar Start: 12-17-2023 End: 12-17-2023 Refill Hany Iglesias MD Work Phone: [facility] Comment on above: DDD (degenerative di sc disease), lumbar Start: 12-15-2023 End: 12-15-2023 Admission to same day surgery center Chencho HANEY [facility] Start: 12-15-2023 End: 12-15-2023 ambulatory Chencho HANEY Facility[place] Start: 11-29-2023 End: 04-24-2024 Patient encounter procedure Hany Iglesias MD Work Phone: [facility] Start: 11-29-2023 End: 11-29-2023 ambulatory HANY IGLESIAS Not Available Start: 11-11-2023 End: 11-11-2023 Admission to same day surgery center Chencho HANEY [facility] Start: 11-11-2023 End: 11-11-2023 ambulatory Chencho HANEY Facility:[facility] Start: 10-27-2023 End: 10-27-2023 ambulatory Chencho HANEY Facility:[facility] Start: 10-27-2023 End: 10-27-2023 Patient encounter procedure Chencho HANEY [facility] Start: 06-15-2023 End: 06-15-2023 ambulatory Chencho HANEY Facility: [facility] Start: 06-15-2023 End: 06-15-2023 Patient encounter procedure Chencho Oneal LYNDON [facility] Start: 02-09-2022 End: 08-10-[address] [...] Screening for malign ant neoplasm of colon [facility] Start: 08-30-2024 End: 08-30-2024 Patient encounter procedure 08/30/2024 8:15 AM EDT Office Visit [facility] [address] [place] [address] Hany Iglesias MD [address] [place] [address] [facility] Start: 07-24-2024 End: 07-24-2024 Patient encounter procedure 07/24/2024 2:30 PM EDT Office Visit [facility] [address] [place] [address] Barraza Rosina, HNP- [address] [place] [address] [facility] Start: 07-13-2024 End: 07-13-2024 Clinical Support 07/13/2024 10:00 AM EDT Clinical Support [facility] [address] [place] [phone] Javy Rivera LPC [facility] Start: 06-21-2024 End: 06-21-2024 Patient encounter procedure [...] [facility] [address] [place] [address] Hany Iglesias MD [address] [place] [address] Arrived [facility] Comment on above: Arrived Start: 04-25-2024 End: 04-25-2024 Patient encounter procedure 04/25/2024 10:00 AM EST Office Visit [facility] [address] [facility] [address] [place] [address] Rosina Barraza NP [address] [facility] [address] [place] [address] [facility] Start: 04-12-2024 End: 04-12-2024 Patient encounter procedure [facility] Comment on above: Arrived Start: 03-01-2024 End: 03-01-2024 Patient encounter procedure 03/01/2024 10:15 AM EST [facility] [address] [place] [address] Hany Iglesias MD [address] [place] [address] [facility] Start: 12-26-2023 Influenza vaccination Influenza Vacc ine (#1) [facility] Start: 1980 Screening for malign ant neoplasm of colon [facility] Immunizations Immunization Date Immunization Notes Care Provider Fa cili 01-25-2020 influenza virus vaccine, unspecified formulation Chencho HANEY [facility] Payers Date Payer Category Payer Medicaid [id number] 2022 Medicaid [id number] 1980 Unknown [id number] 2.16.84 [id number] 1980 Unknown [id number] 2.16.84 0.1.258474.3.579.2.593 1978 Unknown [id number] 2.16.8 40.1.833088.3.579.2.727 1978 Unknown [id number] 2.16.8 40.1.704417.3.579.2.727 1978 Unknown [id number] 2.16.8 40.1.307972.3.579.2.727 1978 Unknown [id number] 2.16.8 40.1.199899.3.579.2.727 1978 Unknown [id number] 2.16.8 40.1.558259.3.579.2.727 1978 Unknown [id number] 2.16.84 0.1.204001.3.579.2.1259 1978 Unknown [id number] 2.16.84 0.1.866950.3.579.2.9 1978 Unknown [id number] 2.16.84 0.1.913385.3.579.2.9 1978 Unknown [id number] 2.16.84 0.1.717857.3.579.2.9 1978 Unknown [id number] 2.16.84 0.1.877004.3.579.2.1259 1978 Unknown [id number] 2.16.84 0.1.730347.3.579.2.1259 1959 Unknown [id number] Social History Date Type Detail Facility Tobacco quit 7 years ago Tobacco Use:. Cigarettes [facility] Tobacco smoking status No Smokin g Status Entered [facility] [employer] Start: 11-29-2023 End: 06-21-2024 Sex Assigned At Female [facility] Start: 05-11-2023 [facility] History of tobacco use Cigarette Smoker [facility] Start: 05-11-2023 End: 06-21-2024 Cigarettes smoked current (pack per day) - Reported 0.5 [facility] Start: 05-11-2023 End: 06-21-2024 Tobacco use and exposure Smokeless tobacco non-user [facility] Start: 1980 Sex assigned at Not on file [facility] Start: 06-21-2024 Tobacco smoking stat us NDIS Ex-smoker [facility] History of tobacco use Current smoker [facility] Start: 06-21-2024 Alcoholic beverage intake Ex-drinker (finding) [facility] Start: 06-21-2024 Education 16 [facility] Start: 06-21-2024 Alcohol Comment caffiene- occa sional pop [facility] Medical Equipment Procedure Code Equipment Code Equipment Origin al Text Equipment Identifier Dates CYSTOSCOPY STENT INSERTION Chencho HANEY MD 11/11/23 Unknown Ureter R FDA Start: 11-11-2023 CYSTOSCOPY STENT INSERTION Chencho HANEY MD P 11/11/23 Unknown Ureter R FDA Start: 11-11-2023 Functional Status Date Assessment Result Facility 12-14-2023 Functional Status No [facility] 12-03-2023 Functional Status No [facility] 10-27-2023 Functional Status No [facility] 06-15-2023 Functional Status N/A [facility] Clinical Notes 06-15-2023 to 06-21-2024 Rosina [...] son Education: Graduated from High School. Attended [employer] for [employer] 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[facility]) - Ambulatory referral to Psychiatry PTSD (post-traumatic stress disorder) ([facility]) Moderate episode of recurrent major depressive disorder ([facility]) Generalized anxiety disorder ([facility]) - Ambulatory referral to Psychiatry Social anxiety disorder ([facility]) Mixed obsessional thoughts and acts ([facility]) Psychophysiological insomnia Treatment Plan/Recommendations: - Continue [...] the local ER or call Suicide Hotline (542) for any psychosis, suicidal or homicidal ideation, or with any risk of harm to self or others. Patient was seen Face to Face, Total time spent with patient was 70 minutes, which includes reviewing chart documents, previous notes/records, counseling and discussion with patient and/or coordination of care as described above. documented in this encounter [facility] 06-13-2024 History of Present illness Narrative Associated [...] MG tablet documented in this encounter [facility] 05-19-2024 History of Present illness Narrative Associated [...] MG tablet documented in this encounter [facility] 04-12-2024 History of Present illness Narrative Associated [...] MG capsule documented in this encounter [facility] 03-01-2024 History of Present illness Narrative Associated [...] to Psychiatry Panniculitis Relevant Medications nystatin (Mycostatin) 358966 UNIT/GM powder documented in this encounter [facility] 12-19-2023 Note Progress Note-Mimi brown Patient: JUNE RHODES Age: 43 years Sex: Female : 1980 Associated Diagnoses: None Author: MD Wolfgang, [facility] Postoperative Information Postoperative disposition: Postoperative disposition: To PACU. Optimetrix number: Optimetrix number [id number]. Anesthetic utilized: General. Health Status Allergies: Allergic [...] when meets criteria ( To home ). [facility] Comment on above: Result Comment: Elec [...] for 5 day(s), 10 tab(s), Refill(s) 0, [facility], 147.5, cm, 12/15/23 14:23:00 EDT, Height/Length Dosing, 87.9, kg, 12/15/23 14:23:00 EDT, Weight Dosing oxybutynin 5 mg Tab: 5 mg = 1 tab(s), Oral, BID, X 30 day(s), # 60 tab(s), Refills(s) 1, Pharmacy: [facility] #[id number], 147.4, cm, 10/27/23 13:16:00 EDT, Height/Length Dosing, [...] list: All Problems Depression / SNOMED CT 16562747 / Confirmed Headache / SNOMED CT 07327842 / Confirmed Hypertension / SNOMED CT 2761578484 / Confirmed Renal cyst / SNOMED CT 8252221797 / Confirmed Ureteral stone / SNOMED CT 99767387 / Confirmed Dysuria / SNOMED CT 25104195 / Confirmed Urge incontinence / SNOMED CT 798990370 / Confirmed Incomplete bladder emptying / SNOMED CT 890103817 / Confirmed History of kidney stones / SNOMED CT 2404839831 / Confirmed Kidney stone / SNOMED CT 741394693 / Confirmed Ureteral stone with hydronephrosis / SNOMED CT 9334792155 / Confirmed Flank pain / SNOMED CT 449192545 / Confirmed PTSD (post-traumatic stress disorder) / SNOMED CT 37472996 / Confirmed Anxiety / SNOMED CT 51432952 / Confirmed Canceled: Kidney stone / SNOMED CT 424467466 Histories Past Medical History: No active or resolved past medical history items have been selected or recorded. Family History: Kidney stone Mother Grandparent Hypertension Grandparent Heart disease Grandparent Mother Diabetes mellitus type 1 Mother Procedure history: Cystoscopy, stent removal ([id number]) on 12/15/2023 at 43 Years. R ESWL and cysto stent insert ([id number]) on 11/11/2023 at 43 Years. Gastric sleeve (3459497858) in 2022 at 42 Years. Hysterectomy (085585480). Complete hernia (978906105). Cyst of fallopian tube removal (26262509). Social History Social & Psychosocial Habits Alcohol [...] results Radiology results ECG interpretation Condition Plan [place] [employer] of Anesthesiologists (ASA) physical status classification: Class III. Anesthetic Preoperative Plan Anesthesia: General. . Anesthetic plan, risks, benefits, and alternatives discussed with the patient and/or family. Risks discussed: nausea, vomiting, headache, sore throat, dental injury, serious complications. Patient verbalized understanding. Communication: face to face with patient 5 minutes. [facility] Comment on above: Result Comment: Elec tronically Signed By: MD Wolfgang, Julius Olsen\.br\Date and Time Signed: 12/19/23 16:47 EDT 12-15-2023 Hospital Discharge instructions Patient Education 12/15/2023 17:19:12 Jfxi-Cxyl-my Utereroscopy,Lithotripsy, Stone Extraction, Stent Placement (Custom) [facility] [place], [place] Dr. Chencho Garza Post-operative Instructions for [...] appointment (with XRAY) in about six months [phone] 12/15/2023 17:16:21 Post Op Patient Instructions - FT (Custom) (CUSTOM) Follow Up Care 12/02/2023 14:11:05 With:Chencho HANEY Address: [address] [phone]- Business (1) When:6 months Comments:Call for followup [...] send an antibiotic prescription to your pharmacy. [facility] 12-15-2023 Note Patient Education - Text [facility] [place], [place] Dr. Chencho Garza Post-operative Instructions for [...] appointment (with XRAY) in about six months [phone] [facility] 12-15-2023 Evaluation + Plan note Diagnostic Tests PendingCalculi Analysis Urinary 12/15/23 [facility] 11-18-2023 Note Progress Note-Mimi brown Patient: JUNE RHODES Age: 43 years Sex: Female : 1980 Associated Diagnoses: None Author: MD Wolfgang, Julius Olsen Postoperative Information Postoperative disposition: Postoperative disposition: To PACU. Optimetrix number: Optimetrix number [id number]. Anesthetic utilized: General. Health Status Allergies: Allergic [...] when meets criteria ( To home ). [facility] Comment on above: Result Comment: Elec [...] day(s), # 60 tab(s), Refills(s) 1, Pharmacy: [facility] #[id number], 147.4, cm, 10/27/23 13:16:00 EDT, Height/Length Dosing, 89.2, kg, 10/27/23 13:16:00 EDT, Weight Dosing tamsulosin 0.4 mg Cap: 0.4 mg = 1 cap(s), Oral, Daily, # 30 cap(s), Refills(s) 0, Pharmacy: [facility] #[id number], 153, cm, 06/15/23 10:00:00 EST, Height/Length Dosing, [...] list: All Problems Depression / SNOMED CT 37095927 / Confirmed Headache / SNOMED CT 32522748 / Confirmed Hypertension / SNOMED CT 0878389542 / Confirmed Renal cyst / SNOMED CT 3217755968 / Confirmed Ureteral stone / SNOMED CT 06879026 / Confirmed Dysuria / SNOMED CT 57809882 / Confirmed Urge incontinence / SNOMED CT 820993347 / Confirmed Incomplete bladder emptying / SNOMED CT 334005759 / Confirmed History of kidney stones / SNOMED CT 6137808640 / Confirmed Kidney stone / SNOMED CT 393715471 / Confirmed Ureteral stone with hydronephrosis / SNOMED CT 8195451404 / Confirmed Flank pain / SNOMED CT 599965824 / Confirmed PTSD (post-traumatic stress disorder) / SNOMED CT 10980042 / Confirmed Anxiety / SNOMED CT 44380801 / Confirmed Canceled: Kidney stone / SNOMED CT 432646862 Histories Past Medical History: No active or resolved past medical history items have been selected or recorded. Family History: Kidney stone Mother Grandparent Hypertension Grandparent Heart disease Grandparent Mother Diabetes mellitus type 1 Mother Procedure history: R ESWL and cysto stent insert ([id number]) on 11/11/2023 at 43 Years. Gastric sleeve (8248453755) in 2022 at 42 Years. Hysterectomy (130671103). Complete hernia (848976608). Cyst of fallopian tube removal (57173678). Social History Social & Psychosocial Habits Alcohol [...] results Radiology results ECG interpretation Condition Plan [place] [employer] of Anesthesiologists (ASA) physical status classification: Class III. Anesthetic Preoperative Plan Anesthesia: General. . Anesthetic plan, risks, benefits, and alternatives discussed with the patient and/or family. Risks discussed: nausea, vomiting, headache, sore throat, dental injury, serious complications. Patient verbalized understanding. Communication: face to face with patient 5 minutes. [facility] Comment on above: Result Comment: Elec [...] Follow these instructions at home: Medicines Take sgnm-rog-fqwlqyk and prescription medicines only as told by [...] provider. Document Revised: 03/09/2022 Document Reviewed: 12/15/2021 [employer] Patient Education 2022 [employer]. Follow Up Care 09/15/2023 10:32:08 With:Chencho HANEY Address: [address] [place] [address]- Business (1) When: Unknown Comments:Please call my office to speak with Elizabeth, she is my farm operations technical director. Please asked to have the abdominal x-ray [...] and some bladder spasm medications as well. [facility] 11-11-2023 Note Patient Education - [...] these instructions at home: Medicines ? Take bcdw-nkr-avesidv and prescription medicines only as told by [...] help prevent ne (more content not included)... [facility] 06-15-2023 Hospital Discharge instructions Patient Education 06/15/2023 10:54:16 Kidney Stones, Vrmt-yc-Nwev Kidney Stones Kidney stones are rock-like masses [...] Follow these instructions at home: Medicines Take wahc-npg-rglwkub and prescription medicines only as told by [...] provider. Document Revised: 12/15/2021 Document Reviewed: 12/15/2021 [employer] Patient Education 2022 [employer]. Follow Up Care 06/08/2023 15:05:45 With:LYNDON ARANGO, Chencho Oneal, URL Address: [address] [place], [place] [phone]- When: Unknown Comments:IVP in 1-2wks [facility] Evaluation + Plan note No data available for this section [facility] Evaluation + Plan note Future Appointments Appointment Date:11/11/2023 11:15:00 AM Scheduled Provider: Location:[facility] Surgical Services Appointment Type:Surgery FT [facility] Evaluation note Diagnosis Essential hypertension, [...] instructions No data available for this section [facility] No data available for this section [facility] Summary Purpose Family History No Family [...] DATE CREATED AUTHOR AUTHOR'S ORGANIZ ATION 10/28/2023 [facility] DATE CREATED AUTHOR AUTHOR'S ORGANIZ ATION 12/26/2023 Campos Otto [facility] DATE CREATED AUTHOR AUTHOR'S ORGANIZ ATION 06/19/2024 Campos Otto [facility] Center DATE CREATED AUTHOR AUTHOR'S ORGANIZ ATION 06/23/2024 [facility] Specialists EPIC Patient Care team informatio n (unrecognized section and content) Filter Press Pumper Relationship Specialty Start Date End Date Hany Iglesias MD [address] [place] [address] PCP - General Family Medicine 11/29/23 Filter Press Pumper Relationship Specialty Start Date End Date Hany Iglesias MD [address] [place] [address] PCP - General Family Medicine 11/29/23 Filter Press Pumper Relationship Specialty Start Date End Date Hany Iglesias MD [address] [place] [address] PCP - General Family Medicine 11/29/23 Filter Press Pumper Relationship Specialty Start Date End Date Hany Iglesias MD [address] [place] [address] PCP - General Family Medicine 11/29/23 Filter Press Pumper Relationship Specialty Start Date End Date Hany Iglesias MD [address] [place] [address] PCP - General Family Medicine 11/29/23 Filter Press Pumper Relationship Specialty Start Date End Date Hany Iglesias MD [address] [place] [address] PCP - General Family Medicine 11/29/23 Filter Press Pumper Relationship Specialty Start Date End Date Hany Iglesias MD [address] [place] [address] PCP - General Family Medicine 11/29/23 Filter Press Pumper Relationship Specialty Start Date End Date Hany Iglesias MD [address] [place] [address] PCP - General Family Medicine 11/29/23 Filter Press Pumper Relationship Specialty Start Date End Date Hany Iglesias MD [address] [place] [address] PCP - General Family Medicine 11/29/23 Filter Press Pumper Relationship Specialty Start Date End Date Hany Iglesias MD [address] [place] [address] PCP - General Family Medicine 11/29/23 Filter Press Pumper Relationship Specialty Start Date End Date Hany Iglesias MD [address] [place] [address] PCP - General Family Medicine 11/29/23 Filter Press Pumper Relationship Specialty Start Date End Date Hany Iglesias MD [address] [place] [address] PCP - General Family Medicine 11/29/23 Rosina Barraza, [facility] [address] [facility] [address] Nurse Practitioner Behavioral Health 06/21/24 Chencho Haney MD [address] [place] [address] Referring Physician Urology 06/21/24 Filter Press Pumper Relationship Specialty Start Date End Date Hany Iglesias MD [address] [place] [address] PCP - General Family Medicine 11/29/23 Rosina Barraza [facility] [address] [facility] [address] [place] [address] Nurse Practitioner Behavioral Health 06/21/24 Chencho Haney MD [address] [place] [address] Referring Physician Urology 06/21/24 Reason for Visit [...] disorder (CMS/HCC) Generalized anxiety disorder (CMS/HCC) Procedures IA OFFICE/OUTPATIENT NEW HIGH MDM 60 MINUTES Hany Iglesias MD [address] [place] [address] Phone: tel: fax: Rosina Barraza, [facility] [address] [facility] [address] [place] [address] Phone: tel: fax: Referral ID Status Reason Start Date Expiration Date V isits Requested Visits Authorized [id number] Closed Specialty Services Required 03/01/2024 08/28/2024 1 [...] BE BASED ON THE PRIMARY CLINICAL RECORDS. [employer] [facility]. provides no warranty or guarantee of the accuracy or completeness of information in this document.
[2024-06-29 10:14] LABS: Estimated Average Glucose 100 mg/dL; Glycohemoglobin A1C 5.1 % (4.5-6.2)
[2024-06-29 11:50] LABS: Bilirubin Direct 0.2 mg/dL (0.0-0.2); Chol HDL Ratio 2.2; Cholesterol 158 mg/dL (<=200); HDL Cholesterol 72 mg/dL (40-60); Thyroid Stimulating Hormone 0.504 uIU/mL (0.358-3.740); Triglycerides 96 mg/dL (<=150); VLDL CHOLESTEROL 19.2 mg/dL
== END 2024-06-29 09:15 | disposition home or self-care (01) ==
LOC: LAB 09:16
PROVIDERS: PCP Family Medicine; Visit Provider Family Medicine
DX: Z00.00 Encounter for general adult medical examination without abnormal findings (principal); R60.9 Edema, unspecified; Z98.84 Bariatric surgery status; I10 Essential (primary) hypertension; K21.9 Gastro-esophageal reflux disease without esophagitis
CPT/HCPCS: 36415; 80053; 80061; 82248; 82306; 82607; 82728; 82746; 83036; 83540; 83550; 83735; 84100; 84425; 84443; 85025

== ENCOUNTER 2024-06-29 09:18 | Outpatient (OUT) | payer MEDICAID, SELFPAY ==
--- OUTSIDE RECORDS SUMMARY | 2024-06-29 09:37 | XMS_ITS | CCD ---
Author Organization [facility] Care Team Providers Care Sheet Fed Printer Name Role Phone HARRIS, DR HANY Mcarthur [...] Rosina Unavailable Lyndon ARANGO, Chencho P Unavailable [phone] HANY IGLESIAS Attending Unavailable NADERER, HANY Attending Unavailable BARRAZAROSINA CHENG Attending Unavailable NADERER, HANY Referring Unavailable NADERER, HANY Attending Unavailable NADERER, HANY Attending Unavailable NADERER, HANY Attending Unavailable Allergies Allergy Classification Reported Allergen(s) Allergy Type Date of Onset Reaction(s) Facility (3 sources) Morphine; Translations: [morphine] Drug Allergy [facility] Repository (1 source) Penicillins Drug allergy (disorder) [address] [facility] Repository (1 source) Darvocet-N 100 Drug allergy (disorder) [address] [facility] Repository (4 sources) Morphine; Translations: [morphine] Drug Allergy Unknown (qualifier value) [facility] (6 sources) NITROFURANTOIN, MACROCRYSTALS / Nitrofurantoin, Monohydrate; Translations: [nitrofurantoin] Drug Allergy Eruption of skin (disorder), Swelling (finding) [facility] (6 sources) Penicillin; Translations: [penicillin] Drug Allergy Pharyngeal swelling (finding) [facility] (20 sources) Ciprofloxacin; Translations: [ciprofloxacin] Drug Allergy 4 Eruption of skin (disorder) [facility] (19 sources) Morphine Drug Allergy 4 [facility] (19 sources) Penicillins Propensity to adverse reactions 4 [facility] (3 sources) fentaNYL Drug Allergy 5 Other [facility] (3 sources) venlafaxine Drug Allergy 5 GI intolerance [facility] Medications Current Medications Medication Drug Class(es) Dates Sig (Normalized) Sig (Original) acetaminophen 325 mg / HYDROcodone bitartrate 5 mg oral tablet (1 source) Opioid Agonist Start: 11-11-2023 End: 11-13-2023 acetaminophen-hyd rocodone 325 mg-5 mg oral tablet 1 tab(s), Oral, q4hr Pain for 2 day(s), 7 tab(s), Refill(s) 0, [facility] #[id number], 147.4, cm, 10/27/23 13:16:00 EDT, Height/Length Dosing, [...] day(s), # 10 tab(s), Refills(s) 0, Pharmacy: [facility] #[id number], 147.4, cm, 10/27/23 13:16:00 EDT, Height/Length Dosing, [...] sources) Polyene Antifungal Start: 03-01-2024 nystatin (Mycostatin) 075261 UNIT/GM powder Indications: Panniculitis Apply topically 2 [...] day(s), # 60 tab(s), Refills(s) 1, Pharmacy: [facility] #[id number], 147.4, cm, 10/27/23 13:16:00 EDT, Height/Length Dosing, [...] Start: 10-27-2023 take 1 capsule by mo [facility] at bedtime prazosin 1 mg Cap [...] 5 day(s), 10 tab(s), Refill(s) 0, [facility] #72, 147.5, cm, 12/15/23 14:23:00 EDT, Height/Length Dosing, 87.9, kg, 12/15/23 14:23:00 EDT, Weight Dosing Start Date: 12/15/23 Stop Date: 12/20/23 Status: Ordered tamsulosin hydrochloride 0.4 mg oral capsule (2 sources) alpha-Adrenergic Eileen Start: 06-17-2023 take 1 capsule by mouth once daily tamsulosin 0.4 mg Cap 0.4 mg = 1 cap(s), Oral, Daily, # 30 cap(s), Refills(s) 0, Pharmacy: [facility] #[id number], 153, cm, 06/15/23 10:00:00 EST, Height/Length Dosing, [...] [Mass fraction] 20 % Invalid Interpretation Code [facility] Comment on above: Performed By: #### 1 [id number] #### [facility] [address] [place] [address] Calcium oxalate monohydrate (Stone) [Mass fraction] 60 % Invalid Interpretation Code [facility] Comment on above: Performed By: #### 1 [id number] #### [facility] [address] [place] [address] Calculus analysis [Interp] Comment Invalid Interpretation Code [facility] Comment on above: Result Comment: Calc ium phosphate (hydroxyl form) includes hydroxyapatite, amorphous calcium phosphate, and whitlockite. Hydroxyapatite is the most common of the calcium phosphate salts found in human kidney stones. Performed By: #### 1 [id number] #### [facility] [address] [place] [address] Color (Stone) Stevenson Invalid Interpretation Code [facility] Comment on above: Performed By: #### 1 [id number] #### [facility] [address] [place] [address] Composition Comment Invalid Interpretation Code [facility] Comment on above: Result Comment: Perc entage (Represents the % composition) Performed By: #### 1 [id number] #### [facility] [address] [place] [address] Disclaimer: Comment Invalid Interpretation Code [facility] Comment on above: Result Comment: This test was developed and its performance characteristics determined by [facility]. It has not been cleared or approved by the Food and Drug Administration. Performed at: [facility] [id number] PhD Jamil San Performed By: #### 1 [id number] #### [facility] [address] [place] [address] Hydroxyapatite: 20 % Invalid Interpretation Code [facility] Comment on above: Performed By: #### 1 [id number] #### [facility] [address] [place] [address] Laboratory comment Nikhil (Report) Comment Invalid Interpretation Code [facility] Comment on above: Result Comment: Gwyn marx questions regarding Calculi Analysis contact [facility] at: [phone]. Performed By: #### 1 [id number] #### [facility] [address] [place] [address] Please Note: Comment Invalid Interpretation Code [facility] Comment on above: Result Comment: Calc deana report will follow via computer, mail or pit furnace melter delivery. Performed By: #### 1 [id number] #### [facility] [address] [place] [address] Size (Stone) [Entitic vol] 2x2 Invalid Interpretation Code [facility] Comment on above: Result Comment: Mult iple pieces received. Dimensions of the largest piece reported. Performed By: #### 1 [id number] #### [facility] [address] [place] [address] Specimen source subject Nom Kidney Invalid Interpretation Code [facility] Comment on above: Performed By: #### 1 [id number] #### [facility] [address] [place] [address] Stone Photo Comment Invalid Interpretation Code [facility] Comment on above: Result Comment: Phot ograph will follow under a separate cover Performed By: #### 1 [id number] #### [facility] [address] [place] [address] Weight (Stone) 8 mg Invalid Interpretation Code [facility] Comment on above: Performed By: #### 1 [id number] #### [facility] [address] [place] [address] Main OR Intraoperative Recor don 12-16-2023 Main OR Intraoperative Record Main OR Intraoperative Record IntraOp Document Type FT Summary Primary Physician: Chencho HANEY MD Finalized Date/Time: 12/16/23 11:46:04 Pt. Name: RHODESJUNE HANCOCK D.O.B./Sex: 1980 Female Med Rec #: [id number] Physician: Chencho HANEY MD Financial #: [id number] Pt. Type: A Room/Bed: [place] [address] Admit/Disch: 12/15/23 13:42:32 - 12/15/23 18:45:00 Institution: [...] Henry Role Performed Anesthesiologist Surgeon - Primary Environmental Monitoring Specialist - Primary Tumbler Drier Operator Time In 12/15/23 16:32:00 12/15/23 16:32:00 [...] Courtney M Role Performed Scrub - Primary Field Training Manager Field Training Manager Time In 12/15/23 16:32:00 12/15/23 16:32:00 12/15/23 [...] Carmona 12/15/23 17:19:18 General Comments: MARIANO TOVAR [email or web address] ([employer]) REP, IN ATTENDANCE.DAWNA KOCH RN. Perioperative Protocols [...] Clean-Contaminated Sp (more content not included)... Normal [facility] Discharge Instructionson Discharge Instructions Discharge Instructions JUNE [...] an antibiotic prescription to your pharmacy. Where: [facility] [employer] [address] [place], [place] [id number] Business (1) Medications What How Much When Instructions Next Dose New sulfamethoxazole-tri methoprim (Bactrim D.S. 800 mg-160 mg Tab) 1 Tablets By Mouth 2 times a day Duration: 5 Days Pickup at [facility] #72 Unchanged acetaminophen-oxycod one (acetaminophen-oxyco done 300 [...] Once a day (at bedtime) Pharmacy Information [facility] #72: [address], [place] [id number] [phone] Test Results No qualifying data available. Allergies [...] hydronephrosis Urge incontinence [employer] [facility] [place], [place] Dr. Chencho Garza Post-operative Instructions for [...] normal di (more content not included)... Normal [facility] Comment on above: Result Comment: Elec tronically Signed By: Wiliam CORTEZ, Saritha Brown\.sophie\Date and Time Signed: 12/15/23 17:36 EDT Inpatient Patient Summaryon 12-15-2023 Inpatient Patient Summary Inpatient Patient Summary [address] [address] [facility] Clinical Discharge Instructions PERSON INFORMATION Name: JUNE RHODES [facility]#:[id number] PHYSICIANS Admitting Physician: Chencho HANEY MD Attending Physician: Chencho HANEY MD PCP: HARRIS ARANGO, HANY Discharge Diagnosis: Comment: PATIENT EDUCATION INFORMATION Instructions: [id number] Utereroscopy,Lithotr ipsy, Stone Extraction, Stent Placement (Custom); Post Op Patient Instructions - FT (Custom) (CUSTOM) Medication Leaflets: Follow up: With: Address: When: Chencho HANEY [address] [place] [address], [address], [place] [id number] Business (1) Within 6 months Comments: Call [...] to your pharmacy. MEDICATION LIST New Medications [facility] #72, [address], [place] [id number], [phone] sulfamethoxazole-tri methoprim (Bactrim D.S. 800 mg-160 mg [...] once a day (at bedtime). Comment: Normal [facility] Main OR PACU I Recordon 11-25 Main OR PACU I Record Main OR PACU I Record PACU Phase I Document Type FT Summary Primary Physician: Chencho HANEY MD Finalized Date/Time: 12/15/23 17:49:49 Pt. Name: JUNE RHODES/Sex: 1980 Female Med Rec #: [id number] Physician: Chencho HANEY MD Financial #: [id number] Pt. Type: A Room/Bed: [place] [address] Admit/Disch: 12/15/23 13:42:32 - Institution: Case Times [...] By: RANDY VARNER RN 12/15/23 17:49 Normal [facility] Main OR PACU II Recordon Main OR PACU II Record Main OR PACU II Record PACU Phase II Document Type FT Summary Primary Physician: Chencho HANEY MD Finalized Date/Time: 12/15/23 18:27:49 Pt. Name: JUNE RHODES/Sex: 1980 Female Med Rec #: [id number] Physician: Chencho HANEY MD Financial #: [id number] Pt. Type: A Room/Bed: [place] [address] Admit/Disch: 12/15/23 13:42:32 - 12/15/23 18:45:00 Institution: [...] Signed By: Saritha Swain RN 12/15/23 18:27 [facility] Main OR Preoperative Recordo n 12-15-2023 Main OR Preoperative Record Main OR Preoperative Record PreOp Document Type FT Summary Primary Physician: Chencho HANEY MD Finalized Date/Time: 12/15/23 16:42:28 Pt. Name: JUNE RHODES /Sex: 1980 Female Med Rec #: [id number] Physician: Chencho HANEY MD Financial #: [id number] Pt. Type: A Room/Bed: [facility] Admit/Disch: 12/15/23 13:42:32 - Institution: Case [...] Signed By: Frida Carmona 12/15/23 16:42 Normal [facility] Operative Reporton Operative Report Operative Report Patient: [...] is placed per urethra. A well-lubricated 22 Tajik is urethroscope with 30 degree lens then [...] it well. She is transferred to the [facility] and then back to PACU in [...] Blood Loss: 2 ml. Complications: None. Normal [facility] Comment on above: Result Comment: Elec tronically Signed By: Chencho HANEY MD\.br\Date and Time Signed: 12/15/23 17:25 EDT Outpatient Surgery Discharge Instructionon 12-15-2023 Outpatient Surgery Discharge Instruction Outpatient Surgery Discharge Instruction [place] [address] Patient Discharge Instructions PERSON INFORMATION Name: JUNE [...] Follow up: With: Address: When: Chencho HANEY [address] [place], [place] [address], [address], [facility] [place] [address] Business (1) Within 6 months Comments: Call [...] to serve you. Thank you for choosing [facility] HERE ARE THE MEDICATION CHANGES THAT OCCURRED DURING YOUR HOSPITAL STAY New Medications [facility] #72, [address] [place] [id number], [phone] sulfamethoxazole-tri methoprim (Bactrim D.S. 800 mg-160 mg [...] bedtime). PATIENT EDUCATION INFORMATION Instructions: [facility] [place], [place] Dr. Chencho Garza Post-operative Instructions for [...] should take (more content not included)... Normal [facility] XR Abdomen 1 Viewon 12-15-19 24 XR [...] mGy = na DAP = na Normal [facility] Main OR Intraoperative Recor don 11-12-2023 Main OR Intraoperative Record Main OR Intraoperative Record IntraOp Document Type FT Summary Primary Physician: Chencho HANEY MD Finalized Date/Time: 11/12/23 13:35:24 Pt. Name: MEAGANJUNE/Sex: 1980 Female Med Rec #: [id number] Physician: Chencho HANEY MD Financial #: [id number] Pt. Type: A Room/Bed: Admit/Disch: 11/11/23 09:03:11 [...] MD, Chencho Bailey RN,Paige Brown Role Performed MANIPULATIVE THERAPY SPECIALIST Surgeon - Primary Staff - Other Time [...] Pako CORTEZ, Parveen Yoder CST Role Performed Environmental Monitoring Specialist - Primary Scrub - Primary Time In [...] Chencho Oneal, Lynn CORTEZ,Pako Cobb RN, Anitha Koehlre CST, Beau Time Out Complete 11/11/23 13:26:00 [...] and tissue Entry 1 Skin Integrity Intact, [place], Warm, and Skin Abnormality No Dry Outcomes Met? Yes Last Sandhya (more content not included)... Normal [facility] XR Abdomen 1 Viewon 11-12-19 24 XR [...] mGy = na DAP = na Normal [facility] Discharge Instructionson Discharge Instructions Discharge Instructions JUNE [...] to speak with Elizabeth, she is my dental scheduler. Please asked to have the abdominal [...] some bladder spasm medications as well. Where: [facility] [employer] [address] [place] [phone] Business (1) Medications What How Much When Instructions Next Dose New acetaminophen-hydroc odone (acetaminophen-hydro codone 325 mg-5 mg oral tablet) 1 Tablets By Mouth Every 4 hours as needed for Pain Duration: 2 Days Pickup at [facility] #[id number] New ciprofloxacin (Cipro 500 mg Tab) 1 Tablets By Mouth 2 times a day Duration: 5 Days Pickup at [facility] #[id number] New oxybutynin (oxybutynin 5 mg Tab) 1 Tablets By Mouth 2 times a day Duration: 30 Days Refills: 1 Pickup at [facility] #[id number] Unchanged hydrOXYzine (hydrOXYzine hydrochloride 25 mg Tab) [...] day (at bedtime) Pharmacy Information [facility] #[id number]: [address], [place] [id number] [phone] Test Results No qualifying data available. Allergies [...] ? Bl (more content not included)... Normal [facility] Comment on above: Result Comment: Elec tronically Signed By: Janene Iraheta RN\.br\Date and Time Signed: 11/11/23 14:47 EDT Inpatient Patient Summaryon 11-11-2023 Inpatient Patient Summary Inpatient Patient Summary [address] [address] [facility] Clinical Discharge Instructions PERSON INFORMATION Name: JUNE RHODES [facility]#:[id number] PHYSICIANS Admitting Physician: Chencho HANEY MD Attending Physician: Chencho HANEY MD PCP: HANY IGLESIAS MD Discharge Diagnosis: Comment: PATIENT EDUCATION INFORMATION Instructions: Lithotripsy, Care After Medication Leaflets: Follow up: With: Address: When: Chencho LYNDON [address], [address], [facility] [address] [place] [address] Business (1) Comments: Please call my office to speak with Elizabeth, she is my dental scheduler. Please asked to have the abdominal [...] well. MEDICATION LIST New Medications [facility] #[id number], [address], [place] [id number], [phone] acetaminophen-hydroc odone (acetaminophen-hydro codone 325 mg-5 mg [...] once a day (at bedtime). Comment: Brittney [facility] Main OR PACU I Recordon 10-24 Main OR PACU I Record Main OR PACU I Record PACU Phase I Document Type FT Summary Primary Physician: Chencho HANEY MD Finalized Date/Time: 11/11/23 14:56:51 Pt. Name: JUNE RHODES [place]/Sex: 1980 Female Med Rec #: [id number] Physician: Chencho HANEY MD Financial #: [id number] Pt. Type: A Room/Bed: 06/24 Admit/Disch: 11/11/23 [...] 11/11/23 14:56 Nancy Galloway RN 11/11/23 14:56 [facility] Main OR PACU II Recordon Main OR PACU II Record Main OR PACU II Record PACU Phase II Document Type FT Summary Primary Physician: Chencho HANEY MD Finalized Date/Time: 11/11/23 16:13:12 Pt. Name: JUNE RHODES/Sex: 1980 Female Med Rec #: [id number] Physician: Chencho HANEY MD Financial #: [id number] Pt. Type: A Room/Bed: [place] [address] Admit/Disch: 11/11/23 09:03:11 - Institution: Case Times [...] By: Janene Iraheta RN 11/11/23 16:13 Normal [facility] Main OR Preoperative Recordo n 11-11-2023 Main OR Preoperative Record Main OR Preoperative Record PreOp Document Type FT Summary Primary Physician: Chencho HANEY MD Finalized Date/Time: 11/11/23 13:47:17 Pt. Name: JUNE RHODES/Sex: 1980 Female Med Rec #: [id number] Physician: Chencho HANEY MD Financial #: [id number] Pt. Type: A Room/Bed: Admit/Disch: 11/11/23 09:03:11 [...] Kristie Min RN 11/11/23 13:47 Normal [facility] Operative Reporton Operative Report Operative Report Patient: [...] placed per urethra and a well-lubricated 22 Tajik is urethroscope with 30 degree lens then passed into the bladder without difficulty. Panendoscopy reveals no tumors, no stones, no diverticuli. Ureteral orifices are normal. No suspicious lesions. I was able to cannulate the right ureteral orifice with a point 035 guidewire and over that a 4.9 Tajik Dornier double-J ureteral stent is then passed [...] it well. [facility] [place] [facility] and then back to PACU in satisfactory condition, stable vital signs. Plan to be for discharge home with plans to follow-up hopefully for stent removal after a KUB next week confirms adequate fragmentation. Discussed this postop with her family and she is in agreement with the plan. Antibiotic prescription as well as [place] as well as oxybutynin sent to the pharmacy. Antibiotic consists of Cipro 500 mg p.o. twice daily #10.. Estimated Blood Loss: 0 ml. Complications: None. Anesthesia type: General. Normal [facility] Comment on above: Result Comment: Elec tronically Signed By: Chencho HANEY MD\.br\Date and Time Signed: 11/11/23 13:48 EDT Outpatient Surgery Discharge Instructionon 11-11-2023 Outpatient Surgery Discharge Instruction Outpatient Surgery Discharge Instruction [place] [id number] Patient Discharge Instructions PERSON INFORMATION Name: JUNE [...] Follow up: With: Address: When: Chencho HANEY [address] [place], [place] [address], [address], [place] [address] Business (1) Comments: Please call my office to speak with Elizabeth, she is my dental scheduler. Please asked to have the abdominal [...] to serve you. Thank you for choosing [facility] HERE ARE THE MEDICATION CHANGES THAT OCCURRED DURING YOUR HOSPITAL STAY New Medications [facility] #[id number], [address], [place] [id number], [phone] acetaminophen-hydroc odone (acetaminophen-hydro codone 325 mg-5 mg [...] may m (more content not included)... Normal [facility] BMPon 10-27-2023 Anion gap [Moles/Vol] 10 mmol/L Normal 6-16 [facility] Comment on above: Performed By: #### 2 [id number] #### [facility] [address] [place] [address] Calcium [Mass/Vol] 8.9 mg/dL Normal 8.9-11.1 [facility] Comment on above: Performed By: #### 2 [id number] #### [facility] [address] [place] [address] Chloride [Moles/Vol] 107 mmol/L Normal 101-111 [facility] Comment on above: Performed By: #### 2 [id number] #### [facility] [address] [place] [address] CO2 [Moles/Vol] 28 mmol/L Normal 21-31 [facility] Comment on above: Performed By: #### 2 [id number] #### [facility] [address] [place] [address] Creatinine [Mass/Vol] 0.7 mg/dL Normal 0.5-1.3 [facility] Comment on above: Performed By: #### 2 [id number] #### [facility] [address] [place] [address] Glucose [Mass/Vol] 81 mg/dL Normal 55-199 [facility] Comment on above: Performed By: #### 2 [id number] #### [facility] [address] [place] [address] Potassium [Moles/Vol] 4.2 mmol/L Normal 3.5-5.3 [facility] Comment on above: Performed By: #### 2 [id number] #### [facility] [address] [place] [address] Sodium [Moles/Vol] 141 mmol/L Normal 135-145 [facility] Comment on above: Performed By: #### 2 [id number] #### [facility] [address] [place] [address] Urea nitrogen [Mass/Vol] 18 mg/dL Normal 5-21 [facility] Comment on above: Performed By: #### 2 [id number] #### [facility] [address] [place] [address] Urea nitrogen/Creatinine [Mass ratio] 26 No Units High 10-20 [facility] Comment on above: Performed By: #### 2 [id number] #### [facility] [address] [place] [address] CBC w/ Auto Diffon 4 Basophils/100 WBC (Bld) 0.7 % Normal 0.0-2.0 [facility] Comment on above: Performed By: #### 2 [id number] #### [facility] [address] [place] [address] Basophils/Leukocytes Auto (Bld) [Pure # fraction] 0.0 E9/L Normal 0.0-0.2 [facility] Comment on above: Performed By: #### 2 [id number] #### [facility] [address] [place] [address] Eosinophils (Bld) [#/Vol] 0.2 E9/L Normal 0.0-0.5 [facility] Comment on above: Performed By: #### 2 285162 #### [facility] [address] [place] [address] Eosinophils/100 WBC (Bld) 2.6 % Normal 0.0-8.0 [facility] Comment on above: Performed By: #### 2 [id number] #### [facility] [address] [place] [address] Erythrocyte distribution width (RBC) [Ratio] 13.5 % Normal 10.9-14.2 [facility] Comment on above: Performed By: #### 2 [id number] #### [facility] [address] [place] [address] Hematocrit (Bld) [Volume fraction] 39.3 % Normal 34.0-46.0 [facility] Comment on above: Performed By: #### 2 450226 #### [facility] [address] [place] [address] Hemoglobin (Bld) [Mass/Vol] 13.9 g/dL Normal 12.0-16.0 [facility] Comment on above: Performed By: #### 2 [id number] #### [facility] [address] [place] [address] Lymphocytes (Bld) [#/Vol] 1.9 E9/L Normal 1.0-4.0 [facility] Comment on above: Performed By: #### 2 945277 #### [facility] [address] [place] [address] Lymphocytes/100 WBC (Bld) 27.1 % Normal 14.0-50.0 [facility] Comment on above: Performed By: #### 2 [id number] #### [facility] [address] [place] [address] MCH (RBC) [Entitic mass] 29.7 pg Normal 27.0-34.0 [facility] Comment on above: Performed By: #### 2 [id number] #### [facility] [address] [place] [address] MCHC (RBC) [Mass/Vol] 35.3 g/dL Normal 31.4-36.0 [facility] Comment on above: Performed By: #### 2 087909 #### [facility] [address] [place] [address] MCV (RBC) [Entitic vol] 84.2 fL Normal 80.0-100.0 [facility] Comment on above: Performed By: #### 2 453862 #### [facility] [address] [place] [address] Monocytes (Bld) [#/Vol] 0.5 E9/L Normal 0.2-1.0 [facility] Comment on above: Performed By: #### 2 [id number] #### [facility] [address] [place] [address] Neutrophils (Bld) [#/Vol] 4.4 E9/L Normal 2.0-7.5 [facility] Comment on above: Performed By: #### 2 180042 #### [facility] [address] [place] [address] Neutrophils/100 WBC (Bld) 62.1 % Normal 36.0-75.0 [facility] Comment on above: Performed By: #### 2 [id number] #### [facility] [address] [place] [address] Platelet 272.0 E9/L Normal 150.0-500.0 [facility] Comment on above: Performed By: #### 2 [id number] #### [facility] [address] [place] [address] Platelet mean volume (Bld) [Entitic vol] 9.8 fL Normal 6.4-10.8 [facility] Comment on above: Performed By: #### 2 [id number] #### [facility] [address] [place] [address] RBC (Bld) [#/Vol] 4.7 E12/L Normal 4.3-5.9 [facility] Comment on above: Performed By: #### 2 [id number] #### [facility] [address] [place] [address] WBC corrected for nucl RBC Auto (Bld) [#/Vol] 7.0 E9/L Normal 4.0-11.0 [facility] Comment on above: Performed By: #### 2 [id number] #### [facility] [address] [place] [address] CHEMISTRYOrdered By: SYSTEM SYSTEM on 10-27-2023 Anion [...] 39.3 s High 25.1 - 36.5 second(s) [facility] Auto [facility]ag Comment on above: Interpretive Data: [...] the same coagulation reagent and instrumentation as [facility]. Currently there are no coagulation studies available worldwide for children to 14 days, and no normal ranges. Heparin therapeutic range (represented by Anti-Factor Xa activity of 0.2 - 0.4 U/mL) corresponds to PTT of 56.6 - 109.0 sec. INR Coag (PPP) [Relative time] 1.07 {INR} Invalid Interpretation Code [facility] Comment on above: Interpretive Data: I NR results are specifically intended to assess patients stabilized on long-term Anticoagulation therapy suggested INR s Less Intensive Anticoagulation 2.0 3.0 Conventional Range 3.0 4.5 PT Coag (PPP) [Time] 12.0 s Normal 9.4 - 1 2.5 second(s) [facility] Comment on above: Interpretive Data: [...] the same coagulation reagent and instrumentation as [facility]. Currently there are no coagulation studies available [...] Coag (PPP) [Time] 39.3 second(s) High 25.1-36.5 [facility] Comment on above: Result Comment: Para meter [...] the same coagulation reagent and instrumentation as [facility]. Currently there are no coagulation studies available worldwide for children to 14 days, and no normal ranges. Heparin therapeutic range (represented by Anti-Factor Xa activity of 0.2 - 0.4 U/mL) corresponds to PTT of 56.6 - 109.0 sec. Performed By: #### 1 [id number] ####[facility] [address] [place] [address] INR Coag (PPP) [Relative time] 1.07 {INR} Invalid Interpretation Code [facility] Comment on above: Result Comment: INR results are specifically intended to assess patients stabilized on long-term Anticoagulation therapy suggested INR?s ?Less Intensive Anticoagulation? 2.0 ? 3.0 Conventional Range 3.0 ? 4.5 Performed By: #### 1 [id number] ####[facility] [address] [place] [address] PT Coag (PPP) [Time] 12.0 second(s) Normal 9.4-12.5 [facility] Comment on above: Result Comment: 15 d [...] the same coagulation reagent and instrumentation as [facility]. Currently there are no coagulation studies available worldwide for children to 14 days, and no normal ranges. Performed By: #### 1 [id number] ####[facility] [address] [place] [address] UA with Cult Rflxon 10-27-19 24 Bacteria Auto Ql (U) Trace Normal Trace Fish er [facility] Comment on above: Performed By: #### 4 [id number] #### [facility] [address] [place] [address] Bilirubin Ql (U) Negative Normal Negative [facility] Comment on above: Performed By: #### 4 [id number] #### [facility] [address] [place] [address] Clarity (U) Clear Normal Clear [facility] Comment on above: Performed By: #### 4 [id number] #### [facility] [address] [place] [address] Color (U) Light-Yellow Normal Yellow [facility] Comment on above: Result Comment: Micr oscopic readings are only performed on those samples that meet specific criteria set forth by [facility]. Performed By: #### 4 [id number] #### [facility] [address] [place] [address] Epithelial cells.squamous Auto (Urine sed) [#/Area] 0-2 Invalid Interpretation Code [facility] Comment on above: Performed By: #### 4 [id number] #### [facility] [address] [place] [address] Glucose Ql (U) Negative Normal Negative [facility] Comment on above: Performed By: #### 4 [id number] #### [facility] [address] [place] [address] Hemoglobin Auto test strip (U) [Mass/Vol] Negative Normal Negative [facility] Comment on above: Performed By: #### 4 [id number] #### [facility] [address] [place] [address] Hyaline casts LM Ql (Urine sed) 0-3 Normal 0-3 [facility] Comment on above: Performed By: #### 4 [id number] #### [facility] [address] [place] [address] Ketones Auto test strip Ql (U) Negative Normal Negative [facility] Comment on above: Performed By: #### 4 [id number] #### [facility] [address] [place] [address] Leukocyte esterase Auto test strip Ql (U) 25 Pinky/uL Normal Negative [facility] Comment on above: Performed By: #### 4 [id number] #### [facility] [address] [place] [address] Mucus Auto Ql (U) Trace Normal Negative [facility] Comment on above: Performed By: #### 4 [id number] #### [facility] [address] [place] [address] Nitrite Auto test strip Ql (U) Negative Normal Negative [facility] Comment on above: Performed By: #### 4 [id number] #### [facility] [address] [place] [address] pH (U) 6.0 [pH] Invalid Interpretation Code 5.0-9.0 [facility] Comment on above: Performed By: #### 4 [id number] #### [facility] [address] [place] [address] Protein Ql (U) Negative Normal Negative [facility] Comment on above: Performed By: #### 4 [id number] #### [facility] [address] [place] [address] RBC Ql (U) 4-20 Abnormal 0-3 [facility] Comment on above: Performed By: #### 4 [id number] #### [facility] [address] [place] [address] Specific gravity (U) [Rel density] 1.025 Invalid Interpretation Code 1.005-1.030 [facility] Comment on above: Performed By: #### 4 [id number] #### [facility] [address] [place] [address] Urobilinogen (U) [Mass/Vol] Negative Normal Negative [facility] Comment on above: Performed By: #### 4 [id number] #### [facility] [address] [place] [address] WBC Auto (Urine sed) [#/Area] 0-5 Normal 0-5 [facility] Comment on above: Performed By: #### 4 [id number] #### [facility] [address] [place] [address] Type of Urine collection method Clean Catch Normal [facility] Comment on above: Performed By: #### 4 [id number] #### [facility] [address] [place] [address] URINALYSISOrdered By: SYSTEM SYSTEM on 10-27-2023 Bacteria [...] that meet specific criteria set forth by [facility]. Epithelial cells.squamous Auto (Urine sed) [#/Area] [...] (U) 4-20 graded/HPF Invalid Interpretation Code 0-3graded/HPF [facility] UA Auto SS Specific gravity (U) [Rel density] 1.025 *NA* (10/27/23 10:58 AM) Invalid Interpretation Code 1.005 - 1.030 [facility] UA Auto SS Urobilinogen (U) [Mass/Vol] Negative Normal Negativemg/dL [facility] UA Auto SS WBC Auto (Urine sed) [#/Area] 0-5 graded/HPF Normal 0-5graded/HPF [facility] UA Auto SS URINALYSISOrdered By: Shayne Butler on 10-27-2023 UA Spec Desc Clean Catch (10/27/23 10:58 AM) Normal [facility] UA Auto SS eGFRon 10-27-2023 eGFR 108 mL/min/1.73 m2 Normal >=59 [facility] Comment on above: Order Comment: Order added by Discern Expert. Performed By: #### 1 [id number] #### [facility] [address] [place] [address] Provider Letteron 07-19-2023 Provider Letter July 19, 2023 JUNE RHODES [address] [place] [id number] : 1980 Dear June , We have been trying to reach you with no success. It is important that you return our call regarding your next kidney stone surgery upon receiving this letter. Also, at the time of your call, please provide us with your current information. Thank you for your prompt attention to this matter. Sincerely, Dr. Chencho Haney MD Normal [facility] RAD - MISCon 06-25-2023 RAD - MISC [id number] #1.00TIFF Normal [facility] Lab Reportson 06-16-2023 Lab Reports [id number] #1.00TIFF Normal [facility] RAD - CT Reporton 06-16-2023 RAD - CT Report [id number] #1.00TIFF Normal [facility] RAD - Ultrasound Reporton RAD - Ultrasound Report [id number] #1.00TIFF Brittney Campos [facility] Ambulatory Visit Summaryon 0 06-15-2023 Ambulatory Visit [...] 1-2wks Where: [address] [place] [address]- Medications What How Much When Instructions Unchanged [...] Follow th (more content not included)... Normal [facility] Patient Educationon 06-15-19 Patient Education Urology Kidney [...] these instructions at home: Medicines ? Take [id number]-fuguvxx and prescription medicines only as told by [...] provider. Document Revised: 12/15/2021 Document Reviewed: 12/15/2021 [email or web address] Patient Education ? 2022 [employer]. Zanbato [facility] Urology Office/Clinic Noteon 06-15-2023 Urology Office/Clinic Note Chief Complaint [facility]H F/U for lower abdominal pain HPI Staff Pt is here for TBH F/U CT abdominal pelvis wo con @ [facility] 05/21/23 CC lower abdominal pain Last OV was 07/23/20 Previous DX; Kidney stone, flank pain, microscopic hematuria, urge incontinence, hx kidney stones CT @ [facility] on 06/11/23 EMELI @ [facility] 06/11/23 Given Tamsulosin 0.4 mg qd at [facility] She did complete this no concerns [...] Hydronephrosis with renal and ureteral calculous obstruction) [facility] ER visit 05/21/23 c/o bilateral lower [...] with voice recognition artificial intelligence software, specifically [employer] and or datango. Substitutions may have occurred due to the inherent limitations of voice recognition and artificial intelligence software. Follow-up With When Contact Information Chencho HANEY MD, URL [address] [address]- Additional Instructions: IVP in 1-2wks Patient Education Kidney Stones, Oesb-sc-Msow Cleo Shaw, personally scribed for Dr. Haney on 06/15/2023 10:54:59. . Documentation recorded by the Cleo valenzuela (more content not included)... Normal [facility] Comment on above: Result Comment: Elec tronically Signed By: Chencho HANEY MD\.br\Date and Time Signed: 06/15/23 21:50 EST\.br\Electronically Co-Signed By: Cleo Bonner\.br\Date and Time Co-Signed: 06/15/23 10:55 EST RAD - MISCon 06-13-2023 RAD - MISC [id number] #1.00TIFF Normal [facility] RAD - Ultrasound Reporton RAD - Ultrasound Report [id number] #1.00TIFF Normal [facility] ED Note-Physicianon 06-08-19 ED Note-Physician [id number] #1.00TIFF Normal [facility] Cov[facility] ([facility] 01-24 SARS-CoV-2 (COVID-19) RNA JUDE+probe Ql (Unsp spec) Detected Critically abnormal NOT DETECTED [facility] Comment on above: Result Comment: This test is not yet approved or cleared by the [place] FDA. When there are no FDA-approved or cleared tests available, and other criteria are met, FDA can make tests available under an emergency access mechanism called an Emergency Use Authorization (EUA). The EUA for this test is supported by the Government Contracts Manager of Health and Human Service's (HHS's) declaration [...] longer be used). Performed By: #### C [facility] #### [facility] [address] [place] [address] Dr. Abdelrahman Chisholm XR LSPINE 2_3 VIEWSon [...] by: YOSVANY NEGRO Date: 2021-09-08 15:24 Normal [facility] Vital Signs Date Time Vital Sign Value Performing Clinician Facility 06-21-2024 08:54-0500 Body mass index (BMI) [Ratio] 38.86 kg/m2 Rosina Barraza PMHNP-BC Work Phone: [facility] 06-21-2024 08:54-0500 Body weight 90.27 kg RosinaLiveVox PMHNP-BC Work Phone: [facility] 06-21-2024 08:54-0500 Diastolic blood pressure 82 mm[Hg] Rosina Barraza PMHNP-BC Work Phone: [facility] 06-21-2024 08:54-0500 Heart rate 84 /min Rosina Barraza PMHNP-BC Work Phone: [facility] 06-21-2024 08:54-0500 Systolic blood pressure 138 mm[Hg] Rosina Barraza PMHNP-BC Work Phone: [facility] 06-13-2024 09:37-0500 Body height 152.4 cm Hany Iglesias MD Work Phone: [facility] 06-13-2024 09:37-0500 Body mass index (BMI) [Ratio] 39.84 kg/m2 Hany Iglesias MD Work Phone: [facility] 06-13-2024 09:37-0500 Body temperature 97.11 [degF] Hany Iglesisa MD Work Phone: [facility] 06-13-2024 09:37-0500 Body weight 92.53 kg Hany Iglesias MD Work Phone: [facility] 06-13-2024 09:37-0500 Diastolic blood pressure 84 mm[Hg] Hayn Iglesias MD Work Phone: [facility] 06-13-2024 09:37-0500 Heart rate 85 /min Hany Iglesias MD Work Phone: [facility] 06-13-2024 09:37-0500 Respiratory rate 20 /min Hany Iglesias MD Work Phone: [facility] 06-13-2024 09:37-0500 SaO2% (BldA) [Mass fraction] 99 % Hany Iglesias MD Work Phone: [facility] 06-13-2024 09:37-0500 Systolic blood pressure 154 mm[Hg] Hany Iglesias MD Work Phone: [facility] 05-19-2024 09:25-0500 Body height 152.4 cm Hany Iglesias MD Work Phone: [facility] 05-19-2024 09:25-0500 Body mass index (BMI) [Ratio] 39.65 kg/m2 Hany Iglesias MD Work Phone: [facility] 05-19-2024 09:25-0500 Body temperature 97.81 [degF] Hany Iglesias MD Work Phone: [facility] 05-19-2024 09:25-0500 Body weight 92.08 kg Hany Iglesias MD Work Phone: [facility] 05-19-2024 09:25-0500 Diastolic blood pressure 70 mm[Hg] Hany Iglesias MD Work Phone: [facility] 05-19-2024 09:25-0500 Heart rate 86 /min Hany Iglesias MD Work Phone: [facility] 05-19-2024 09:25-0500 Respiratory rate 22 /min Hany Iglesias MD Work Phone: [facility] 05-19-2024 09:25-0500 SaO2% (BldA) [Mass fraction] 99 % Hany Iglesias MD Work Phone: [facility] 05-19-2024 09:25-0500 Systolic blood pressure 126 mm[Hg] Hany Iglesias MD Work Phone: [facility] 04-12-2024 09:42-0500 Body height 147.3 cm Hany Iglesias MD Work Phone: [facility] 04-12-2024 09:42-0500 Body mass index (BMI) [Ratio] 40.34 kg/m2 Hany Iglesias MD Work Phone: [facility] 04-12-2024 09:42-0500 Body temperature 96.6 [degF] Hany Iglesias MD Work Phone: [facility] 04-12-2024 09:42-0500 Body weight 87.54 kg Hany Iglesias MD Work Phone: [facility] 04-12-2024 09:42-0500 Diastolic blood pressure 78 mm[Hg] Hany Iglesias MD Work Phone: [facility] 04-12-2024 09:42-0500 Heart rate 91 /min Hany Iglesias MD Work Phone: [facility] 04-12-2024 09:42-0500 Respiratory rate 20 /min Hany Iglesias MD Work Phone: [facility] 04-12-2024 09:42-0500 SaO2% (BldA) [Mass fraction] 99 % Hany Iglesias MD Work Phone: [facility] 04-12-2024 09:42-0500 Systolic blood pressure 130 mm[Hg] Hany Iglesias MD Work Phone: [facility] 03-01-2024 10:14-0500 Body height 147.3 cm Hany Iglesias MD Work Phone: [facility] 03-01-2024 10:14-0500 Body mass index (BMI) [Ratio] 40.96 kg/m2 Hany Iglesias MD Work Phone: [facility] 03-01-2024 10:14-0500 Body temperature 97.81 [degF] Hany Iglesias MD Work Phone: [facility] 03-01-2024 10:14-0500 Body weight 88.91 kg Hany Iglesias MD Work Phone: [facility] 03-01-2024 10:14-0500 Diastolic blood pressure 70 mm[Hg] Hany Iglesias MD Work Phone: [facility] 03-01-2024 10:14-0500 Heart rate 79 /min Hany Iglesias MD Work Phone: [facility] 03-01-2024 10:14-0500 Respiratory rate 20 /min Hany Iglesias MD Work Phone: [facility] 03-01-2024 10:14-0500 SaO2% (BldA) [Mass fraction] 99 % Hany Iglesias MD Work Phone: [facility] 03-01-2024 10:14-0500 Systolic blood pressure 120 mm[Hg] Hany Iglesias MD Work Phone: [facility] 12-15-2023 17:49-0400 Heart rate 43 /min Chencho HANEY [facility] 12-15-2023 17:49-0400 SaO2% (BldA) [Mass fraction] 99 % Chencho HANEY [facility] 12-15-2023 17:48-0400 Diastolic blood pressure 69 mm[Hg] Chencho HANEY [facility] 12-15-2023 17:48-0400 Mean blood pressure 96 mm[Hg] Chencho HANEY [facility] 12-15-2023 17:48-0400 Systolic blood pressure 151 mm[Hg] Chencho HANEY [facility] 12-15-2023 17:47-0400 Respiratory rate 16 /min Chencho HANEY [facility] 12-15-2023 17:42-0400 Body temperature 98.24 [degF] Chencho HANEY [facility] 12-15-2023 17:30-0400 Diastolic blood pressure 93 mm[Hg] Chencho COOK [facility] 12-15-2023 17:30-0400 Heart rate 67 /min Chencho COOK [facility] 12-15-2023 17:30-0400 Mean blood pressure 105 mm[Hg] Chencho COOK [facility] 12-15-2023 17:30-0400 Respiratory rate 11 /min Chencho COOK [facility] 12-15-2023 17:30-0400 SaO2% (BldA) [Mass fraction] 98 % Chencho COOK [facility] 12-15-2023 17:30-0400 Systolic blood pressure 128 mm[Hg] Chencho COOK [facility] 12-15-2023 17:25-0400 Diastolic blood pressure 74 mm[Hg] Chencho COOK [facility] 12-15-2023 17:25-0400 Heart rate 72 /min Chencho COOK [facility] 12-15-2023 17:25-0400 Mean blood pressure 93 mm[Hg] Chencho COOK [facility] 12-15-2023 17:25-0400 Respiratory rate 17 /min Chencho COOK [facility] 12-15-2023 17:25-0400 SaO2% (BldA) [Mass fraction] 100 % Chencho COOK [facility] 12-15-2023 17:25-0400 Systolic blood pressure 131 mm[Hg] Chencho COOK [facility] 12-15-2023 17:20-0400 Mean blood pressure 100 mm[Hg] Chencho COOK [facility] 12-15-2023 17:20-0400 Respiratory rate 15 /min Chencho HANEY [facility] 12-15-2023 17:17-0400 Body temperature 97.7 [degF] Chencho COOK [facility] 12-15-2023 14:18-0400 Mean blood pressure 96 mm[Hg] Chencho COOK [facility] 12-15-2023 14:17-0400 Body temperature 98.06 [degF] Chencho HANEY [facility] 12-15-2023 14:17-0400 Mean blood pressure 82 mm[Hg] Chencho HANEY [facility] 12-15-2023 14:17-0400 Respiratory rate 18 /min Chencho HANEY [facility] 11-11-2023 15:43-0400 Heart rate 58 /min Chencho HANEY [facility] 11-11-2023 15:42-0400 Heart rate 47 /min Chencho HANEY [facility] 11-11-2023 15:42-0400 SaO2% (BldA) [Mass fraction] 97 % Chencho HANEY [facility] 11-11-2023 15:42-0400 Respiratory rate 16 /min Chencho COOK [facility] 11-11-2023 15:42-0400 Diastolic blood pressure 60 mm[Hg] Chencho COOK [facility] 11-11-2023 15:42-0400 Mean blood pressure 72 mm[Hg] Chencho COOK [facility] 11-11-2023 15:42-0400 Systolic blood pressure 97 mm[Hg] Chencho HANEY [facility] 11-11-2023 15:00-0400 Body temperature 97.88 [degF] Chencho HANEY [facility] 11-11-2023 14:29-0400 Heart rate 45 /min Chencho HANEY [facility] 11-11-2023 14:29-0400 SaO2% (BldA) [Mass fraction] 99 % Chencho HANEY [facility] 11-11-2023 14:28-0400 Diastolic blood pressure 71 mm[Hg] Chencho HANEY [facility] 11-11-2023 14:28-0400 Mean blood pressure 83 mm[Hg] Chencho HANEY [facility] 11-11-2023 14:28-0400 Systolic blood pressure 106 mm[Hg] Chencho HANEY [facility] 11-11-2023 14:28-0400 Respiratory rate 16 /min Chencho HANEY [facility] 11-11-2023 14:18-0400 Blood Pressure Location Chencho HANEY [facility] 11-11-2023 14:18-0400 Body temperature 97.7 [degF] Chencho HANEY [facility] 11-11-2023 14:18-0400 Diastolic blood pressure 72 mm[Hg] Chencho HANEY [facility] 11-11-2023 14:18-0400 Respiratory rate 10 /min Chencho HANEY [facility] 11-11-2023 14:18-0400 SaO2% (BldA) [Mass fraction] 97 % Chencho HANEY [facility] 11-11-2023 14:18-0400 Systolic blood pressure 108 mm[Hg] Chencho COOK [facility] 11-11-2023 14:08-0400 Blood Pressure Location Chencho COOK [facility] 11-11-2023 14:08-0400 Respiratory rate 9 /min Chencho COOK [facility] 11-11-2023 14:03-0400 Blood Pressure Location Chencho COOK [facility] 11-11-2023 14:03-0400 Respiratory rate 10 /min Chencho COOK [facility] 11-11-2023 13:53-0400 Body temperature 97.52 [degF] Chencho COOK [facility] 11-11-2023 09:25-0400 Mean blood pressure 72 mm[Hg] Chencho COOK [facility] 11-11-2023 09:25-0400 Respiratory rate 18 /min Chencho COOK [facility] 11-11-2023 09:25-0400 Heart rate 56 /min Chencho COOK [facility] 11-11-2023 09:24-0400 Body temperature 97.7 [degF] Chencho COOK [facility] 10-27-2023 10:35-0400 Blood Pressure Location Chencho COOK [facility] 10-27-2023 10:35-0400 Diastolic blood pressure 80 mm[Hg] Chencho COOK [facility] 10-27-2023 10:35-0400 Heart rate 79 /min Chencho COOK [facility] 10-27-2023 10:35-0400 Mean blood pressure 94 mm[Hg] Chencho COOK [facility] 10-27-2023 10:35-0400 Systolic blood pressure 120 mm[Hg] Chencho COOK [facility] 10-27-2023 10:34-0400 Heart rate 75 /min Chencho COOK [facility] 10-27-2023 10:34-0400 SaO2% (BldA) [Mass fraction] 98 % Chencho HANEY [facility] 10-27-2023 10:34-0400 Respiratory rate 18 /min Chencho HANEY [facility] 10-27-2023 10:34-0400 Blood Pressure Location Chencho HANEY [facility] 10-27-2023 10:34-0400 Diastolic blood pressure 79 mm[Hg] Chencho COOK [facility] 10-27-2023 10:34-0400 Mean blood pressure 96 mm[Hg] Chencho COOK [facility] 10-27-2023 10:34-0400 Systolic blood pressure 129 mm[Hg] Chencho COOK [facility] 10-27-2023 10:34-0400 Body temperature 98.78 [degF] Chencho COOK [facility] 06-15-2023 09:59-0500 Blood Pressure Location Chencho COOK [facility] 06-15-2023 09:59-0500 Diastolic blood pressure 84 mm[Hg] Chencho COOK [facility] 06-15-2023 09:59-0500 Systolic blood pressure 124 mm[Hg] Chencho COOK [facility] [place] Encounters Encounter Date Encounter Type Care Provider Facility Start: 07-11-2024 ambulatory Jaycee Robbins y:ROMY Gustafson Start: 06-22-2024 End: 06-22-2024 Refill Hany Iglesias MD Work Phone: [facility] Comment on above: DDD (degenerative di sc disease), lumbar Start: 06-21-2024 End: 06-21-2024 Bamboo flowsheet [facility] Work Phone: [facility] Start: 06-21-2024 End: 06-21-2024 Bamboo flowsheet Rosina Barraza [facility]- Work Phone: [facility] Start: 06-21-2024 [...] 02-14-2024 Refill Hany Iglesias MD Work Phone: [facility] Comment on above: DDD (degenerative di sc disease), lumbar Start: 01-17-2024 End: 01-17-2024 Refill Lisette Rodas [facility] Comment on above: DDD (degenerative di sc disease), lumbar Start: 12-17-2023 End: 12-17-2023 Refill Hany Iglesias MD Work Phone: [facility] Comment on above: DDD (degenerative di sc disease), lumbar Start: 12-15-2023 End: 12-15-2023 Admission to same day surgery center Chencho HANEY [facility] Start: 12-15-2023 End: 12-15-2023 ambulatory Chencho HANEY Facility:[facility] Start: 11-29-2023 End: 04-24-2024 Patient encounter procedure Hany Iglesias MD Work Phone: [facility] Start: 11-29-2023 End: 11-29-2023 ambulatory HANY IGLESIAS Not Available Start: 11-11-2023 End: 11-11-2023 Admission to same day surgery center Chencho HANEY [facility] Start: 11-11-2023 End: 11-11-2023 ambulatory Chencho HANEY Facility:[facility] Start: 10-27-2023 End: 10-27-2023 ambulatory Chencho HANEY Facility:[facility] Start: 10-27-2023 End: 10-27-2023 Patient encounter procedure Chencho HANEY [facility] Start: 06-15-2023 End: 06-15-2023 ambulatory Chencho HANEY Facility: [place] Start: 06-15-2023 End: 06-15-2023 Patient encounter procedure Chencho Oneal LYNDON [facility] [place] Start: 02-09-2022 End: 08-10-[address] [...] Screening for malign ant neoplasm of colon [facility] Start: 08-30-2024 End: 08-30-2024 Patient encounter procedure 08/30/2024 8:15 AM EDT Office Visit [facility] [address] [place] [address] Hany Iglesias MD [address] [place] [address] [facility] Start: 07-24-2024 End: 07-24-2024 Patient encounter procedure 07/24/2024 2:30 PM EDT Office Visit [facility] [address] [place] [phone] Barraza Rosina, HNP- [address] [place] [address] [facility] Start: 07-13-2024 End: 07-13-2024 Clinical Support 07/13/2024 10:00 AM EDT Clinical Support [facility] [address] [place] [phone] Javy Rivera LPC [facility] Start: 06-21-2024 End: 06-21-2024 Patient encounter [...] [facility] [address] [place] [address] Hany Iglesias MD [address] [place] [address] Arrived [facility] Comment on above: Arrived Start: 04-25-2024 End: 04-25-2024 Patient encounter procedure 04/25/2024 10:00 AM EST Office Visit [facility] [address] [facility] [address] [place] [address] Rosina Barraza NP [address] [facility] [address] [place] [address] [facility] Start: 04-12-2024 End: 04-12-2024 Patient encounter procedure [facility] Comment on above: Arrived Start: 03-01-2024 End: 03-01-2024 Patient encounter procedure 03/01/2024 10:15 AM EST [facility] [address] [place] [address] Hany Iglesias MD [address] [place] [address] [facility] Start: 12-26-2023 Influenza vaccination Influenza Vacc ine (#1) [facility] Start: 1980 Screening for malign ant neoplasm of colon [facility] Immunizations Immunization Date Immunization Notes Care Provider Fa cili 01-25-2020 influenza virus vaccine, unspecified formulation Chencho HANEY [facility] Payers Date Payer Category Payer Medicaid [id number] 2022 Medicaid [id number] 1980 Unknown [id number] 2.16.84 [id number] 1980 Unknown [id number] 2.16.84 0.1.205003.3.579.2.593 1978 Unknown [id number] 2.16.8 40.1.783309.3.579.2.727 1978 Unknown [id number] 2.16.8 40.1.539567.3.579.2.727 1978 Unknown [id number] 2.16.8 40.1.579702.3.579.2.727 1978 Unknown [id number] 2.16.8 40.1.886030.3.579.2.727 1978 Unknown [id number] 2.16.8 40.1.001380.3.579.2.727 1978 Unknown [id number] 2.16.84 0.1.170571.3.579.2.1259 1978 Unknown [id number] 2.16.84 0.1.763273.3.579.2.9 1978 Unknown [id number] 2.16.84 0.1.869633.3.579.2.9 1978 Unknown [id number] 2.16.84 0.1.268938.3.579.2.9 1978 Unknown [id number] 2.16.84 0.1.427242.3.579.2.1259 1978 Unknown [id number] 2.16.84 0.1.218084.3.579.2.1259 1959 Unknown [id number] Social History Date Type Detail Facility Tobacco quit 7 years ago Tobacco Use:. Cigarettes [facility] Tobacco smoking status No Smokin g Status Entered [facility] Start: 11-29-2023 End: 06-21-2024 Sex Assigned At Female [facility] Start: 05-11-2023 [facility] History of tobacco use Cigarette Smoker [facility] Start: 05-11-2023 End: 06-21-2024 Cigarettes smoked current (pack per day) - Reported 0.5 [facility] Start: 05-11-2023 End: 06-21-2024 Tobacco use and exposure Smokeless tobacco non-user [facility] Start: 1980 Sex assigned at Not on file [facility] Start: 06-21-2024 Tobacco smoking stat us [facility]IS Ex-smoker [facility] History of tobacco use Current smoker [facility] Start: 06-21-2024 Alcoholic beverage intake Ex-drinker (finding) [facility] Start: 06-21-2024 Education 16 [facility] Start: 06-21-2024 Alcohol Comment caffiene- occa sional pop [facility] Medical Equipment Procedure Code Equipment Code Equipment Origin al Text Equipment Identifier Dates CYSTOSCOPY STENT INSERTION Chencho HANEY MD 11/11/23 Unknown Ureter R FDA Start: 11-11-2023 CYSTOSCOPY STENT INSERTION Chencho HANEY MD P 11/11/23 Unknown Ureter R FDA Start: 11-11-2023 Functional Status Date Assessment Result Facility 12-14-2023 Functional Status No [facility] 12-03-2023 Functional Status No [facility] 10-27-2023 Functional Status No [facility] 06-15-2023 Functional Status N/A [facility] Clinical Notes 06-15-2023 to 06-21-2024 Rosina Barraza, [...] son Education: Graduated from High School. 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[facility]) - Ambulatory referral to Psychiatry PTSD (post-traumatic stress disorder) ([facility]) Moderate episode of recurrent major depressive disorder ([facility]) Generalized anxiety disorder ([facility]) - Ambulatory referral to Psychiatry Social anxiety disorder ([facility]) Mixed obsessional thoughts and acts ([facility]) Psychophysiological insomnia Treatment Plan/Recommendations: - Continue Lamictal [...] the local ER or call Suicide Hotline (329) for any psychosis, suicidal or homicidal ideation, or with any risk of harm to self or others. Patient was seen Face to Face, Total time spent with patient was 70 minutes, which includes reviewing chart documents, previous notes/records, counseling and discussion with patient and/or coordination of care as described above. documented in this encounter [facility] 06-13-2024 History of Present illness Narrative [...] tablet documented in this encounter [facility] 05-19-2024 History of Present illness Narrative [...] tablet documented in this encounter [facility] 04-12-2024 History of Present illness Narrative [...] capsule documented in this encounter [facility] 03-01-2024 History of Present illness Narrative [...] to Psychiatry Panniculitis Relevant Medications nystatin (Mycostatin) 629332 UNIT/GM powder documented in this encounter [facility] 12-19-2023 Note Progress Note-Mimi brown Patient: JUNE RHODES Age: 43 years Sex: Female : 1980 Associated Diagnoses: None Author: MD Wolfgang, [facility] Olsen Postoperative Information Postoperative disposition: Postoperative disposition: To PACU. Optimetrix number: Optimetrix number [id number]. Anesthetic utilized: General. Health Status Allergies: Allergic [...] when meets criteria ( To home ). [facility] Comment on above: Result Comment: Elec tronically [...] for 5 day(s), 10 tab(s), Refill(s) 0, [id number], 147.5, cm, 12/15/23 14:23:00 EDT, Height/Length Dosing, 87.9, kg, 12/15/23 14:23:00 EDT, Weight Dosing oxybutynin 5 mg Tab: 5 mg = 1 tab(s), Oral, BID, X 30 day(s), # 60 tab(s), Refills(s) 1, Pharmacy: [facility] #[id number], 147.4, cm, 10/27/23 13:16:00 EDT, Height/Length Dosing, [...] list: All Problems Depression / SNOMED CT 73674455 / Confirmed Headache / SNOMED CT 56567518 / Confirmed Hypertension / SNOMED CT 6588440536 / Confirmed Renal cyst / SNOMED CT 7715585643 / Confirmed Ureteral stone / SNOMED CT 44551343 / Confirmed Dysuria / SNOMED CT 95278456 / Confirmed Urge incontinence / SNOMED CT 448790411 / Confirmed Incomplete bladder emptying / SNOMED CT 147458128 / Confirmed History of kidney stones / SNOMED CT 9020146983 / Confirmed Kidney stone / SNOMED CT 816510765 / Confirmed Ureteral stone with hydronephrosis / SNOMED CT 0369711351 / Confirmed Flank pain / SNOMED CT 786982104 / Confirmed PTSD (post-traumatic stress disorder) / SNOMED CT 99085864 / Confirmed Anxiety / SNOMED CT 99697868 / Confirmed Canceled: Kidney stone / SNOMED CT 146172664 Histories Past Medical History: No active or resolved past medical history items have been selected or recorded. Family History: Kidney stone Mother Grandparent Hypertension Grandparent Heart disease Grandparent Mother Diabetes mellitus type 1 Mother Procedure history: Cystoscopy, stent removal ([id number]) on 12/15/2023 at 43 Years. R ESWL and cysto stent insert ([id number]) on 11/11/2023 at 43 Years. Gastric sleeve ([id number]) in 2022 at 42 Years. Hysterectomy (739151034). Complete hernia (090794217). Cyst of fallopian tube removal (02752098). Social History Social & Psychosocial Habits Alcohol [...] results Radiology results ECG interpretation Condition Plan [place] Society of Anesthesiologists (ASA) physical status classification: Class III. Anesthetic Preoperative Plan Anesthesia: General. . Anesthetic plan, risks, benefits, and alternatives discussed with the patient and/or family. Risks discussed: nausea, vomiting, headache, sore throat, dental injury, serious complications. Patient verbalized understanding. Communication: face to face with patient 5 minutes. [facility] Comment on above: Result Comment: Elec tronically Signed By: MD Wolfgang, Julius Olsen\.br\Date and Time Signed: 12/19/23 16:47 EDT 12-15-2023 Hospital Discharge instructions Patient Education 12/15/2023 17:19:12 Xzfj-Gvjp-ga Utereroscopy,Lithotripsy, Stone Extraction, Stent Placement (Custom) [facility] [place], [place] Dr. Chencho Garza Post-operative Instructions for [...] appointment (with XRAY) in about six months [phone] 12/15/2023 17:16:21 Post Op Patient Instructions - FT (Custom) (CUSTOM) Follow Up Care 12/02/2023 14:11:05 With:Chencho HANEY Address: [address] [phone]- Business (1) When:6 months Comments:Call for followup [...] send an antibiotic prescription to your pharmacy. [facility] 12-15-2023 Note Patient Education - Text [facility] [place], [place] Dr. Chencho Garza Post-operative Instructions for [...] appointment (with XRAY) in about six months [phone] [facility] 12-15-2023 Evaluation + Plan note Diagnostic Tests PendingCalculi Analysis Urinary 12/15/23 [facility] 11-18-2023 Note Progress Note-Mimi brown Patient: JUNE RHODES Age: 43 years Sex: Female : 1980 Associated Diagnoses: None Author: MD Wolfgang, Julius Olsen Postoperative Information Postoperative disposition: Postoperative disposition: To PACU. Optimetrix number: Optimetrix number [id number]. Anesthetic utilized: General. Health Status Allergies: Allergic [...] when meets criteria ( To home ). [facility] Comment on above: Result Comment: Elec tronically [...] day(s), # 60 tab(s), Refills(s) 1, Pharmacy: [facility] #[id number], 147.4, cm, 10/27/23 13:16:00 EDT, Height/Length Dosing, 89.2, kg, 10/27/23 13:16:00 EDT, Weight Dosing tamsulosin 0.4 mg Cap: 0.4 mg = 1 cap(s), Oral, Daily, # 30 cap(s), Refills(s) 0, Pharmacy: [facility] #[id number], 153, cm, 06/15/23 10:00:00 EST, Height/Length Dosing, [...] list: All Problems Depression / SNOMED CT 44363551 / Confirmed Headache / SNOMED CT 56283263 / Confirmed Hypertension / SNOMED CT 3654063361 / Confirmed Renal cyst / SNOMED CT 9723217289 / Confirmed Ureteral stone / SNOMED CT 50523334 / Confirmed Dysuria / SNOMED CT 58363177 / Confirmed Urge incontinence / SNOMED CT 887568905 / Confirmed Incomplete bladder emptying / SNOMED CT 684829628 / Confirmed History of kidney stones / SNOMED CT 8784607288 / Confirmed Kidney stone / SNOMED CT 177600641 / Confirmed Ureteral stone with hydronephrosis / SNOMED CT 1927991698 / Confirmed Flank pain / SNOMED CT 927710727 / Confirmed PTSD (post-traumatic stress disorder) / SNOMED CT 12736633 / Confirmed Anxiety / SNOMED CT 50082375 / Confirmed Canceled: Kidney stone / SNOMED CT 807168473 Histories Past Medical History: No active or resolved past medical history items have been selected or recorded. Family History: Kidney stone Mother Grandparent Hypertension Grandparent Heart disease Grandparent Mother Diabetes mellitus type 1 Mother Procedure history: R ESWL and cysto stent insert ([id number]) on 11/11/2023 at 43 Years. Gastric sleeve (2850614453) in 2022 at 42 Years. Hysterectomy (853399461). Complete hernia (797333745). Cyst of fallopian tube removal (29246989). Social History Social & Psychosocial Habits Alcohol [...] results Radiology results ECG interpretation Condition Plan [place] [employer] of Anesthesiologists (ASA) physical status classification: Class III. Anesthetic Preoperative Plan Anesthesia: General. . Anesthetic plan, risks, benefits, and alternatives discussed with the patient and/or family. Risks discussed: nausea, vomiting, headache, sore throat, dental injury, serious complications. Patient verbalized understanding. Communication: face to face with patient 5 minutes. [facility] Comment on above: Result Comment: Elec tronically [...] Follow these instructions at home: Medicines Take hvcu-xsr-seyxblk and prescription medicines only as told by [...] provider. Document Revised: 03/09/2022 Document Reviewed: 12/15/2021 [employer] Patient Education 2022 [employer]. Follow Up Care 09/15/2023 10:32:08 With:Chencho HANEY Address: [address] [place] [address]- Business (1) When: Unknown Comments:Please call my office to speak with Elizabeth, she is my dental scheduler. Please asked to have the abdominal [...] and some bladder spasm medications as well. [facility] 11-11-2023 Note Patient Education - Text Nephrology [...] these instructions at home: Medicines ? Take lrmv-qtu-jbzolwi and prescription medicines only as told by [...] help prevent ne (more content not included)... [facility] 06-15-2023 Hospital Discharge instructions Patient Education 06/15/2023 10:54:16 Kidney Stones, Sqvl-bj-Suat Kidney Stones Kidney stones are rock-like masses [...] Follow these instructions at home: Medicines Take sqaw-zmk-dcufdcm and prescription medicines only as told by [...] provider. Document Revised: 12/15/2021 Document Reviewed: 12/15/2021 [employer] Patient Education 2022 [employer]. Follow Up Care 06/08/2023 15:05:45 With:LYNDON ARANGO, Chencho Oneal, URL Address: [address] [place], [place] [phone]- When: Unknown Comments:IVP in 1-2wks [facility] Evaluation + Plan note No data available for this section [facility] Evaluation + Plan note Future Appointments Appointment Date:11/11/2023 11:15:00 AM Scheduled Provider: Location:[facility] Appointment Type:Surgery FT [facility] Evaluation note Diagnosis Essential hypertension, benign (CMS/HCC)- [...] instructions No data available for this section [facility] No data available for this section [facility] [place] Summary Purpose Family History No Family [...] DATE CREATED AUTHOR AUTHOR'S ORGANIZ ATION 10/28/2023 [facility] DATE CREATED AUTHOR AUTHOR'S ORGANIZ ATION 12/26/[address] [facility] DATE CREATED AUTHOR AUTHOR'S ORGANIZ ATION 06/19/2024 Campos Otto [facility] DATE CREATED AUTHOR AUTHOR'S ORGANIZ ATION 06/23/2024 [facility] EPIC Patient Care team informatio n (unrecognized section and content) Sheet Fed Printer Relationship Specialty Start Date End Date Hany Iglesias MD [address] [place] [address] PCP - General Family Medicine 11/29/23 Sheet Fed Printer Relationship Specialty Start Date End Date Hany Iglesias MD [address] [place] [address] PCP - General Family Medicine 11/29/23 Sheet Fed Printer Relationship Specialty Start Date End Date Hany Iglesias MD [address] [place] [address] PCP - General Family Medicine 11/29/23 Sheet Fed Printer Relationship Specialty Start Date End Date Hany Iglesias MD [address] [place] [address] PCP - General Family Medicine 11/29/23 Sheet Fed Printer Relationship Specialty Start Date End Date Hany Iglesias MD [address] [place] [address] PCP - General Family Medicine 11/29/23 Sheet Fed Printer Relationship Specialty Start Date End Date Hany Iglesias MD [address] [place] [address] PCP - General Family Medicine 11/29/23 Sheet Fed Printer Relationship Specialty Start Date End Date Hany Iglesias MD [address] [place] [address] PCP - General Family Medicine 11/29/23 Sheet Fed Printer Relationship Specialty Start Date End Date Hany Iglesias MD [address] [place] [address] PCP - General Family Medicine 11/29/23 Sheet Fed Printer Relationship Specialty Start Date End Date Hany Iglesias MD [address] [place] [address] PCP - General Family Medicine 11/29/23 Sheet Fed Printer Relationship Specialty Start Date End Date Hany Iglesias MD [address] [place] [address] PCP - General Family Medicine 11/29/23 Sheet Fed Printer Relationship Specialty Start Date End Date Hany Iglesias MD [address] [place] [address] PCP - General Family Medicine 11/29/23 Sheet Fed Printer Relationship Specialty Start Date End Date Hany Iglesias MD [address] [place] [address] PCP - General Family Medicine 11/29/23 Rosina Barraza, [facility] [address] [facility] [place] [address] Nurse Practitioner Behavioral Health 06/21/24 Chencho Haney MD [address] [place] [address] Referring Physician Urology 06/21/24 Sheet Fed Printer Relationship Specialty Start Date End Date Hany Iglesias MD [address] [place] [address] PCP - General Family Medicine 11/29/23 Rosina Barraza [facility] [address] [facility] [address] [place] [address] Nurse Practitioner Behavioral Health 06/21/24 Chencho Haney MD [address] [place] [address] Referring Physician Urology 06/21/24 Reason for Visit [...] disorder (CMS/HCC) Generalized anxiety disorder (CMS/HCC) Procedures MS OFFICE/OUTPATIENT NEW HIGH MDM 60 MINUTES Hany Iglesias MD [address] [place] [address] Phone: tel: fax: Rosina Barraza, [facility] [address] [facility] [address] [place] [address] Phone: tel: fax: Referral ID Status Reason Start Date Expiration Date V isits Requested Visits Authorized [id number] Closed Specialty Services Required 03/01/2024 08/28/2024 1 [...] BE BASED ON THE PRIMARY CLINICAL RECORDS. [facility]brain [facility]. provides no warranty or guarantee of the accuracy or completeness of information in this document.
[2024-06-29 09:53] LABS: Basophils Percent Auto 0.2 % (0.2-2.0); Eosinophils Absolute Auto 0.1 10^3/uL (0.0-0.7); Eosinophils Percent Auto 1.8 % (0.9-7.0); Hematocrit 42.3 % (36.0-48.0); Hemoglobin 14.6 g/dL (12.0-16.0); Immature Granulocytes Abs Auto 0.01 10^3/uL (0.00-0.03); Immature Granulocytes Pct Auto 0.2 % (0.0-0.5); Lymphocytes Percent Auto 43.4 % (20.5-60.0); Mean Corpuscular HGB Conc 34.5 g/dL (29.9-35.2); Mean Corpuscular Volume 84.1 fL (81.0-99.0); Mean Platelet Volume 10.4 fL (9.5-13.5); Monocytes Absolute Auto 0.5 10^3/uL (0.3-0.8); Monocytes Percent Auto 10.4 % (1.7-12.0); Platelet Count 218 10^3/uL (150-450); Red Blood Count 5.03 10^6/uL (4.20-5.40); Red Cell Distribution Width 12.5 % (11.0-15.0); White Blood Count 4.5 10^3/uL (4.0-11.0)
[2024-06-29 10:26] LABS: Magnesium 1.9 mg/dL (1.8-2.4)
[2024-06-29 10:29] LABS: Percent Iron Saturation 32.9 %
[2024-06-29 11:20] LABS: Alanine Aminotransferase 11 U/L (14-59); Albumin Globulin Ratio 1.2; Albumin Level 3.7 g/dL (3.4-5.0); Alkaline Phosphatase 99 U/L (46-116); Anion Gap 10.7; Aspartate Amino Transferase 20 U/L (15-37); BUN Creatinine Ratio 15.1; Bilirubin Total 0.8 mg/dL (0.2-1.0); Calcium 8.8 mg/dL (8.5-10.1); Carbon Dioxide 30.1 mmol/L (21.0-32.0); Chloride 107 mmol/L (98-107); Estimated GFR (African America >60 (>=60 mL/min/1.73m^2); Estimated GFR (Non-African Ame >60 (>=60 mL/min/1.73m^2); Globulin 3.1 g/dL; Glucose 92 mg/dL (74-106); Potassium 3.8 mmol/L (3.5-5.1); Sodium 144 mmol/L (136-145); Total Protein 6.8 g/dL (6.4-8.2)
[2024-06-30 04:07] LABS: Vitamin B12 458 pg/mL (232-1245)
[2024-07-02 17:09] LABS: Vitamin B1 (Thiamine), Blood 86.3 nmol/L (66.5-200.0)
== END 2024-06-29 09:19 | disposition home or self-care (01) ==
LOC: LAB 09:20
PROVIDERS: PCP Family Medicine; Visit Provider Nurse Practitioner Family
DX: R60.9 Edema, unspecified (principal); Z98.84 Bariatric surgery status; I10 Essential (primary) hypertension; K21.9 Gastro-esophageal reflux disease without esophagitis
CPT/HCPCS: 36415; 80053; 82306; 82607; 82728; 82746; 83540; 83550; 83735; 84100; 84425; 85025

== ENCOUNTER 2024-09-21 09:52 | Emergency (ER) | payer MEDICAID, SELFPAY ==
--- OUTSIDE RECORDS SUMMARY | 2023-09-22 10:30 | XMS_ITS | Continuity of Care Document ---
Author [facility] [employer] [facility] Address [address] [place] [address] [place] [address] Phone Care Team Providers Care Patternmaker Bench Name Role Phone Erna Bruner CNP Unavailable Unavailable Procedures Procedure Date OFFICE/OUTPATIENT VISIT, EST OFFICE/OUTPATIENT VISIT, EST POSTOP FOLLOW-UP VISIT POSTOP FOLLOW-UP VISIT LAP SLEEVE GASTRECTOMY Sleeve Gastrectomy OFFICE/OUTPATIENT VISIT, EST PSYCH DIAGNOSTIC EVALUATION PSYCL/NRPSYC TST PHY/QHP 1ST PSYCL/NRPSYC TST PHY/QHP EA OFFICE/OUTPATIENT VISIT, EST OFFICE/OUTPATIENT VISIT, [facility] Advance Directives Directive Yes / No Effective Date File Name No Information Encounters Encounter Description Practice Location Reason(s) For Visit Diagnoses Date Provider Providers Copied on Encounter OFFICE/OUTPATI ENT VISIT, [facility] [employer] [facility], [address] [place] [address], [id number], [place] tel:[phone] [facility] No Information Franc Umanzor. [facility] [address], [id number], [place]. tel:[phone] Referring Provider: Erna Bruner, [address] [place] [address], [address]. tel:[phone] OFFICE/OUTPATI ENT VISIT, [facility] [employer] [facility], [address] [place] [address] [place], [place], [id number], [place] tel:[phone] [facility] No Information Franc Umanzor. [address] [facility] [address], [place], [place], [id number], [place]. tel:[phone] Referring Provider: Erna Bruner, [address], [place], [address]. tel:[phone] Messages [facility], [address] [place] [address] [address], [place], [place], [id number], [place] tel:[phone] [facility] No Information Franc Umanzor. [address] [facility] [address], [place], [place], [id number], [place]. tel:[phone] Referring Provider: Erna Bruner, [facility] [address] [facility] [address], [place], [address]. tel:[phone] Messages [facility], [address] [place] [address] [address], [place], [place], [id number], [place] tel:[phone] [facility] No Information Franc Umanzor. [facility] [address] [facility] [address], [place], [place], [id number], [place]. tel:[phone] Referring Provider: Erna Bruner, [facility] [address] [facility] [address], [place], [address]. tel:[phone] Messages [facility], [address] [place] [address] [address], [place], [place], [id number], [place] tel:[phone] [facility] No Information Chanel Gannon. [address] [place] [address] [address], [place], [place], [id number], [place]. tel:[phone] Referring Provider: Jagdeep Olsen, [address] [facility] [address], [place], [address]. tel:[phone] Messages [facility], [address] [place] [address] [address], [place], [place], [id number], [place] tel:[phone] [facility] No Information Franc Umanzor. [address] [place] [address] [address], [place], [place], [id number], [place]. tel:[phone] Referring Provider: Erna Franc, [address] [place] [address] [address] [facility], [place], [address]. tel:[phone] OFFICE/OUTPATI ENT VISIT, [facility] [employer] [facility], [address] [place] [address] [address], [place], [place], [id number], [place] tel:[phone] [facility] No Information Chanel Gannon. [address] [place] [address], [id number], [place]. tel:[phone] Referring Provider: Jagdeep Olsen, [address] [place] [address], [place], [address]. tel:[phone] [facility] [employer] [facility], [address] [place] [address], [place], [place], [id number], [place] tel:[phone] [facility] No Information Terrence Campbell. [address] [place] [address], [id number], [place]. tel:[phone] Referring Provider: Shannan Ocampo, [address] [place] [address], [place], [address]. tel:[phone] OFFICE/OUTPATI ENT VISIT, [facility] [employer] [facility], [address] [place] [address] B, [place], [place], [id number], [place] tel:[phone] [facility] No Information Chanel Gannon. [address] [place] [address], [id number], [place]. tel:[phone] Referring Provider: Jagdeep Olsen, [address] [place] [address], [place], [address]. tel:[phone] OFFICE/OUTPATI ENT VISIT, [facility] [employer] [facility], [address] [place] [address] B, [place], [place], [id number], [place] tel:[phone] [facility] No Information Chanel Gannon. [address] [facility] [address], [place], [place], [id number], [place]. tel:[phone] Referring Provider: Jagdeep Olsen, [address] [facility] [address], [place], [address]. tel:[phone] Family History Family Member Type Diagnosis Age At Onset No Information Payers Payer name Insurance type Covered constitution party ID [place]) Anthem [place] Medicaid MC [id number] Social History Type Description Quantity Date Captured Comments Sex Female Smoking Status No Information Chief Complaint And Reason For Visit No Information Reason For Referral Reason For Referral No Information History Of Present Illness Encounter Date Complaint History Of Prese nt Illness No Information Functional Status Date Functional Assessmen t No Information Instructions Date Instruction Additional Infor mation No Information Assessments Type Assessment Date No Information Patient Care Teams Name Effective Dates (start - stop) Status Members No Information
--- OUTSIDE RECORDS SUMMARY | 2024-09-11 11:00 | XMS_ITS | Encounter Summary ---
Author Organization [facility] Address [address] [place] [address] Care Team Providers Care Rock Dust Sprayer Name Role Phone Hany Cohen MD Primary Care Provider [phone] Carolina Barraza [facility] Unavailable [phone] Chencho Haney MD Unavailable [phone] Reason for Visit * Reason Comments Med Management Follow-up Encounter Details Date Type Department Care Team ([facility] Contact Info) Description 09/11/2024 11:00 AM EDT Office Visit [facility] [address] [facility] [address] [place] [id number] Carolina Bararza [facility]- [address] [facility] [address] [place] [id number] PTSD (post-traumatic stress disorder) (CMS/HCC); Social anxiety disorder (CMS/HCC); Cyclothymic disorder (CMS/HCC); Moderate episode of recurrent major depressive disorder (CMS/HCC); Generalized anxiety disorder (CMS/HCC); Mixed obsessional thoughts and acts (CMS/HCC); Psychophysiological insomnia Social History Tobacco Use Types Packs/Day Years Used Date Smoking Tobacco: Former Cigarettes 0.5 20 Smokeless Tobacco: Never Alcohol Use Standard Drinks/Week Comments Not Currently 0 (1 standard drink = 0.6 oz pur e alcohol) caffiene- occasional pop PHQ-2 Answer Date Recorded Patient Health Questionnaire-2 Score 6 07/24/2024 Education Answer Date Recorded What is the highest level of school you have completed or the highest degree you have received? Associate degree: academic program 06/21/2024 Comments No Sex and Gender Information Value Date Recorded Sex Assigned at Not on file Legal Sex Female 11:47 PM EDT Gender Identity Not on file Sexual Orientation Not on file Occupation Industry Job Start Date Job End Date Not on file Not on file Not on file Not on file documented as of this encounter Last Filed Vital Signs Vital Sign Reading Time Taken Comments Blood Pressure 110/82 09/11/2024 10:48 AM EDT Pulse 75 09/11/2024 10:48 AM EDT Temperature - - Respiratory Rate - - Oxygen Saturation - - Inhaled Oxygen Concentration - - Weight 91.6 kg (202 lb) 09/11/2024 10:48 AM EDT Height - - Body Mass Index 39.45 08/30/2024 8:15 AM EDT documented in this encounter Progress Notes * Carolina Barraza, PMHNP-BC - 09/11/2024 11:00 AM EDT Images from the original note were not included. HPI: June Begum is a 44 y.o. female with a history of HTN, GERD, DDD of lower back, PTSD, MARLYS, MDD, OCD, social anxiety, and cyclothymic disorder. Patient is here today for follow-up. At patient's last visit on 08/21/24, her Vraylar was increased to 3 mg. She states she lost her cat this past week due to an acute illness. She states despite this loss, she is doing well. She feels less irritable and anxious. She states her partner has even noticed this positive improvement. She denies any side effects. She is taking her Hydroxyzine 3 times a day, which has helped with her anxiety. She continues to see miroslava on a regular basis for counseling. SUBJECTIVE: PAST MEDICAL HISTORY: Past Medical History: Diagnosis Date Benign essential hypertension (CMS/HCC) Chronic pain of left knee Chronic seasonal allergic rhinitis due to pollen Cyclothymic disorder (CMS/HCC) DDD (degenerative disc disease), lumbar Depression (CMS/HCC) Eustachian tube dysfunction, left MARLYS (generalized anxiety disorder) (CMS/HCC) GERD without esophagitis H/O gastric sleeve 2022 Hormone disorder Insomnia, persistent Mood disorder (CMS/HCC) Multiple renal calculi OCD (obsessive compulsive disorder) (CMS/HCC) PTSD (post-traumatic stress disorder) (CMS/HCC) Right kidney mass RLS (restless legs syndrome) S/P bilateral salpingo-oophorectomy Social anxiety disorder (CMS/HCC) Surgical menopause MEDICATIONS: Current Outpatient Medications Medication Instructions furosemide (LASIX) 40 mg, Oral, Daily PRN hydrOXYzine HCl (ATARAX) 25 mg, Oral, 4 times daily PRN lamoTRIgine (LAMICTAL) 150 mg, Oral, Nightly meclizine (ANTIVERT) 25 mg, Oral, 4 times daily PRN montelukast (SINGULAIR) 10 mg, Oral, Nightly nystatin (Mycostatin) [id number] UNIT/GM powder Topical, 2 times daily oxyCODONE-acetaminophen (Percocet) 5-325 MG tablet 1 tablet, Oral, 4 times daily PRN pantoprazole (PROTONIX) 40 mg, Oral, 2 times daily, Do not crush, chew, or split. PARoxetine (PAXIL) 40 mg, Oral, Every morning pramipexole (MIRAPEX) 0.5 mg, Oral, Nightly prazosin (MINIPRESS) 5 mg, Oral, Nightly sucralfate (CARAFATE) 1 g, Oral, Every 6 hours scheduled Vraylar 3 mg, Oral, Daily ALLERGIES: Allergies Allergen Reactions Ciprofloxacin Effexor [Venlafaxine] GI intolerance Profuse vomiting Fentanyl Other Went into shock Morphine Sulfate (Concentrate) Penicillins Seroquel [Quetiapine] GI intolerance Vomiting, nausea, stomach pain SURGICAL HISTORY: Past Surgical History: Procedure Laterality Date SECTION, LOW TRANSVERSE 06/1999 SECTION, LOW TRANSVERSE 01/2002 EXPLORATORY LAPAROTOMY bilateral salpingo-oophorectomy and lysis of adhesions GASTRIC BYPASS Gastric sleeve SALPINGOOPHORECTOMY Bilateral Lysis of adhesions TOTAL ABDOMINAL HYSTERECTOMY [facility] FAMILY HISTORY: Family History Problem Relation Name [...] Marijuana Comment: teenahe Patient Care Team: Hany Cohen MD as PCP - General (Family Medicine) [facility]ition[facility] ([facility]al Health) Chencho Haney MD as Referring Physician (Urology) PSYCHIATRIC REVIEW OF SYMPTOMS AND MENTAL STATUS EXAM ROS: Patient denies fatigue, malaise, night sweats, weight loss, weight gain, cough, SOB, palpitations, chest pain, insomnia, dysphagia, abdominal pain, N/V/D, pruritus, rash, headache, dizziness, seizures, tremors, headache. Appearance Appearance: Normal grooming and hygiene. Appears stated age. Dressed appropriately for weather., Obese Behavior Calm, cooperative, pleasant. Good posture. Psychomotor Activity Intact. No abnormal movements noted. Eye contact Good Speech Normal, clear, regular rate, rhythm and volume Affect Full range. Stable. Appropriate and congruent with mood. Mood Euthymic Thought Process Organized, logical, and goal directed Thought Content: Denies suicidal and homicidal ideation. Perception: Denies auditory or visual hallucinations. No evidence of delusions. Denies derealization and depersonalization. Cognition Alert and attentive during visit Memory Immediate, recent and remote memory intact Insight Good. Acknowledges predominant symptoms of illness and need for treatment Judgement Good. Able to make reasonable life decisions. OBJECTIVE: Visit Vitals BP 110/82 (BP Location: Right arm, Patient Position: Sitting) Pulse 75 Wt 202 lb BMI 39.45 kg/m?? OB Status Hysterectomy Smoking Status Former BSA 1.97 m?? Lab Results Component Value Date GLU 92 06/29/2024 CALCIUM 8.8 06/29/2024 NA 144 06/29/2024 K 3.8 06/29/2024 CO2 30.1 06/29/2024 BUN 11.0 06/29/2024 CREATININE 0.73 06/29/2024 06/29/24 - CMP, Iron studies, Vitamin B12, Vitamin D, Lipids, TSH, A1C ASSESSMENT AND PLAN: Impression: Patient's symptoms do not fit criteria for bipolar 2 disorder given her symptoms have only lasted 3 days at the most. She has significant history of trauma that I feel is contributing to a lot of her symptoms. She has utilized Hydrodyxinze more since lat visit and reports improvement inher anxiety. She had side effects with Seroquel. She reports improvement in symptoms with increased Vraylar dose. She desires to continue medications at current doses. Assessment/Plan Diagnoses and all orders for this visit: PTSD (post-traumatic stress disorder) (CMS/HCC) Social anxiety disorder (CMS/HCC) Cyclothymic disorder (CMS/HCC) Moderate episode of recurrent major depressive disorder (CMS/HCC) Generalized anxiety disorder (CMS/HCC) Mixed obsessional thoughts and acts (CMS/HCC) Psychophysiological insomnia Treatment Plan/Recommendations: - Continue Lamictal for bipolar depression. - Continue Prazosin for PTSD-related nightmares. - Continue Paroxetine 40 mg for depression, anxiety, PTSD. - Continue Hydroxyzine PRN for anxiety. Encouraged her to utilize this more frequently. - Continue Vraylar 3 mg for cyclothymic disorder with mixed features. - Continue counseling for additional mental health support and treatment. - RTC in 1 month. Discussed any medication changes and follow-up plan with patient. Encouraged patient to call office sooner if symptoms worsen or if any questions/concerns arise. Patient was seen Face to Face, Total time spent with patient was 10 minutes, which includes reviewing chart documents, previous notes/records, counseling and discussion with patient and/or coordination of care as described above. documented in this encounter Plan of Treatment Upcoming Encounters Date Type Department Care Team (Late st Contact Info) Description 09/26/2024 4:00 PM EDT Clinical Support [facility] [address] [place] [address] Javy Rivera LPC 10/09/2024 11:00 AM EDT Office Visit [facility] [address] [facility] [address] [place] [id number] Carolina Barraza PMHNP-BC [address] [facility] [address] [place] [id number] 11/30/2024 10:15 AM EDT Office Visit [facility] [address] [place] [address] Hany Cohen MD [address] [place] [phone] documented as of this encounter Visit Diagnoses Diagnosis PTSD (post-traumatic stress disorder) (CMS/HCC) Posttraumatic stress disorder Social anxiety disorder (CMS/HCC) Social phobia Cyclothymic disorder (CMS/HCC) Cyclothymic disorder Moderate episode of recurrent major depressive disorder (CMS/HCC) Generalized anxiety disorder (CMS/HCC) Generalized anxiety disorder Mixed obsessional thoughts and acts (CMS/HCC) Psychophysiological insomnia Persistent disorder of initiating or maintaining sleep documented in this encounter Additional Health Concerns Assessment Noted Time PHQ-9 Depression Total Score: 17 025 2:34 PM EDT documented as of this encounter Care Teams Rock Dust Sprayer Relationship Specialty Start Date End Date Hany Cohen MD [address] [place] [phone] PCP - General Family Medicine 11/29/23 Carolina Barraza PMHNP- [address] [facility] [address] [place] [id number] Nurse Practitioner Behavioral Health 06/21/24 Chencho Haney MD [address] [place] [address] Referring Physician Urology 06/21/24 documented as of this encounter
[2024-09-21 09:56] VITALS: BP 118/81; PULSE 77; TEMP 37.2; O2SAT 100; BMI 39.4
[2024-09-21 10:02] VITALS: O2SAT 100
--- NOTE | 2024-09-21 10:06 | ED.GENADUL1 ---
HPI HPI - General Adult General Chief complaint: Upper Respiratory Infection Stated complaint: URTI COMPLAINTS Time Seen by Provider: 09/21/24 10:01 Source: patient Mode of arrival: walk-in History of Present Illness HPI narrative: 44-year-old female presents to the emergency department for cough. She is coughing up green phlegm and she has had this for 4 days. Her chest hurts when she coughs. She went to urgent care but they told her to come here. No vomiting or diarrhea. Her throat is been hurting from the coughing. She is not worried about strep throat. Related Data Home Medications ?Medication ?Instructions ?Recorded ?Confirmed clonidine HCl 0.1 mg tablet 0.1 mg PO DAILY PRN anxiety 11/02/22 11/02/22 fexofenadine 180 mg tablet 180 mg PO DAILY 11/02/22 11/02/22 montelukast 10 mg tablet 10 mg PO QPM 11/02/22 11/02/22 oxycodone-acetaminophen 5 mg-325 1 tab PO .Q4HRs PRN pain 11/02/22 11/02/22 mg tablet tizanidine 4 mg tablet 4 mg PO TID PRN muscle spasticity 11/02/22 11/02/22 cariprazine 3 mg capsule (Vraylar) 3 mg PO DAILY 09/21/24 09/21/24 furosemide 40 mg tablet 40 mg PO DAILY 09/21/24 09/21/24 lamotrigine 150 mg tablet 150 mg PO DAILY 09/21/24 09/21/24 pantoprazole 40 mg tablet,delayed 40 mg PO Q12H 09/21/24 09/21/24 release paroxetine HCl 40 mg tablet 40 mg PO DAILY 09/21/24 09/21/24 potassium bicarbonate-citric acid 25 meq PO BID 09/21/24 09/21/24 25 mEq effervescent tablet (Effer-K) pramipexole 0.5 mg tablet 0.5 mg PO DAILY 09/21/24 09/21/24 prazosin 5 mg capsule 5 mg PO DAILY 09/21/24 09/21/24 Previous Rx's ?Medication ?Instructions ?Recorded azithromycin 250 mg tablet See Rx Instructions PO .COMPLEX #6 09/21/24 (Zithromax Z-Von) tabs benzonatate 100 mg capsule 100 mg PO TID PRN cough #20 caps 09/21/24 Allergies Allergy/AdvReac Type Severity Reaction Status Date / Time codeine Allergy Severe Verified 11/02/22 15:30 morphine Allergy Severe Verified 11/02/22 15:30 Penicillins Allergy Severe Verified 11/02/22 15:30 sulfamethoxazole (From Allergy Severe Verified 11/02/22 15:30 Bactrim) trimethoprim (From Bactrim) Allergy Severe Verified 11/02/22 15:30 Opioid HPI Opioid Management Most Recent Opioid Data: Last Pain Scale 8 05/21/23, 14:09 Review of Systems ROS Narrative A ten point review of systems is negative except as noted above. PFSH PFSH Social History Smoking status: Former smoker Little interest or pleasure in doing things: not at all Feeling down, depressed, or hopeless: not at all Exam Narrative Exam Narrative: Nurses note and vital signs reviewed and patient is not hypoxic. General: The patient appears well and in no apparent distress. Patient is resting comfortably on cart. Skin: Warm, dry, no pallor noted. There is no rash noted. Head: Normocephalic, atraumatic Eye: Normal conjunctiva, no drainage Ears, Nose, Mouth, and Throat: oral mucosa is moist. Nares patent. Cardiovascular: Regular Rate and Rhythm Respiratory: Coughing frequently, no rales or rhonchi present, breath sounds are equal Back: non-tender GI: Soft and nontender Musculoskeletal: The patient has no evidence of calf tenderness, no pitting edema, symmetrical pulses noted bilaterally Neurological: A&O, normal speech Psychiatric: Cooperative Constitutional Vital Signs, click to edit/add: Last Vital Signs Temp 98.9 F 09/21/24 09:56 Pulse 77 09/21/24 09:56 Resp 18 09/21/24 09:56 BP 118/81 09/21/24 09:56 Pulse Ox 100 09/21/24 10:02 O2 Del Method Room Air 09/21/24 10:02 Course Vital Signs Vital signs: Vital Signs Temperature 98.9 F 09/21/24 09:56 Pulse Rate 77 09/21/24 09:56 Respiratory Rate 18 09/21/24 09:56 Blood Pressure 118/81 09/21/24 09:56 Pulse Oximetry 100 09/21/24 09:56 Oxygen Delivery Method Room Air 09/21/24 09:56 Temperature 98.9 F 09/21/24 09:56 Pulse Rate 77 09/21/24 09:56 Respiratory Rate 18 09/21/24 09:56 Blood Pressure 118/81 09/21/24 09:56 Pulse Oximetry 100 09/21/24 10:02 Oxygen Delivery Method Room Air 09/21/24 10:02 Medical Decision Making MDM Narrative Medical decision making narrative: I do not feel that she requires any testing. We discussed COVID and strep testing and she does not feel like it is either 1 of those. She does not feel she needs the swabs. Chest x-ray is not indicated and she is prescribed Zithromax and Tessalon. Treatment diagnosis and follow-up were discussed with the patient. Differential Diagnosis Differential Diagnosis: Upper respiratory infection, pneumonia Discharge Plan Discharge Chief Complaint: Upper Respiratory Infection Clinical Impression: Upper respiratory infection Patient Disposition: Home, Self-Care Time of Disposition Decision: 10:05 Condition: Good Mode of Transportation: Private Vehicle Prescriptions / Home Meds: New azithromycin [Zithromax Z-Von] 250 mg tablet See Rx Instructions .ROUTE .COMPLEX Qty: 6 0RF Rx Instructions: For 250 mg dose pack: take 500 mg today (day 1), then 250 mg for 4 days (days 2-5) benzonatate 100 mg capsule 100 mg PO TID PRN (Reason: cough) Qty: 20 0RF No Action clonidine HCl 0.1 mg tablet 0.1 mg PO DAILY PRN (Reason: anxiety) fexofenadine 180 mg tablet 180 mg PO DAILY lamotrigine 100 mg tablet 150 mg PO QPM meclizine 25 mg tablet 25 mg PO DAILY PRN (Reason: dizziness) montelukast 10 mg tablet 10 mg PO QPM omeprazole 20 mg capsule,delayed release(DR/EC) 20 mg PO BID oxycodone-acetaminophen 5-325 mg tablet 1 tab PO .Q4HRs PRN (Reason: pain) tizanidine 4 mg tablet 4 mg PO TID PRN (Reason: muscle spasticity) tamsulosin [Flomax] 0.4 mg capsule 0.4 mg PO DAILY Qty: 7 0RF ondansetron 4 mg tablet,disintegrating 4 mg PO Q6H PRN (Reason: nausea and vomiting) Qty: 20 0RF [id number] [Bromfed DM] 2-30-10 mg/5 mL syrup 10 ml PO Q6H PRN (Reason: cold symptoms) Qty: 200 0RF Print Language: Cameroonian Instructions: Upper Respiratory Infection (ED) Referrals: Hany Cohen MD [Primary Care Provider, Family Practice] - 1 week
--- OUTSIDE RECORDS SUMMARY | 2024-09-21 10:07 | XMS_ITS | Clinical Summary ---
Author Organization [facility] Address [id number] [address] [place] [address] Care Team Providers Care Fur Liner Name Role Phone Hany Cohen MD Primary Care Provider [phone] Allergies Active Allergy Reactions Criticality Noted Date Comments Sulfamethoxazole-Trimethoprim 2021 Ciprofloxacin Rash Low 08/14/2020 Morphine 08/14/2020 Penicillins High 08/14/2020 Propoxyphene-Acetaminophen 1 Medications buPROPion XL (WELLBUTRIN XL) 150 mg 24 hr tablet 2 Active celecoxib (CeleBREX) 200 mg capsule take 1 capsule by mouth twice a day if needed 2 Active PREMARIN vaginal cream insert 1 applicatorful vaginally three times a week 2 Active ALLERGY RELIEF, FEXOFENADINE, 180 mg tablet Take 180 mg by mouth daily. 2 Active hydroCHLOROthi azide (HYDRODIURIL) 25 mg tablet Take 25 mg by mouth daily. 2 Active lisinopriL (PRINIVIL,ZEST RIL) 20 mg tablet Take 20 mg by mouth in the morning. 2 Active meclizine (ANTIVERT) 25 mg tablet Take by mouth 4 (four) times a day as needed. 1 Active methocarbamoL (ROBAXIN) 750 mg tablet Take by mouth. 2 Active montelukast (SINGULAIR) 10 mg tablet Take 10 mg by mouth nightly. 2 Active omeprazole (PriLOSEC) 40 mg capsule Take 40 mg by mouth in the morning and 40 mg before bedtime. 2 Active oxyCODONE-acet aminophen (PERCOCET) 5-325 mg per tablet Take 1 tablet by mouth every 6 (six) hours as needed. 2 Active prazosin (MINIPRESS) 5 mg capsule 2 Active venlafaxine XR (EFFEXOR XR) 75 mg 24 hr capsule Take 75 mg by mouth in the morning. 2 Active clotrimazole-b etamethasone (LOTRISONE) creamIndicatio ns:Chronic mycotic otitis externa Apply 1 application topically in the morning and 1 application before bedtime. 30 g 2 Active Active Problems Problem Noted Date Diagnosed Date Chronic mycotic otitis externa 11/25/2021 Cerumen debris on tympanic membrane of left ear 11/25/2021 Social History Tobacco Use Types Packs/Day Years Used Date Smoking Tobacco: Never Smokeless Tobacco: Never Alcohol Use Standard Drinks/Week Comments Not Currently 0 (1 standard drink = 0.6 oz pur e alcohol) Childcare Answer Date Recorded Childcare Unknown 09/27/2019 Employment Answer Date Recorded Employment Unknown 09/27/2019 Purpose - Life Answer Date Recorded Purpose and direction in life Unknown Comments Unknown Sex and Gender Information Value Date Recorded Sex Assigned at Not on file Legal Sex Female 1:31 PM EDT Gender Identity Not on file Sexual Orientation Not on file Last Filed Vital Signs Vital Sign Reading Time Taken Comments Blood Pressure - - Pulse - - Temperature - - Respiratory Rate - - Oxygen Saturation - - Inhaled Oxygen Concentration - - Weight 141.1 kg (311 lb) 12/09/2021 11:45 AM EDT Height - - Body Mass Index - - Plan of Treatment Health Maintenance Due Date Last Done Comments Depression Screening 1990 Tobacco Screening 1990 Adult BMI Screening 1996 DTaP,Tdap and Td Vaccines (1 - Tdap) 1997 Pap Smear 1999 Influenza Vaccine 12/25/2024 Medical Devices Not on file Insurance [employer] Care Teams Fur Liner Relationship Specialty Start Date End Date Hany Cohen MD PCP - General Family Medicine 10/30/21
--- OUTSIDE RECORDS SUMMARY | 2024-09-21 10:07 | XMS_ITS | Encounter Summary ---
Author Organization [facility] Address [address] [place] [address] Care Team Providers Care Head Animal Trainer Name Role Phone Hany Cohen MD Primary Care Provider + Hany Cohen MD Primary Care Provider + Carolina Barraza PMHNP-BC Unavailable [phone] Chencho Haney MD Unavailable [phone] Encounter Details Date Type Department Care Team (Late st Contact Info) Description 06/11/2023 Clinisync Result Encounter [facility] Unsolicited Provider, Generic External Data Social History Tobacco Use Types Packs/Day Years Used Date Smoking Tobacco: Every Day Cigarettes 0.5 20 Smokeless Tobacco: Never Comments Unknown Sex and Gender Information Value Date Recorded Sex Assigned at Not on file Legal Sex Female 11:47 PM EDT Gender Identity Not on file Sexual Orientation Not on file documented as of this encounter Plan of Treatment Upcoming Encounters Date Type Department Care Team (Late Contact Info) Description 09/26/2024 4:00 PM EDT Clinical Support [facility] [address] [place] [address] Javy Rivera LPC 10/09/2024 11:00 AM EDT Office Visit [facility] [address] [facility] [address] [place] [phone] Carolina Barraza PMHNP-BC [address] [facility] [address] [place] [phone] 11/30/2024 10:15 AM EDT Office Visit [facility] [address] [place] [address] Hany Cohen MD [address] [place] [address] documented as of this encounter Procedures Procedure Name Priority Date/Time Associated Diagnosis Comments XR ABDOMEN 1V 06/11/2023 12:29 PM EST documented in this encounter Results * XR ABDOMEN 1V (06/11/2023 12:29 PM EST) Anatomical Region Laterality Modality Other 06/11/2023 12:2 9 PM EST Narrative 06/11/2023 12:32 PM EST [address] [address] XRay Report Signed Patient: JUNE RHODES MR#: [id number] : 1980 Acct:[id number] Age/Sex: 43 / F ADM Date: 06/11/23 Loc: US Attending Dr: Chencho Haney M.D. Ordering Physician: Chencho Haney M.D. Date of Service: 06/11/23 Procedure(s): XR abdomen 1V Accession Number(s): [id number] cc: Chencho Haney M.D.; Hany Cohen M.D. [address] [address] Patient Name: JUNE RHODES MRN: [id number] date: 1980 Sex: F Assigned Patient Location: Current Patient Location: US Accession/Order Number: [id number] Exam Date: 06/11/2023 11:01 Report Date: 06/11/2023 12:29 At the request of: CHENCHO HANEY Procedure: XR abdomen 1V EXAM: XR abdomen 1V HISTORY: kidney stone COMPARISON: None. TECHNIQUE: AP view of the abdomen. FINDINGS: Nonobstructive bowel gas pattern is noted. There are multiple right renal calculi. The osseous structures are intact. XR/XR abdomen 1V IMPRESSION: Nonobstructive bowel gas pattern. Right nephrolithiasis. Electronically authenticated by: CHARLENE GROSSMAN Date: 06/11/2023 12:29 Dictated By: Charlene Grossman M.D. Signed By: 06/11/231231 DD/ 28 TD/TT: Chief Sustainability Officer: Procedure Note Radiology, Radiologist, - 06/11/2023 [place] [address] XRay Report Signed Patient: JUNE RHODES EMR#: [id number] : 1980Acct:[id number] Age/Sex: 43 / FADM Date: 06/11/23 Loc: US Attending Dr: Chencho Haney M.D. Ordering Physician: Chencho Haney M.D. Date of Service: 06/11/23 Procedure(s): XR abdomen 1V Accession Number(s): [id number] cc: Chencho Haney M.D.; Hany Cohen M.D. [address] [place] [id number] Patient Name: JUNE RHODES MRN: [id number] date: 1980 Sex: F Assigned Patient Location: Current Patient Location: Accession/Order Number: [id number] Exam Date: 06/11/2023 11:01 Report Date: 06/11/2023 12:29 At the request of: CHENCHO HANEY Procedure: XR abdomen 1V EXAM: XR abdomen 1V HISTORY: kidney stone COMPARISON: None. TECHNIQUE: AP view of the abdomen. FINDINGS: Nonobstructive bowel gas pattern is noted. There are multiple right renal calculi. The osseous structures are intact. XR/XR abdomen 1V IMPRESSION: Nonobstructive bowel gas pattern. Right nephrolithiasis. Electronically authenticated by: CHARLENE GROSSMAN Date: 06/11/2023 12:29 Dictated By: Charlene Grossman M.D. Signed By:06/11/231231 DD/ 28 TD/TT: Chief Sustainability Officer: us Generic External Data Provider [facility] Final Result documented in this encounter Visit Diagnoses Not on filedocumented in this encounter Additional Health Concerns Assessment Noted Time PHQ-9 Depression Total Score: 16 024 10:08 AM EST documented as of this encounter Care Teams Head Animal Trainer Relationship Specialty Start Date End Date Hany Cohen MD PCP - General Family Medicine 04/26/22 11/28/23 Hany Cohen MD [address] [facility] [place] [address] PCP - General Family Medicine 11/29/23 Carolina [facility] [address] [place] [address] Nurse Practitioner Behavioral Health 06/21/24 Chencho Haney MD [address] [place] [address] Referring Physician Urology 06/21/24 documented as of this encounter
--- OUTSIDE RECORDS SUMMARY | 2024-09-21 10:07 | XMS_ITS | Clinical Summary ---
Author Organization [facility] Address [address] [place] [address] Care Team Providers Care Billet Inspector Name Role Phone Hany Cohen MD Primary Care Provider [phone] Carolina Barraza PMHNP- Unavailable Chencho Haney MD Unavailable [phone] Allergies Active Allergy Reactions Criticality Noted Date Comments Ciprofloxacin 05/07/2023 Venlafaxine GI intolerance 06/21/2024 Profuse vomiting Fentanyl Other 06/21/2024 Went into shock Morphine Sulfate (Concentrate) 05/07/2023 Penicillins 05/07/2023 Quetiapine GI intolerance 07/24/2024 Vomiting, nausea, stomach pain Medications lamoTRIgine (LaMICtal) 150 MG tabletIndicatio ns:Moderate mood disorder (CMS/HCC) Take 1 tablet (150 mg) by mouth at bedtime 90 tablet 3 4 12/17/19 25 Active meclizine (Antivert) 25 MG tabletIndicatio ns:Other acute sinusitis, recurrence not specified Take 1 tablet (25 mg) by mouth 4 (four) times a day as needed for dizziness 30 tablet 2 4 12/17/19 25 Active montelukast (Singulair) 10 MG tabletIndicatio ns:Other acute sinusitis, recurrence not specified Take 1 tablet (10 mg) by mouth at bedtime 30 tablet 11 4 12/17/19 25 Active prazosin (Minipress) 5 MG capsuleIndicati ons:Generalized anxiety disorder (CMS/HCC) Take 1 capsule (5 mg) by mouth at bedtime 30 capsule 11 4 12/17/19 25 Active sucralfate (Carafate) 1 GM/10ML suspensionIndic ations:Gastroes ophageal reflux disease without esophagitis Take 10 mL (1 g) by mouth every 6 (six) hours 1200 mL 4 12/17/19 25 Active pantoprazole (ProtoNix) 40 MG EC tabletIndicatio ns:Gastroesopha geal reflux disease without esophagitis Take 1 tablet (40 mg) by mouth in the morning and 1 tablet (40 mg) before bedtime. Do not crush, chew, or split.. 4 Active nystatin (Mycostatin) 029206 UNIT/GM powderIndicatio ns:Panniculitis Apply topically 2 (two) times a day 60 g 3 4 Active pramipexole (Mirapex) 0.5 MG tabletIndicatio ns:Restless leg syndrome TAKE 1 TABLET BY MOUTH AT BEDTIME 30 tablet 5 5 Active PARoxetine (Paxil) 40 MG tabletIndicatio ns:Mild mood disorder (CMS/HCC) Take 1 tablet (40 mg) by mouth in the morning. 30 tablet 5 5 Active hydrOXYzine HCl (Atarax) 25 MG tabletIndicatio ns:Generalized anxiety disorder (CMS/HCC) Take 1 tablet (25 mg) by mouth 4 (four) times a day as needed for anxiety 60 tablet 4 5 Active Cariprazine HCl (Vraylar) 3 MG capsuleIndicati ons:PTSD (post-traumatic stress disorder) (CMS/HCC),Cyclo thymic disorder (CMS/HCC),Moder ate episode of recurrent major depressive disorder (CMS/HCC) Take 3 mg by mouth Daily 30 capsule 1 5 Active oxyCODONE-aceta minophen (Percocet) 5-325 MG tabletIndicatio ns:DDD (degenerative disc disease), lumbar Take 1 tablet by mouth 4 (four) times a day as needed for severe pain 120 tablet 5 09/23/19 25 Active furosemide (Lasix) 40 MG tabletIndicatio ns:Bilateral leg edema Take 1 tablet (40 mg) by mouth Daily as needed (Edema) 5 Active furosemide (Lasix) 40 MG tabletIndicatio ns:Bilateral leg edema Take 1 tablet (40 mg) by mouth Daily 30 tablet 5 5 08/31/19 25 Discontinu ed(Dose adjustment ) oxyCODONE-aceta minophen (Percocet) 5-325 MG tabletIndicatio ns:DDD (degenerative disc disease), lumbar Take 1 tablet by mouth 4 (four) times a day as needed for severe pain 120 tablet 5 08/24/19 25 Discontinu ed(Reorder ) Active Problems Problem Noted Date Diagnosed Date Panic attack due to post traumatic stress disord er (PTSD) 09/08/2024 Cyclothymic disorder 07/14/2024 PTSD (post-traumatic stress disorder) 06/21/2024 Moderate episode of recurrent major depressive d isorder 06/21/2024 Assessment & Plan (08/30/2024 9:12 AM EDT): Mood improved with medication changes. Follow up with psychiatry. Social anxiety disorder 06/21/2024 Mixed obsessional thoughts and acts 06/21/2024 Psychophysiological insomnia 06/21/2024 Bilateral leg edema 06/13/2024 Assessment & Plan (08/30/2024 9:11 AM EDT): Edema improved with lasix and use PRN. Elevate legs PRN. Assessment & Plan (06/13/2024 10:01 AM EST): Edema worse and start lasix PRN. Elevate legs PRN. Tinea corporis 05/19/2024 Class 2 obesity due to exces s calories without serious comorbidity with body mass index (BMI) of 39.0 to 39.9 in adult 05/19/2024 Assessment & Plan (08/30/2024 9:11 AM EDT): Weight loss indicated. Assessment & Plan (06/13/2024 10:03 AM EST): Weight loss indicated. Assessment & Plan (05/19/2024 10:06 AM EST): Weight loss indicated. Essential hypertension, benign 05/11/2023 Assessment & Plan (08/30/2024 9:11 AM EDT): BP normal and monitor. Assessment & Plan (06/13/2024 10:03 AM EST): BP elevated but previously controlled and monitor PRN. Discussed DASH diet. Assessment & Plan (04/12/2024 10:21 AM EST): BP stable and monitor. Increase fluids. Assessment & Plan (03/01/2024 10:59 AM EST): BP stable and monitor. Increase fluids. Assessment & Plan (05/11/2023 11:01 AM EST): BP stable and monitor. Increase fluids. Chronic pain of both knees 05/11/2023 Assessment & Plan (08/30/2024 9:11 AM EDT): Pain for years and likely OA. Check x-ray. Start voltaren gel. Degeneration of intervertebr al disc of lumbar region with discogenic back pain and lower extremity pain 05/11/2023 Assessment & Plan (08/30/2024 9:11 AM EDT): Pain unchanged and continue medication PRN. Assessment & Plan (06/13/2024 10:03 AM EST): Pain unchanged and continue medication PRN. Assessment & Plan (04/12/2024 10:21 AM EST): Pain unchanged and continue medication PRN. Assessment & Plan (03/01/2024 10:59 AM EST): Pain unchanged and continue medication PRN. Assessment & Plan (05/11/2023 11:00 AM EST): Pain worse and start PT. Refused injections. Continue medication PRN. Generalized anxiety disorder 05/11/2023 Assessment & Plan (08/30/2024 9:12 AM EDT): Mood improved with medication changes. Follow up with psychiatry. Assessment & Plan (06/13/2024 10:04 AM EST): Symptoms improved but still present and increase paxil. Warned will take 2-3 weeks to notice improvement in mood. Continue lamictal. Start clonidine PRN. Assessment & Plan (04/12/2024 10:21 AM EST): Symptoms improved but still present and increase paxil. Warned will take 2-3 weeks to notice improvement in mood. Continue lamictal. Assessment & Plan (03/01/2024 11:00 AM EST): Symptoms worse and add paxil. Warned will take 2-3 weeks to notice improvement in mood. Continue lamictal. Use hydroxyzine PRN. Assessment & Plan (05/11/2023 11:01 AM EST): Mood stable and continue medication. Use hydroxyzine PRN. Gastroesophageal reflux disease without esophagi tis 05/11/2023 Assessment & Plan (05/11/2023 11:01 AM EST): Severe symptoms and follow up with surgery. Hormone disorder 05/11/2023 Renal calculi 05/11/2023 Assessment & Plan (11/29/2023 10:14 AM EDT): Continued pain and follow with urology. Did not fill antibiotic and start bactrim. Assessment & Plan (05/11/2023 11:00 AM EST): History of stones and check US. Kidney mass 05/11/2023 Restless leg syndrome 05/11/2023 S/P bilateral salpingo-oophorectomy 05/11/2023 Seasonal allergic rhinitis due to pollen 024 Dyshidrotic eczema 05/11/2023 Assessment & Plan (05/11/2023 11:00 AM EST): Rash appears to be eczema and use steroid cream. Resolved Problems Problem Noted Date Diagnosed Date Resolved Date Acute bronchitis due to othe r specified organisms 04/12/2024 04/24/2024 Assessment & Plan (04/12/2024 10:20 AM EST): Take antibiotics BID for 10 days. Use [...] no better or worse call for re-evaluation. Panniculitis 03/01/2024 04/24/2024 Annual physical exam 11/29/2023 024 Assessment & Plan (11/29/2023 10:14 AM EDT): Due for labs. Discussed proper diet and regular aerobic exercise. Need aerobic exercise 5-6 days a week for 30 minutes at a time. Smaller portions and limit total calories. Due for colon cancer screening and willing to have cologuard. Tetanus every 10 years. Advised not to smoke. Discussed daily Aspirin therapy. ETD (Eustachian tube dysfunction), left 05/11/2023 04/24/2024 Primary insomnia 05/11/2023 06/21/2024 Assessment & Plan (06/13/2024 10:04 AM EST): Sleeping well with medication and continue. Assessment & Plan (04/12/2024 10:21 AM EST): Sleeping improved with doxepin but still waking up and increase dose. Assessment & Plan (03/01/2024 11:00 AM EST): Able to fall asleep but waking up and add doxepin. Assessment & Plan (05/11/2023 11:02 AM EST): Able to fall asleep but waking up and add trazodone. Mild mood disorder 05/11/2023 Assessment & Plan (06/13/2024 10:04 AM EST): Symptoms improved but still present and increase paxil. Warned will take 2-3 weeks to notice improvement in mood. Continue lamictal. Assessment & Plan (04/12/2024 10:21 AM EST): Symptoms improved but still present and increase paxil. Warned will take 2-3 weeks to notice improvement in mood. Continue lamictal. Assessment & Plan (03/01/2024 11:00 AM EST): Symptoms worse and add paxil. Warned will take 2-3 weeks to notice improvement in mood. Continue lamictal. Assessment & Plan (05/11/2023 11:01 AM EST): Mood controlled with medication and continue. Gross hematuria 05/11/2023 04/24/2024 Assessment & Plan (05/11/2023 11:01 AM EST): Blood in urine but no evidence of infection. Check US and culture. Screening mammogram for breast cancer 05/11/2023 04/24/2024 Encounters Date Type Department Care Team Description 09/21/2024 Refill [facility] [address] [place] [address] Hany Cohen MD DDD (degenerative disc disease), lumbar 09/11/2024 11:00 AM EDT Office Visit [facility] [address] [place] [address] Carolina Barraza, PMHNP- PTSD (post-traumatic stress disorder) (CMS/HCC); Social anxiety disorder (CMS/HCC); Cyclothymic disorder (CMS/HCC); Moderate episode of recurrent major depressive disorder (CMS/HCC); Generalized anxiety disorder (CMS/HCC); Mixed obsessional thoughts and acts (CMS/HCC); Psychophysiological insomnia 09/11/2024 Travel 09/06/2024 10:00 AM EDT Clinical Support [facility] [address] [place] [address] Javy Rivera LPC Social anxiety disorder (CMS/HCC); Panic attack due to post traumatic stress disorder (PTSD) (CMS/HCC) 09/06/2024 Bamboo flowsheet [facility] [address] [place] [address] Javy Rivera LPC 09/06/2024 Travel 08/30/2024 11:00 AM EDT Clinical Support [facility] [address] [place] [address] Javy Rivera LPC PTSD (post-traumatic stress disorder) (CMS/HCC); Social anxiety disorder (CMS/HCC); Cyclothymic disorder (CMS/HCC) 08/30/2024 8:15 AM EDT Office Visit [facility] [address] [place] [address] Hany Cohen MD Essential hypertension, benign (CMS/HCC) (Primary Dx); Degeneration of 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 back pain and lower extremity pain; Bilateral leg edema; Chronic pain of both knees; Moderate episode of recurrent major depressive disorder (CMS/HCC); Generalized anxiety disorder (CMS/HCC); Class 2 obesity due to excess calories without serious comorbidity with body mass index (BMI) of 39.0 to 39.9 in adult 08/30/2024 Bamboo flowsheet [facility] [address] [place] [address] Hany Cohen MD 08/30/2024 Travel 08/23/2024 10:00 AM EDT Clinical Support [facility] [address] [place] [address] Javy Rivera LPC PTSD (post-traumatic stress disorder) (CMS/HCC); Social anxiety disorder (CMS/HCC); Cyclothymic disorder (CMS/HCC) 08/23/2024 Travel 08/23/2024 Refill [facility] [address] [place] [address] Hany Cohen MD DDD (degenerative disc disease), lumbar 08/21/2024 2:00 PM EDT Office Visit [facility] [address] [facility] [address] [place] [address] Carolina Barraza, TRAVISHNP-BC PTSD (post-traumatic stress disorder) (CMS/HCC); Social anxiety disorder (CMS/HCC); Cyclothymic disorder (CMS/HCC); Moderate episode of recurrent major depressive disorder (CMS/HCC); Generalized anxiety disorder (CMS/HCC); Mixed obsessional thoughts and acts (CMS/HCC); Psychophysiological insomnia 08/21/2024 Bamboo flowsheet [facility] [address] [facility] [address] [place] [address] Carolina Barraza PMHNP-BC 08/21/2024 Travel 08/14/2024 Orders Only [facility] [address] [place] [address] Jaycee Khanna NP 07/31/2024 10:00 AM EDT Clinical Support [facility] [address] [place] [address] Javy Rivera LPC PTSD (post-traumatic stress disorder) (CMS/HCC); Social anxiety disorder (CMS/HCC); Cyclothymic disorder (CMS/HCC) 07/31/2024 Bamboo flowsheet [facility] [address] [facility] [address] [place] [address] Javy Rivera LPC 07/31/2024 Travel 07/24/2024 2:30 PM EDT Office Visit [facility] [address] [facility] [address] [place] [address] Carolina Barraza PMHNP-BC Cyclothymic disorder (CMS/HCC) ; PTSD (post-traumatic stress disorder) (CMS/HCC); Moderate episode of recurrent major depressive disorder (CMS/HCC); Generalized anxiety disorder (CMS/HCC) ; Mixed obsessional thoughts and acts (CMS/HCC); Social anxiety disorder (CMS/HCC); Psychophysiological insomnia 07/24/2024 Bamboo flowsheet [facility] [address] [place] [address] [facility] 07/24/2024 Travel 07/20/2024 11:00 AM EDT Clinical Support [facility] [address] [place] [address] Javy Rivera LPC Social anxiety disorder (CMS/HCC); Panic attack due to post traumatic stress disorder (PTSD) (CMS/HCC) 07/20/2024 Bamboo flowsheet [facility] [address] [place] [address] Javy Rivera LPC 07/20/2024 Travel 07/19/2024 Telephone [facility] [address] [facility] [address] [place] [address] Carolina Barraza, [facility] Medication Question 07/19/2024 Refill [facility] [address] [address] Hany Cohen MD DDD (degenerative disc disease), lumbar 07/13/2024 10:00 AM EDT Clinical Support [facility] [address] [place] [address] Javy Rivera LPC Social anxiety disorder (CMS/HCC); Panic attack due to post traumatic stress disorder (PTSD) (CMS/HCC); Cyclothymic disorder (CMS/HCC) 07/13/2024 Bamboo flowsheet [facility] [address] [place] [address] Javy Rivera LPC 07/13/2024 Travel 06/29/2024 Clinisync Result Encounter [facility] External Department Unsolicited Provider, Generic External Data from Last 3 Months Family History Medical History Relation Name Comments Suicidality Brother comitted suicid e Heart disease Father Hypertension Maternal Grandfather Diabetes Maternal Grandmother Hypotension Maternal Grandmother Kidney disease Maternal Grandmother Osteoporosis Maternal Grandmother Bipolar disorder Mother Diabetes Mother Kidney disease Mother Schizophrenia Mother Suicidality Mother Bulimia Mother's Sister Suicidality Sister Relation Name Status Comments Brother Father Maternal Grandfather Maternal Grandmother Mother Mother's Sister Sister Social History Tobacco Use Types Packs/Day Years Used Date Smoking Tobacco: Former Cigarettes 0.5 20 Smokeless Tobacco: Never Tobacco Cessation:Counseling Given: Not Answered Alcohol Use Standard Drinks/Week Comments Not Currently [...] file Not on file Not on file Last Filed Vital Signs Vital Sign Reading Time Taken Comments Blood Pressure 110/82 09/11/2024 10:48 AM EDT Pulse 75 09/11/2024 10:48 AM EDT Temperature 36.4 C (97.5 F) 08/30/2024 8:15 AM EDT Respiratory Rate 20 08/30/2024 8:15 AM EDT Oxygen Saturation 98% 08/30/2024 8:15 AM EDT Inhaled Oxygen Concentration - - Weight 91.6 kg (202 lb) 09/11/2024 10:48 AM EDT Height 152.4 cm (5') 08/30/2024 8:15 AM EDT Body Mass Index 39.45 08/30/2024 8:15 AM EDT Plan of Treatment Upcoming Encounters Date Type Department Care Team (Late st Contact Info) Description 09/26/2024 4:00 PM EDT Clinical Support [facility] [address] [place] [address] Javy Rivera LPC 10/09/2024 11:00 AM EDT Office Visit [facility] [address] [place] [address] Carolina Barraza, PMHNP-BC [address] [place] [address] 11/30/2024 10:15 AM EDT Office Visit [facility] [address] [place] [address] Hany Cohen MD [address] [place] [address] Health Maintenance Due Date Last Done Comments CT Colonography 1978 Colonoscopy 1978 FIT 1978 FOBT 1978 Sigmoidoscopy 1978 Mammogram 05/27/2024 05/27/2023, 05/26/2023 Influenza Vaccine (Season Ended) 2024 Colorectal Cancer Screening 12/01/2026 FIT-DNA 12/01/2026 12/02/2023 Procedures Procedure Name Priority Date/Time Associated Diagnosis Comments XR ABDOMEN 1 VIEW Routine 08/14/2024 6:0 2 PM EDT METRO VITAMIN B1, WHOLE BLOOD Routine 06/29/2024 9:47 AM EST VITAMIN B12 Routine 06/29/2024 9:47 AM EST ALL THYROID STIM HORMONE Routine 06/29/2024 9:47 AM EST ALL LIPID PROFILE (FASTING) Routine 06/29/2024 9:47 AM EST METRO BILIRUBIN, DIRECT Routine 06/29/2024 9:47 AM EST [facility] CMP (CMP) (FOR REMOTE [facility] USE) Routine 06/29/2024 9:47 AM EST ALL FOLIC ACID Routine 06/29/2024 9:47 AM EST [facility] VITAMIN D 25 [place] Routine 06/29/2024 9 :47 AM EST [facility] FERRITIN Routine 06/29/2024 9:47 AM EST METRO IRON AND TIBC Routine 06/29/2024 9 :47 AM EST ALL MAGNESIUM Routine 06/29/2024 9:47 AM EST ALL PHOSPHOROUS Routine 06/29/2024 9:47 AM EST MLR HEMOGLOBIN A1C Routine 06/29/2024 9: 47 AM EST ALL CBC WITH AUTO DIFF Routine 9:47 AM EST LAB COLOGUARD COLON CANCER SCREEN Routine 12/02/2023 6:00 PM EDT Colon cancer screening BI MAMMOGRAM SCREENING TOMOSYNTHESIS BILATERAL Routine 05/26/2023 11:43 AM EST Screening mammogram for breast cancer from Last 3 Months or Most Recently Relevant to Health Maintenance Results * XR abdomen 1 view (08/14/2024 6:02 PM EDT) Anatomical Region Laterality Modality Abdomen Radiographic Hina ging us Jaycee Khanna NP IMG XR PROCEDURES Final Result * VITAMIN B12 (06/29/2024 9:47 AM EST) VITAMIN B12 458 232 - 1245 pg/mL [facility] Comment: Performed at: - [address] [id number] [employer] Developer: Javier Balderas PhD, Phone: [phone] 06/29/2024 9:47 AM EST 06/29/2024 9:48 AM EST Narrative GERRY - 06/30/2024 4:07 AM EST us Generic External Data Provider LAB BLOOD ORDERAB LES Final Result [facility] * [facility] VITAMIN D 25 [place] (06/29/2024 9:47 AM EST) [facility] VITAMIN D 37.9 ng/mL [facility] Comment: <20 ng/mL Vit D deficient 20-<30 ng/mL Vit D insufficient 30-100 ng/mL Vit D sufficient >100 ng/mL Potential Toxicity 06/29/2024 9:47 AM EST 06/29/2024 9:48 AM EST Narrative CLINISYNC - 06/29/2024 10:52 AM EST Generic External Data Provider CLINISYNC F inal Result Performing Organization Address [facility]/ZIP Co de Phone Number [facility] * MLR HEMOGLOBIN A1C (06/29/2024 9:47 AM EST) [facility] GLYCOHEMOGLOBIN A1C 5.1 4.5 - 6.2 % [facility] Comment: ADA RECOMMENDED LIMIT 4.0 - 6.0 ADA THERAPEUTIC TARGET < 7.0 ACTION SUGGESTED > 7.0 ESTIMATED AVERAGE GLUCOSE 100 mg/dL [facility] 06/29/2024 9:47 AM EST 06/29/2024 9:48 AM EST Narrative CLINISYNC - 06/29/2024 10:18 AM EST Hany Cohen MD CLINISYNC Final Result Performing Organization Address [facility]/ZIP Co de Phone Number [facility] * METRO VITAMIN B1, WHOLE BLOOD (06/29/2024 9:47 AM EST) [facility] VITAMIN B1 (THIAMINE), BLOOD 86.3 66.5 - 200.0 nmol/L [facility] Comment: This test was developed and its performance characteristics determined by [facility]. It has not been cleared or approved by the Food and Drug Administration. Performed at: [address] [id number] [employer] Developer: Linda Chavez MD, Phone: [phone] 06/29/2024 9:47 AM EST 06/29/2024 9:48 AM EST Narrative CLINISYNC - 07/02/2024 5:09 PM EDT Generic External Data Provider CLINISYNC F inal Result Performing Organization Address City/[facility] Co de Phone Number [facility] TB * METRO IRON AND TIBC (06/29/2024 9:47 AM EST) [facility] IRON 94.0 50.0 - 170.0 ug/dL [facility] TOTAL IRON BINDING CAPACITY 286.0 250.0 - 450.0 ug/dL [facility] PERCENT IRON SATURATION 32.9 % [facility] 06/29/2024 9:47 AM EST 06/29/2024 9:48 AM EST Narrative CLINISYNC - 06/29/2024 10:32 AM EST Generic External Data Provider CLINISYNC F inal Result Performing Organization Address [facility] de Phone Number [facility]NC TB * METRO BILIRUBIN, DIRECT (06/29/2024 9:47 AM EST) BILIRUBIN DIRECT 0.2 0.0 - 0.2 mg/dL [facility] 06/29/2024 9:47 AM EST 06/29/2024 9:48 AM EST Narrative CLINISYNC - 06/29/2024 11:52 AM EST us Hany Cohen MD CLINISYNC Final Result Performing Organization Address [facility] Co de Phone Number [facility] TB * [facility] FERRITIN (06/29/2024 9:47 AM EST) FERRITIN 77.0 8.0 - 252.0 ng/mL [facility] 06/29/2024 9:47 AM EST 06/29/2024 9:48 AM EST Narrative CLINISYNC - 06/29/2024 10:52 AM EST Generic External Data Provider CLINISYNC F inal Result Performing Organization Address City/[facility]/ZIP Co de Phone Number [facility] TB * (ABNORMAL) [facility] CMP (CMP) (FOR REMOTE [facility] USE) (06/29/2024 9:47 AM EST) SODIUM 144 136 - 145 mmol/L [facility] POTASSIUM 3.8 3.5 - 5.1 mmol/L [facility] CHLORIDE 107 98 - 107 mmol/L [facility] CARBON DIOXIDE 30.1 21.0 - 32.0 mmol/L [facility] ANION GAP 10.7 [facility] GLUCOSE 92 74 - 106 mg/dL [facility] BLOOD UREA NITROGEN 11.0 7.0 - 18.0 mg/dL [facility] CREATININE 0.73 0.55 - 1.02 mg/dL [facility] EGFR-AF SCOTTISH >60 >=60 mL/min/1. 73m 2 [facility] TBH EGFR-NON AF SCOTTISH >60 >=60 mL/min/1. 73m 2 [facility] BUN CREATININE RATIO 15.1 [facility] CALCIUM 8.8 8.5 - 10.1 mg/dL [facility] BILIRUBIN TOTAL 0.8 0.2 - 1.0 mg/dL [facility] ASPARTATE AMINO TRANSFERASE 20 15 - 37 U/L [facility] ALANINE AMINOTRANSFERASE 11(L) 14 - 59 U/L [facility] ALKALINE PHOSPHATASE 99 46 - 116 U/L [facility] TOTAL PROTEIN 6.8 6.4 - 8.2 g/dL [facility] ALBUMIN LEVEL 3.7 3.4 - 5.0 g/dL [facility] GLOBULIN 3.1 g/dL [facility] ALBUMIN GLOBULIN RATIO 1.2 [facility] 06/29/2024 9:47 AM EST 06/29/2024 9:48 AM EST Narrative CLINISYNC - 06/29/2024 11:24 AM EST us Generic External Data Provider CLINISYNC F inal Result [facility] TB * ALL THYROID STIM HORMONE (06/29/2024 9:47 AM EST) THYROID STIMULATING HORMONE 0.504 0.358 - 3.740 uIU/mL [facility] 06/29/2024 9:47 AM EST 06/29/2024 9:48 AM EST Narrative CLINISYNC - 06/29/2024 11:52 AM EST Hany Cohen MD CLINISYNC Final Result [facility] * ALL PHOSPHOROUS (06/29/2024 9:47 AM EST) PHOSPHORUS 3.0 2.6 - 4.7 mg/dL [facility] 06/29/2024 9:47 AM EST 06/29/2024 9:48 AM EST Narrative CLINISYNC - 06/29/2024 10:26 AM EST Generic External Data Provider CLINISYNC F inal Result Performing Organization Address City/[facility] Co de Phone Number [facility]NC [facility] * ALL MAGNESIUM (06/29/2024 9:47 AM EST) MAGNESIUM 1.9 1.8 - 2.4 mg/dL TB 06/29/2024 9:47 AM EST 06/29/2024 9:48 AM EST Narrative CLINISYNC - 06/29/2024 10:26 AM EST Generic External Data Provider CLINISYNC F inal Result Performing Organization Address [facility] de Phone Number [facility] * (ABNORMAL) ALL LIPID PROFILE (FASTING) (06/29/2024 9:47 AM EST) TRIGLYCERIDES 96 <=150 mg/dL [facility] CHOLESTEROL 158 <=200 mg/dL TB HDL CHOLESTEROL 72(H) 40 - 60 mg/dL TB Comment: > or =60 mg/dl - LOW CARDIOVASCULAR RISK <40 mg/dl - HIGH CARDIOVASCULAR RISK LDL CHOLESTEROL CALCULATED 67.0 mg/dL TB Comment: <100 mg/dl OPTIMAL 100-129 mg/dl NEAR OR ABOVE OPTIMAL 130-159 mg/dl BORDERLINE HIGH 160-189 mg/dl HIGH >190 mg/dl VERY HIGH VLDL CHOLESTEROL 19.2 mg/dL TB CHOL HDL RATIO 2.2 TB Comment: 3.3 - 4.4 LOW RISK 4.4 - 7.1 AVERAGE RISK 7.1 - 11.0 MODERATE RISK >11.0 HIGH RISK 06/29/2024 9:47 AM EST 06/29/2024 9:48 AM EST Narrative CLINISY[facility] - 06/29/2024 11:52 AM EST us Hany Cohen MD [facility] ALL FOLIC ACID (06/29/2024 9:47 AM EST) FOLATE 21.90 8.60 - 58.90 ng/mL TB 06/29/2024 9:47 AM EST 06/29/2024 9:48 AM EST Narrative CLINISYNC - 06/29/2024 10:52 AM EST Generic External Data Provider CLINISYNC F inal Result Performing Organization Address [facility] Co de Phone [facility] ALL CBC WITH AUTO DIFF (06/29/2024 9:47 AM EST) TB WBC 4.5 4.0 - 11.0 10 3/uL TBH TB RBC 5.03 4.20 - 5.40 10 6/uL TBH TB HGB 14.6 12.0 - 16.0 g/dL TB TB HCT 42.3 36.0 - 48.0 % TB TB MCV 84.1 81.0 - 99.0 fL TB TB MCH 29.0 26.7 - 34.0 pg TBH TB MCHC 34.5 29.9 - 35.2 g/dL TB TB RDW 12.5 11.0 - 15.0 % TBH TB PLT 218 150 - 450 10 3/uL TBH TB MPV 10.4 9.5 - 13.5 fL TBH NEUTROPHILS PERCENT AUTO 44.0 43.0 - 75.0 % TBH LYMPHOCYTES PERCENT AUTO 43.4 20.5 - 60.0 % TBH MONOCYTES PERCENT AUTO 10.4 1.7 - 12.0 % TBH TBH EO % 1.8 0.9 - 7.0 % TBH BASOPHILS PERCENT AUTO 0.2 0.2 - 2.0 % TBH IMMATURE GRANULOCYTES PCT AUTO 0.2 0.0 - 0.5 % TBH NEUTROPHILS ABSOLUTE AUTO 2.0 1.4 - 6.5 10 3/uL TBH LYMPHOCYTES ABSOLUTE AUTO 2.0 1.2 - 3.8 10 3/uL TBH MONOCYTES ABSOLUTE AUTO 0.5 0.3 - 0.8 10 3/uL TBH TBH EO # 0.1 0.0 - 0.7 10 3/uL TBH BASOPHILS ABSOLUTE AUTO 0.0 0.0 - 0.1 10 3/uL TBH IMMATURE GRANULOCYTES ABS AUTO 0.01 0.00 - 0.03 10 3/uL TBH 06/29/2024 9:47 AM EST 06/29/2024 9:48 AM EST Narrative CLINISYNC - 06/29/2024 9:54 AM EST us Generic External Data Provider [facility] F inal Result [facility] Cologuard?? colon cancer screening (12/02/2023 6:00 PM EDT) NONINV COLON CA DNA+OCC BLD SCRN STL-IMP Negative Negative 12/08/2023 10:03 AM EDT [email or web address] (CLIA #:[id number]) Comment: NEGATIVE TEST RESULT. A negative Cologuard result indicates a low likelihood that a colorectal cancer (CRC) or advanced adenoma (adenomatous polyps with more advanced pre-malignant features) is present. The chance that a person with a negative Cologuard test has a colorectal cancer is less than 1 in 1500 (negative predictive value >99.9%) or has an advanced adenoma is less than 5.3% (negative predictive value 94.7%). These data are based on a prospective cross-sectional study of 10,000 individuals at average risk for colorectal cancer who were screened with both Cologuard and colonoscopy. (Blanca Guaman al, N Engl J Med 2014;370(14):8581-8894) The normal value (reference range) for this assay is negative. COLOGUARD RE-SCREENING RECOMMENDATION: Periodic colorectal cancer screening is an important part of preventive healthcare for asymptomatic individuals at average risk for colorectal cancer. Following a negative Cologuard result, the [place] Cancer Society and U.S. Multi-Society Task Force screening guidelines recommend a Cologuard re-screening interval of 3 years. References: [place] [employer] Guideline for Colorectal Cancer Screening: https://www.cancer.org/cancer/uutrc-wmfybf-qkvnsa/jsnwzczsj-uftkztlae-oxbhgld/ac s-rec ommendations.html.; Guevara DK, Savita CR, Usman LainezK, Colorectal Cancer Screening: Recommendations for Physicians and Patients from the U.S. Multi-Society Task Force on Colorectal Cancer Screening , Am J Gastroenterology 2017; 112:3499-1203. TEST DESCRIPTION: Composite algorithmic analysis of stool DNA-biomarkers with hemoglobin immunoassay. Quantitative values of individual biomarkers are not reportable and are not associated with individual biomarker result reference ranges. Cologuard is intended for colorectal cancer screening of adults of either sex, 45 years or older, who are at average-risk for colorectal cancer (CRC). Cologuard has been approved for use by the U.S. FDA. The performance of Cologuard was established in a cross sectional study of average-risk adults aged 50-84. Cologuard performance in patients ages 45 to 49 years was estimated by sub-group analysis of near-age groups. Colonoscopies performed for a positive result may find as the most clinically significant lesion: colorectal cancer [4.0%], advanced adenoma (including sessile serrated polyps greater than or equal to 1cm diameter) [20%] or non- advanced adenoma [31%]; or no colorectal neoplasia [45%]. These estimates are derived from a prospective cross-sectional screening study of 10,000 individuals at average risk for colorectal cancer who were screened with both Cologuard and colonoscopy. (Blanca Guaman al, N Engl J Med 2014;370(14):4227-5112.) Cologuard may produce a false negative or false positive result (no colorectal cancer or precancerous polyp present at colonoscopy follow up). A negative Cologuard test result does not guarantee the absence of CRC or advanced adenoma (pre-cancer). The current Cologuard screening interval is every 3 years. ([place] Cancer Society and U.S. Multi-Society Task Force). Cologuard performance data in a 10,000 patient pivotal study using colonoscopy as the reference method can be accessed at the following location: www.[employer].Exitround/results. Additional description of the Cologuard test process, warnings and precautions can be found at www.colTauRx Pharmaceuticalsrd.com. Stool specimen (specimen) 12/02/2023 6:00 PM EDT 12/04/2023 7:29 AM EDT Hany Cohen MD LAB MOLECULAR DIAGNOSTICS ORDERA BLES Final Result [email or web address] (CLIA #:[id number]) [place] [address], * Bilateral screening mammogram with tomosynthesis (05/26/2023 11:43 AM EST) Anatomical Region Laterality Modality Breast Bilateral Mammography 05/26/2023 4:29 PM EST Impressions 05/27/2023 8:25 AM EST BIRADS 1 - Negative Follow-up: Routine Screening Mamm Board Certified Radiologists. Accredited by the ACR and FDA. MAMMOGRAPHY IS VERY IMPORTANT TO YOUR HEALTH. THE [place] CAN[employer]ER SOCIETY GUIDELINES RECOMMEND THAT WOMEN 40 [...] BY: ELECTRONICALLY SIGNED BY: Reji Mccoy MD Narrative 05/27/2023 8:25 AM EST EXAMINATION: BI MAMMOGRAM SCREENING TOMOSYNTHESIS BILATERAL CLINICAL HISTORY:Screening COMPARISON: There are no previous mammograms available for comparison. RESULT: Digital mammography and 3D tomosynthesis of bilateral breasts was performed. Density: Almost entirely fatty [1] There is no suspicious mass, asymmetry, architectural distortion, or calcification. Procedure Note Reji Mccoy MD - 05/27/2023 EXAMINATION: BI MAMMOGRAM SCREENING TOMOSYNTHESIS BILATERAL CLINICAL HISTORY:Screening COMPARISON: There are no previous mammograms available for comparison. RESULT: Digital mammography and 3D tomosynthesis of bilateral breasts wasperformed. Density: Almost entirely fatty [1] There is no suspicious mass, asymmetry, architectural distortion, orcalcification. IMPRESSION: BIRADS 1 - Negative Follow-up: Routine Screening Mamm Board Certified Radiologists. Accredited by the ACR and FDA. MAMMOGRAPHY IS VERY IMPORTANT TO YOUR HEALTH. THE [place]OTT[place] CANCER SOCIETYGUIDELINES RECOMMEND THAT WOMEN 40 YEARS OF AGE AND OLDER SHOULD HAVE AMAMMOGRAM EVERY YEAR. A REMINDER LETTER WILL BE SENT AT THE APPROPRIATE TIME. THIS FACILITYUTILIZES A REMINDER SYSTEM TO ENSURE ALL PATIENTS RECEIVE REMINDERNOTIFICATIONS AT THE APPROPRIATE TIME BASED ON THE RECOMMENDATIONS OF THISEXAM. THIS INCLUDES REMINDERS FOR ROUTINE SCREENING MAMMOGRAMS, DIAGNOSTICMAMMOGRAMS IN WHICH THE PATIENT IS ASKED TO RETURN FOR ADDITIONAL VIEWS,OR OTHER BREAST IMAGING INTERVENTIONS WHEN APPROPRIATE. THE PATIENT WILLBE PLACED IN THE APPROPRIATE REMINDER SYSTEM INCLUDING A REMINDER AT THEAPPROPRIATE TIME FOR ANY PENDING ADDITIONAL VIEWS. TRANSCRIBED BY: ELECTRONICALLY SIGNED BY: Reji Mccoy MD Hany Cohen MD IMG BI PROCEDURES Final Result from Last 3 Months or Most Recently Relevant to Health Maintenance Insurance [employer] BCBS [place]ICA[place] Care Teams Billet Inspector Relationship Specialty Start Date End Date Hany Cohen MD [address] [place] [address] PCP - General Family Medicine 11/29/23 Carolina Barraza [facility] [address] [facility] [address] [place] [address] Nurse Practitioner Behavioral Health 06/21/24 Chencho Haney MD [address] [place] [address] Referring Physician Urology 06/21/24
--- OUTSIDE RECORDS SUMMARY | 2024-09-21 10:07 | XMS_ITS | Encounter Summary ---
Author Organization [facility] Address [address] [place] [address] Care Team Providers Care Cloth Winder Machine Operator Name Role Phone Hany Cohen MD Primary Care Provider [phone] Carolina Barraza [facility]- Unavailable [phone] Chencho Haney MD Unavailable [phone] Reason for Visit * Reason Onset Date Comments Med Refill 09/21/2024 Encounter Details Date Type Department Care Team (Late st Contact Info) Description 09/21/2024 Refill [facility] [address] [place] [address] Hany Cohen MD [address] [place] [address] DDD (degenerative disc disease), lumbar Social History Tobacco Use Types Packs/Day Years [...] BH [address] [place] [place] [address] NicoleJavyCHYNA 10/09/2024 11:00 AM EDT Office Visit [facility] [address] [facility] [address] [place] [phone] Carolina Barraza [facility] [address] [facility] [address] [place] [phone] 11/30/2024 10:15 AM EDT Office Visit [facility] [address] [place] [address] Hany Cohen MD [address] [place] [address] documented as of this encounter Visit Diagnoses Diagnosis DDD (degenerative disc disease), lumbar Degeneration of lumbar or lumbosacral intervertebral disc documented in this encounter Additional Health Concerns Assessment Noted Time PHQ-9 Depression Total Score: 17 025 2:34 PM EDT documented as of this encounter Care Teams Cloth Winder Machine Operator Relationship Specialty Start Date End Date Hany Cohen MD [address] [place] [address] PCP - General Family Medicine 11/29/23 Carolina Barraza, [facility] [address] [facility] [address] [place] [phone] Nurse Practitioner Behavioral Health 06/21/24 Chencho Haney MD [address] [place] [address] Referring Physician Urology 06/21/24 documented as of this encounter
--- OUTSIDE RECORDS SUMMARY | 2024-09-21 10:07 | XMS_ITS | Encounter Summary ---
Author Organization [facility] Address [address] [place] [address] Care Team Providers Care Furniture Mover Name Role Phone Hany Coehn MD Primary Care Provider [phone] Carolina Barraza [facility] Unavailable [phone] Chencho Haney MD Unavailable [phone] Encounter Details Date Type Department Care Team (Late Contact Info) Description 08/14/2024 Orders Only [facility] [address] [place] [address] Jaycee Khanna NP [address] [place] [address] Social History Tobacco Use Types Packs/Day Years [...] [address] [place] [address] GiovanniJayJavy Ocasio LPC 10/09/2024 11:00 AM EDT Office Visit [facility] [address] [facility] [address] [place] [phone] Carolina Barraza, [facility] [address] [facility] [address] [place] [address] 11/30/2024 10:15 AM EDT Office Visit [facility] [address] [place] [address] Hany Cohen MD [address] [place] [address] documented as of this encounter Procedures Procedure Name Priority Date/Time Associated Diagnosis Comments XR ABDOMEN 1 VIEW Routine 08/14/2024 6:02 PM EDT documented in this encounter Results * XR abdomen 1 view (08/14/2024 6:02 PM EDT) Anatomical Region Laterality Modality Abdomen Radiographic Hina ging [facility] TEACHER EARLY CHILDHOOD DEVELOPMENT IMG XR PROCEDURES Final Result documented in this encounter Visit Diagnoses Not on filedocumented in this encounter Additional Health Concerns Assessment Noted Time PHQ-9 Depression Total Score: 17 07/24/ 025 2:34 PM EDT documented as of this encounter Care Teams Furniture Mover Relationship Specialty Start Date End Date Hany Cohen MD [address] [place] [address] PCP - General Family Medicine 11/29/23 Carolina Barraza, [facility] [address] [facility] [address] [place] [address] Nurse Practitioner Behavioral Health 06/21/24 Chencho Haney MD [address] [place] [address] Referring Physician Urology 06/21/24 documented as of this encounter
--- OUTSIDE RECORDS SUMMARY | 2024-09-21 10:07 | XMS_ITS | Encounter Summary ---
Author Organization [facility] Address [address] [place] [address] Care Team Providers Care Biodiesel Division Manager Name Role Phone Hany Cohen MD Primary Care Provider [phone] Carolina Barraza [facility] Unavailable Chencho Haney MD Unavailable [phone] Reason for Visit * Reason Onset Date Comments Med Refill 2024 Encounter Details Date Type Department Care Team (Late Contact Info) Description 2024 Refill [facility] [address] [place] [address] Hany Cohen MD [address] [place] [address] DDD (degenerative disc disease), lumbar Social History [...] [address] [place] [phone] Javy Rivera LPC 10/09/2024 11:00 AM EDT Office Visit [facility] [address] [place] [address] [place] [address] Carolina Barraza, [facility] [address] [facility] [address] [place] [address] 11/30/2024 10:15 AM EDT Office Visit [facility] [address] [place] [address] Hany Cohen MD [address] [place] [address] documented as of this encounter Visit Diagnoses Diagnosis DDD (degenerative disc disease), lumbar Degeneration of lumbar or lumbosacral intervertebral disc documented in this encounter Additional Health Concerns Assessment Noted Time PHQ-9 Depression Total Score: 16 024 10:08 AM EST documented as of this encounter Care Teams Biodiesel Division Manager Relationship Specialty Start Date End Date Hany Cohen MD [address] [place] [address] PCP - General Family Medicine 11/29/23 Carolina Barraza, [facility] [address] [facility] [address] [place] [address] Nurse Practitioner Behavioral Health 06/21/24 Chencho Haney MD [address] [place] [address] Referring Physician Urology 06/21/24 documented as of this encounter
--- OUTSIDE RECORDS SUMMARY | 2024-09-21 10:07 | XMS_ITS | Encounter Summary ---
Author Organization [facility] Address [address] [place] [address] Care Team Providers Care Software Test Specialist Name Role Phone Hany Cohen MD Primary Care Provider [phone] Carolina Barraza [facility] Unavailable Chencho Haney MD Unavailable [phone] Reason for Visit * Reason Onset Date Comments Med Refill 05/17/2024 Encounter Details Date Type Department Care Team (Late Contact Info) Description 05/17/2024 Refill [facility] [address] [place] [address] Hany Cohen MD [address] [place] [address] DDD (degenerative disc disease), lumbar Social History [...] [address] [place] [address] Javy Rivera LPC 10/09/2024 11:00 AM EDT Office Visit [facility] [address] [place] [address] [place] [address] Carolina Barraza, [facility] [address] [facility] [address] [place] [address] 11/30/2024 10:15 AM EDT Office Visit [facility] [address] [place] [address] Hany Cohen MD [address] [place] [address] documented as of this encounter Visit Diagnoses Diagnosis DDD (degenerative disc disease), lumbar Degeneration of lumbar or lumbosacral intervertebral disc documented in this encounter Additional Health Concerns Assessment Noted Time PHQ-9 Depression Total Score: 16 024 10:08 AM EST documented as of this encounter Care Teams Software Test Specialist Relationship Specialty Start Date End Date Hany Cohen MD [address] [place] [address] PCP - General Family Medicine 11/29/23 Carolina Barraza, [facility] [address] [facility] [address] [place] [address] Nurse Practitioner Behavioral Health 06/21/24 Chencho Haney MD [address] [place] [address] Referring Physician Urology 06/21/24 documented as of this encounter
--- OUTSIDE RECORDS SUMMARY | 2024-09-21 10:07 | XMS_ITS | Encounter Summary ---
Author Organization [facility] Address [address] [address] Care Team Providers Care Leases And Land Supervisor Name Role Phone Hany Cohen MD Primary Care Provider [phone] Carolina Barraza [facility] Unavailable [phone] Chencho Haney MD Unavailable [phone] Encounter Details Date Type Department Care Team (Latest Contact Info) Description 09/11/2024 Travel Social History Tobacco Use Types Packs/Day Years [...] [address] [place] [address] Javy Rivera LPC 10/09/2024 11:00 AM EDT Office Visit [facility] [address] [place] [address] [place] [address] Carolina Barraza [facility] [address] [facility] [address] [place] [address] 11/30/2024 10:15 AM EDT Office Visit [facility] [address] [place] [address] Hany Cohen MD [address] [place] [address] documented as of this encounter Visit Diagnoses Not on filedocumented in this encounter Additional Health Concerns Assessment Noted Time PHQ-9 Depression Total Score: 17 025 2:34 PM EDT documented as of this encounter Care Teams Leases And Land Supervisor Relationship Specialty Start Date End Date Hany Cohen MD [address] [place] [address] PCP - General Family Medicine 11/29/23 Carolina Barraza, [facility] [address] [facility] [address] [place] [address] Nurse Practitioner Behavioral Health 06/21/24 Chencho Haney MD [address] [place] [address] Referring Physician Urology 06/21/24 documented as of this encounter
--- OUTSIDE RECORDS SUMMARY | 2024-09-21 10:08 | XMS_ITS | Encounter Summary ---
Author Organization [facility] Address [address] [place] [address] Care Team Providers Care Wholesale Buyer Name Role Phone Hany Cohen MD Primary Care Provider + Hany Cohen MD Primary Care Provider + Carolina Barraza [facility]HNP-[facility] Unavailable [phone] Chencho Haney MD Unavailable [phone] Encounter Details Date Type Department Care [...] [address] [place] [address] Javy Rivera LPC 10/09/2024 11:00 AM EDT Office Visit [facility] [address] [facility] [address] [place] [phone] Carolina Barraza PMHNP[facility]BC [address] [facility] [address] [place] [address] 11/30/2024 10:15 AM EDT Office Visit [facility] [address] [place] [address] Hany Cohen MD [address] [place] [address] documented as of this encounter Procedures Procedure Name Priority Date/Time Associated Diagnosis Comments US RENAL BI 06/11/2023 11:24 AM EST documented in this encounter Results * US RENAL BI (06/11/2023 11:24 AM EST) Anatomical Region Laterality Modality Other 06/11/2023 11:2 4 AM EST Narrative 06/11/2023 11:26 AM EST The [address] [address] Ultrasound Report Signed Patient: JUNE RHODES MR#: [id number] : 1980 Acct:[id number] Age/Sex: 43 / F ADM Date: 06/11/23 Loc: US Attending Dr: Chencho Haney M.D. Ordering Physician: Chencho Haney M.D. Date of Service: 06/11/23 Procedure(s): US renal BI Accession Number(s): [id number] cc: Chencho Haney M.D.; Hany Cohen M.D. The [address] [id number] Patient Name: JUNE RHODES MRN: [id number] date: 1980 Sex: F Assigned Patient Location: US Current Patient Location: US Accession/Order Number: [id number] Exam Date: 06/11/2023 10:29 Report Date: 06/11/2023 11:24 At the request of: CHENCHO HANEY Procedure: US renal BI EXAM: US renal BI HISTORY: kidney stone COMPARISON: CT abdomen and pelvis 05/21/2023. TECHNIQUE: Real-time ultrasound imaging of the kidneys and bladder. Findings: The right and left kidneys measure 11.6 and 11.2 cm. There is good corticomedullary differentiation bilaterally. There are multiple nonobstructing right renal stones. The largest measures 1.0 cm. There is mild/moderate right renal collecting system dilatation. No left-sided renal stones or collecting system dilatation. No focal mass or perinephric fluid collection. The bladder is partially distended with a prevoid volume of 118 mL. The bilateral ureteral jets are identified. US/US renal BI IMPRESSION: 1. Nonobstructing right renal stones. 2. Mild to moderate right-sided collecting system dilatation. Electronically authenticated by: MOLINA WILDER Date: 06/11/2023 11:24 Dictated By: Molina Wilder M.D. Signed By: 06/11/23 1126 DD/ TD/TT: Corporate Accountant: Procedure Note Radiology, Radiologist, MD - 06/11/2023 [place] [address] Ultrasound Report Signed Patient: JUNE RHOEDS EMR#: [id number] : 1980Acct:[id number] Age/Sex: 43 / FADM Date: 06/11/23 Loc: US Attending Dr: Chencho Haney M.D. Ordering Physician: Chencho Haney M.D. Date of Service: 06/11/23 Procedure(s): US renal BI Accession Number(s): [id number] cc: Chencho Haney M.D.; Hany Cohen M.D. The [place] [address] Patient Name: JUNE RHODES MRN: [id number] date: 1980 Sex: F Assigned Patient Location: US Current Patient Location: US Accession/Order Number: [id number] Exam Date: 06/11/2023 10:29 Report Date: 06/11/2023 11:24 At the request of: CHENCHO HANEY Procedure: US renal BI EXAM: US renal BI HISTORY: kidney stone COMPARISON: CT abdomen and pelvis 05/21/2023. TECHNIQUE: Real-time ultrasound imaging of the kidneys and bladder. Findings: The right and left kidneys measure 11.6 and 11.2 cm. There is good corticomedullary differentiation bilaterally. There are multiple nonobstructing right renal stones. The largest measures 1.0 cm. There is mild/moderateright renal collecting system dilatation. No left-sided renal stones orcollecting system dilatation. No focal mass or perinephric fluid collection. The bladder is partially distended with a prevoid volume of 118 mL. The bilateral ureteral jets are identified. US/US renal BI IMPRESSION: 1. Nonobstructing right renal stones. 2. Mild to moderate right-sided collecting system dilatation. Electronically authenticated by: MOLINA WILDER Date: 06/11/2023 11:24 Dictated By: Molina Wilder M.D. Signed By:06/11/23 1126 DD/ 1124 TD/TT: Corporate Accountant: us Generic External Data Provider [facility] Final Result documented in this encounter Visit Diagnoses Not on filedocumented in this encounter Additional Health Concerns Assessment Noted Time PHQ-9 Depression Total Score: 16 024 10:08 AM EST documented as of this encounter Care Teams Wholesale Buyer Relationship Specialty Start Date End Date Hany Cohen MD PCP - General Family Medicine 04/26/22 11/28/23 Hany Cohen MD [address] [place] [address] PCP - General Family Medicine 11/29/23 Carolina Barraza [facility] [address] [place] [address] [place] [address] Nurse Practitioner Behavioral Health 06/21/24 Chencho Haney MD [address] [place] [address] Referring Physician Urology 06/21/24 documented as of this encounter
--- OUTSIDE RECORDS SUMMARY | 2024-09-21 10:08 | XMS_ITS | Encounter Summary ---
Author Organization [facility] Address [address] [place] [address] Care Team Providers Care Wet Crown Blocking Operator Name Role Phone Hany Cohen MD Primary Care Provider + Hany Cohen MD Primary Care Provider + Carolina Barraza PMHNP-BC Unavailable [phone] Chencho Haney MD Unavailable [phone] Encounter Details Date Type Department Care Team (Late st Contact Info) Description 11/18/2023 Clinisync Result Encounter [facility] External Department Unsolicited [...] [address] [place] [address] Javy Rivera LPC 10/09/2024 11:00 AM EDT Office Visit [facility] [address] [facility] [address] [place] [phone] Carolina Barraza PMHNP-BC [address] [facility] [address] [place] [address] 11/30/2024 10:15 AM EDT Office Visit [facility] [address] [place] [address] Hany Cohen MD [address] [place] [address] documented as of this encounter Procedures Procedure Name Priority Date/Time Associated Diagnosis Comments XR ABDOMEN 1V 11/18/2023 1:25 PM EDT documented in this encounter Results * XR ABDOMEN 1V (11/18/2023 1:25 PM EDT) Anatomical Region Laterality Modality Other 11/18/2023 1:25 PM EDT Narrative 11/18/2023 1:28 PM EDT The [place] [id number] XRay Report Signed Patient: JUNE RHODES MR#: [id number] : 1980 Acct:[id number] Age/Sex: 43 / F ADM Date: 11/18/23 Loc: RAD Attending Dr: Chencho Haney M.D. Ordering Physician: Chencho Haney M.D. Date of Service: 11/18/23 Procedure(s): XR abdomen 1V Accession Number(s): [id number] cc: Chencho Haney M.D.; Hany Cohen M.D. The [address] [address] Patient Name: JUNE RHODES MRN: [id number] date: 1980 Sex: F Assigned Patient Location: RAD Current Patient Location: RAD Accession/Order Number: [id number] Exam Date: 11/18/2023 09:30 Report Date: 11/18/2023 13:25 At the request of: CHENCHO HANEY Procedure: XR abdomen 1V EXAMINATION: XR abdomen 1V HISTORY: Kidney Stones N20.0 COMPARISON: 06/11/2023 FINDINGS: KIDNEY/URETER - RIGHT: Decreased and right nephrolithiasis. Right double-J ureteral stent in normal position KIDNEY/URETER - LEFT: No visible renal or ureteral calcifications. PELVIS: No visible ureteral calcifications. Any visible calcifications favor phleboliths. BOWEL: No abnormal dilation or deviation. BONES: No acute abnormality. OTHER: Negative. No abnormal gaseous collections. XR/XR abdomen 1V IMPRESSION: Right ureteral stent with nephrolithiasis Electronically authenticated by: LINCOLN FAM Date: 11/18/2023 13:25 Dictated By: Lincoln Fam M.D. Signed By: 11/18/23 1328 DD/ 1325 TD/TT: Animal Nutritionist: Procedure Note Radiology, Radiologist, MD - 11/18/2023 [place] [address] XRay Report Signed Patient: JUNE RHODES EMR#: [id number] : 1980Acct:[id number] Age/Sex: 43 / FADM Date: 11/18/23 Loc: RAD Attending Dr: Chencho Haney M.D. Ordering Physician: Chencho Haney M.D. Date of Service: 11/18/23 Procedure(s): XR abdomen 1V Accession Number(s): [id number] cc: Chencho Haney M.D.; Hany Cohen M.D. The [place] [address] Patient Name: JUNE RHODES MRN: [id number] date: 1980 Sex: F Assigned Patient Location: [facility] Current Patient Location: [facility] Accession/Order Number: [id number] Exam Date: 11/18/2023 09:30 Report Date: 11/18/2023 13:25 At the request of: CHENCHO HANEY Procedure: XR abdomen 1V EXAMINATION: XR abdomen 1V HISTORY: Kidney Stones N20.0 COMPARISON: 06/11/2023 FINDINGS: KIDNEY/URETER - RIGHT: Decreased and right nephrolithiasis. Right double-J ureteral stent in normal position KIDNEY/URETER - LEFT: No visible renal or ureteral calcifications. PELVIS: No visible ureteral calcifications. Any visible calcificationsfavor phleboliths. BOWEL: No abnormal dilation or deviation. BONES: No acute abnormality. OTHER: Negative. No abnormal gaseous collections. XR/XR abdomen 1V IMPRESSION: Right ureteral stent with nephrolithiasis Electronically authenticated by: LINCOLN FAM Date: 11/18/2023 13:25 Dictated By: Lincoln Fam M.D. Signed By:11/18/23 1328 DD/ 1325 TD/TT: Animal Nutritionist: us Generic External Data Provider [facility] Final Result documented in this encounter Visit Diagnoses Not on filedocumented in this encounter Additional Health Concerns Assessment Noted Time PHQ-9 Depression Total Score: 16 024 10:08 AM EST documented as of this encounter Care Teams Wet Crown Blocking Operator Relationship Specialty Start Date End Date Hany Cohen MD PCP - General Family Medicine 04/26/22 11/28/23 Hany Cohen MD [address] [facility] [place] [address] PCP - General Family Medicine 11/29/23 Carolina Barraza PMHNP- [address] [facility] [address] [place] [address] Nurse Practitioner Behavioral Health 06/21/24 Chencho Haney MD [address] [place] [address] Referring Physician Urology 06/21/24 documented as of this encounter
--- OUTSIDE RECORDS SUMMARY | 2024-09-21 10:08 | XMS_ITS | Encounter Summary ---
Author Organization [facility] Address [address] [place] [address] Care Team Providers Care Agility Instructor Name Role Phone Hany Cohen MD Primary Care Provider + Hany Cohen MD Primary Care Provider + Carolina Barraza PMHNP-BC Unavailable [phone] Chencho Haney MD Unavailable [phone] Encounter Details Date Type Department Care Team (Late st Contact Info) Description 06/25/2023 Clinisync Result Encounter [facility] External Department Unsolicited [...] [address] [place] [address] Javy Rivera LPC 10/09/2024 11:00 AM EDT Office Visit [facility] [address] [facility] [address] [place] [phone] Carolina Barraza PMHNP-BC [address] [facility] [address] [place] [phone] 11/30/2024 10:15 AM EDT Office Visit [facility] [address] [place] [phone] Hany Cohen MD [address] [place] [address] documented as of this encounter Procedures Procedure Name Priority Date/Time Associated Diagnosis Comments XR IVP 06/25/2023 10:44 AM EST documented in this encounter Results * XR IVP (06/25/2023 10:44 AM EST) Anatomical Region Laterality Modality Radiographic Hina ging 06/25/2023 10:4 4 AM EST Narrative 06/25/2023 10:47 [place] [address] XRay Report Signed Patient: JUNE RHODES MR#: [id number] : 1980 Acct:[id number] Age/Sex: 43 / F ADM Date: 06/25/23 Loc: [place] Attending Dr: Chencho Haney M.D. Ordering Physician: Chencho Haney M.D. Date of Service: 06/25/23 Procedure(s): XR IVP w KUB Accession Number(s): [id number] cc: Chencho Haney M.D.; Hany Cohen M.D. The [address] [address] Patient Name: JUNE RHODES MRN: [id number] date: 1980 Sex: F Assigned Patient Location: [place] Current Patient Location: [place] Accession/Order Number: [id number] Exam Date: 06/25/2023 09:20 Report Date: 06/25/2023 10:44 At the request of: CHENCHO HANEY Procedure: XR IVP w KUB EXAMINATION: XR IVP w KUB HISTORY: kidney stone COMPARISON: CT 05/21/2023, ultrasound 06/11/2023 TECHNIQUE: After obtaining patient consent a cardiac exercise specialist image was obtained followed by injection of 100cc of Omnipaque 300 IV contrast. Immediate nephrographic images were obtained. Corticomedullary and urographic phase images were obtained at 5, 10, 15 and 20 minutes. 15 minute oblique images were also obtained. FINDINGS: KIDNEY/URETER - RIGHT: Extensive nephrolithiasis. KIDNEY/URETER - LEFT: No visible calcifications. PELVIS: Multiple right pelvic calcifications likely representing ureterolithiasis NEPHROGRAPHIC PHASE: Normal, symmetric size, contour, and orientation. Normal and symmetric time of contrast uptake. CORTICOMEDULLARY: No filling defect to suggest a mass. Multiple contrast filling lesions along the lower pole of the right kidney UROGRAPHIC PHASE: Normal caliber, course, and number of ureters. Filling defects in the distal right ureter consistent with ureterolithiasis BLADDER: Normal size and contour. BOWEL: No abnormal dilation or deviation. BONES: No acute abnormality. OTHER: Negative. No abnormal gaseous collections. XR/XR IVP w KUB IMPRESSION: Multiple distal right ureteroliths without hydronephrosis Extensive right nephrolithiasis Right lower pole renal parapelvic cysts/diverticula Electronically authenticated by: LINCOLN FAM Date: 06/25/2023 10:44 Dictated By: Lincoln Fam M.D. Signed By: 06/25/23 1047 DD/ 104 TD/TT: Ballpoint Pens Assembler: Procedure Note Radiology, Radiologist, - 06/25/2023 [place] [address] XRay Report Signed Patient: JUNE RHODES EMR#: [id number] : 1980Acct:[id number] Age/Sex: 43 / FADM Date: 06/25/23 Loc: [place] Attending Dr: Chencho Haney M.D. Ordering Physician: Chencho Haney M.D. Date of Service: 06/25/23 Procedure(s): XR IVP w KUB Accession Number(s): [id number] cc: Chencho Haney M.D.; Hany Cohen M.D. The [address] [address] Patient Name: JUNE RHODES MRN: [facility]:[id number] date: 1980 Sex: F Assigned Patient Location: [place] Current Patient Location: [place] Accession/Order Number: [id number] Exam Date: 06/25/2023 09:20 Report Date: 06/25/2023 10:44 At the request of: CHENCHO HANEY Procedure: XR IVP w KUB EXAMINATION: XR IVP w KUB HISTORY: kidney stone COMPARISON: CT 05/21/2023, ultrasound 06/11/2023 TECHNIQUE: After obtaining patient consent a cardiac exercise specialist image was obtainedfollowed by injection of 100cc of Omnipaque 300 IV contrast. Immediatenephrographic images were obtained. Corticomedullary and urographic phase images were obtained at 5, 10, 15 and 20 minutes. 15 minute oblique images were also obtained. FINDINGS: KIDNEY/URETER - RIGHT: Extensive nephrolithiasis. KIDNEY/URETER - LEFT: No visible calcifications. PELVIS: Multiple right pelvic calcifications likely representing ureterolithiasis NEPHROGRAPHIC PHASE: Normal, symmetric size, contour, and orientation. Normal and symmetric time of contrast uptake. CORTICOMEDULLARY: No filling defect to suggest a mass. Multiple contrast filling lesions along the lower pole of the right kidney UROGRAPHIC PHASE: Normal caliber, course, and number of ureters. Filling defects in the distal right ureter consistent with ureterolithiasis BLADDER: Normal size and contour. BOWEL: No abnormal dilation or deviation. BONES: No acute abnormality. OTHER: Negative. No abnormal gaseous collections. XR/XR IVP w KUB IMPRESSION: Multiple distal right ureteroliths without hydronephrosis Extensive right nephrolithiasis Right lower pole renal parapelvic cysts/diverticula Electronically authenticated by: LINCOLN FAM Date: 06/25/2023 10:44 Dictated By: Lincoln Fam M.D. Signed By:06/25/23 1047 DD/ 1044 TD/TT: Ballpoint Pens Assembler: us Generic External Data Provider IMG XR PROCEDURES Final Result documented in this encounter Visit Diagnoses Not on filedocumented in this encounter Additional Health Concerns Assessment Noted Time PHQ-9 Depression Total Score: 16 024 10:08 AM EST documented as of this encounter Care Teams Agility Instructor Relationship Specialty Start Date End Date Hany Cohen MD PCP - General Family Medicine 04/26/22 11/28/23 Hany Cohen MD [address] [place] [address] PCP - General Family Medicine 11/29/23 Carolina Barraza, [facility] [address] [address] Nurse Practitioner Behavioral Health 06/21/24 Chencho Haney MD [address] [place] [address] Referring Physician Urology 06/21/24 documented as of this encounter
--- OUTSIDE RECORDS SUMMARY | 2024-09-21 10:08 | XMS_ITS | Encounter Summary ---
Author Organization [facility] Address [address] [facility] [place] [address] Care Team Providers Care Senior Chemist Name Role Phone Hany Cohen MD Primary Care Provider [phone] Hany Cohen MD Primary Care Provider +-[phone] Carolina Barraza [facility]- Unavailable [phone] Chencho Haney MD Unavailable [phone] Encounter Details Date Type Department Care Team (Late Contact Info) Description 11/01/2023 Orders Only [facility] [address] [place] [phone] Chencho Haney MD [address] [place] [address] Social History Tobacco Use Types Packs/Day Years [...] BH [address] [place] [address] Javy Rivera LPC 10/09/2024 11:00 AM EDT Office Visit [facility] [address] [place] [address] [place] [address] Carolina Barraza [facility] [address] [facility] [address] [place] [address] 11/30/2024 10:15 AM EDT Office Visit [facility] [address] [place] [phone] Hany Cohen MD [address] [place] [address] documented as of this encounter Procedures Procedure Name Priority Date/Time Associated Diagnosis Comments MISCELLANEOUS LAB TEST Routine 10/27/2023 10:03 AM EDT documented in this encounter Results * - Miscellaneous Test (10/27/2023 10:03 AM EDT) us Chencho Haney MD LAB BLOOD ORDERABLES Final Res ult documented in this encounter Visit Diagnoses Not on filedocumented in this encounter Additional Health Concerns Assessment Noted Time PHQ-9 Depression Total Score: 16 024 10:08 AM EST documented as of this encounter Care Teams Senior Chemist Relationship Specialty Start Date End Date Hany Cohen MD PCP - General Family Medicine 04/26/22 11/28/23 Hany Cohen MD [address] [place] [address] PCP - General Family Medicine 11/29/23 Carolina Barraza [facility] [address] [facility] [address] [place] [address] Nurse Practitioner Behavioral Health 06/21/24 Chencho Haney MD [address] [place] [address] Referring Physician Urology 06/21/24 documented as of this encounter
--- OUTSIDE RECORDS SUMMARY | 2024-09-21 10:16 | XMS_ITS | CCD ---
Author Organization [facility] CliniSyct Care Team Providers Care Speeder Frame Tender Name Role Phone HARRIS, DR HANY Mcarthur Admitting Unavailable NADEREZacarias, DR HANY Mcarthur Attending Unavailable NADERER, DR HANY Mcarthur Primary Care Unavailable SRUTHI, DR YOSVANY Adames Consulting Unavailable NADERER, DR HANY Mcarthur Consulting Unavailable NADERER, DR HANY Mcarthur Admitting Unavailable NADERER, DR HANY Mcarthur Attending Unavailable NADERER, DR HANY Mcarthur Primary Care Unavailable NADEREZacarias, DR HANY Mcarthur Consulting Unavailable NADEREZacarias, HANY Primary Care Physician Chencho HANEY Attending Unavailable COOK, Chencho P Referring Unavailable COOK, Chencho Oneal Attending Unavailable COOK, Chencho P Admitting Unavailable Naderer Hany ARANGO Primary Care Provider [facility] Rosina Unavailable Chencho Haney MD P Unavailable Kendall HANEYory P Attending Unavailable COOK, Chencho P Referring Unavailable COOK, Chencho P Admitting Unavailable COOK, Chencho P Referring Unavailable COOK, Chencho P Admitting Unavailable COOK, Chencho P Attending Unavailable COOK, Chencho P Attending Unavailable COOK, Chencho P Referring Unavailable COOK, Chencho P Admitting Unavailable Orzech, Jaycee X Attending Unavailable Orzech, Jaycee X Attending Unavailable MALCOM ALFARO Attending Unavailab le Orzech, Jaycee X Attending Unavailable Orzech, Jaycee X Attending Unavailable Orzech, Jaycee X Admitting Unavailable NADERER, AHNY Attending Unavailable NADERER, HANY Attending Unavailable BARRAZAROSINA CHENG Attending Unavailable NADERER, HANY Referring Unavailable JOHANNA-ROLADN, JAVY Attending Unavailab le JOHANNA-ROLDAN, JAVY Attending Unavailab le ROSINA BARRAZA Attending Unavailable NADERER, HANY Attending Unavailable JOHNANA-ROLDAN, JAVY Attending Unavailab le BARRAZA, ROSINA Attending Unavailable JOHANNA-ROLDAN, RHANDA Attending Unavailab le RADHIKAEREZacarias, HANY Attending Unavailable JOHANNA-ROLDAN, RHANDA Attending Unavailab le JOHANNA-ROLDAN, RHANDA Attending Unavailab wiliam BARRAZA, ROSINA Attending Unavailable NADERER, HANY Attending Unavailable NADERER, HANY Attending Unavailable Allergies Allergy Classification Reported Allergen(s) Allergy Type Date of Onset Reaction(s) Facility (4 sources) Morphine; Translations: [morphine] Drug Allergy [facility] (1 source) Penicillins Drug allergy (disorder) 3 [facility] (1 source) Darvocet-N 100 Drug allergy (disorder) 3 [facility] (5 sources) Morphine; Translations: [morphine] Drug Allergy Unknown (qualifier value) [facility] (8 sources) NITROFURANTOIN, MACROCRYSTALS / Nitrofurantoin, Monohydrate; Translations: [nitrofurantoin] Drug Allergy Eruption of skin (disorder), Swelling (finding) [facility] (8 sources) Penicillin; Translations: [penicillin] Drug Allergy Pharyngeal swelling (finding) [facility] (20 sources) Ciprofloxacin; Translations: [ciprofloxacin] Drug Allergy 4 Eruption of skin (disorder) [facility] (20 sources) Morphine Drug Allergy 4 [facility] (20 sources) Penicillins Propensity to adverse reactions 4 [facility] (20 sources) fentaNYL Drug Allergy 5 Other [facility] (20 sources) venlafaxine Drug Allergy 5 GI intolerance [facility] (17 sources) QUEtiapine Drug Allergy 5 GI intolerance [facility] Medications Current Medications Medication Drug Class(es) Dates Sig (Normalized) Sig (Original) acetaminophen 325 mg / HYDROcodone bitartrate 5 mg oral tablet (1 source) Opioid Agonist Start: 11-11-2023 End: 11-13-2023 acetaminophen-hyd rocodone 325 mg-5 mg oral tablet 1 tab(s), Oral, q4hr Pain for 2 day(s), 7 tab(s), Refill(s) 0, [facility] #[id number], 147.4, cm, 10/27/23 13:16:00 EDT, Height/Length Dosing, 89.2, kg, 10/27/23 13:16:00 EDT, Weight Dosing Start Date: 11/11/23 Stop Date: 11/13/23 Status: Ordered acetaminophen 325 mg / oxyCODONE hydrochloride 5 mg oral tablet (20 sources) Opioid Agonist Start: 06-22-2024 End: 09-22-2024 take 1 tablet by mouth four times daily as needed for pain oxyCODONE-acetami nophen (Percocet) 5-325 MG tablet Indications: DDD (degenerative disc disease), lumbar Take 1 tablet by mouth 4 (four) times a day as needed for severe pain 120 tablet 08/23/2024 09/22/2024 Active Start: 03-09-2024 End: 06-22-2024 take 1 [...] Refill(s) 0 Start Date: 12/14/23 Status: Ordered Repeat number: 1 Start: 11-29-2023 End: 03-15-2024 take 1 tablet [...] Refills(s) 0 Start Date: 11/02/19 Status: Ordered cariprazine 3 mg oral capsule (20 sources) Atypical Antipsychotic Start: 08-21-2024 End: 09-20-2024 take 1 capsule by mouth once daily Cariprazine HCl (Vraylar) 3 MG capsule Indications: PTSD (post-traumatic stress disorder) (CMS/HCC) , Cyclothymic disorder (CMS/HCC) , Moderate episode of recurrent major depressive disorder (CMS/HCC) Take 3 mg by mouth Daily 30 capsule 1 08/21/2024 09/20/2024 Active Start: 07-24-2024 End: 08-23-2024 take 1 capsule by mouth once daily Cariprazine HCl (Vraylar) 1.5 MG capsule Indications: Cyclothymic disorder (CMS/HCC) , PTSD (post-traumatic stress disorder) (CMS/HCC) , Moderate episode of recurrent major depressive disorder (CMS/HCC) Take 1.5 mg by mouth Daily 30 capsule 1 07/24/2024 08/21/2024 Discontinued (Dose adjustment) cefdinir 300 mg oral capsule (2 sources) [...] day(s), # 10 tab(s), Refills(s) 0, Pharmacy: [facility] #[id number], 147.4, cm, 10/27/23 13:16:00 EDT, Height/Length Dosing, [...] 60 tablet 3 06/13/2024 06/21/2024 Discontinued (Ineffective) fexofenadine hydrochloride 180 mg oral tablet (18 sources) Histamine-1 Receptor Antagonist Start: 03-03-2023 End: 06-21-2024 take 1 tablet by mouth in the morning RA Allergy Relief 180 MG tablet Take 180 mg by mouth in the morning. 03/03/2023 06/21/2024 Discontinued (Therapy completed) furosemide 40 mg oral tablet (20 sources) Loop Diuretic Start: 06-13-2024 End: 08-30-2024 take 1 tablet by mouth once daily as needed for edema furosemide (Lasix) 40 MG tablet Indications: Bilateral leg edema Take 1 tablet (40 mg) by mouth Daily as needed (Edema) 08/30/2024 Active Start: 11-02-2019 Lasix Daily, R efills(s) 0 Start Date: 11/02/19 Status: Ordered Hair Skin and Nails (4 sources) Start: 10-27-2023 take 1 tablet by mouth once daily Hair Skin and Nails 1 tab(s), Oral, Daily, Refill(s) 0 Start Date: 10/27/23 Status: Ordered Repeat number: 1 Start: 10-27-2023 take 1 tablet by campos th once daily Hair Skin and Nails 1 tab(s), Oral, Daily, Refill(s) 0 Start Date: 10/27/23 Status: Ordered hydroCHLOROthiazide 25 mg / lisinopril 20 mg oral tablet (1 source) Thiazide Diuretic, Angiotensin Converting Enzyme Inhibitor Start: 11-02-2019 take 1 tablet by mouth once daily hydrochlorothiazide-lisinopril 25 mg-20 mg Tab tab(s), Oral, Daily, Refill(s) 0 Start Date: 11/02/19 Status: Ordered hydrOXYzine hydrochloride 25 mg oral tablet (20 sources) Antihistamine Start: 10-27-2023 End: 12-16-2024 take 1 tablet by mouth four times daily as needed for anxiety hydrOXYzine HCl (Atarax) 25 MG tablet Indications: Generalized anxiety disorder (CMS/HCC) Take 1 tablet (25 mg) by mouth 4 (four) times a day as needed for anxiety 60 tablet 4 06/13/2024 Active lamoTRIgine 150 mg oral tablet (20 sources) Mood Stabilizer, Anti-epileptic Agent Start: 10-27-2023 End: 12-16-2024 take 1 tablet by mouth at bedtime lamoTRIgine (LaMICtal) 150 MG tablet Indications: Moderate mood disorder (CMS/HCC) Take 1 tablet (150 mg) by mouth at bedtime 90 tablet 3 12/17/2023 12/16/2024 Active Start: 06-15-2023 take 1 mg by mouth twice daily Lamictal 25 mg Tab mg tab(s), Oral, BID, Refills(s) 0 Start Date: 06/15/23 Status: Ordered meclizine hydrochloride 25 mg oral tablet (20 sources) Antiemetic Start: 12-17-2023 End: 12-16-2024 take 1 tablet by mouth four times daily as needed for dizziness meclizine (Antivert) 25 MG tablet Indications: Other acute sinusitis, recurrence not specified Take 1 tablet (25 mg) by mouth 4 (four) times a day as needed for dizziness 30 tablet 2 12/17/2023 12/16/2024 Active montelukast 10 mg oral tablet (20 sources) Leukotriene Receptor Antagonist Start: 12-17-2023 End: 12-16-2024 take 1 tablet by mouth at bedtime montelukast (Singulair) 10 MG tablet Indications: Other acute sinusitis, recurrence not specified Take 1 tablet (10 mg) by mouth at bedtime 30 tablet 11 12/17/2023 12/16/2024 Active nystatin 100 unt/mg topical powder (20 sources) Polyene Antifungal Start: 03-01-2024 nystatin (Mycostatin) 530793 UNIT/GM powder Indications: Panniculitis Apply topically 2 (two) times a day 60 g 3 03/01/2024 Active One-A-Day (4 sources) Start: 10-27-2023 take 2 tablets by mouth once daily One-A-Day 2 tab(s), Oral, Daily, Refill(s) 0 Start Date: 10/27/23 Status: Ordered Repeat number: 1 Start: 10-27-2023 take 2 tablets by mo [facility] once daily One-A-Day 2 tab(s), Oral, Daily, Refill(s) 0 Start Date: 10/27/23 Status: Ordered oxybutynin chloride 5 mg oral tablet (2 sources) Cholinergic Muscarinic Antagonist Start: 11-11-2023 End: 01-10-2024 take 1 tablet by mouth twice daily oxybutynin 5 mg Tab 5 mg = 1 tab(s), Oral, BID, X 30 day(s), # 60 tab(s), Refills(s) 1, [id number], 147.4, cm, 10/27/23 13:16:00 EDT, Height/Length Dosing, [...] not crush, chew, or split.. 30 tablet 11 12/17/2023 03/01/2024 Discontinued (Dose adjustment) Start: 06-15-2023 [facility] Protonix 40 mg oral Granule 1 tab, Oral, BID, Refills(s) 0, Indigestion Start Date: 06/15/23 Status: Ordered Repeat number: 1 Start: 06-15-2023 take 1 mg by mouth [...] (Reorder) pramipexole dihydrochloride 0.5 mg oral tablet (20 sources) Nonergot Dopamine Agonist Start: 12-17-2023 End: [...] Active Start: 10-27-2023 take 1 capsule by [facility] at bedtime prazosin 1 mg Cap 1 mg = 1 cap(s), Oral, Bedtime, Refills(s) 0, Other (see comment) Start Date: 10/27/23 Status: Ordered Repeat number: 1 predniSONE 50 mg oral tablet (2 sources) Start: 04-12-2024 End: 04-18-2024 take 1 tablet by mouth once daily predniSONE (Deltasone) 50 MG tablet Indications: Acute bronchitis due to other specified organisms Take 1 tablet (50 mg) by mouth Daily for 6 days 6 tablet 04/12/2024 04/18/2024 Active sucralfate 100 mg/ml oral suspension (20 sources) Aluminum Complex Start: 12-17-2023 End: 12-16-2024 [...] for 5 day(s), 10 tab(s), Refill(s) 0, [facility] #[id number], 147.5, cm, 12/15/23 14:23:00 EDT, Height/Length Dosing, 87.9, kg, 12/15/23 14:23:00 EDT, Weight Dosing Start Date: 12/15/23 Stop Date: 12/20/23 Status: Ordered tamsulosin hydrochloride 0.4 mg oral capsule (2 sources) alpha-Adrenergic Eileen Start: 06-17-2023 take 1 capsule by mouth once daily tamsulosin 0.4 mg Cap 0.4 mg = 1 cap(s), Oral, Daily, # 30 cap(s), Refills(s) 0, Pharmacy: [facility] #[id number], 153, cm, 06/15/23 10:00:00 EST, Height/Length Dosing, [...] Discontinued (Therapy completed) Viactiv Soft Calcium Chews (4 sources) Start: 10-27-2023 Viactiv Soft C alcium Chews 4, Chewed, Daily, Refill(s) 0 Start Date: 10/27/23 Status: Ordered Repeat number: 1 Start: 10-27-2023 Viactiv Soft C alcium Chews 4, Chewed, Daily, Refill(s) 0 Start Date: 10/27/23 Status: Ordered Completed/Discontinued Medications Medication Drug Class(es) Dates Sig (Normalized) Sig (Original) betamethasone 0.5 mg/ml / clotrimazole 10 mg/ml topical cream (19 sources) Azole Antifungal, Corticosteroid Start: End: clotrimazole-betamethas one (Lotrisone) cream Indications: Tinea corporis Apply topically 2 (two) times a day 45 g 06/13/2024 07/24/2024 Discontinued (Therapy completed) doxepin hydrochloride 25 mg oral capsule (20 sources) Tricyclic Antidepressant Start: End: doxepin (SINEquan) 25 MG capsule Indications: Psychophysiological insomnia Take 2 capsules (50 mg) by mouth at bedtime for 7 days, THEN 1 capsule (25 mg) at bedtime for 7 days. Take 2 capsules by mouth at bedtime for 7 days then 1 capsule by mouth at bedtime for 7 days, then stop medication.. 21 capsule 06/21/2024 07/24/2024 Discontinued (Therapy completed) Start: 04-12-2024 End: 06-21-2024 take 1 capsule [...] 30 capsule 3 03/01/2024 04/12/2024 Discontinued (Reorder) potassium bicarbonate 25 meq effervescent oral tablet (1 source) Start: 08-10-2024 take 1 tablet by mouth twice daily Klor-Con/EF 25 mEq oral tablet, effervescent 25 mEq = 1 tab(s), Oral, BID, # 60 tab(s), Refills(s) 11, Pharmacy: [facility] #[id number], 147.5, cm, 08/10/24 16:08:00 EDT, Height/Length Dosing, 87.9, kg, 08/10/24 16:08:00 EDT, Weight Dosing Start Date: 08/10/24 Status: Ordered Quantity: 60.0 Unit: tab(s) Repeat number: 12 QUEtiapine 25 mg oral tablet (11 sources) Atypical Antipsychotic Start: 06-21-2024 End: 07-24-2024 take 0.5 tablet by mouth at bedtime QUEtiapine (SEROquel) 25 MG tablet Indications: Cyclothymic disorder (CMS/HCC) , PTSD (post-traumatic stress disorder) (CMS/HCC) , Moderate episode of recurrent major depressive disorder (CMS/HCC) , Generalized anxiety disorder (CMS/HCC) Take 0.5 tablets (12.5 mg) by mouth at bedtime 15 tablet 1 06/21/2024 07/24/2024 Discontinued (Side effects) Problems Active Problems Problem Classification Problem Date Documented Date Episodic/Chronic Abdominal pain (6 sources) Abdominal pain; Translations: [Unspecified abdominal pain] Onset: 06-15-2023 Episodic Anxiety disorders (20 sources) Anxiety; Translations: [Posttraumatic stress disorder] Onset: 05-11-2023 10-27-2023 Chronic Esophageal disorders (20 sources) Gastroesophageal reflux disease without esophagitis; Translations: [Gastro-esophageal reflux disease without esophagitis] Onset: 05-11-2023 05-11-2023 Chronic Essential hypertension (20 sources) Hypertensive disorder; Translations: [Benign essential hypertension] Onset: 05-11-2023 11-02-2019 Chronic Genitourinary symptoms and ill-defined conditions (5 sources) Urge incontinence of urine 07-23-2020 Chronic Headache; including migraine (5 sources) Headache 11-02-2019 Episodic Miscellaneous mental health disorders (20 sources) Primary insomnia; Translations: [Primary insomnia] Onset: 05-11-2023 Resolved: 06-21-2024 05-11-2023 Chronic Mood disorders (20 sources) Depressive disorder; Translations: [Mild mood disorder] Onset: 05-11-2023 Resolved: 06-21-2024 11-02-2019 Chronic Other diseases of kidney and ureters (20 sources) Renal mass; Translations: [Other specified disorders of kidney and ureter] Onset: 05-11-2023 05-11-2023 Chronic Other diseases of kidney and ureters (1 source) Urinary tract obstruction; Translations: [Hydronephrosis with renal and ureteral calculous obstruction] Onset: 06-15-2023 Episodic Other diseases of kidney and ureters (5 sources) Cyst of kidney 05-02-2020 Episodic Other hereditary and degenerative nervous system conditions (20 sources) Restless legs; Translations: [Restless legs syndrome] Onset: 05-11-2023 05-11-2023 Chronic Other nutritional; endocrine; and metabolic disorders (20 sources) Obesity caused by energy imbalance; Translations: [Class 2 obesity due to excess calories without serious comorbidity with body mass index (BMI) of 39.0 to 39.9 in adult] Onset: 05-19-2024 05-19-2024 Chronic Other upper respiratory disease (20 sources) Allergic rhinitis due to pollen; Translations: [Allergic rhinitis due to pollen] Onset: 05-11-2023 05-11-2023 Chronic Residual codes; unclassified (20 sources) Bilateral lower limb edema; Translations: [Localized edema] Onset: 06-13-2024 06-13-2024 Episodic Spondylosis; intervertebral disc disorders; other back problems (20 sources) Other intervertebral disc degeneration, lumbar region; Translations: [Degeneration of lumbar intervertebral disc] Onset: 09-08-2021 Chronic Unclassified (2 sources) CONTACT W/AND (SUSP) EXPOS COVID-19; Translations: [CONTACT W/AND (SUSP) EXPOS COVID-19] Onset: 03-12-2022 Unclassified (5 sources) Obstructive hydronephrosis 06-15-2023 Unclassified (1 source) Urine finding 08-10-2024 Viral infection (1 source) COVID-19; Translations: [COVID-19] Onset: 03-12-2022 Past or Other Problems Problem Classification Problem Date Documented Da te Episodic/Chronic Acute bronchitis (20 sources) Acute infective bronchitis; Translations: [Acute bronchitis due to other specified organisms] Onset: 04-12-2024 Resolved: 04-24-2024 04-12-2024 Episodic Calculus of urinary tract (20 sources) Kidney stone; Translations: [Calculus of kidney] Onset: 05-11-2023 Episodic Genitourinary symptoms and ill-defined conditions (20 sources) Dysuria; Translations: [Incomplete emptying of bladder] Onset: 05-11-2023 Resolved: 04-24-2024 05-02-2020 Episodic Mood disorders (20 sources) Mood disorders Onset: 05-11-2023 Resolved: 07-24-2024 05-11-2023 Mycoses (20 sources) Tinea corporis; Translations: [Tinea corporis] Onset: 05-19-2024 05-19-2024 Episodic Other connective tissue disease (20 sources) Panniculitis; Translations: [Panniculitis, unspecified] Onset: 03-01-2024 Resolved: 04-24-2024 03-01-2024 Episodic Other endocrine disorders (20 sources) Disorder of endocrine system; Translations: [Endocrine disorder, unspecified] Onset: 05-11-2023 05-11-2023 Episodic Other non-traumatic joint disorders (20 sources) Pain in left knee; Translations: [Pain in joint, lower leg] Onset: 05-11-2023 05-11-2023 Episodic Other screening for suspected conditions (not mental disorders or infectious disease) (20 sources) Patient encounter status; Translations: [Encounter for screening mammogram for malignant neoplasm of breast] Onset: 05-11-2023 Resolved: 04-24-2024 05-11-2023 Episodic Other skin disorders (20 sources) Vesicular eczema; Translations: [Dyshidrosis [pompholyx]] Onset: 05-11-2023 05-11-2023 Episodic Otitis media and related conditions (20 sources) Dysfunction of left eustachian tube; Translations: [Unspecified Eustachian tube disorder, left ear] Onset: 05-11-2023 Resolved: 04-24-2024 05-11-2023 Episodic Residual codes; unclassified (20 sources) History of bilateral salpingo-oophorecto my; Translations: [Acquired absence of ovaries, bilateral] Onset: 05-11-2023 05-11-2023 Episodic Unclassified (1 source) CONTACT W/AND (SUSP) EXPOS COVID-19; Translations: [CONTACT W/AND (SUSP) EXPOS COVID-19] Onset: 02-09-2022 Results Test Name Value Interpretation Reference Range Facility XR Abdomen 1 Viewon 08-12-19 25 XR Abdomen 1 View Exam Date/Time: 08/10/2024 15:28 EDT Reason for Exam: Kidney stone Report IMPRESSION: NO DEFINITIVE URINARY TRACT CALCULI IDENTIFIED. EXAMINATION: XR Abdomen 1 View HISTORY: Kidney stones TECHNIQUE: Frontal view of the abdomen and pelvis COMPARISON: 12/15/2023 radiographs FINDINGS: Interval removal of right-sided ureteral stent. 2 mm right lower pole calculus seen on prior examination is not well visualized on this examination and may be obscured by bowel contents. No definitive left-sided urinary tract calculi Nonobstructive bowel gas pattern. No evidence of free air. No acute osseous abnormality. Ordering Provider: Jaycee Khanna FINAL REPORT Dictated: 08/11/2024 12:46 pm Thomas Blanco DO Signed (Electronic Signature): 08/11/2024 12:46 pm Signed by: Thomas Blanco DO Transcribed by: CRISTOPHER Technologist: MAURICIO Lugo [facility] Ambulatory Visit Summaryon 0 08-10-2024 Ambulatory Visit Summary Ambulatory Visit Summary JUNE RHODES :1980 Visit Date:08/10/2024 Ambulatory Visit Instructions Your Diagnosis Ureteral stone Hypocitraturia Kidney stone Flank pain Your Care Team Attending Physician - PAWAN Khanna APRN, [facility] Primary Care Physician - HANY IGLESIAS MD This Is Your Medications List acetaminophen-oxycod one (acetaminophen-oxyco done 300 mg-5 mg oral tablet) cariprazine (Vraylar 1.5 mg oral capsule) hydrOXYzine (hydrOXYzine hydrochloride 25 mg Tab) lamotrigine (lamotrigine 150 mg Tab) multivitamin (One-A-Day) multivitamin with minerals (Hair Skin and Nails) multivitamin with minerals (Viactiv Soft Calcium Chews) pantoprazole (Protonix 40 mg oral Granule) prazosin (prazosin 1 mg Cap) Procedures Performed Cystoscopy (12/15/2023), ESWL of kidney (11/11/2023), Gastric sleeve (2022), Complete hernia, Cyst of fallopian tube, Hysterectomy. Discharge Vitals Temperature (Oral) 36.3 ???C Heart Rate (Peripheral) 54 Blood Pressure 118/88 Height 147.5 cm Height 58 in Weight 87.9 kg Weight 193.786 lb BMI 40.4 What to do next Scheduled Follow-Up Appointments 2025 11:40 AM EDT With: PAWAN Khanna APRN, [facility] Where: [facility] [place] [address]- You Need to Schedule the Following Appointments Follow Up with PAWAN Khanna APRN, [facility], FAM, URL When: Where: You Need to Complete the Following XR Abdomen 1 View, 08/10/24, Routine, Order for future visit, Transport Mode: Ambulatory, Reason: Kidney stone, No, Ureteral stone Hypocitraturia Kidney stone Flank pain, pp_set_radiology_sub specialty, [facility] Medications What How Much When Instructions Unchanged acetaminophen-oxycod one (acetaminophen-oxyco done 300 mg-5 mg oral tablet) 1 Tablets By Mouth Every 6 hours as needed for for pain Unchanged cariprazine (Vraylar 1.5 mg oral capsule) Unchanged hydrOXYzine (hydrOXYzine hydrochloride 25 mg Tab) [...] Cap) 1 Capsules By Mouth At bedtime Allergies Macrobid (Rash, Swelling) ciprofloxacin (Rash) morphine (Unknown) penicillin (Swelling of throat) Problems Ongoing - Any problem that you are currently receiving treatment for. Anxiety Depression Dysuria Flank pain Headache History of kidney stones Hypertension Hypocitraturia Incomplete bladder emptying Kidney stone PTSD (post-traumatic [...] other parts of the urinary tract, including: ??? The tubes that connect the kidneys to the bladder (ureters). ??? The bladder. ??? The tube that carries urine out of the body (urethra). Kidney stones can cause very bad pain and can block the flow of pee. The stone usually leaves your body through your pee. A doctor may need to take out the stone. What are the causes? Kidney stones may be caused by: ??? Too much calcium in the body. This may be caused by too much parathyroid hormone in the blood. ??? Uric acid crystals in the bladder. The body makes uric acid when you eat certain foods. ??? Narrowing of one or both of the ureters. ??? A kidney blockage that you were born with. ??? Past surgery on the kidney or the ureters. What increases the risk? You are more likely to develop this condition if: ??? You have had a kidney stone in the past. ??? Other people in your family have had kidney stones. ??? You do not drink enough water. ??? You eat a diet that is high in protein, salt (sodium), or sugar. ??? You are very overweight (obese). What are the signs or symptoms? Symptoms of a kidney stone may include: ??? Pain in the side of the belly, right below the ribs. Pain usually spreads to the groin. ??? Needing to pee often or right away. ??? Pain when peeing. ??? Blood in your pee. ??? Feeling like you may vomit (nauseous). ??? Vomiting. (more content not included)... Normal [facility] Urology Office/Clinic Noteon 08-10-2024 Urology Office/Clinic Note Urology Office/Clinic Note Chief Complaint 6 mth w/ KUB HPI Staff 6 month follow up w/KUB & Metabolic work up Previous DX: dysuria, HX of kidney stones, incomplete bladder emptying, renal cyst, ureteral stone w/hydronephrosis [facility] 07/19/24 - U24 Volume 3.14 L U24 Citrate 397 Today's UA resulted Trace-intact for BLO, Trace LEUK pt states her sxs are much better than last visit History of Present Illness Tests reviewed: UA & Metabolic workup I have reviewed the previous health record information and history for this patient from Dr. Haney. I have reviewed and verified the staff [...] See HPI. Physical Exam Vitals & Measurements T: 36.3 ???C(Oral) HR: 54(Peripheral) BP: 118/88 HT: 147.5 cm HT: 58 in WT: 87.9 kg WT: 193.786 lb BMI: 40.4 General Appearance: alert, no distress, well nourished, well developed female. Assessment/Plan June 44 yo female patient presents here for 6 month follow up w/KUB & Metabolic work up. 1. Ureteral stone (N20.1: Calculus of ureter) [facility] ER visit 05/21/23 c/o bilateral lower abdominal pain. Given Tamsulosin. CT AP wo con - 5mm R UPJ with moderate R hydro. EMELI 06/11/23 - Multiple R nonobstructing renal stones measuring up to 1cm. Mild/moderate R renal dilatation. KUB 06/11/23 - Multiple R renal calculi. s/p cysto, stent placement, right ESWL 11/11/23 s/p cysto, stent removal, right URS/nephroscopy w/ basket extraction of right renal calculus, right RGP 12/15/23 KUB 08/10/24 - PENDING. BBSQ: 9 UA today shows trace intact blood. Urine PH 6.5 Patient had KUB done IO today. Discussed imaging results, informed patient there maybe a poss 4-5 mm stone in the left kidney vs. bowel content. Will call patient w/ finalized results. Pt okay w/ this. Denies any issues with stones. Shares she still has been passing stones. Reports passing a stone yesterday. Denies any gross hematuria. Litholink 07/19/24 - U24 Volume 3.14 L U24 Citrate 397 Discussed generalized stone prevention - pt encouraged to increase fluid intake so that he/she producing 2.5L of urine daily. Add 1/4 cup of lemon juice to water throughout the day or can also drink sugar free lemonade or clear soda. Avoid dark yanick. Restrict sodium intake. Restrict animal protein. -Cont straining urine -Increase fluid intake Follow up 1yr w/ KUB or sooner if needed. Pt understands and agrees with plan. Ordered: Urnls Dip Stick Auto w/o Microscopy POC 88236 XR Abdomen 1 View XR Abdomen 1 View 2. Hypocitraturia (R82.991: Hypocitraturia) Litholink 07/19/24 - U24 Volume 3.14 L U24 Citrate 397 Reviewed metabolic workup w/ patient today. Discussed medication management of Potassium Citrate. Discussed generalized stone prevention - pt encouraged to increase fluid intake so that he/she producing 2.5L of urine daily. Add 1/4 cup of lemon juice to water throughout the day or can also drink sugar free lemonade or clear soda. Avoid dark yanick. Restrict sodium intake. Restrict animal protein. Patient shares she cannot drink pink lemonades or lemon juice, so at this time Potassium Citrate Supplements would be the best option. has a hard time swallowing pills, feels she would do better on effervescent tab - we discussed letting this flatten before consuming d/t her hx of bariatric surgery -Start klor con supplements. -Will get Potassium level drawn in 2 weeks Ordered: Urnls Dip Stick Auto w/o Microscopy POC 75475 XR Abdomen 1 View 3. Kidney stone (N20.0: Calculus of kidney) See #1. Ordered: Urnls Dip Stick Auto w/o Microscopy POC 53257 XR Abdomen 1 View XR Abdomen 1 View 4. Flank pain (R10.9: Unspecified abdominal pain) resolved Ordered: Urnls Dip Stick Auto w/o Microscopy POC 31083 XR Abdomen 1 View XR Abdomen 1 View Orders: potassium bicarbonate, 25 mEq = 1 tab(s), Oral, BID, # 60 tab(s), Refills(s) 11, Pharmacy: [facility] #[facility], 147.5, cm, 08/10/24 16:08:00 EDT, Height/Length Dosing, 87.9, kg, 08/10/24 16:08:00 EDT, Weight Dosing Follow-up With When Contact Information PAWAN Khanna APRN, Jaycee Lemons, FAM, URL Additional Instructions: Follow up 1yr w/ KUB or sooner if needed. Pt understands and agrees with plan. Patient Education Kidney Stones, [id number] Lashay Shaw, personally scribed for PAWAN Smart APRN on 08/10/2024 16:13:59. Electronically signed by bianca Ramirez on (more content not included)... Normal [facility] Comment on above: Result Comment: Elec tronically Signed By: PAWAN Khanna APRN, Jaycee Lemons\.br\Date and Time Signed: 08/10/24 16:48 EDT\.br\Electronically Co-Signed By: aLshay Ramirez\.br\Date and Time Co-Signed: 08/10/24 16:14 EDT ALL CBC WITH AUTO DIFFon BASOPHILS ABSOLUTE AUTO 0 [facility] Basophils/100 WBC (Bld) 0.2 % 0.2 - 2.0 % [facility] Eosinophils/100 WBC (Bld) 1.8 % 0.9 - 7.0 % [facility] Erythrocyte distribution width (RBC) [Ratio] 12.5 % 11.0 - 15.0 % [facility] Hematocrit (Bld) [Volume fraction] 42.3 % 36.0 - 48.0 % [facility] Hemoglobin (Bld) [Mass/Vol] 14.6 g/dL 12.0 - 16.0 g/dL [facility] IMMATURE GRANULOCYTES ABS AUTO 0.01 [facility] Immature granulocytes/100 WBC (Bld) 0.2 % 0.0 - 0.5 % [facility] LYMPHOCYTES ABSOLUTE AUTO 2 [facility] Lymphocytes/100 WBC (Bld) 43.4 % 20.5 - 60.0 % [facility] MCH (RBC) [Entitic mass] 29 pg 26.7 - 34.0 pg [facility] MCHC (RBC) [Mass/Vol] 34.5 g/dL 29.9 - 35.2 g/dL [facility] MCV (RBC) [Entitic vol] 84.1 fL 81.0 - 99.0 fL [facility] MONOCYTES ABSOLUTE AUTO 0.5 [facility] Monocytes/100 WBC (Bld) 10.4 % 1.7 - 12.0 % [facility] NEUTROPHILS ABSOLUTE AUTO 2 [facility] Neutrophils/100 WBC (Bld) 44 % 43.0 - 75.0 % [facility] Platelet mean volume (Bld) [Entitic vol] 10.4 fL 9.5 - 13.5 fL [facility] EO # 0.1 [facility] PLT [address] [facility] RBC 5.[address] [facility] WBC 4.5 [facility] Calculus Analysison 12-26-19 24 Calcium oxalate dihydrate Infrared spectroscopy (Stone) [Mass fraction] 20 % Invalid Interpretation Code [facility] Comment on above: Performed By: #### 1 [id number] #### [facility] [address] [place] [address] Calcium oxalate monohydrate (Stone) [Mass fraction] 60 % Invalid Interpretation Code [facility] Comment on above: Performed By: #### 1 [id number] #### [facility] [address] [place] [address] Calculus analysis [Interp] Comment Invalid Interpretation Code [facility] Comment on above: Result Comment: Calc ium phosphate (hydroxyl form) includes hydroxyapatite, amorphous calcium phosphate, and whitlockite. Hydroxyapatite is the most common of the calcium phosphate salts found in human kidney stones. Performed By: #### 1 [id number] #### [facility] [address] [place] [address] Color (Stone) Stevenson Invalid Interpretation Code [facility] Comment on above: Performed By: #### 1 [id number] #### [facility] [address] [place] [address] Composition Comment Invalid Interpretation Code [facility] Comment on above: Result Comment: Perc entage (Represents the % composition) Performed By: #### 1 [id number] #### [facility] [address] [place] [address] Disclaimer: Comment Invalid Interpretation Code [facility] Comment on above: Result Comment: This test was developed and its performance characteristics determined by [employer]. It has not been cleared or approved by the Food and Drug Administration. Performed at: [address] [id number] PhD Jamil San Performed By: #### 1 [id number] #### [facility] [address] [place] [address] Hydroxyapatite: 20 % Invalid Interpretation Code [facility] Comment on above: Performed By: #### 1 [id number] #### [facility] [address] [place] [address] Laboratory comment Nikhil (Report) Comment Invalid Interpretation Code [facility] Comment on above: Result Comment: Gwyn marx questions regarding Calculi Analysis contact [facility] at: [phone]. Performed By: #### 1 [id number] #### [facility] [address] [place] [address] Please Note: Comment Invalid Interpretation Code [facility] Comment on above: Result Comment: Calc deana report will follow via computer, mail or agronomy teacher delivery. Performed By: #### 1 [id number] #### [facility] [address] [place] [address] Size (Stone) [Entitic vol] 2x2 Invalid Interpretation Code [facility] Comment on above: Result Comment: Mult iple pieces received. Dimensions of the largest piece reported. Performed By: #### 1 [id number] #### [facility] [address] [place] [address] Specimen source subject Nom Kidney Invalid Interpretation Code [facility] Comment on above: Performed By: #### 1 [id number] #### [facility] [address] [place] [address] Stone Photo Comment Invalid Interpretation Code [facility] Comment on above: Result Comment: Phot ograph will follow under a separate cover Performed By: #### 1 [id number] #### [facility] [address] [place] [address] Weight (Stone) 8 mg Invalid Interpretation Code [facility] Comment on above: Performed By: #### 1 [id number] #### [facility] [address] [place] [address] Main OR Intraoperative Recor don 12-16-2023 Main OR Intraoperative Record Main OR Intraoperative Record IntraOp Document Type FT Summary Primary Physician: Chencho HANEY MD Finalized Date/Time: 12/16/23 11:46:04 Pt. Name: JUNE RHODES/Sex: 1980 Female Med Rec #: [id number] Physician: Chencho HANEY MD Financial #: [id number] Pt. Type: A Room/Bed: [place] [address] Admit/Disch: 12/15/23 13:42:32 - 12/15/23 18:45:00 Institution: [...] Henry Role Performed Anesthesiologist Surgeon - Primary Supervisor Inspection And Testing - Primary Tool Mechanic Time In 12/15/23 16:32:00 12/15/23 16:32:00 12/15/23 [...] Courtney M Role Performed Scrub - Primary Fire Controlman Fire Controlman Time In 12/15/23 16:32:00 12/15/23 16:32:00 12/15/23 16:32:00 Time Out 12/15/23 17:15:00 12/15/23 17:15:00 12/15/23 17:15:00 Procedure CYSTOSCOPY CYSTOSCOPY CYSTOSCOPY URETEROSCOPY(Right), URETEROSCOPY(Right), URETEROSCOPY(Right), CYSTOSCOPY STENT CYSTOSCOPY STENT CYSTOSCOPY STENT REMOVAL(Right) REMOVAL(Right) REMOVAL(Right) Comments Last Modified By: Frida Carmona Kelsie E Burgderfer, Kelsie E 12/15/23 17:19:18 12/15/23 17:19:18 12/15/23 17:19:18 Entry 7 Case Attendee Parson Jesus Role Performed Staff - Other Time In 12/15/23 16:32:00 Time Out 12/15/23 17:15:00 Procedure CYSTOSCOPY URETEROSCOPY(Right), CYSTOSCOPY STENT REMOVAL(Right) Comments Last Modified By: Frida Carmona 12/15/23 17:19:18 General Comments: MARIANO TOVAR, VALERIO Clacendix REP, IN ATTENDANCE.DAWNA KOCH RN. Perioperative Protocols [...] Clean-Contaminated Sp (more content not included)... Normal [facility] Discharge Instructionson Discharge Instructions Discharge Instructions JUNE RHODES Gerson :1980 Visit Date:12/15/2023 Inpatient Discharge Instructions Your [...] an antibiotic prescription to your pharmacy. Where: [address] [place], [place] [id number] Business (1) Medications What How Much When Instructions Next Dose New sulfamethoxazole-tri methoprim (Bactrim D.S. 800 mg-160 mg Tab) 1 Tablets By Mouth 2 times a day Duration: 5 Days Pickup at [facility] Unchanged acetaminophen-oxycod one (acetaminophen-oxyco done 300 [...] Once a day (at bedtime) Pharmacy Information [facility]: [address] [place], [place] [id number] [phone] Test Results No qualifying data available. Allergies [...] hydronephrosis Urge incontinence Education Materials [facility] [place], [place] Dr. Chencho Garza Post-operative Instructions for [...] normal di (more content not included)... Normal [facility] Comment on above: Result Comment: Elec tronically Signed By: Wiliam CORTEZ, Saritha Brown\.br\Date and Time Signed: 12/15/23 17:36 EDT Inpatient Patient Summaryon 12-15-2023 Inpatient Patient Summary Inpatient Patient Summary [address] [address] [facility] Clinical Discharge Instructions PERSON INFORMATION Name: JUNE RHODES PHYSICIANS Admitting Physician: Chencho HANEY MD Attending Physician: Chencho HANEY MD PCP: HARRIS ARANGO, HANY Discharge Diagnosis: Comment: PATIENT EDUCATION INFORMATION Instructions: [id number] Utereroscopy,Lithotr ipsy, Stone Extraction, Stent Placement (Custom); Post Op Patient Instructions - FT (Custom) (CUSTOM) Medication Leaflets: Follow up: With: Address: When: Chencho HANEY [address], [address], [facility] [address] [place] [address] [facility] (1) Within 6 months Comments: Call for [...] to your pharmacy. MEDICATION LIST New Medications [facility], [address] [place], [place] [id number], [phone] sulfamethoxazole-tri methoprim (Bactrim D.S. 800 mg-160 mg [...] once a day (at bedtime). Comment: Brittney [facility] Main OR PACU I Recordon 11-25 Main OR PACU I Record Main OR PACU I Record PACU Phase I Document Type FT Summary Primary Physician: Chencho HANEY MD Finalized Date/Time: 12/15/23 17:49:49 Pt. Name: JUNE RHODES Gerson TapiaB./Sex: 1980 Female Med Rec #: [id number] Physician: Chencho HANEY MD Financial #: [id number] Pt. Type: A Room/Bed: [facility] Admit/Disch: 12/15/23 13:42:32 - Institution: Case [...] Signed By: RANDY VARNER RN 12/15/23 17:49 [facility] Main OR PACU II Recordon Main OR PACU II Record Main OR PACU II Record PACU Phase II Document Type FT Summary Primary Physician: Chencho HANEY MD Finalized Date/Time: 12/15/23 18:27:49 Pt. Name: JUNE RHODES Gerson TapiaB./Sex: 1980 Female Med Rec #: [id number] Physician: Chencho HANEY MD Financial #: [id number] Pt. Type: A Room/Bed: [place] [address] Admit/Disch: 12/15/23 13:42:32 - 12/15/23 18:45:00 Institution: [...] Signed By: Saritha Swain RN 12/15/23 18:27 Normal [facility] Main OR Preoperative Recordo n 12-15-2023 Main OR Preoperative Record Main OR Preoperative Record PreOp Document Type FT Summary Primary Physician: Chencho HANEY MD Finalized Date/Time: 12/15/23 16:42:28 Pt. Name: JUNE RHODES/Sex: 1980 Female Med Rec #: [id number] Physician: Chencho HANEY MD Financial #: [id number] Pt. Type: A Room/Bed: [place] [address] Admit/Disch: 12/15/23 13:42:32 - Institution: Case Times [...] Signed By: Frida Carmona 12/15/23 16:42 Normal [facility] Operative Reporton Operative Report Operative Report [...] is placed per urethra. A well-lubricated 22 Kyrgyz is urethroscope with 30 degree lens then [...] it well. She is transferred to the [facility] and then back to PACU in [...] Blood Loss: 2 ml. Complications: None. Normal [facility] Comment on above: Result Comment: Elec tronically Signed By: LYNDON ARANGO, Chencho Oneal\.sophie\Date and Time Signed: 12/15/23 17:25 EDT Outpatient Surgery Discharge Instructionon 12-15-2023 Outpatient Surgery Discharge Instruction Outpatient Surgery Discharge Instruction [address] [address] Patient Discharge Instructions PERSON INFORMATION [...] NEAREST EMERGENCY ROOM OR CALL 911 I, JUNE RHODES, have received the attached patient education materials/instructio ns and have verbalized understanding: May we do a follow up call? Yes No I was present when discharge instructions were given Patient Signature Date Clinican/Nurse Signature Date Follow up: With: Address: When: Chencho HANEY [address] [place] [address], [address], [address] [address] Business (1) Within 6 months Comments: Call [...] to serve you. Thank you for choosing [facility] HERE ARE THE MEDICATION CHANGES THAT OCCURRED DURING YOUR HOSPITAL STAY New Medications [facility], [address] [place], [place] [id number], [phone] sulfamethoxazole-tri methoprim (Bactrim D.S. 800 mg-160 mg [...] bedtime). PATIENT EDUCATION INFORMATION Instructions: [facility] [place], [place] Dr. Chencho Garza Post-operative Instructions for [...] should take (more content not included)... Normal [facility] XR Abdomen 1 Viewon 12-15-19 24 [...] visualized lung bases are clear. Ordering Provider: COOK, Chencho FINAL REPORT Dictated: 12/15/2023 2:16 pm Osvaldo Heaton MD Signed (Electronic Signature): 12/15/2023 2:16 pm Signed by: Osvaldo Heaton MD Transcribed by: CRISTOPHER Technologist: MAURICIO Technical Comments Radiation Dose: Ka,r in mGy = na DAP = na Normal [facility] Main OR Intraoperative Recor don 11-12-2023 Main OR Intraoperative Record Main OR Intraoperative Record IntraOp Document Type FT Summary Primary Physician: Chencho HANEY MD Finalized Date/Time: 11/12/23 13:35:24 Pt. Name: MEAGAN JUNE Nieto /Sex: 1980 Female Med Rec #: [id number] Physician: Chencho HANEY MD Financial #: [id number] Pt. Type: A Room/Bed: [place] [address] Admit/Disch: 11/11/23 09:03:11 - 11/11/23 16:16:29 Institution: [...] MD, Chencho Bailey RN,Paige Brown Role Performed MAGAZINE SUPERVISOR Surgeon - Primary Staff - Other Time [...] 4 Entry 5 Case Attendee Pako CORTEZ, Kristie Welsh CST, Parveen Role Performed Supervisor Inspection And Testing - Primary Scrub - Primary Time In [...] Sonja Bo CRNA, Given Participants LYNDON ARANGO, Lynn Lopez RN,Pako Cobb RN, Anitha Koehler CST, [place] Time Out Complete 11/11/23 13:26:00 Outcomes Met? [...] Surgeon LYNDON ARANGO, Chencho HANEY MD, Chencho Silverio 11/11/23 13:27:00 11/11/23 13:27:00 Stop 11/11/23 13:48:00 [...] and tissue Entry 1 Skin Integrity Intact, [place], Warm, and Skin Abnormality No Dry Outcomes Met? Yes Last Sandhya (more content not included)... Normal [facility] XR Abdomen 1 Viewon 11-12-19 XR [...] REPORT Dictated: 11/12/2023 12:51 pm Ruddy Ocampo MD. Signed (Electronic Signature): 11/12/2023 12:51 pm Signed by: Ruddy Ocampo MD Transcribed by: CRISTOPHER Technologist: JAELYN Technical Comments Radiation Dose: Ka,r in mGy = na DAP = na Normal [facility] Discharge Instructionson Discharge Instructions Discharge Instructions [...] to speak with Elizabeth, she is my senior master scheduler. Please asked to have the abdominal [...] some bladder spasm medications as well. Where: [address] [place] [address] [facility] (1) Medications What How Much When Instructions Next Dose New acetaminophen-hydroc odone (acetaminophen-hydro codone 325 mg-5 mg oral tablet) 1 Tablets By Mouth Every 4 hours as needed for Pain Duration: 2 Days Pickup at [facility] #97841 New ciprofloxacin (Cipro 500 mg Tab) 1 Tablets By Mouth 2 times a day Duration: 5 Days Pickup at [facility] #72405 New oxybutynin (oxybutynin 5 mg Tab) 1 Tablets By Mouth 2 times a day Duration: 30 Days Refills: 1 Pickup at [facility] #08336 Unchanged hydrOXYzine (hydrOXYzine hydrochloride 25 mg Tab) [...] Once a day (at bedtime) Pharmacy Information [facility] #[id number]: [address] [place], [place] [phone] Test Results No qualifying data available. Allergies [...] ? Bl (more content not included)... Normal [facility] Comment on above: Result Comment: Elec tronically Signed By: Myrtle CORTEZ, Janene Rodriguez\.br\Date and Time Signed: 11/11/23 14:47 EDT Inpatient Patient Summaryon 11-11-2023 Inpatient Patient Summary Inpatient Patient Summary [place] [id number] [facility] Clinical Discharge Instructions PERSON INFORMATION Name: JUNE RHODES PHYSICIANS Admitting Physician: Chencho HANEY MD Attending Physician: Chencho HANEY MD PCP: HANY IGLESIAS MD Discharge Diagnosis: Comment: PATIENT EDUCATION INFORMATION Instructions: Lithotripsy, Care After Medication Leaflets: Follow up: With: Address: When: Chencho HANEY [address] [place] [address], [address], [place] [id number] [facility] (1) Comments: Please call my office to speak with Elizabeth, she is my senior master scheduler. Please asked to have the abdominal [...] well. MEDICATION LIST New Medications [id number], [address] [place], [place] [id number], [phone] acetaminophen-hydroc odone (acetaminophen-hydro codone 325 mg-5 mg [...] once a day (at bedtime). Comment: Normal [facility] Main OR PACU I Recordon 10-24 Main OR PACU I Record Main OR PACU I Record PACU Phase I Document Type FT Summary Primary Physician: Chencho HANEY MD Finalized Date/Time: 11/11/23 14:56:51 Pt. Name: JUNE RHODES/Sex: 1980 Female Med Rec #: [id number] Physician: Chencho HANEY MD Financial #: [id number] Pt. Type: A Room/Bed: Admit/Disch: 11/11/23 09:03:11 [...] 14:56 Nancy Galloway RN 11/11/23 14:56 Normal [facility] Main OR PACU II Recordon Main OR PACU II Record Main OR PACU II Record PACU Phase II Document Type FT Summary Primary Physician: Chencho HANEY MD Finalized Date/Time: 11/11/23 16:13:12 Pt. Name: JUNE RHODES Gerson TapiaB./Sex: 1980 Female Med Rec #: [id number] Physician: Chencho HANEY MD Financial #: [id number] Pt. Type: A Room/Bed: Admit/Disch: 11/11/23 09:03:11 [...] By: Janene Iraheta RN 11/11/23 16:13 Normal [facility] Main OR Preoperative Recordo n 11-11-2023 Main OR Preoperative Record Main OR Preoperative Record PreOp Document Type FT Summary Primary Physician: Chencho HANEY MD Finalized Date/Time: 11/11/23 13:47:17 Pt. Name: JUNE RHODES /Sex: 1980 Female Med Rec #: [id number] Physician: Chencho HANEY MD Financial #: [id number] Pt. Type: A Room/Bed: 03/ Admit/Disch: 11/11/23 09:03:11 - Institution: Case Times [...] By: Kristie Min RN 11/11/23 13:47 Normal [facility] Operative Reporton Operative Report Operative Report Patient: JUNE RHODES Age: 43 years Sex: Female : 1980 Associated Diagnoses: None Author: Chencho HANEY MD Postoperative Information Date/ Time: 11/11/2023 13:44:00 Postoperative Diagnosis: Right renal calculus, 1.5 cm. Performed by: Lyndon ARANGO, Chencho Roth. Findings: Procedure: Cystoscopy Right double-J stent placement [...] in a modified dorsolithotomy position on the [employer] litho-star lithotripsy table. She is prepped in usual fashion Betadine solution, draped appropriately. 2% Xylocaine jelly is placed per urethra and a well-lubricated 22 Kyrgyz is urethroscope with 30 degree lens then passed into the bladder without difficulty. Panendoscopy reveals no tumors, no stones, no diverticuli. Ureteral orifices are normal. No suspicious lesions. I was able to cannulate the right ureteral orifice with a point 035 guidewire and over that a 4.9 Kyrgyz Dornier double-J ureteral stent is then passed [...] it well. [facility] and then back to PACU in satisfactory condition, stable vital signs. Plan to be for discharge home with plans to follow-up hopefully for stent removal after a KUB next week confirms adequate fragmentation. Discussed this postop with her family and she is in agreement with the plan. Antibiotic prescription as well as [place] as well as oxybutynin sent to the pharmacy. Antibiotic consists of Cipro 500 mg p.o. twice daily #10.. Estimated Blood Loss: 0 ml. Complications: None. Anesthesia type: General. Normal [facility] Comment on above: Result Comment: Elec tronically Signed By: Chencho HANEY MD\.br\Date and Time Signed: 11/11/23 13:48 EDT Outpatient Surgery Discharge Instructionon 11-11-2023 Outpatient Surgery Discharge Instruction Outpatient Surgery Discharge Instruction [place] [id number] Patient Discharge Instructions PERSON INFORMATION Name: JUNE [...] NEAREST EMERGENCY ROOM OR CALL 911 I, JUNE RHODES, have received the attached patient education materials/instructio ns and have verbalized understanding: May we do a follow up call? Yes No I was present when discharge instructions were given Patient Signature Date Clinican/Nurse Signature Date Follow up: With: Address: When: Chencho HANEY [address], [address], [facility] [address] [place] [address] Business (1) Comments: Please call my office to speak with Elizabeth, she is my senior master scheduler. Please asked to have the abdominal [...] to serve you. Thank you for choosing [facility] HERE ARE THE MEDICATION CHANGES THAT OCCURRED DURING YOUR HOSPITAL STAY New Medications [id number], [address], [place] [phone], [phone] acetaminophen-hydroc odone (acetaminophen-hydro codone 325 mg-5 mg [...] may m (more content not included)... Normal [facility] BMPon 10-27-2023 Anion gap [Moles/Vol] 10 mmol/L Normal 6-16 [facility] Comment on above: Performed By: #### 2 [id number] #### [facility] [address] [place] [address] Calcium [Mass/Vol] 8.9 mg/dL Normal 8.9-11.1 [facility] Comment on above: Performed By: #### 2 [id number] #### [facility] [address] [place] [address] Chloride [Moles/Vol] 107 mmol/L Normal 101-111 [facility] Comment on above: Performed By: #### 2 [id number] #### [facility] [address] [place] [address] CO2 [Moles/Vol] 28 mmol/L Normal 21-31 [facility] Comment on above: Performed By: #### 2 [id number] #### [facility] [address] [place] [address] Creatinine [Mass/Vol] 0.7 mg/dL Normal 0.5-1.3 [facility] Comment on above: Performed By: #### 2 [id number] #### [facility] [address] [place] [address] Glucose [Mass/Vol] 81 mg/dL Normal 55-199 [facility] Comment on above: Performed By: #### 2 [id number] #### [facility] [address] [place] [address] Potassium [Moles/Vol] 4.2 mmol/L Normal 3.5-5.3 [facility] Comment on above: Performed By: #### 2 [id number] #### [facility] [address] [place] [address] Sodium [Moles/Vol] 141 mmol/L Normal 135-145 [facility] Comment on above: Performed By: #### 2 [id number] #### [facility] [address] [place] [address] Urea nitrogen [Mass/Vol] 18 mg/dL Normal 5-21 [facility] Comment on above: Performed By: #### 2 [id number] #### [facility] [address] [place] [address] Urea nitrogen/Creatinine [Mass ratio] 26 No Units High 10-20 [facility] Comment on above: Performed By: #### 2 [id number] #### [facility] [address] [place] [address] CBC w/ Auto Diffon 4 Basophils/100 WBC (Bld) 0.7 % Normal 0.0-2.0 [facility] Comment on above: Performed By: #### 2 [id number] #### [facility] [address] [place] [address] Basophils/Leukocytes Auto (Bld) [Pure # fraction] 0.0 E9/L Normal 0.0-0.2 [facility] Comment on above: Performed By: #### 2 [id number] #### [facility] [address] [place] [address] Eosinophils (Bld) [#/Vol] 0.2 E9/L Normal 0.0-0.5 [facility] Comment on above: Performed By: #### 2 [id number] #### [facility] [address] [place] [address] Eosinophils/100 WBC (Bld) 2.6 % Normal 0.0-8.0 [facility] Comment on above: Performed By: #### 2 [id number] #### [facility] [address] [place] [address] Erythrocyte distribution width (RBC) [Ratio] 13.5 % Normal 10.9-14.2 [facility] Comment on above: Performed By: #### 2 [id number] #### [facility] [address] [place] [address] Hematocrit (Bld) [Volume fraction] 39.3 % Normal 34.0-46.0 [facility] Comment on above: Performed By: #### 2 [id number] #### [facility] [address] [place] [address] Hemoglobin (Bld) [Mass/Vol] 13.9 g/dL Normal 12.0-16.0 [facility] Comment on above: Performed By: #### 2 [id number] #### [facility] [address] [place] [address] Lymphocytes (Bld) [#/Vol] 1.9 E9/L Normal 1.0-4.0 [facility] Comment on above: Performed By: #### 2 [id number] #### [facility] [address] [place] [address] Lymphocytes/100 WBC (Bld) 27.1 % Normal 14.0-50.0 [facility] Comment on above: Performed By: #### 2 [id number] #### [facility] [address] [place] [address] MCH (RBC) [Entitic mass] 29.7 pg Normal 27.0-34.0 [facility] Comment on above: Performed By: #### 2 [id number] #### [facility] [address] [place] [address] MCHC (RBC) [Mass/Vol] 35.3 g/dL Normal 31.4-36.0 [facility] Comment on above: Performed By: #### 2 [id number] #### [facility] [address] [place] [address] MCV (RBC) [Entitic vol] 84.2 fL Normal 80.0-100.0 [facility] Comment on above: Performed By: #### 2 [id number] #### [facility] [address] [place] [address] Monocytes (Bld) [#/Vol] 0.5 E9/L Normal 0.2-1.0 [facility] Comment on above: Performed By: #### 2 [id number] #### [facility] [address] [place] [address] Neutrophils (Bld) [#/Vol] 4.4 E9/L Normal 2.0-7.5 [facility] Comment on above: Performed By: #### 2 [id number] #### [facility] [address] [place] [address] Neutrophils/100 WBC (Bld) 62.1 % Normal 36.0-75.0 [facility] Comment on above: Performed By: #### 2 [id number] #### [facility] [address] [place] [address] Platelet 272.0 E9/L Normal 150.0-500.0 [facility] Comment on above: Performed By: #### 2 [id number] #### [facility] [address] [place] [address] Platelet mean volume (Bld) [Entitic vol] 9.8 fL Normal 6.4-10.8 [facility] Comment on above: Performed By: #### 2 [id number] #### [facility] [address] [place] [address] RBC (Bld) [#/Vol] 4.7 E12/L Normal 4.3-5.9 [facility] Comment on above: Performed By: #### 2 [id number] #### [facility] [address] [place] [address] WBC corrected for nucl RBC Auto (Bld) [#/Vol] 7.0 E9/L Normal 4.0-11.0 [facility] Comment on above: Performed By: #### 2 [id number] #### [facility] [address] [place] [address] CHEMISTRYOrdered By: SYSTEM SYSTEM on 10-27-2023 Anion [...] Chem eGFR 108 mL/min/1.73 m2 Normal >=59mL/mi n/1 .73 m2 Remisol Chem Glucose [Mass/Vol] 81 mg/dL [...] 39.3 s High 25.1 - 36.5 second(s) [facility] Auto Coag Comment on above: Interpretive Data: P arameter 15 days - 4 weeks 1 - [...] the same coagulation reagent and instrumentation as [facility]. Currently there are no coagulation studies available worldwide for children to 14 days, and no normal ranges. Heparin therapeutic range (represented by Anti-Factor Xa activity of 0.2 - 0.4 U/mL) corresponds to PTT of 56.6 - 109.0 sec. INR Coag (PPP) [Relative time] 1.07 {INR} Invalid Interpretation Code [facility] Auto Coag Comment on above: Interpretive Data: I NR results are specifically intended to assess patients stabilized on long-term Anticoagulation therapy suggested INR s Less Intensive Anticoagulation 2.0 3.0 Conventional Range 3.0 4.5 PT Coag (PPP) [Time] 12.0 s Normal 9.4 - 1 2.5 second(s) [facility] Auto Coag Comment on above: Interpretive Data: [...] the same coagulation reagent and instrumentation as [facility]. Currently there are no coagulation studies available [...] Coag (PPP) [Time] 39.3 second(s) High 25.1-36.5 [facility] Comment on above: Result Comment: Para [...] the same coagulation reagent and instrumentation as [facility]. Currently there are no coagulation studies available worldwide for children to 14 days, and no normal ranges. Heparin therapeutic range (represented by Anti-Factor Xa activity of 0.2 - 0.4 U/mL) corresponds to PTT of 56.6 - 109.0 sec. Performed By: #### 1 [id number] ####[facility] [place] [address] INR Coag (PPP) [Relative time] 1.07 {INR} Invalid Interpretation Code [facility] Comment on above: Result Comment: INR results are specifically intended to assess patients stabilized on long-term Anticoagulation therapy suggested INR?s ?Less Intensive Anticoagulation? 2.0 ? 3.0 Conventional Range 3.0 ? 4.5 Performed By: #### 1 [id number] ####[facility] [address] [place] [address] PT Coag (PPP) [Time] 12.0 second(s) Normal 9.4-12.5 [facility] Comment on above: Result Comment: 15 [...] the same coagulation reagent and instrumentation as [facility]. Currently there are no coagulation studies available worldwide for children to 14 days, and no normal ranges. Performed By: #### 1 [id number] ####[facility] [address] [place] [address] UA with Cult Rflxon 10-27-19 24 Bacteria Auto Ql (U) Trace Normal Trace Fish [facility] Comment on above: Performed By: #### 4 [id number] #### [facility] [address] [place] [address] Bilirubin Ql (U) Negative Normal Negative [facility] Comment on above: Performed By: #### 4 [id number] #### [facility] [address] [place] [address] Clarity (U) Clear Normal Clear [facility] Comment on above: Performed By: #### 4 [id number] #### [facility] [address] [place] [address] Color (U) Light-Yellow Normal Yellow [facility] Comment on above: Result Comment: Micr oscopic readings are only performed on those samples that meet specific criteria set forth by [facility]. Performed By: #### 4 [id number] #### [facility] [address] [place] [address] Epithelial cells.squamous Auto (Urine sed) [#/Area] 0-2 Invalid Interpretation Code [facility] Comment on above: Performed By: #### 4 [id number] #### [facility] [address] [place] [address] Glucose Ql (U) Negative Normal Negative [facility] Comment on above: Performed By: #### 4 [id number] #### [facility] [address] [place] [address] Hemoglobin Auto test strip (U) [Mass/Vol] Negative Normal Negative [facility] Comment on above: Performed By: #### 4 [id number] #### [facility] [address] [place] [address] Hyaline casts LM Ql (Urine sed) 0-3 Normal 0-3 [facility] Comment on above: Performed By: #### 4 [id number] #### [facility] [address] [place] [address] Ketones Auto test strip Ql (U) Negative Normal Negative [facility] Comment on above: Performed By: #### 4 [id number] #### [facility] [address] [place] [address] Leukocyte esterase Auto test strip Ql (U) 25 Pinky/uL Normal Negative [facility] Comment on above: Performed By: #### 4 [id number] #### [facility] [address] [place] [address] Mucus Auto Ql (U) Trace Normal Negative [facility] Comment on above: Performed By: #### 4 [id number] #### [facility] [address] [place] [address] Nitrite Auto test strip Ql (U) Negative Normal Negative [facility] Comment on above: Performed By: #### 4 [id number] #### [facility] [address] [place] [address] pH (U) 6.0 [pH] Invalid Interpretation Code 5.0-9.0 [facility] Comment on above: Performed By: #### 4 [id number] #### [facility] [address] [place] [address] Protein Ql (U) Negative Normal Negative [facility] Comment on above: Performed By: #### 4 [id number] #### [facility] [address] [place] [address] RBC Ql (U) 4-20 Abnormal 0-3 [facility] Comment on above: Performed By: #### 4 [id number] #### [facility] [address] [place] [address] Specific gravity (U) [Rel density] 1.025 Invalid Interpretation Code 1.005-1.030 [facility] Comment on above: Performed By: #### 4 [id number] #### [facility] [address] [place] [address] Urobilinogen (U) [Mass/Vol] Negative Normal Negative [facility] Comment on above: Performed By: #### 4 [id number] #### [facility] [address] [place] [address] WBC Auto (Urine sed) [#/Area] 0-5 Normal 0-5 [facility] Comment on above: Performed By: #### 4 [id number] #### [facility] [address] [place] [address] Type of Urine collection method Clean Catch Normal [facility] Comment on above: Performed By: #### 4 [id number] #### [facility] [address] [place] [address] URINALYSISOrdered By: SYSTEM SYSTEM on 10-27-2023 Bacteria Auto Ql (U) Trace /HPF Normal Trace/HPF FT UA Auto SS Bilirubin Ql (U) Negative Normal Negativemg/ d L [facility] UA Auto SS Clarity (U) Clear (10/27/23 10:58 AM) Normal Clear [facility] UA Auto SS Color (U) Light-Yellow 1 (10/27/23 10:58 AM) Normal Yellow [facility] UA Auto SS Comment on above: Interpretive Data: M icroscopic readings are only performed on those samples that meet specific criteria set forth by [facility]. Epithelial cells.squamous Auto (Urine sed) [#/Area] 0-2 graded/HPF Invalid Interpretation Code [facility] UA Auto SS Glucose Ql (U) Negative Normal Negativemg/d L [facility] UA Auto SS Hemoglobin Auto test strip (U) [Mass/Vol] Negative Normal Negativemg/d L [facility] UA Auto SS Hyaline casts LM Ql (Urine sed) 0-3 graded/LPF Normal 0-3graded/LP F [facility] UA Auto SS Ketones Auto test strip Ql (U) Negative Normal Negativemg/d L [facility] UA Auto SS Leukocyte esterase Auto test strip Ql (U) 25 Pinky/uL Pinky/uL Normal NegativeLeu/ uL [facility] UA Auto SS Mucus Auto Ql (U) Trace graded/LPF Normal Negati vegrad ed/LPF [facility] UA Auto SS Nitrite Auto test strip Ql (U) Negative Normal Negativemg/d L [facility] UA Auto SS pH (U) 6.0 *NA* (10/27/23 10:58 AM) Invalid Interpretation Code 5.0 - 9.0 [facility] UA Auto SS Protein Ql (U) Negative Normal Negativemg/d L [facility] UA Auto SS RBC Ql (U) 4-20 graded/HPF Invalid Interpretation Code 0-3graded/HP F [facility] UA Auto SS Specific gravity (U) [Rel density] 1.025 *NA* (10/27/23 10:58 AM) Invalid Interpretation Code 1.005 - 1.030 [facility] UA Auto SS Urobilinogen (U) [Mass/Vol] Negative Normal Negativemg/d L [facility] UA Auto SS WBC Auto (Urine sed) [#/Area] 0-5 graded/HPF Normal 0-5graded/HP F [facility] UA Auto SS URINALYSISOrdered By: Shayne Butler on 10-27-2023 UA Spec Desc Clean Catch (10/27/23 10:58 AM) Normal [facility] UA Auto SS eGFRon 07-03-2024 eGFR 108 mL/min/1.73 m2 Normal >=59 [facility] Comment on above: Order Comment: Order added by Discern Expert. Performed By: #### 1 [id number] #### [facility] [address] [place] [address] Provider Letteron 07-19-2023 Provider Letter July 19, 2023 JUNE SHERFORD [address] [place] [id number] : 1980 Dear June , We have been trying to reach you with no success. It is important that you return our call regarding your next kidney stone surgery upon receiving this letter. Also, at the time of your call, please provide us with your current information. Thank you for your prompt attention to this matter. Sincerely, Dr. Chencho Haney MD [facility] RAD - MISCon 06-25-2023 RAD - MISC [id number] #1.00TIFF Normal [facility] Lab Reportson 06-16-2023 Lab Reports [id number] #1.00TIFF Normal [facility] RAD - CT Reporton 06-16-2023 RAD - [address] Report [id number] #1.00TIFF Normal [facility] RAD - Ultrasound Reporton RAD - Ultrasound Report [id number] #1.00TIFF Normal [facility] Ambulatory Visit Summaryon 0 06-15-2023 Ambulatory Visit Summary JUNE RHODES :1980 Visit Date:06/15/2023 Ambulatory Visit Instructions Your Diagnosis Ureteral stone with hydronephrosis Kidney stone Flank pain Tests Performed XR IVP -- Results Pending -- Please visit your patient portal for your results or contact your primary care physician. Your Care Team Attending Physician - LYNDON ARANGO, Chencho Oneal Primary Care Physician - HANY IGLESIAS MD [...] Following Appointments Follow Up with LYNDON ARANGO, SHEA Lopez When: Comments: IVP in 1-2wks Where: [address] [address]- Medications What How Much When [...] th (more content not included)... Normal [facility] Patient Educationon 06-15-19 Patient Education Urology Kidney [...] these instructions at home: Medicines ? Take rbgs-tai-whcpiod and prescription medicines only as told by [...] provider. Document Revised: 12/15/2021 Document Reviewed: 12/15/2021 ElseConsult A Doctor Patient Education ? 2022 [employer]. Brittney [facility] Urology Office/Clinic Noteon 06-15-2023 Urology Office/Clinic Note Chief Complaint [facility] F/U for lower abdominal pain HPI Staff Pt is here for [facility]H F/U CT abdominal pelvis wo con @ [facility] 05/21/23 CC lower abdominal pain Last OV was 07/23/20 Previous DX; Kidney stone, flank pain, microscopic hematuria, urge incontinence, hx kidney stones CT @ [facility] on 06/11/23 EMELI @ [facility] 06/11/23 Given Tamsulosin 0.4 mg qd at [facility] She did complete this no concerns [...] Hydronephrosis with renal and ureteral calculous obstruction) [facility] ER visit 05/21/23 c/o bilateral lower [...] with voice recognition artificial intelligence software, specifically [employer], [employer] and or [employer]. Substitutions may have occurred due to the inherent limitations of voice recognition and artificial intelligence software. Follow-up With When Contact Information Chencho HANEY MD, URL [address] [address]- Additional Instructions: IVP in 1-2wks Patient Education Kidney Stones, [id number] ICleo, personally scribed for Dr. Haney on 06/15/2023 10:54:59. . Documentation recorded by the Cleo valenzuela (more content not included)... [facility] Comment on above: Result Comment: Elec tronically Signed By: Chencho HANEY MD\.br\Date and Time Signed: 06/15/23 21:50 EST\.br\Electronically Co-Signed By: Cleo Bonner\.br\Date and Time Co-Signed: 06/15/23 10:55 EST RAD - MISCon 06-13-2023 RAD - MISC [id number] #1.00TIFF [facility] RAD - Ultrasound Reporton RAD - Ultrasound Report [id number] #1.00TIFF [facility] ED Note-Physicianon 06-08-19 ED Note-Physician [id number] #1.00TIFF [facility]24 SARS-CoV-2 (COVID-19) RNA JUDE+probe Ql (Unsp spec) Detected Critically abnormal NOT DETECTED [facility] Comment on above: Result Comment: This test is not yet approved or cleared by the [place] FDA. When there are no FDA-approved or cleared tests available, and other criteria are met, FDA can make tests available under an emergency access mechanism called an Emergency Use Authorization (EUA). The EUA for this test is supported by the [employer] Machine Setter of Health and Human Service's (HHS's) declaration [...] longer be used). Performed By: #### [facility] #### [facility] [address] [place] [address] Dr. Abdelrahman Chisholm XR LSPINE 2_3 VIEWSon [...] YOSVANY NEGRO Date: 2021-09-08 15:24 Normal [facility] Vital Signs Date Time Vital Sign Value Performing Clinician Facility 09-11-2024 10:48-0400 Body mass index (BMI) [Ratio] 39.45 kg/m2 Rosina Barraza [facility] Work Phone: [facility] 09-11-2024 10:48-0400 Body weight 91.63 kg Rosina Barraza [facility] Work Phone: [facility] 09-11-2024 10:48-0400 Diastolic blood pressure 82 mm[Hg] Rosina Barraza PMHNP-BC Work Phone: [facility] 09-11-2024 10:48-0400 Heart rate 75 /min Rosina Barraza PMHNP-BC Work Phone: [facility] 09-11-2024 10:48-0400 Systolic blood pressure 110 mm[Hg] Rosina Barraza PMHNP-BC Work Phone: [facility] 08-30-2024 08:15-0400 Body height 152.4 cm Hany Iglesias MD Work Phone: [facility] 08-30-2024 08:15-0400 Body mass index (BMI) [Ratio] 38.47 kg/m2 Hany Iglesias MD Work Phone: [facility] 08-30-2024 08:15-0400 Body temperature 97.5 [degF] Hany Iglesias MD Work Phone: [facility] 08-30-2024 08:15-0400 Body weight 89.36 kg Hany Iglesias MD Work Phone: [facility] 08-30-2024 08:15-0400 Diastolic blood pressure 80 mm[Hg] Hany Iglesias MD Work Phone: [facility] 08-30-2024 08:15-0400 Heart rate 91 /min Hany Iglesias MD Work Phone: [facility] 08-30-2024 08:15-0400 Respiratory rate 20 /min Hany Iglesias MD Work Phone: [facility] 08-30-2024 08:15-0400 SaO2% (BldA) [Mass fraction] 98 % Hany Iglesias MD Work Phone: [facility] 08-30-2024 08:15-0400 Systolic blood pressure 106 mm[Hg] Hany Iglesias MD Work Phone: [facility] 08-21-2024 13:52-0400 Body mass index (BMI) [Ratio] 40.43 kg/m2 Rosina Barraza PMHNP-BC Work Phone: [facility] 08-21-2024 13:52-0400 Body weight 93.89 kg Rosina Barraza PMHNP-BC Work Phone: [facility] 08-21-2024 13:52-0400 Diastolic blood pressure 82 mm[Hg] Rosina Barraza PMHNP-BC Work Phone: [facility] 08-21-2024 13:52-0400 Heart rate 86 /min Rosina Barraza PMHNP-BC Work Phone: [facility] 08-21-2024 13:52-0400 Systolic blood pressure 126 mm[Hg] Rosina Barraza PMHNP-BC Work Phone: [facility] 07-24-2024 14:28-0400 Body mass index (BMI) [Ratio] 38.86 kg/m2 Rosina Barraza PMHNP-BC Work Phone: [facility] 07-24-2024 14:28-0400 Body weight 90.27 kg Rosina Barraza PMHNP-BC Work Phone: [facility] 07-24-2024 14:28-0400 Diastolic blood pressure 82 mm[Hg] Rosina Barraza PMHNP-BC Work Phone: [facility] 07-24-2024 14:28-0400 Heart rate 78 /min Rosina Barraza PMHNP-BC Work Phone: [facility] 07-24-2024 14:28-0400 Systolic blood pressure 112 mm[Hg] Rosina Barraza PMHNP-BC Work Phone: [facility] [facility] 06-21-2024 08:54-0500 Body mass index (BMI) [Ratio] 38.86 kg/m2 Rosina Barraza PMHNP-BC Work Phone: [facility] 06-21-2024 08:54-0500 Body weight 90.27 kg Rosina Barraza PMHNP-BC Work Phone: [facility] 06-21-2024 08:54-0500 Diastolic blood pressure 82 mm[Hg] Rosina Barraza PMHNP-BC Work Phone: [facility] 06-21-2024 08:54-0500 Heart rate 84 /min Rosina Barraza PMHNP-BC Work Phone: [facility] 06-21-2024 08:54-0500 Systolic blood pressure 138 mm[Hg] Rosina Barraza HNP-BC Work Phone: [facility] 06-13-2024 09:37-0500 Body height 152.4 cm Hany Iglesias MD Work Phone: [facility] 06-13-2024 09:37-0500 Body mass index (BMI) [Ratio] 39.84 kg/m2 Hany Iglesias MD Work Phone: [facility] 06-13-2024 09:37-0500 Body temperature 97.11 [degF] Hany Iglesias MD Work Phone: [facility] 06-13-2024 09:37-0500 Body weight 92.53 kg Hany Iglesias MD Work Phone: [facility] 06-13-2024 09:37-0500 Diastolic blood pressure 84 mm[Hg] Hany Iglesias MD Work Phone: [facility] 06-13-2024 09:37-0500 Heart rate 85 /min Hany Iglesias MD Work Phone: [facility] 06-13-2024 09:37-0500 Respiratory rate 20 /min Hany Iglesias MD Work Phone: [facility] 06-13-2024 09:37-0500 SaO2% (BldA) [Mass fraction] 99 % Hany Iglesias MD Work Phone: [facility] 06-13-2024 09:37-0500 Systolic blood pressure 154 mm[Hg] Hany Iglesias MD Work Phone: [facility] 05-19-2024 09:25-0500 Body height 152.4 cm Hany Iglesias MD Work Phone: [facility] 05-19-2024 09:25-0500 Body mass index (BMI) [Ratio] 39.65 kg/m2 Hnay Iglesias MD Work Phone: [facility] 05-19-2024 09:25-0500 Body temperature 97.81 [degF] Hany Iglesias MD Work Phone: [facility] 05-19-2024 09:25-0500 Body weight 92.08 kg Hany Iglesias MD Work Phone: [facility] 05-19-2024 09:25-0500 Diastolic blood pressure 70 mm[Hg] Hany Iglesias MD Work Phone: [facility] 05-19-2024 09:25-0500 Heart rate 86 /min Hany Iglesias MD Work Phone: [facility] 05-19-2024 09:25-0500 Respiratory rate 22 /min Hany Iglesias MD Work Phone: [facility] 05-19-2024 09:25-0500 SaO2% (BldA) [Mass fraction] 99 % Hany Iglesias MD Work Phone: [facility] 05-19-2024 09:25-0500 Systolic blood pressure 126 mm[Hg] Hany Iglesias MD Work Phone: [facility] 04-12-2024 09:42-0500 Body height 147.3 cm Hany Iglesias MD Work Phone: [facility] 04-12-2024 09:42-0500 Body mass index (BMI) [Ratio] 40.34 kg/m2 Hany Iglesias MD Work Phone: [facility] 04-12-2024 09:42-0500 Body temperature 96.6 [degF] Hany Iglesias MD Work Phone: [facility] 04-12-2024 09:42-0500 Body weight 87.54 kg Hany Iglesias MD Work Phone: [facility] 04-12-2024 09:42-0500 Diastolic blood pressure 78 mm[Hg] Hany Iglesias MD Work Phone: [facility] 04-12-2024 09:42-0500 Heart rate 91 /min Hany Iglesias MD Work Phone: [facility] 04-12-2024 09:42-0500 Respiratory rate 20 /min Hany Iglesias MD Work Phone: [facility] 04-12-2024 09:42-0500 SaO2% (BldA) [Mass fraction] 99 % Hany Iglesias MD Work Phone: [facility] 04-12-2024 09:42-0500 Systolic blood pressure 130 mm[Hg] Hany Iglesias MD Work Phone: [facility] 03-01-2024 10:14-0500 Body height 147.3 cm Hany Iglesias MD Work Phone: [facility] 03-01-2024 10:14-0500 Body mass index (BMI) [Ratio] 40.96 kg/m2 Hany Iglesias MD Work Phone: [facility] 03-01-2024 10:14-0500 Body temperature 97.81 [degF] Hany Iglesias MD Work Phone: [facility] 03-01-2024 10:14-0500 Body weight 88.91 kg Hany Iglesias MD Work Phone: [facility] 03-01-2024 10:14-0500 Diastolic blood pressure 70 mm[Hg] Hany Iglesias MD Work Phone: [facility] 03-01-2024 10:14-0500 Heart rate 79 /min Hany Iglesias MD Work Phone: [facility] 03-01-2024 10:14-0500 Respiratory rate 20 /min Hany Iglesias MD Work Phone: [facility] 03-01-2024 10:14-0500 SaO2% (BldA) [Mass fraction] 99 % Hany Iglesias MD Work Phone: [facility] 03-01-2024 10:14-0500 Systolic blood pressure 120 mm[Hg] Hany Iglesias MD Work Phone: [facility] 12-15-2023 17:49-0400 Heart rate 43 /min [facility] 12-15-2023 17:49-0400 SaO2% (BldA) [Mass fraction] 99 % [facility] 12-15-2023 17:48-0400 Diastolic blood pressure 69 mm[Hg] [facility] 12-15-2023 17:48-0400 Mean blood pressure 96 mm[Hg] [facility] 12-15-2023 17:48-0400 Systolic blood pressure 151 mm[Hg] [facility] 12-15-2023 17:47-0400 Respiratory rate 16 /min [facility] 12-15-2023 17:42-0400 Body temperature 98.24 [degF] [facility] 12-15-2023 17:30-0400 Diastolic blood pressure 93 mm[Hg] [facility] 12-15-2023 17:30-0400 Heart rate 67 /min [facility] 12-15-2023 17:30-0400 Mean blood pressure 105 mm[Hg] [facility] 12-15-2023 17:30-0400 Respiratory rate 11 /min [facility] 12-15-2023 17:30-0400 SaO2% (BldA) [Mass fraction] 98 % [facility] 12-15-2023 17:30-0400 Systolic blood pressure 128 mm[Hg] [facility] 12-15-2023 17:25-0400 Diastolic blood pressure 74 mm[Hg] [facility] 12-15-2023 17:25-0400 Heart rate 72 /min [facility] 12-15-2023 17:25-0400 Mean blood pressure 93 mm[Hg] [facility] 12-15-2023 17:25-0400 Respiratory rate 17 /min [facility] 12-15-2023 17:25-0400 SaO2% (BldA) [Mass fraction] 100 % [facility] 12-15-2023 17:25-0400 Systolic blood pressure 131 mm[Hg] [facility] 12-15-2023 17:20-0400 Mean blood pressure 100 mm[Hg] [facility] 12-15-2023 17:20-0400 Respiratory rate 15 /min [facility] 12-15-2023 17:17-0400 Body temperature 97.7 [degF] [facility] 12-15-2023 14:18-0400 Mean blood pressure 96 mm[Hg] [facility] 12-15-2023 14:17-0400 Body temperature 98.06 [degF] [facility] 12-15-2023 14:17-0400 Mean blood pressure 82 mm[Hg] [facility] 12-15-2023 14:17-0400 Respiratory rate 18 /min [facility] 11-11-2023 15:43-0400 Heart rate 58 /min [facility] 11-11-2023 15:42-0400 Heart rate 47 /min [facility] 11-11-2023 15:42-0400 SaO2% (BldA) [Mass fraction] 97 % [facility] 11-11-2023 15:42-0400 Respiratory rate 16 /min [facility] 11-11-2023 15:42-0400 Diastolic blood pressure 60 mm[Hg] [facility] 11-11-2023 15:42-0400 Mean blood pressure 72 mm[Hg] [facility] 11-11-2023 15:42-0400 Systolic blood pressure 97 mm[Hg] [facility] 11-11-2023 15:00-0400 Body temperature 97.88 [degF] [facility] 11-11-2023 14:29-0400 Heart rate 45 /min [facility] 11-11-2023 14:29-0400 SaO2% (BldA) [Mass fraction] 99 % [facility] 11-11-2023 14:28-0400 Diastolic blood pressure 71 mm[Hg] [facility] 11-11-2023 14:28-0400 Mean blood pressure 83 mm[Hg] [facility] 11-11-2023 14:28-0400 Systolic blood pressure 106 mm[Hg] [facility] 11-11-2023 14:28-0400 Respiratory rate 16 /min [facility] 11-11-2023 14:18-0400 Blood Pressure Location [facility] 11-11-2023 14:18-0400 Body temperature 97.7 [degF] [facility] 11-11-2023 14:18-0400 Diastolic blood pressure 72 mm[Hg] [facility] 11-11-2023 14:18-0400 Respiratory rate 10 /min [facility] 11-11-2023 14:18-0400 SaO2% (BldA) [Mass fraction] 97 % [facility] 11-11-2023 14:18-0400 Systolic blood pressure 108 mm[Hg] [facility] 11-11-2023 14:08-0400 Blood Pressure Location [facility] 11-11-2023 14:08-0400 Respiratory rate 9 /min [facility] 11-11-2023 14:03-0400 Blood Pressure Location [facility] 11-11-2023 14:03-0400 Respiratory rate 10 /min [facility] 11-11-2023 13:53-0400 Body temperature 97.52 [degF] [facility] 11-11-2023 09:25-0400 Mean blood pressure 72 mm[Hg] [facility] 11-11-2023 09:25-0400 Respiratory rate 18 /min [facility] 11-11-2023 09:25-0400 Heart rate 56 /min [facility] 11-11-2023 09:24-0400 Body temperature 97.7 [degF] [facility] 10-27-2023 10:35-0400 Blood Pressure Location [facility] 10-27-2023 10:35-0400 Diastolic blood pressure 80 mm[Hg] [facility] 10-27-2023 10:35-0400 Heart rate 79 /min [facility] 10-27-2023 10:35-0400 Mean blood pressure 94 mm[Hg] [facility] 10-27-2023 10:35-0400 Systolic blood pressure 120 mm[Hg] [facility] 10-27-2023 10:34-0400 Heart rate 75 /min [facility] 10-27-2023 10:34-0400 SaO2% (BldA) [Mass fraction] 98 % [facility] 10-27-2023 10:34-0400 Respiratory rate 18 /min [facility] 10-27-2023 10:34-0400 Blood Pressure Location [facility] 10-27-2023 10:34-0400 Diastolic blood pressure 79 mm[Hg] [facility] 10-27-2023 10:34-0400 Mean blood pressure 96 mm[Hg] [facility] 10-27-2023 10:34-0400 Systolic blood pressure 129 mm[Hg] [facility] 10-27-2023 10:34-0400 Body temperature 98.78 [degF] [facility] 06-15-2023 09:59-0500 Blood Pressure Location Chencho [facility] 06-15-2023 09:59-0500 Diastolic blood pressure 84 mm[Hg] Chencho HANE[facility] 06-15-2023 09:59-0500 Systolic blood pressure 124 mm[Hg] [facility] Encounters Encounter Date Encounter Type Care Provider Facility Start: 08-09-2025 ambulatory Jaycee Khanna Facilit y:[facility] Start: 10-03-2024 ambulatory MALCOM ALFARO Facility:[facility] Start: 09-15-2024 End: 09-15-2024 ambulatory Jaycee Khanna Facility:[facility] Start: 09-11-2024 End: 09-11-2024 Office outpatient visit 15 minutes Rosina Barraza PMHNP- Work Phone: [facility] Comment on above: PTSD (post-traumatic stress disorder) (CMS/HCC); Social anxiety disorder (CMS/HCC); Cyclothymic disorder (CMS/HCC); Moderate episode of recurrent major depressive disorder (CMS/HCC); Generalized anxiety disorder (CMS/HCC); Mixed obsessional thoughts and acts (CMS/HCC); Psychophysiological insomnia Start: 09-11-2024 End: 09-13-2024 ambulatory ROSINA BARRAZA Not Available Start: 09-06-2024 End: 09-06-2024 Bamboo flowsheet Javy Rivera [facility] Start: 09-06-2024 End: 09-06-2024 Bamboo flowsheet Javy Rivera [facility] Start: 09-06-2024 End: 09-06-2024 Clinical Support Javy Rivera [facility] Comment on above: Social anxiety disor levar (CMS/HCC); Panic attack due to post traumatic stress disorder (PTSD) (CMS/HCC) Start: 08-30-2024 End: 08-30-2024 Bamboo flowsheet Hany Iglesias MD Work Phone: [facility] Start: 08-30-2024 End: 08-30-2024 Bamboo flowsheet Hany Iglesias MD Work Phone: [facility] Start: 08-30-2024 End: 08-30-2024 Office outpatient visit 25 minutes Hany Iglesias MD Work Phone: [facility] Comment on above: Essential hypertensi on, benign (CMS/HCC) (Primary Dx); Degeneration of 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 back pain and lower extremity pain; Bilateral leg edema; Chronic pain of both knees; Moderate episode of recurrent major depressive disorder (CMS/HCC); Generalized anxiety disorder (CMS/HCC); Class 2 obesity due to excess calories without serious comorbidity with body mass index (BMI) of 39.0 to 39.9 in adult Start: 08-30-2024 End: 08-30-2024 Clinical Support Javy Rivera CLIENT DELIVERY MANAGER [facility] Comment on above: PTSD (post-traumatic stress disorder) (CMS/HCC); Social anxiety disorder (CMS/HCC); Cyclothymic disorder (CMS/HCC) Start: 08-23-2024 End: 08-23-2024 Azalea Iglesias MD Work Phone: [facility] Comment on above: DDD (degenerative di sc disease), lumbar PTSD (post-traumatic stress disorder) (CMS/HCC); Social anxiety disorder (CMS/HCC); Cyclothymic disorder (CMS/HCC) Start: 08-21-2024 End: 08-21-2024 Bamboo flowsheet Rosina Barraza PMP-BC Work Phone: [facility] Start: 08-21-2024 End: 08-21-2024 Bamboo flowsheet Rosina Barraza PMHNP-BC Work Phone: [facility] Start: 08-21-2024 End: 08-21-2024 Office outpatient visit 25 minutes Rosina Barraza HNP-BC Work Phone: [facility] Comment on above: PTSD (post-traumatic stress disorder) (CMS/HCC); Social anxiety disorder (CMS/HCC); Cyclothymic disorder (CMS/HCC); Moderate episode of recurrent major depressive disorder (CMS/HCC); Generalized anxiety disorder (CMS/HCC); Mixed obsessional thoughts and acts (CMS/HCC); Psychophysiological insomnia Start: 08-21-2024 End: 08-21-2024 ambulatory ROSINA BARRAZA Not Available Start: 08-10-2024 End: 08-10-2024 Patient encounter procedure [facility] Start: 08-10-2024 End: 08-10-2024 ambulatory Jaycee X Jey Facility:[facility] Start: 07-31-2024 End: 07-31-2024 Bamboo flowsheet Javy Rivera CLIENT DELIVERY MANAGER [facility] Start: 07-31-2024 End: 07-31-2024 Bamboo flowsheet Javy Rivera CLIENT DELIVERY MANAGER [facility] Start: 07-31-2024 End: 07-31-2024 Clinical Support Javy Rivera [facility] Comment on above: PTSD (post-traumatic stress disorder) (CMS/HCC); Social anxiety disorder (CMS/HCC); Cyclothymic disorder (CMS/HCC) Start: 07-24-2024 End: 07-24-2024 Office outpatient visit 25 minutes Rosina Barraza [facility] Work Phone: [facility] Comment on above: Cyclothymic disorder (CMS/HCC) ; PTSD (post-traumatic stress disorder) (CMS/HCC); Moderate episode of recurrent major depressive disorder (CMS/HCC); Generalized anxiety disorder (CMS/HCC) ; Mixed obsessional thoughts and acts (CMS/HCC); Social anxiety disorder (CMS/HCC); Psychophysiological insomnia Start: 07-24-2024 End: 07-24-2024 ambulatory ROSINA BARRAZA Not Available Start: 07-24-2024 End: 07-24-2024 Bamboo flowsheet Rosina Barraza [facility] Work Phone: [facility] Start: 07-24-2024 End: 07-24-2024 Bamboo flowsheet Rosina Barraza [facility] Work Phone: [facility] Start: 07-20-2024 End: 07-20-2024 Bamboo flowsheet Amaurimiroslava Rivera [facility] Start: 07-20-2024 End: 07-20-2024 Bamboo flowsheet Amaurimiroslava Rivera [facility] Start: 07-20-2024 End: 07-20-2024 Clinical Support Javy Rivera [facility] Comment on above: Social anxiety disor levar (CMS/HCC); Panic attack due to post traumatic stress disorder (PTSD) (CMS/HCC) Start: 07-19-2024 End: 07-19-2024 Azalea Iglesias MD Work Phone: [facility] Comment on above: DDD (degenerative di sc disease), lumbar Start: 07-13-2024 End: 07-13-2024 Bamboo flowsheet Rhanda Johanna-Roldan CLIENT DELIVERY MANAGER [facility] Start: 07-13-2024 End: 07-13-2024 Bamboo flowsheet Rhanda Bracken-Roldan CLIENT DELIVERY MANAGER [facility] Start: 07-13-2024 End: 07-13-2024 ambulatory RHANDA JOHANNA-ROLDAN Not Available Start: 06-29-2024 End: 06-29-2024 Clinisync Result Encounter Generic External Data Provider [facility] Unsolicited Start: 06-29-2024 End: 06-29-2024 Clinisync Result Encounter Generic External Data Provider [facility] External [facility] Unsolicited Start: 06-22-2024 End: 06-22-2024 Refill Hany Iglesias MD Work Phone: [facility] Comment on above: DDD (degenerative di sc disease), lumbar Start: 06-21-2024 End: 06-21-2024 Bamboo flowsheet Rosina Barraza PMHNP-BC Work Phone: [facility] Start: 06-21-2024 End: 06-21-2024 Bamboo flowsheet Rosina Barraza PMHNP-BC Work Phone: [facility] Start: 06-21-2024 End: 06-21-2024 ambulatory ROSINA BARRAZA [...] 03-09-2024 Refill Hany Iglesias MD Work Phone: [facility] Comment on above: DDD (degenerative di sc disease), lumbar Start: 03-01-2024 End: 03-01-2024 Office outpatient visit 25 minutes Hany Iglesias MD Work Phone: [facility] Comment on above: Essential hypertensi on, benign (CMS/HCC) (Primary Dx); Gastroesophageal reflux disease without esophagitis; Mild mood disorder (CMS/HCC); Generalized anxiety disorder (CMS/HCC); Primary insomnia; Degeneration of 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 back pain and lower extremity pain; Panniculitis Start: 03-01-2024 End: 03-01-2024 ambulatory HANY IGLESIAS Not Available Start: 02-14-2024 End: 02-14-2024 Refill Hany Iglesias MD Work Phone: [facility] Comment on above: DDD (degenerative di sc disease), lumbar Start: 01-17-2024 End: 01-17-2024 Refill Lisette Rodas [facility] Comment on above: DDD (degenerative di sc disease), lumbar Start: 12-17-2023 End: 12-17-2023 Refill Hany Iglesias MD Work Phone: [facility] Comment on above: DDD (degenerative di sc disease), lumbar Start: 12-15-2023 End: 12-15-2023 Admission to same day surgery center [facility] Start: 12-15-2023 End: 12-15-2023 ambulatory Chencho HANEY Facility:[facility] Start: 11-29-2023 End: 04-24-2024 Patient encounter procedure Hany Iglesias MD Work Phone: [facility] Start: 11-29-2023 End: 11-29-2023 ambulatory HANY IGLESIAS Not Available Start: 11-11-2023 End: 11-11-2023 Admission to same day surgery center [facility] Start: 11-11-2023 End: 11-11-2023 ambulatory Chencho HANEY Facility:[facility] Start: 10-27-2023 End: 10-27-2023 ambulatory Chencho HANEY Facility:[facility] Start: 10-27-2023 End: 10-27-2023 Patient encounter procedure [facility] Start: 06-15-2023 End: 06-15-2023 ambulatory Chencho Oneal LYNDON Facility:[facility] Start: 06-15-2023 End: 06-15-2023 Patient encounter procedure Chencho HANEY [facility] Start: 02-09-2022 End: 08-10-[address] HANY IGLESIAS Facility: Start: 09-08-2021 End: 09-09-[address] HANY IGLESIAS Facility: Procedures Date Procedure Procedure Detail Performing Clinician Start: 06-29-2024 ALL CBC WITH AUTO DIFF Generic External Data Provider Start: 06-21-2024 End: 06-21-2024 Psychiatric diagnostic eval w/medical services Cyclothymic disorder (CMS/HCC) Rosina Barraza PMHNP- Work Phone: Comment on above: Cyclothymic disorder (CMS/HCC); PTSD (post-traumatic stress disorder) (CMS/HCC); Moderate episode of recurrent major depressive disorder (CMS/HCC); Generalized anxiety disorder (CMS/HCC); Social anxiety disorder (CMS/HCC); Mixed obsessional thoughts and acts (CMS/HCC); Psychophysiological insomnia Start: 12-15-2023 Cystoscopy Chencho CANO Start: 11-11-2023 Extracorporeal shock wave lithotripsy of calculus of kidney [facility] Start: 05-27-2023 Mammography Hany koch MD Work Phone: Start: 04-26-2022 Gastric sleeve [facility]cho [facility] Complete hernia (morphologic abnormality) [facility] Cyst of fallopian tu be (disorder) [facility] Hysterectomy Chencho [facility] Plan of Treatment Date Care Activity Detail Author Start: 12-01-2026 Screening for malign ant neoplasm of colon [facility] Start: 12-25-2024 Influenza vaccination Influenz a Vaccine (Season Ended) [facility] Start: 11-30-2024 End: 11-30-2024 Patient encounter procedure 11/30/2024 10:15 AM EDT Office Visit [facility] [address] [place] [address] Hany Iglesias MD [address] [place] [id number] [facility] Start: 10-09-2024 End: 10-09-2024 Patient encounter procedure 10/09/2024 11:00 AM EDT Office Visit [facility] [address] [place] [id number] Rosina Barraza [facility] [address] [place] [address] [facility] Start: 09-26-2024 End: 09-26-2024 Clinical Support 09/26/2024 4:00 PM EDT Clinical Support [facility] [address] [place] [address] Javy Rivera LPC [facility] Start: 09-14-2024 End: 09-14-2024 Clinical Support 09/14/2024 9:00 AM EDT Clinical Support [facility] [address] [place] [address] Javy Rivera LPC [facility] Start: 09-11-2024 End: 09-11-2024 Patient encounter procedure 09/11/2024 11:00 AM EDT Office Visit [facility] [address] [place] [id number] Rosina Barraza HNP- [address] [place] [address] [facility] Start: 09-06-2024 End: 09-06-2024 Clinical Support 09/06/2024 10:00 AM EDT Clinical Support [facility] [address] [place] [address] Javy Rivera LPC [facility] Start: 08-30-2024 End: 08-30-2025 XR Knee - left 1 or 2 Views XR knee 1 or 2 views left Imaging Routine Chronic pain of both knees Expected: 08/30/2024, Expires: 08/30/2025 [facility] Comment on above: Expected: 08/30/2024 , Expires: 08/30/2025 Start: 08-30-2024 End: 08-30-2025 XR Knee - right 1 or 2 Views XR knee 1 or 2 views right Imaging Routine Chronic pain of both knees Expected: 08/30/2024, Expires: 08/30/2025 [facility] Work Phone: Comment on above: Expected: 08/30/2024 , Expires: 08/30/2025 Start: 08-30-2024 End: 08-30-2024 Patient encounter procedure [facility] Comment on above: [facility] Start: 08-23-2024 End: 08-23-2024 Clinical Support 08/23/2024 10:00 AM EDT Clinical Support [facility] [address] [place] [address] Javy Rivera LPC [facility] Start: 08-21-2024 End: 08-21-2024 Patient encounter procedure [facility] Comment on above: PTSD (post-traumatic stress disorder) (CMS/HCC); Social anxiety disorder (CMS/HCC); Cyclothymic disorder (CMS/HCC); Moderate episode of recurrent major depressive disorder (CMS/HCC); Generalized anxiety disorder (CMS/HCC); Mixed obsessional thoughts and acts (CMS/HCC); Psychophysiological insomnia Start: 08-10-2024 End: 08-10-2024 Clinical Support 08/10/2024 1:00 PM EDT Clinical Support [facility] [address] [place] [address] Javy Rivera LPC [facility] Start: 07-31-2024 End: 07-31-2024 Clinical Support [facility] Comment on above: Arrived Start: 07-24-2024 End: 07-24-2024 Patient encounter procedure [facility] Comment on above: Cyclothymic disorder (CMS/HCC) ; PTSD (post-traumatic stress disorder) (CMS/HCC); Moderate episode of recurrent major depressive disorder (CMS/HCC); Generalized anxiety disorder (CMS/HCC) ; Mixed obsessional thoughts and acts (CMS/HCC); Social anxiety disorder (CMS/HCC); Psychophysiological insomnia Start: 07-20-2024 End: 07-20-2024 Clinical Support 07/20/2024 11:00 AM EDT Clinical Support [facility] [address] [place] [address] Javy Rivera LPC [facility] Start: 07-13-2024 End: 07-13-2024 Clinical Support 07/13/2024 10:00 AM EDT Clinical Support [facility] [address] [place] [address] Javy Rivera LPC [facility] Start: 06-21-2024 End: 06-21-2024 Patient encounter procedure [facility] Comment on above: Mild mood disorder ( CMS/HCC); Generalized anxiety disorder (CMS/HCC) Start: 06-13-2024 End: 06-13-2024 Patient encounter procedure [facility] Comment on above: Arrived Start: 05-27-2024 Screening for malign ant neoplasm of breast Mammogram [facility] Start: 05-19-2024 End: 05-19-2024 Patient encounter procedure 05/19/2024 9:15 AM EST Office Visit [facility] [address] [place] [phone] Hany Iglesias MD [address] [place] [phone] Arrived [facility] Comment on above: Arrived Start: 04-25-2024 End: 04-25-2024 Patient encounter procedure 04/25/2024 10:00 AM EST Office Visit [facility] [address] [facility] [address] [place] [address] Rosina Barraza NP [address] [facility] [address] [place] [id number] [facility] Start: 04-12-2024 End: 04-12-2024 Patient encounter procedure [facility] Comment on above: Arrived Start: 03-01-2024 End: 03-01-2024 Patient encounter procedure 03/01/2024 10:15 AM EST Office Visit [facility] [address] [place] [phone] Hany Iglesias MD [address] [place] [phone] [facility] Start: 12-26-2023 Influenza vaccination Influenza Vacc ine (#1) [facility] Start: 1980 Screening for malign ant neoplasm of colon [facility] Immunizations Immunization Date Immunization Notes Care Provider Fa cili 01-25-2020 influenza virus vaccine, unspecified formulation Chencho HANEY [facility] Dolores 06-03-2007 measles, mumps and rubella virus vaccine Jaycee Khanna [facility] Payers Date Payer Category Payer Medicaid [id number] 2022 Medicaid [id number] 1980 Unknown [id number] 2.16.84 0.1.699127.3.579.2.593 1978 Unknown [id number] 2.16.84 0.1.490681.3.579.2.593 1978 Unknown [id number] 2.16.8 40.1.235116.3.579.2.72 1978 Unknown [id number] 2.16.8 40.1.303924.3.579.2.72 1978 Unknown [id number] 2.16.8 40.1.068936.3.579.2. 1978 Unknown [id number] 2.16.8 40.1.613026.3.579.2.727 1978 Unknown [id number] 2.16.8 40.1.990453.3.579.2.72 1978 Unknown [id number] 2.16.8 40.1.372291.3.579.2.727 1978 Unknown [id number] 2.16.8 40.1.216714.3.579.2. 1978 Unknown [id number] 2.16.8 40.1.778791.3.579.2.727 1978 Unknown [id number] 2.16.8 40.1.794033.3.579.2.727 1978 Unknown [id number] 2.16.84 0.1.437102.3.579.2.9 1978 Unknown [id number] 2.16.84 0.1.246355.3.579.2.9 1978 Unknown [id number] 2.16.84 0.1.266804.3.579.2.9 1978 Unknown [id number] 2.16.84 0.1.815428.3.579.2.1259 1978 Unknown [id number] 2.16.84 0.1.075228.3.579.2.1258 1978 Unknown [id number] 2.16.84 0.1.833517.3.579.2.1258 1978 Unknown [id number] 2.16.84 0.1.056828.3.579.2.1258 1978 Unknown [id number] 2.16.84 0.1.809727.3.579.2.1258 1978 Unknown [id number] 2.16.84 0.1.734127.3.579.2.1258 1978 Unknown [id number] 2.16.84 0.1.129944.3.579.2.1258 1978 Unknown [id number] 2.16.84 0.1.069361.3.579.2.1258 1978 Unknown [id number] 2.16.84 0.1.457651.3.579.2.1258 1978 Unknown [id number] 2.16.84 0.1.399163.3.579.2.1258 1978 Unknown [id number] 2.16.84 0.1.849185.3.579.2.1258 1978 Unknown [id number] 2.16.84 0.1.041654.3.579.2.1258 1978 Unknown [id number] 2.16.84 0.1.675047.3.579.2.9 1959 Unknown [id number] Social History Date Type Detail Facility Tobacco quit 7 years ago Tobacco Use:. Cigarettes [facility] Tobacco smoking status [facility] Start: 11-29-2023 End: 07-24-2024 Sex Assigned At Female [facility] Start: 05-11-2023 [facility] History of tobacco use Cigarette Smoker [facility] Start: 05-11-2023 End: 07-24-2024 Cigarettes smoked current (pack per day) - Reported 0.5 [facility] Start: 05-11-2023 End: 06-21-2024 Tobacco use and exposure Smokeless tobacco non-user [facility] Start: 1980 Sex assigned at Not on file [facility] Start: 06-21-2024 Tobacco smoking stat us [facility] Ex-smoker [facility] History of tobacco use Current smoker [facility] Start: 06-21-2024 End: 09-11-2024 Alcoholic beverage intake Ex-drinker (finding) [facility] Start: 06-21-2024 Education 16 [facility] Start: 06-21-2024 Alcohol Comment caffiene- occa sional pop [facility] Sex Female (finding) [facility] Procedure Code Equipment Code Equipment Origin al Text Equipment Identifier Dates CYSTOSCOPY STENT INSERTION Chencho HANEY MD 11/11/23 Unknown Ureter [employer] FDA Start: 11-11-2023 CYSTOSCOPY STENT INSERTION Chencho HANEY MD 11/11/23 Unknown Ureter R FDA Start: 11-11-2023 CYSTOSCOPY STENT INSERTION Chencho HANEY MD 11/11/23 Unknown Ureter R FDA Start: 11-11-2023 Functional Status Date Assessment Result Facility 12-14-2023 Functional Status No [facility] 12-03-2023 Functional Status No [facility] 10-27-2023 Functional Status No [facility] 06-15-2023 Functional Status N/A [facility] Marya Clinical Notes 06-15-2023 to 09-11-2024 Rosina Barraza, PMHNP-BC - 09/11/2024 11:00 AM Daysi Iglesias MD - 08/30/2024 9:12 AM Daysi Iglesias MD - 08/30/2024 9:12 AM Daysi Iglesias MD - 08/30/2024 9:11 AM EDTPatient Instructions Note Date & Type Note Facility 09-11-2024 History of Present illness Narrative Images from the original note were not included. HPI: June Rhodes is a 44 y.o. female with a [...] with her anxiety. She continues to see Javy on a regular basis for counseling. SUBJECTIVE: [...] (SINGULAIR) 10 mg, Oral, Nightly nystatin (Mycostatin) 259306 UNIT/GM powder Topical, 2 times daily oxyCODONE-acetaminophen [...] Bilateral Lysis of adhesions TOTAL ABDOMINAL HYSTERECTOMY [facility] FAMILY HISTORY: Family History Problem Relation Name [...] MD as PCP - General (Family Medicine) SHEILA Cannon as Nurse Practitioner (Behavioral Health) Chencho Haney [...] Pulse 75 Wt 202 lb BMI 39.45 kg/m OB Status Hysterectomy Smoking Status Former BSA 1.97 m Lab Results Component Value Date GLU 92 [...] more since lat visit and reports improvement in her anxiety. She had side effects with Seroquel. [...] as described above. documented in this encounter [facility] 08-30-2024 History of Present illness Narrative Associated Problem(s): Moderate episode of recurrent major depressive disorder (CMS/HCC) Mood improved with medication changes. Follow up with psychiatry. Associated Problem(s): Generalized anxiety disorder (CMS/HCC) Mood improved with medication changes. Follow up with psychiatry. Associated Problem(s): Essential hypertension, benign (CMS/HCC) BP normal and monitor. Associated Problem(s): Degeneration of 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 back pain and lower extremity pain Pain unchanged and continue medication PRN. Associated Problem(s): Class 2 obesity due to excess calories without serious comorbidity with body mass index (BMI) of 39.0 to 39.9 in adult Weight loss indicated. Associated Problem(s): Chronic pain of both knees Pain for years and likely OA. Check x-ray. Start voltaren gel. Associated Problem(s): Bilateral leg edema Edema improved with lasix and use PRN. Elevate legs PRN. Images from the original note were not included. Subjective Patient ID: June Rhodes is a 44 y.o. female who presents for Follow-up (3 m f/up/Needs epipen). Follow up HTN, back pain, mood disorder, anxiety, and insomnia. BP controlled today and actually slightly low. Not on medication since weight loss surgery. Not monitoring BP away from office. Back pain unchanged. Continued pain in low back and across top hips. Pain radiates into gluteal region and down both legs. Frequent tightness and spasms in back. Continued radicular symptoms and weakness in right leg. At times hard to lift leg and difficult to go up stairs. Using percocet and helps. C/o bilateral knee pain for years but getting worse. Pain in both knees and frequent popping, clicking, and grinding. Prior injections as a teen. No evaluation for years. Following with psychiatry and mood improved. Not as down or sad and overall happier. Able to do more and interacting better with others. Tolerating medication without side effects. Anxiety stable. Not as stressed out or overwhelmed. Not as nervous or worry as much. Not as muñoz or irritable. Taking hydroxyzine TID and helps. Edema controlled with medication. Mild swelling at end of day and if on feet a lot. Edema improved in am and with elevation. Review of Systems Respiratory: Negative for cough, [...] Essential hypertension, benign (CMS/HCC) - Primary BP normal and monitor. Chronic pain of both knees Pain for years and likely OA. Check x-ray. Start voltaren gel. Relevant Orders XR knee 1 or 2 views right XR knee 1 or 2 views left Degeneration of 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 back pain and lower extremity pain Pain unchanged and continue medication PRN. Generalized anxiety disorder (CMS/HCC) Mood improved with medication changes. Follow up with psychiatry. Class 2 obesity due to excess calories without serious comorbidity with body mass index (BMI) of 39.0 to 39.9 in adult Weight loss indicated. Bilateral leg edema Edema improved with lasix and use PRN. Elevate legs PRN. Relevant Medications furosemide (Lasix) 40 MG tablet Moderate episode of recurrent major depressive disorder (CMS/HCC) Mood improved with medication changes. Follow up with psychiatry. documented in this encounter [facility] 08-21-2024 History of Present illness Narrative Images from the original note were not included. HPI: June Rhodes is a 44 y.o. female with a history of HTN, GERD, DDD of lower back, PTSD, MARLYS, MDD, OCD, social anxiety, and cyclothymic disorder. Patient is here today for follow-up. At patient's last visit on 07/24/24, she was started on Vraylar. She states that she felt good after starting medication. She states she had less depression, more motivation, and less anxiety. She states she invited family over to her house which she hasn't done in recently because of her mood. She states the past 3 days have been bad. She feels that she is in a manic phase . She states that she had sudden anxiety that developed 3 days ago, followed by the desire to clean her whole house and not being able to sleep. She reports increased energy and racing thoughts. She denies any new stressors or triggers that could be contributing to these symptoms. She is taking her Hydroxyzine 3 times a day, which has helped with her anxiety. She continues to see Javy on a regular basis for counseling. She missed her most recent appointment 2 weeks ago because she had Influenza A. SUBJECTIVE: PAST MEDICAL HISTORY: Past Medical History: Diagnosis Date Benign essential hypertension ([facility]/HCC) Chronic pain of left knee Chronic seasonal allergic rhinitis due to pollen Cyclothymic disorder ([facility]/HCC) DDD (degenerative disc disease), lumbar Depression ([facility]/HCC) Eustachian tube dysfunction, left MARLYS (generalized anxiety disorder) ([facility]) GERD without esophagitis H/O gastric sleeve 2022 Hormone disorder Insomnia, persistent Mood disorder ([facility]/HCC) Multiple renal calculi OCD (obsessive compulsive disorder) ([facility]) PTSD (post-traumatic stress disorder) ([facility]) Right kidney mass RLS (restless legs syndrome) S/P bilateral salpingo-oophorectomy Social anxiety disorder ([facility]) Surgical menopause MEDICATIONS: Current Outpatient Medications Medication Instructions furosemide (LASIX) 40 mg, Oral, Daily hydrOXYzine HCl (ATARAX) 25 mg, Oral, 4 times daily PRN lamoTRIgine (LAMICTAL) 150 mg, Oral, Nightly meclizine (ANTIVERT) 25 mg, Oral, 4 times daily PRN montelukast (SINGULAIR) 10 mg, Oral, Nightly nystatin (Mycostatin) 569111 UNIT/GM powder Topical, 2 times daily oxyCODONE-acetaminophen [...] Bilateral Lysis of adhesions TOTAL ABDOMINAL HYSTERECTOMY [facility] FAMILY HISTORY: Family History Problem Relation Name [...] MD as PCP - General (Family Medicine) SHEILA Cannon as Nurse Practitioner (Behavioral Health) Chencho Haney [...] Stable. Appropriate and congruent with mood. Mood Anxious and Irritable Thought Process Organized, logical, and [...] reasonable life decisions. OBJECTIVE: Visit Vitals BP 126/82 (BP Location: Right arm, Patient Position: Sitting) Pulse 86 Wt 207 lb BMI 40.43 kg/m OB Status Hysterectomy Smoking Status Former BSA 1.99 m Lab Results Component Value Date GLU 92 [...] more since lat visit and reports improvement in her anxiety. She had side effects with Seroquel. She reports initial improvement with use of Vraylar, but has now had 3 days worth of racing thoughts, decreased sleep, increased energy, and irritability. We discussed increasing Vraylar dose to help with these concerns. She is agreeable to this. She was also informed that she can take Melatonin PRN to help with sleep. She was given sleep hygiene checklist to review as other possible non-pharmacological ways to improve sleep. Assessment/Plan Diagnoses and all orders for this visit: PTSD (post-traumatic stress disorder) (CMS/HCC) - Cariprazine HCl (Vraylar) 3 MG capsule; Take 3 mg by mouth Daily Social anxiety disorder (CMS/HCC) Cyclothymic disorder (CMS/HCC) - Cariprazine HCl (Vraylar) 3 MG capsule; Take 3 mg by mouth Daily Moderate episode of recurrent major depressive disorder (CMS/HCC) - Cariprazine HCl (Vraylar) 3 MG capsule; Take 3 mg by mouth Daily Generalized anxiety disorder (CMS/HCC) Mixed obsessional thoughts and acts (CMS/HCC) Psychophysiological insomnia Treatment Plan/Recommendations: - Continue Lamictal for bipolar depression. - Continue Prazosin for PTSD-related nightmares. - Continue Paroxetine 40 mg for depression, anxiety, PTSD. - Continue Hydroxyzine PRN for anxiety. Encouraged her to utilize this more frequently. - Increase Vraylar to 3 mg for cyclothymic disorder with mixed features. - Continue counseling for additional mental health support and treatment. - RTC in 3 weeks. Discussed any medication changes and follow-up plan with patient. Encouraged patient to call office sooner if symptoms worsen or if any questions/concerns arise. Patient was seen Face to Face, Total time spent with patient was 20 minutes, which includes reviewing chart documents, previous notes/records, counseling and discussion with patient and/or coordination of care as described above. documented in this encounter [facility] 08-10-2024 Note Patient Education Urology Kidney Stones Kidney stones are rock-like masses that form inside of the kidneys. Kidneys are organs that make pee (urine). A kidney stone may move into other parts of the urinary tract, including: ??? The tubes that connect the kidneys to the bladder (ureters). ??? The bladder. ??? The tube that carries urine out of the body (urethra). Kidney stones can cause very bad pain and can block the flow of pee. The stone usually leaves your body through your pee. A doctor may need to take out the stone. What are the causes? Kidney stones may be caused by: ??? Too much calcium in the body. This may be caused by too much parathyroid hormone in the blood. ??? Uric acid crystals in the bladder. The body makes uric acid when you eat certain foods. ??? Narrowing of one or both of the ureters. ??? A kidney blockage that you were born with. ??? Past surgery on the kidney or the ureters. What increases the risk? You are more likely to develop this condition if: ??? You have had a kidney stone in the past. ??? Other people in your family have had kidney stones. ??? You do not drink enough water. ??? You eat a diet that is high in protein, salt (sodium), or sugar. ??? You are very overweight (obese). What are the signs or symptoms? Symptoms of a kidney stone may include: ??? Pain in the side of the belly, right below the ribs. Pain usually spreads to the groin. ??? Needing to pee often or right away. ??? Pain when peeing. ??? Blood in your pee. ??? Feeling like you may vomit (nauseous). ??? Vomiting. ??? Fever and chills. How is this treated? Treatment depends on the size, location, and makeup of the kidney stones. The stones will often pass out of the body when you pee. You may need to: ??? Drink more fluid to help pass the stone. ? In some cases, you may be given fluids through an IV tube at the hospital. ??? Take medicine for pain. ??? Change your diet to help keep kidney stones from coming back. Sometimes, you may need: ??? A procedure to break up kidney stones using a beam of light (laser) or shock waves. ??? Surgery to remove the kidney stones. Follow these instructions at home: Medicines ??? Take [id number]-dwijkks and prescription medicines only as told by your doctor. ??? Ask your doctor if the medicine prescribed to you requires you to avoid driving or using machinery. Eating and drinking ??? Drink enough fluid to keep your pee pale yellow. ? You may be told to drink at least 8?10 glasses of water each day. This will help you pass the stone. ??? If told by your doctor, change your diet. You may be told to: ? Limit how much salt you eat. ? Eat more fruits and vegetables. ? Limit how much meat, poultry, fish, and eggs you eat. ??? Follow instructions from your doctor about what you may eat and drink. General instructions ??? Collect pee samples as told by your doctor. You may need to collect a pee sample: ? 24 hours after a stone comes out. ? 8?12 weeks after a stone comes out, and every 6?12 months after that. ??? Strain your pee every time you pee. Use the strainer that your doctor recommends. ??? Do not throw out the stone. Keep it so that it can be tested by your doctor. ??? Keep all follow-up visits. You may need X-rays and ultrasounds to make sure the stone has come out. How is this prevented? To prevent another kidney stone: ??? Drink enough fluid to keep your pee pale yellow. This is the best way to prevent kidney stones. ??? Eat healthy foods. ??? Avoid certain foods as told by your doctor. You may be told to eat less protein. ??? Stay at a healthy weight. Where to find more information ??? National Kidney Foundation (NKF): kidney.org ??? [facility] (UCF): urologyhealth.org Contact a doctor if: ??? You have pain that gets worse or does not get better with medicine. Get help right away if: ??? You have a fever or chills. ??? You get very bad pain. ??? You get new pain in your belly. ??? You faint. ??? You cannot pee. This information is not intended to replace advice given to you by your health care provider. Make sure you discuss any questions you have with your health care provider. Document Revised: 12/04/2022 Document Reviewed: 12/04/2022 [employer] Patient Education ? 2023 [employer]. [facility] 07-24-2024 History of Present illness Narrative Images from the original note were not included. HPI: June Rhodes is a 44 y.o. female with a history of HTN, GERD, DDD of lower back, PTSD, MARLYS, MDD, OCD, social anxiety, and cyclothymic disorder. Patient is here today for follow-up. Patient was seen for initial intake on 06/21/24. At patient's last visit, her Clonidine was stopped and she was weaned off Doxepin. She was also started on Seroquel. She states she experienced stomach pains, nausea, and vomiting with this medication. She was informed by her weight loss surgeon to stop taking it so she has been off of it for the past week. She states that she is not sleeping well and finds herself napping during the day. She states her mood is still irritable and she is depressed. She is taking her Hydroxyzine 3 times a day, which has helped with her anxiety. She had labs completed on June 29 through [facility] that were unremarkable. She continues to see [facility] on a regular basis for counseling. SUBJECTIVE: PAST MEDICAL HISTORY: Past Medical History: Diagnosis Date Benign essential hypertension (CMS/HCC) Chronic pain of left knee Chronic seasonal allergic rhinitis due to pollen Cyclothymic disorder ([facility]/HCC) DDD (degenerative disc disease), lumbar Depression ([facility]/HCC) Eustachian tube dysfunction, left MARLYS (generalized anxiety disorder) ([facility]) GERD without esophagitis H/O gastric sleeve 2022 Hormone disorder Insomnia, persistent Mood disorder ([facility]/HCC) Multiple renal calculi OCD (obsessive compulsive disorder) ([facility]) PTSD (post-traumatic stress disorder) ([facility]) Right kidney mass RLS (restless legs syndrome) S/P bilateral salpingo-oophorectomy Social anxiety disorder ([facility]) Surgical menopause MEDICATIONS: Current Outpatient Medications Medication Instructions furosemide (LASIX) 40 mg, Oral, Daily hydrOXYzine HCl (ATARAX) 25 mg, Oral, 4 times daily PRN lamoTRIgine (LAMICTAL) 150 mg, Oral, Nightly meclizine (ANTIVERT) 25 mg, Oral, 4 times daily PRN montelukast (SINGULAIR) 10 mg, Oral, Nightly nystatin (Mycostatin) 300100 UNIT/GM powder Topical, 2 times daily oxyCODONE-acetaminophen (Percocet) 5-325 MG tablet 1 tablet, Oral, 4 times daily PRN pantoprazole (PROTONIX) 40 mg, Oral, 2 times daily, Do not crush, chew, or split. PARoxetine (PAXIL) 40 mg, Oral, Every morning pramipexole (MIRAPEX) 0.5 mg, Oral, Nightly prazosin (MINIPRESS) 5 mg, Oral, Nightly sucralfate (CARAFATE) 1 g, Oral, Every 6 hours scheduled Vraylar 1.5 mg, Oral, Daily ALLERGIES: Allergies Allergen Reactions [...] Bilateral Lysis of adhesions TOTAL ABDOMINAL HYSTERECTOMY [facility] FAMILY HISTORY: Family History Problem Relation Name [...] Not Currently Types: Marijuana Comment: teenahe Patient Health Questionnaire-9 Score: 17 MARLYS-7 Total Score: 20 Patient Care Team: Hany Iglesias MD as PCP - General (Family Medicine) SHEILA Cannon as Nurse Practitioner (Behavioral Health) Chencho Haney [...] clear, regular rate, rhythm and volume Affect Flat Mood Depressed and Irritable Thought Process Organized, logical, and goal directed Thought Content: Denies suicidal and homicidal ideation. Perception: Denies auditory or visual hallucinations. No evidence of delusions. Cognition Alert and attentive during visit Memory Immediate, recent and remote memory intact Insight Good. Acknowledges predominant symptoms of illness and need for treatment Judgement Good. Able to make reasonable life decisions. OBJECTIVE: Visit Vitals BP 112/82 (BP Location: Right arm, Patient Position: Sitting) Pulse 78 Wt 199 lb BMI 38.86 kg/m OB Status Hysterectomy Smoking Status Former BSA 1.96 m Lab Results Component Value Date GLU 92 [...] more since lat visit and reports improvement in her anxiety. She had side effects with Seroquel. We discussed other options of SGAs to help with her mixed episodes. She is agreeable to start Vraylar. 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CMS/HCC) - Cariprazine HCl (Vraylar) 1.5 MG capsule; Take 1.5 mg by mouth Daily PTSD (post-traumatic stress disorder) (CMS/HCC) - Cariprazine HCl (Vraylar) 1.5 MG capsule; Take 1.5 mg by mouth Daily Moderate episode of recurrent major depressive disorder (CMS/HCC) - Cariprazine HCl (Vraylar) 1.5 MG capsule; Take 1.5 mg by mouth Daily Generalized anxiety disorder (CMS/HCC) Mixed obsessional thoughts and acts (CMS/HCC) Social anxiety disorder (CMS/HCC) Psychophysiological insomnia Treatment Plan/Recommendations: - Continue Lamictal for bipolar depression. - Continue Prazosin for PTSD-related nightmares. - Continue Paroxetine 40 mg for depression, anxiety, PTSD. - Continue Hydroxyzine PRN for anxiety. Encouraged her to utilize this more frequently. - Stop Seroquel due to side effects. - Start Vraylar 1.5 mg for cyclothymic disorder with mixed features. - Continue counseling for additional mental health support and treatment. - RTC in 4 weeks. Discussed any medication changes and follow-up plan with patient. Encouraged patient to call office sooner if symptoms worsen or if any questions/concerns arise. Patient was seen Face to Face, Total time spent with patient was 20 minutes, which includes reviewing chart documents, previous notes/records, counseling and discussion with patient and/or coordination of care as described above. documented in this encounter [facility] 07-20-2024 Instructions Javy Rivera LPC - 07/20/2024 11:00 AM EDT documented in this encounter [facility] 06-21-2024 History of Present illness Narrative HPI: [...] son Education: Graduated from High School. Attended [employer] for massage therapy Occupation: Unemployed; Filed for disability for [...] (SINGULAIR) 10 mg, Oral, Nightly nystatin (Mycostatin) 368554 UNIT/GM powder Topical, 2 times daily oxyCODONE-acetaminophen [...] Bilateral Lysis of adhesions TOTAL ABDOMINAL HYSTERECTOMY [facility] FAMILY HISTORY: Family History Problem Relation Name [...] MD as PCP - General (Family Medicine) SHEILA Cannon as Nurse Practitioner (Behavioral Health) Chencho Haney [...] all orders for this visit: Cyclothymic disorder ([facility]) - Ambulatory referral to Psychiatry PTSD (post-traumatic stress disorder) ([facility]) Moderate episode of recurrent major depressive disorder ([facility]) Generalized anxiety disorder ([facility]) - Ambulatory referral to Psychiatry Social anxiety disorder ([facility]) Mixed obsessional thoughts and acts ([facility]) Psychophysiological insomnia Treatment [...] the local ER or call Suicide Hotline (233) for any psychosis, suicidal or homicidal ideation, or with any risk of harm to self or others. Patient was seen Face to Face, Total time spent with patient was 70 minutes, which includes reviewing chart documents, previous notes/records, counseling and discussion with patient and/or coordination of care as described above. documented in this encounter [facility] 06-13-2024 History of Present illness Narrative [...] 40 MG tablet documented in this encounter [facility] 05-19-2024 History of Present illness Narrative [...] 5-325 MG tablet documented in this encounter [facility] 04-12-2024 History of Present illness Narrative [...] 300 MG capsule documented in this encounter [facility] 03-01-2024 History of Present illness Narrative [...] to Psychiatry Panniculitis Relevant Medications nystatin (Mycostatin) 140495 UNIT/GM powder documented in this encounter [facility] 12-19-2023 Note Progress Note-Physic stephanie Patient: JUNE RHODES Age: 43 years Sex: Female : 1980 Associated Diagnoses: None Author: MD Goss Ahmad F Postoperative Information Postoperative disposition: Postoperative disposition: To PACU. Optimetrix number: Optimetrix number [id number]. Anesthetic utilized: General. Health Status Allergies: Allergic [...] when meets criteria ( To home ). [facility] Comment on above: Result Comment: Elec tronically Signed By: MD Goss Ahmad F\.br\Date and Time Signed: 12/19/23 16:48 EDT 12-19-2023 [...] 5 day(s), 10 tab(s), Refill(s) 0, [facility] #[id number], 147.5, cm, 12/15/23 14:23:00 EDT, Height/Length Dosing, 87.9, kg, 12/15/23 14:23:00 EDT, Weight Dosing oxybutynin 5 mg Tab: 5 mg = 1 tab(s), Oral, BID, X 30 day(s), # 60 tab(s), Refills(s) 1, Pharmacy: [id number], 147.4, cm, 10/27/23 13:16:00 EDT, Height/Length Dosing, [...] list: All Problems Depression / SNOMED CT 58851088 / Confirmed Headache / SNOMED CT 80849362 / Confirmed Hypertension / SNOMED CT 7781533494 / Confirmed Renal cyst / SNOMED CT 5162720580 / Confirmed Ureteral stone / SNOMED CT 14635738 / Confirmed Dysuria / SNOMED CT 87123128 / Confirmed Urge incontinence / SNOMED CT 632176376 / Confirmed Incomplete bladder emptying / SNOMED CT 220901468 / Confirmed History of kidney stones / SNOMED CT 1752272039 / Confirmed Kidney stone / SNOMED CT 775982461 / Confirmed Ureteral stone with hydronephrosis / SNOMED CT 2259379241 / Confirmed Flank pain / SNOMED CT 620918151 / Confirmed PTSD (post-traumatic stress disorder) / SNOMED CT 89935326 / Confirmed Anxiety / SNOMED CT 33902862 / Confirmed Canceled: Kidney stone / SNOMED CT 202993866 Histories Past Medical History: No active or resolved past medical history items have been selected or recorded. Family History: Kidney stone Mother Grandparent Hypertension Grandparent Heart disease Grandparent Mother Diabetes mellitus type 1 Mother Procedure history: Cystoscopy, stent removal ([id number]) on 12/15/2023 at 43 Years. R ESWL and cysto stent insert ([id number]) on 11/11/2023 at 43 Years. Gastric sleeve ([id number]) in 2022 at 42 Years. Hysterectomy (564475900). Complete hernia (091426727). Cyst of fallopian tube removal (37227863). Social History Social & Psychosocial Habits Alcohol [...] results Radiology results ECG interpretation Condition Plan [place] [employer] Anesthesiologists (ASA) physical status classification: Class III. Anesthetic Preoperative Plan Anesthesia: General. . Anesthetic plan, risks, benefits, and alternatives discussed with the patient and/or family. Risks discussed: nausea, vomiting, headache, sore throat, dental injury, serious complications. Patient verbalized understanding. Communication: face to face with patient 5 minutes. [facility] Comment on above: Result Comment: Elec tronically Signed By: MD Wolfgang, Ahmad F\.br\Date and Time Signed: 12/19/23 16:47 EDT 12-15-2023 Hospital Discharge instructions Patient Education 12/15/2023 17:19:12 Sxbh-Ywdj-ny Utereroscopy,Lithotripsy, Stone Extraction, Stent Placement (Custom) [facility] [place], [place] Dr. Chencho Garza Post-operative Instructions for [...] appointment (with XRAY) in about six months [phone] 12/15/2023 17:16:21 Post Op Patient Instructions - FT (Custom) (CUSTOM) Follow Up Care 12/02/2023 14:11:05 With:Chencho HANEY Address: [address] [facility] [address] [place], [place] [id number]- Business (1) When:6 months Comments:Call for followup [...] send an antibiotic prescription to your pharmacy. [facility] 12-15-2023 Note Patient Education - Text [facility] [place], [place] Dr. Chencho Garza Post-operative Instructions for [...] appointment (with XRAY) in about six months [phone] [facility] 12-15-2023 Evaluation + Plan note Diagnostic Tests PendingCalculi Analysis Urinary 12/15/23 [facility] 11-18-2023 Note Progress Note-Physic stephanie Patient: JUNE RHODES Age: 43 years Sex: Female : 1980 Associated Diagnoses: None Author: MD Goss Ahmad F Postoperative Information Postoperative disposition: Postoperative disposition: To PACU. Optimetrix number: Optimetrix number [id number]. Anesthetic utilized: General. Health Status Allergies: Allergic [...] when meets criteria ( To home ). [facility] Comment on above: Result Comment: Elec [...] day(s), # 60 tab(s), Refills(s) 1, Pharmacy: [facility] #[id number], 147.4, cm, 10/27/23 13:16:00 EDT, Height/Length Dosing, 89.2, kg, 10/27/23 13:16:00 EDT, Weight Dosing tamsulosin 0.4 mg Cap: 0.4 mg = 1 cap(s), Oral, Daily, # 30 cap(s), Refills(s) 0, Pharmacy: [facility] #[id number], 153, cm, 06/15/23 10:00:00 EST, Height/Length Dosing, [...] list: All Problems Depression / SNOMED CT 44733812 / Confirmed Headache / SNOMED CT 39353900 / Confirmed Hypertension / SNOMED CT 4119326843 / Confirmed Renal cyst / SNOMED CT 9341772452 / Confirmed Ureteral stone / SNOMED CT 33977967 / Confirmed Dysuria / SNOMED CT 66555108 / Confirmed Urge incontinence / SNOMED CT 367529751 / Confirmed Incomplete bladder emptying / SNOMED CT 969678526 / Confirmed History of kidney stones / SNOMED CT 0968476609 / Confirmed Kidney stone / SNOMED CT 026685130 / Confirmed Ureteral stone with hydronephrosis / SNOMED CT 2616960819 / Confirmed Flank pain / SNOMED CT 174600518 / Confirmed PTSD (post-traumatic stress disorder) / SNOMED CT 14250106 / Confirmed Anxiety / SNOMED CT 35761751 / Confirmed Canceled: Kidney stone / SNOMED CT 562965834 Histories Past Medical History: No active or resolved past medical history items have been selected or recorded. Family History: Kidney stone Mother Grandparent Hypertension Grandparent Heart disease Grandparent Mother Diabetes mellitus type 1 Mother Procedure history: R ESWL and cysto stent insert ([id number]) on 11/11/2023 at 43 Years. Gastric sleeve ([id number]) in 2022 at 42 Years. Hysterectomy (413612474). Complete hernia (533504887). Cyst of fallopian tube removal (57775837). Social History Social & Psychosocial Habits Alcohol [...] results Radiology results ECG interpretation Condition Plan [place] [employer] Anesthesiologists (ASA) physical status classification: Class III. Anesthetic Preoperative Plan Anesthesia: General. . Anesthetic plan, risks, benefits, and alternatives discussed with the patient and/or family. Risks discussed: nausea, vomiting, headache, sore throat, dental injury, serious complications. Patient verbalized understanding. Communication: face to face with patient 5 minutes. [facility] Comment on above: Result Comment: Elec tronically Signed By: MD Wolfgang, Julius Parker.sophie\Date and Time Signed: 11/18/23 07:41 EDT 11-11-2023 [...] Follow these instructions at home: Medicines Take hoav-xzm-ljarhkq and prescription medicines only as told by [...] provider. Document Revised: 03/09/2022 Document Reviewed: 12/15/2021 [employer] Patient Education 2022 [employer]. Follow Up Care 09/15/2023 10:32:08 With:Chencho HANEY Address: [address] [place], [place] [phone] [facility] (1) When: Unknown Comments:Please call my office to speak with Elizabeth, she is my senior master scheduler. Please asked to have the abdominal [...] and some bladder spasm medications as well. [facility] 11-11-2023 Note Patient Education - Text Nephrology [...] these instructions at home: Medicines ? Take eczu-env-afooolr and prescription medicines only as told by [...] help prevent ne (more content not included)... [facility] 06-15-2023 Hospital Discharge instructions Patient Education 06/15/2023 10:54:16 Kidney Stones, Ltnt-mu-Mbnz Kidney Stones Kidney stones are rock-like masses [...] Follow these instructions at home: Medicines Take dzzg-dwf-cprffkf and prescription medicines only as told by [...] provider. Document Revised: 12/15/2021 Document Reviewed: 12/15/2021 [employer] Patient Education 2022 [employer] Follow Up Care 06/08/2023 15:05:45 With:LYNDON ARANGO, Chencho Oneal, URL Address: [address] [place] [address] [employer] [address]- When: Unknown Comments:IVP in 1-2wks [facility] Evaluation + Plan note No data available for this section [facility] Evaluation + Plan note Future Appointments Appointment Date:11/11/2023 11:15:00 AM Scheduled Provider: Location:[facility] Appointment Type:Surgery FT [facility] Evaluation + Plan note Future Appointments Appointment Date:08/09/2025 11:40:00 AM Scheduled Provider:PAWAN Khanna APRN, [place] [facility] Location:[facility] Appointment Type:URO Office Visit Future Scheduled TestsElectrolyte Panel 08/10/24XR Abdomen 1 View 08/10/24 [facility] Evaluation note Diagnosis Essential hypertension, benign (CMS/HCC)- [...] lumbosacral intervertebral disc documented in this encounter [facility] HealthcareEvaluation note* Diagnosis Essential hypertension, benign (CMS/HCC)- [...] Panniculitis, unspecified site documented in this encounter [facility] HealthcareEvaluation note* Diagnosis Essential hypertension, benign (CMS/HCC)- [...] 39.9 in adult documented in this encounter [facility] HealthcareEvaluation note* Diagnosis Essential hypertension, benign (CMS/HCC)- [...] (CMS/HCC) Body mass index (BMI) 40.0-44.9, adult (CMS/[facility]) Essential hypertension, benign (CMS/HCC)- Primary Essential hypertension, [...] lumbosacral intervertebral disc documented in this encounter [facility] HealthcareEvaluation note* Diagnosis Essential hypertension, benign (CMS/HCC)- [...] Degeneration of lumbar or lumbosacral intervertebral disc Cyclothymic disorder (CMS/HCC) Cyclothymic disorder PTSD (post-traumatic stress disorder) (CMS/HCC) Posttraumatic stress disorder Moderate episode of recurrent major depressive disorder (CMS/HCC) Generalized anxiety disorder (CMS/HCC) Generalized anxiety disorder Mixed obsessional thoughts and acts (CMS/HCC) Social anxiety disorder (CMS/HCC) Social phobia Psychophysiological insomnia Persistent disorder of initiating or [...] adult Tinea corporis Dermatophytosis of the body Social anxiety disorder (CMS/HCC) Social phobia Panic attack due to post traumatic stress disorder (PTSD) (CMS/HCC) Cyclothymic disorder (CMS/HCC) Cyclothymic disorder PTSD (post-traumatic stress disorder) (CMS/HCC) Posttraumatic stress disorder Moderate episode of recurrent major depressive disorder (CMS/HCC) Generalized anxiety disorder (CMS/HCC) Generalized anxiety disorder Mixed obsessional thoughts and acts (CMS/HCC) Social anxiety disorder (CMS/HCC) Social phobia Psychophysiological insomnia Persistent disorder of initiating or [...] (CMS/HCC) Body mass index (BMI) 40.0-44.9, adult (CMS/[facility]) Essential hypertension, benign (CMS/HCC)- Primary Essential hypertension, [...] disorder Mixed obsessional thoughts and acts (CMS/HCC) Social anxiety disorder (CMS/HCC) Social phobia Psychophysiological insomnia Persistent disorder of initiating or [...] Morbid (severe) obesity due to excess calories (CMS/[facility]) Body mass index (BMI) 40.0-44.9, adult (CMS/[facility]) Essential hypertension, benign (CMS/HCC)- Primary Essential hypertension, [...] Unspecified episodic mood disorder Generalized anxiety disorder (CMS/) Generalized anxiety disorder Primary insomnia Persistent disorder [...] Bilateral leg edema Edema Mild mood disorder (CMS/) Unspecified episodic mood disorder Generalized anxiety disorder (CMS/HCC) Generalized anxiety disorder Degeneration of 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 back pain and lower extremity pain Primary insomnia Persistent disorder of initiating or maintaining sleep Class 2 obesity due to excess calories without serious comorbidity with body mass index (BMI) of 39.0 to 39.9 in adult Tinea corporis Dermatophytosis of the body PTSD (post-traumatic stress disorder) (CMS/[facility]) Posttraumatic stress disorder Social anxiety disorder (CMS/HCC) Social phobia Cyclothymic disorder (CMS/[facility]) Cyclothymic disorder documented in this encounter [facility] HealthcareEvaluation note* Diagnosis Essential hypertension, benign (CMS/HCC)- [...] adult Tinea corporis Dermatophytosis of the body PTSD (post-traumatic stress disorder) (CMS/HCC) Posttraumatic stress [...] adult Tinea corporis Dermatophytosis of the body Essential hypertension, benign (CMS/HCC)- Primary Essential hypertension, benign Degeneration of 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 back pain and lower extremity pain Bilateral leg edema Edema Chronic pain of both knees Moderate episode of recurrent major depressive disorder (CMS/HCC) Generalized anxiety disorder (CMS/HCC) Generalized anxiety disorder Class 2 obesity due to excess calories without serious comorbidity with body mass index (BMI) of 39.0 to 39.9 in adult PTSD (post-traumatic stress disorder) (CMS/HCC) Posttraumatic stress [...] (CMS/HCC) Body mass index (BMI) 40.0-44.9, adult (CMS/[facility]) Essential hypertension, benign (CMS/HCC)- Primary Essential hypertension, [...] Bilateral leg edema Edema Mild mood disorder (CMS/) Unspecified episodic mood disorder Generalized anxiety disorder (CMS/HCC) Generalized anxiety disorder Degeneration of 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 back pain and lower extremity pain Primary insomnia Persistent disorder of initiating or maintaining sleep Class 2 obesity due to excess calories without serious comorbidity with body mass index (BMI) of 39.0 to 39.9 in adult Tinea corporis Dermatophytosis of the body Essential hypertension, benign (CMS/HCC)- Primary Essential hypertension, benign Degeneration of 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 back pain and lower extremity pain Bilateral leg edema Edema Chronic pain of both knees Moderate episode of recurrent major depressive disorder (CMS/HCC) Generalized anxiety disorder ([facility]/HCC) Generalized anxiety disorder Class 2 obesity due to excess calories without serious comorbidity with body mass index (BMI) of 39.0 to 39.9 in adult PTSD (post-traumatic stress disorder) ([facility]) Posttraumatic stress disorder Social anxiety disorder (CMS/[facility]) Social phobia Cyclothymic disorder (CMS/HCC) Cyclothymic disorder PTSD (post-traumatic [...] adult Tinea corporis Dermatophytosis of the body Essential hypertension, benign (CMS/HCC)- Primary Essential hypertension, benign Degeneration of 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 back pain and lower extremity pain Bilateral leg edema Edema Chronic pain of both knees Moderate episode of recurrent major depressive disorder (CMS/HCC) Generalized anxiety disorder (CMS/HCC) Generalized anxiety disorder Class 2 obesity due to excess calories without serious comorbidity with body mass index (BMI) of 39.0 to 39.9 in adult Social anxiety disorder (CMS/HCC) Social phobia Panic attack due to post traumatic stress disorder (PTSD) (CMS/HCC) PTSD (post-traumatic stress disorder) (CMS/HCC) Posttraumatic stress [...] Morbid (severe) obesity due to excess calories (CMS/[facility]) Body mass index (BMI) 40.0-44.9, adult ([facility]) Essential hypertension, benign (CMS/HCC)- Primary Essential hypertension, [...] Bilateral leg edema Edema Mild mood disorder (CMS/) Unspecified episodic mood disorder Generalized anxiety disorder ([facility]) Generalized anxiety disorder Degeneration of 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 back pain and lower extremity pain Primary insomnia Persistent disorder of initiating or maintaining sleep Class 2 obesity due to excess calories without serious comorbidity with body mass index (BMI) of 39.0 to 39.9 in adult Tinea corporis Dermatophytosis of the body Essential hypertension, benign ([facility]/HCC)- Primary Essential hypertension, benign Degeneration of 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 back pain and lower extremity pain Bilateral leg edema Edema Chronic pain of both knees Moderate episode of recurrent major depressive disorder (CMS/[facility]) Generalized anxiety disorder ([facility]) Generalized anxiety disorder Class 2 obesity due to excess calories without serious comorbidity with body mass index (BMI) of 39.0 to 39.9 in adult PTSD (post-traumatic stress disorder) ([facility]) Posttraumatic stress disorder Social anxiety disorder ([facility]) Social phobia Cyclothymic disorder ([facility]) Cyclothymic disorder Moderate episode of recurrent major depressive disorder ([facility]) Generalized anxiety disorder ([facility]) Generalized anxiety disorder Mixed obsessional thoughts and acts (CMS/HCC) Psychophysiological insomnia Persistent disorder of initiating or maintaining sleep documented [facility] No data available for this section [facility] No data available for this section [facility] Marya Summary Purpose Family History No [...] and content) DATE CREATED AUTHOR 08/10/2022 [facility] DATE CREATED AUTHOR AUTHOR'S ORGANIZ ATION 10/28/2023 [facility] DATE CREATED AUTHOR AUTHOR'S ORGANIZ ATION 08/13/2024 [facility] DATE CREATED AUTHOR AUTHOR'S ORGANIZ ATION 09/19/2024 [facility] DATE CREATED AUTHOR AUTHOR'S ORGANIZ ATION 09/20/2024 [facility] EPIC Patient Care team informatio n (unrecognized section and content) Speeder Frame Tender Relationship Specialty Start Date End Date Hany Iglesias MD [address] [place] [address] PCP - General Family Medicine 11/29/23 Speeder Frame Tender Relationship Specialty Start Date End Date Hany Iglesias MD [address] [place] [address] PCP - General Family Medicine 11/29/23 Speeder Frame Tender Relationship Specialty Start Date End Date Hany Iglesias MD [address] [place] [address] PCP - General Family Medicine 11/29/23 Speeder Frame Tender Relationship Specialty Start Date End Date Hany Iglesias MD [address] [place] [address] PCP - General Family Medicine 11/29/23 Speeder Frame Tender Relationship Specialty Start Date End Date Hany Iglesias MD [address] [place] [address] PCP - General Family Medicine 11/29/23 Speeder Frame Tender Relationship Specialty Start Date End Date Hany Iglesias MD [address] [place] [address] PCP - General Family Medicine 11/29/23 Speeder Frame Tender Relationship Specialty Start Date End Date Hany Iglesias MD [address] [place] [address] PCP - General Family Medicine 11/29/23 Speeder Frame Tender Relationship Specialty Start Date End Date Hany Iglesias MD [address] [place] [address] PCP - General Family Medicine 11/29/23 Speeder Frame Tender Relationship Specialty Start Date End Date Hany Iglesias MD [address] [place] [address] PCP - General Family Medicine 11/29/23 Speeder Frame Tender Relationship Specialty Start Date End Date Hany Iglesias MD [address] [place] [address] PCP - General Family Medicine 11/29/23 Speeder Frame Tender Relationship Specialty Start Date End Date Hany Iglesias MD [address] [place] [address] PCP - General Family Medicine 11/29/23 Speeder Frame Tender Relationship Specialty Start Date End Date Hany Iglesias MD [address] [place] [address] PCP - General Family Medicine 11/29/23 Rosina Barraza [facility] [address] [facility] [address] [place] [address] Nurse Practitioner Behavioral Health 06/21/24 Chencho Haney MD [address] [place] [address] Referring Physician Urology 06/21/24 Speeder Frame Tender Relationship Specialty Start Date End Date Hany Iglesias MD [address] [place] [phone] PCP - General Family Medicine 11/29/23 Rosina Barraza, [facility] [address] [facility] [address] [place] [address] Nurse Practitioner Behavioral Health 06/21/24 Chencho Haney MD [address] [place] [address] Referring Physician Urology 06/21/24 Speeder Frame Tender Relationship Specialty Start Date End Date Hany Iglesias MD [address] [place] [phone] PCP - General Family Medicine 11/29/23 [facility] [address] [facility] [address] [place] [address] Nurse Practitioner Behavioral Health 06/21/24 Chencho Haney MD [address] [place] [address] Referring Physician Urology 06/21/24 Speeder Frame Tender Relationship Specialty Start Date End Date Hany Iglesias MD [address] [place] [address] PCP - General Family Medicine 11/29/23 [facility] [address] [facility] [address] [place] [address] Nurse Practitioner Behavioral Health 06/21/24 Chencho Haney MD [address] [place] [address] Referring Physician Urology 06/21/24 Speeder Frame Tender Relationship Specialty Start Date End Date Hany Iglesias MD [address] [place] [phone] PCP - General Family Medicine 11/29/23 [facility] [address] [facility] [address] [place] [address] Nurse Practitioner Behavioral Health 06/21/24 Chenhco Haney MD [address] [place] [address] Referring Physician Urology 06/21/24 Speeder Frame Tender Relationship Specialty Start Date End Date Hany Iglesias MD [address] [place] [phone] PCP - General Family Medicine 11/29/23 [facility] [address] [place] [address] Nurse Practitioner Behavioral Health 06/21/24 Chencho Haney MD [address] [place] [address] Referring Physician Urology 06/21/24 Speeder Frame Tender Relationship Specialty Start Date End Date Hany Iglesias MD [address] [place] [address] PCP - General Family Medicine 11/29/23 Rosina Barraza [facility] [address] [address] [place] [address] Nurse Practitioner Behavioral Health 06/21/24 Chencho Haney MD [address] [place] [address] Referring Physician Urology 06/21/24 Speeder Frame Tender Relationship Specialty Start Date End Date Hany Iglesias MD [address] [place] [phone] PCP - General Family Medicine 11/29/23 Rosina Barraza [facility] [address] [address] [place] [address] Nurse Practitioner Behavioral Health 06/21/24 Chencho Haney MD [address] [place] [address] Referring Physician Urology 06/21/24 Speeder Frame Tender Relationship Specialty Start Date End Date Hany Iglesias MD [address] [place] [address] PCP - General Family Medicine 11/29/23 [facility] [address] [address] [place] [address] Nurse Practitioner Behavioral Health 06/21/24 Chencho Haney MD [address] [place] [address] Referring Physician Urology 06/21/24 Speeder Frame Tender Relationship Specialty Start Date End Date Hany Iglesias MD [address] [place] [address] PCP - General Family Medicine 11/29/23 [facility] [address] [facility] [place] [place] [address] Nurse Practitioner Behavioral Health 06/21/24 Chencho Haney MD [address] [place] [address] Referring Physician Urology 06/21/24 Speeder Frame Tender Relationship Specialty Start Date End Date Hany Iglesias MD [address] [place] [address] PCP - General Family Medicine 11/29/23 [facility] [address] [facility] [address] [place] [address] Nurse Practitioner Behavioral Health 06/21/24 Chencho Haney MD [address] [place] [address] Referring Physician Urology 06/21/24 Speeder Frame Tender Relationship Specialty Start Date End Date Hany Iglesias MD [address] [place] [address] PCP - General Family Medicine 11/29/23 [facility] [address] [address] [place] [address] Nurse Practitioner Behavioral Health 06/21/24 Chencho Haney MD [address] [place] [address] Referring Physician Urology 06/21/24 Speeder Frame Tender Relationship Specialty Start Date End Date Hany Iglesias MD [address] [place] [address] PCP - General Family Medicine 11/29/23 Rosina Barraza [facility] 112 [facility] [address] [place] [address] Nurse Practitioner Behavioral Health 06/21/24 Chencho Haney MD [address] [place] [address] Referring Physician Urology 06/21/24 Speeder Frame Tender Relationship Specialty Start Date End Date Hany Iglesias MD [address] [place] [address] PCP - General Family Medicine 11/29/23 Rosina Barraza [facility] [address] [facility] [place] [address] Nurse Practitioner Behavioral Health 06/21/24 Chencho Haney MD [address] [place] [address] Referring Physician Urology 06/21/24 Speeder Frame Tender Relationship Specialty Start Date End Date Hany Iglesias MD [address] [place] [phone] PCP - General Family Medicine 11/29/23 Rosina Barraza [facility] [address] [facility] [place] [address] Nurse Practitioner Behavioral Health 06/21/24 Chencho Haney MD [address] [place] [address] Referring Physician Urology 06/21/24 Speeder Frame Tender Relationship Specialty Start Date End Date Hayn Iglesias MD [address] [place] [address] PCP - [facility] 11/29/23 [facility] [address] [facility] [address] [place] [address] Nurse Practitioner Behavioral Health 06/21/24 Chencho Haney MD [address] [place] [address] Referring Physician Urology 06/21/24 Speeder Frame Tender Relationship Specialty Start Date End Date Hany Iglesias MD [address] [place] [address] PCP - [facility] 11/29/23 [facility] [address] [facility] [address] [place] [address] Nurse Practitioner [facility] 06/21/24 Chencho Haney MD [address] [place] [address] Referring Physician Urology 06/21/24 Reason for Visit [...] disorder (CMS/HCC) Generalized anxiety disorder (CMS/HCC) Procedures [place] OFFICE/OUTPATIENT [facility] 60 MINUTES Hany Iglesias MD [address] [place] [address] Phone: tel: fax: Rosina Barraza, HNP- [address] [facility] [address] [place] [address] Phone: tel: fax: Referral ID Status Reason Start Date Expiration Date V isits Requested Visits Authorized [id number] Closed Specialty Services Required 03/01/2024 08/28/2024 1 1 Reason Onset Date Comments Med Refill 06/22/2024 Reason Onset Date Comments Med Refill 07/19/2024 Reason Comments Follow-up Anxiety PTSD (Post-Traumatic Stress Disorder) Reason Comments Med Management Follow-up Reason Onset Date Comments Med Refill 08/23/2024 Reason Comments Follow-up 3 m f/upNeeds epipen Reason Comments Med Management Follow-up FOR RECORDS PERTAINING TO PATIENTS WHO ARE [...] BE BASED ON THE PRIMARY CLINICAL RECORDS. [employer] provides no warranty or guarantee of the accuracy or completeness of information in this document.
== END 2024-09-21 10:21 | disposition home or self-care (01) ==
PROVIDERS: Emergency Provider Emergency Medicine; PCP Family Medicine
DX: J06.9 Acute upper respiratory infection, unspecified (principal); R05.9 Cough, unspecified; R07.89 Other chest pain; J02.9 Acute pharyngitis, unspecified
CPT/HCPCS: 99283

== ENCOUNTER 2024-11-05 11:00 | Emergency (ER) | payer MEDICAID, SELFPAY ==
[2024-11-05 11:02] VITALS: BP 135/93; PULSE 75; TEMP 36.8; O2SAT 98; BMI 38.1
--- OUTSIDE RECORDS SUMMARY | 2024-11-05 11:06 | XMS_ITS | CCD ---
Author Organization [facility] Team Providers Care Peer Specialist Name Role Phone HARRIS, DR HANY Mcarthur Admitting Unavailable NADERER, DR HANY Mcarthur Attending Unavailable NADERER, DR HANY Mcarthur Primary Care Unavailable ZIEBER, DR YOSVANY Adames Consulting Unavailable NADERER, DR HANY Mcarthur Consulting Unavailable NADERER, DR HANY Mcarthur Admitting Unavailable NADERER, DR HANY Mcarthur Attending Unavailable NADERER, DR HANY Mcarthur Primary Care Unavailable NADEREZacarias, DR HANY Mcarthur Consulting Unavailable HARRIS, HANY Primary Care Physician Chencho HANEY Attending Unavailable COOK, Chencho P Referring Unavailable COOKChencho Attending Unavailable Chencho HANEY P Admitting Unavailable Naderer Hany ARANGO Primary Care Provider [phone] Mad[facility] Rosina Unavailable Chencho Haney MD Unavailable Chencho HANEY P Attending Unavailable COOK, Chencho P Referring Unavailable COOK, Chencho P Admitting Unavailable COOK, Chencho P Referring Unavailable COOK, Chencho P Admitting Unavailable COOK, Chencho P Attending Unavailable COOK, Chencho P Attending Unavailable COOK, Chencho P Referring Unavailable COOK, Chencho P Admitting Unavailable Orzech, Jaycee X Attending Unavailable Orzech, Jaycee X Attending Unavailable Orzech, Jaycee X Admitting Unavailable Orzech, Jaycee X Attending Unavailable Orzech, Jaycee X Admitting Unavailable Orzech, Jaycee X Attending Unavailable Orzech, Jaycee X Attending Unavailable NATY ALFARO Attending Unavailable Orzech, Jaycee Lemons Attending Unavailable Orzech, Jaycee X Admitting Unavailable NADERER, HANY Attending Unavailable NADEREZacarias, HANY Attending Unavailable ROSINA BARRAZA Attending Unavailable RADHIKAEREHANY Adames Referring Unavailable JAVY RIVERA Attending Unavailab le JOHANNA-ROLDAN, RHANDA Attending Unavailab le BARRAZA, ROSINA Attending Unavailable JOHANNA-ROLDAN, RHANDA Attending Unavailab le BARRAZA, ROSINA Attending Unavailable JOHANNA-ROLDAN, RHANDA Attending Unavailab le NADERER, HANY Attending Unavailable JOHANNA-ROLDAN, RHANDA Attending Unavailab le JOHANNA-ROLDAN, RHANDA Attending Unavailab le BARRAZA, ROSINA Attending Unavailable JOHANNA-ROLDAN, RHANDA Attending Unavailab le BARRAZA, ROSINA Attending Unavailable JOHANNA-ROLDAN, RHANDA Attending Unavailab le NADERER, HANY Attending Unavailable NADERER, HANY Attending Unavailable NADERER, HANY Attending Unavailable Allergies Allergy Classification Reported Allergen(s) Allergy Type Date of Onset Reaction(s) Facility (4 sources) Morphine; Translations: [morphine] Drug Allergy [facility] (1 source) Penicillins Drug allergy (disorder) 3 [facility] (1 source) Darvocet-N 100 Drug allergy (disorder) 3 [facility] (7 sources) Morphine; Translations: [morphine] Drug Allergy Unknown (qualifier value) [facility] (10 sources) NITROFURANTOIN, MACROCRYSTALS / Nitrofurantoin, Monohydrate; Translations: [nitrofurantoin] Drug Allergy Eruption of skin (disorder), Swelling (finding) [facility] (10 sources) Penicillin; Translations: [penicillin] Drug Allergy Pharyngeal swelling (finding) [facility] (20 sources) Ciprofloxacin; Translations: [ciprofloxacin] Drug Allergy 4 Eruption of skin (disorder) [facility] (20 sources) Morphine Drug Allergy 4 [facility] (20 sources) Penicillins Propensity to adverse reactions 4 [facility] (20 sources) fentaNYL Drug Allergy 5 Other [facility] (20 sources) venlafaxine Drug Allergy 5 GI intolerance [facility] (20 sources) QUEtiapine Drug Allergy 5 GI intolerance [facility] Medications Current Medications Medication Drug Class(es) Dates Sig (Normalized) Sig (Original) acetaminophen 325 mg / HYDROcodone bitartrate 5 mg oral tablet (1 source) Opioid Agonist Start: 11-11-2023 End: 11-13-2023 acetaminophen-hyd rocodone 325 mg-5 mg oral tablet 1 tab(s), Oral, q4hr Pain for 2 day(s), 7 tab(s), Refill(s) 0, [facility] #[id number], 147.4, cm, 10/27/23 13:16:00 EDT, Height/Length Dosing, [...] (20 sources) Atypical Antipsychotic Start: 08-21-2024 End: 11-08-2024 take 1 capsule by mouth once daily Cariprazine HCl (Vraylar) 3 MG capsule Indications: PTSD (post-traumatic stress disorder) , Cyclothymic disorder , Moderate episode of recurrent major depressive disorder (HCC) Take 3 mg by mouth Daily 30 capsule 1 10/09/2024 11/08/2024 Active Start: 07-24-2024 End: 08-23-2024 Vraylar 1.5 mg oral capsule Refills(s) 0 Start Date: 08/10/24 Status: Ordered Repeat number: 1 cefdinir 300 mg oral capsule (2 sources) [...] day(s), # 10 tab(s), Refills(s) 0, Pharmacy: [facility] #[id number], 147.4, cm, 10/27/23 13:16:00 EDT, Height/Length Dosing, [...] 11/02/19 Status: Ordered Hair Skin and Nails (6 sources) Start: 10-27-2023 take 1 tablet by [...] mg oral tablet (20 sources) Antihistamine Start: 10-09-2024 hydrOXYzine HCl (Atarax) 25 MG tablet Indications: Generalized anxiety disorder May take 1 tablet (25 mg) by mouth every 8 (eight) hours if needed for anxiety. May also take 2 tablets (50 mg) as needed at bedtime for anxiety. 60 tablet 4 10/09/2024 Active Start: 10-27-2023 End: 12-16-2024 take 1 tablet [...] 150 MG tablet Indications: Moderate mood disorder Take 1 tablet (150 mg) by mouth [...] sources) Polyene Antifungal Start: 03-01-2024 nystatin (Mycostatin) 412244 UNIT/GM powder Indications: Panniculitis Apply topically 2 (two) times a day 60 g 3 03/01/2024 Active One-A-Day (6 sources) Start: 10-27-2023 take 2 tablets by mouth once daily One-A-Day 2 tab(s), Oral, Daily, Refill(s) 0 Start Date: 10/27/23 Status: Ordered Repeat number: 1 Start: 10-27-2023 take 2 tablets by mo [facility] once daily One-A-Day 2 tab(s), Oral, Daily, Refill(s) 0 Start Date: 10/27/23 Status: Ordered oxybutynin chloride 5 mg oral tablet (2 sources) Cholinergic Muscarinic Antagonist Start: 11-11-2023 End: 01-10-2024 take 1 tablet by mouth twice daily oxybutynin 5 mg Tab 5 mg = 1 tab(s), Oral, BID, X 30 day(s), # 60 tab(s), Refills(s) 1, [facility]acy: [facility] #[id number], 147.4, cm, 10/27/23 13:16:00 EDT, Height/Length Dosing, [...] 40 MG tablet Indications: Mild mood disorder Take 1 tablet (40 mg) by mouth [...] 30 tablet 3 03/01/2024 04/12/2024 Discontinued (Reorder) potassium bicarbonate 25 meq effervescent oral tablet (8 sources) Start: 09-15-2024 take 1 tablet by mouth once Effer-K 25 MEQ effervescent tablet Take 25 mEq by mouth 1 (one) time 09/15/2024 Active Start: 08-10-2024 [facility] Klor-Con/EF 25 mEq oral tablet, effervescent 25 mEq = 1 tab(s), Oral, BID, # 60 tab(s), Refills(s) 11, Pharmacy: [facility], 147.5, cm, 08/10/24 16:08:00 EDT, Height/Length Dosing, 87.9, kg, 08/10/24 16:08:00 EDT, Weight Dosing Start Date: 08/10/24 Status: Ordered Quantity: 60.0 Unit: tab(s) Repeat number: 12 pramipexole dihydrochloride 0.5 mg oral tablet (20 [...] 5 MG capsule Indications: Generalized anxiety disorder Take 1 capsule (5 mg) by mouth at bedtime 30 capsule 11 12/17/2023 12/16/2024 Active Start: 10-27-2023 take 1 capsule by [facility] at bedtime prazosin 1 mg Cap [...] for 5 day(s), 10 tab(s), Refill(s) 0, [facility], 147.5, cm, 12/15/23 14:23:00 EDT, Height/Length Dosing, 87.9, kg, 12/15/23 14:23:00 EDT, Weight Dosing Start Date: 12/15/23 Stop Date: 12/20/23 Status: Ordered tamsulosin hydrochloride 0.4 mg oral capsule (2 sources) alpha-Adrenergic Eileen Start: 06-17-2023 take 1 capsule by mouth once daily tamsulosin 0.4 mg Cap 0.4 mg = 1 cap(s), Oral, Daily, # 30 cap(s), Refills(s) 0, Pharmacy: [facility] #[id number], 153, cm, 06/15/23 10:00:00 EST, Height/Length Dosing, [...] Start: 10-27-2023 take 1 tablet by [facility] once daily at bedtime traZODONE 50 mg [...] Discontinued (Therapy completed) Viactiv Soft Calcium Chews (6 sources) Start: 10-27-2023 Viactiv Soft C alcium Chews 4, Chewed, Daily, Refill(s) 0 Start Date: 10/27/23 Status: Ordered Repeat number: 1 Start: 10-27-2023 Viactiv Soft C alcium Chews 4, Chewed, Daily, Refill(s) 0 Start Date: 10/27/23 Status: Ordered Completed/Discontinued Medications Medication Drug Class(es) Dates Sig (Normalized) Sig (Original) acetaminophen 325 mg / oxyCODONE hydrochloride 5 mg oral tablet (20 sources) Opioid Agonist Start: 06-22-2024 End: 11-19-2024 take 1 tablet by mouth four times daily as needed for pain oxyCODONE-acetamino phen (Percocet) 5-325 MG tablet Indications: DDD (degenerative disc disease), lumbar Take 1 tablet by mouth 4 (four) times a day as needed for severe pain 120 tablet 09/21/2024 10/20/2024 Discontinued (Reorder) Start: 03-09-2024 End: 06-22-2024 take 1 tablet [...] pain 120 tablet 12/17/2023 01/17/2024 Discontinued (Reorder) betamethasone 0.5 mg/ml / clotrimazole 10 mg/ml topical cream (19 sources) Azole Antifungal, Corticosteroid Start: 05-19-2024 End: 07-24-2024 clotrimazole-betamethasone (Lotrisone) cream Indications: Tinea corporis Apply topically 2 (two) times a day 45 g 06/13/2024 07/24/2024 Discontinued (Therapy completed) doxepin hydrochloride 25 mg oral capsule (20 sources) Tricyclic Antidepressant Start: 06-21-2024 End: 07-24-2024 doxepin (SINEquan) 25 MG capsule Indications: Psychophysiological [...] 30 capsule 3 03/01/2024 04/12/2024 Discontinued (Reorder) QUEtiapine 25 mg oral tablet (11 sources) [...] Problem Date Documented Date Episodic/Chronic Abdominal pain (8 sources) Abdominal pain; Translations: [Unspecified abdominal pain] Onset: 06-15-2023 Episodic Administrative/socia l admission (8 sources) Follow-up status; Translations: [Other specified counseling] Onset: 09-28-2024 09-28-2024 Episodic Anxiety disorders (20 sources) Anxiety; Translations: [Posttraumatic stress disorder] Onset: 05-11-2023 10-27-2023 Chronic Esophageal disorders (20 sources) Gastroesophageal reflux disease without esophagitis; Translations: [Gastro-esophageal reflux disease without esophagitis] Onset: 05-11-2023 05-11-2023 Chronic Essential hypertension (20 sources) Hypertensive disorder; Translations: [Benign essential hypertension] Onset: 05-11-2023 11-02-2019 Chronic Genitourinary symptoms and ill-defined conditions (7 sources) Urge incontinence of urine 07-23-2020 Chronic Headache; including migraine (7 sources) Headache 11-02-2019 Episodic Miscellaneous mental health disorders (20 sources) Primary insomnia; Translations: [Primary insomnia] Onset: 05-11-2023 Resolved: 06-21-2024 05-11-2023 Chronic Mood disorders (20 sources) Depressive disorder; Translations: [Mild mood disorder] Onset: 05-11-2023 Resolved: 06-21-2024 11-02-2019 Chronic Other diseases of kidney and ureters (20 sources) Renal mass; Translations: [Other specified disorders of kidney and ureter] Onset: 05-11-2023 4 Chronic Other diseases of kidney and ureters (1 source) Urinary tract obstruction; Translations: [Hydronephrosis with renal and ureteral calculous obstruction] Onset: 06-15-2023 Episodic Other diseases of kidney and ureters (7 sources) Cyst of kidney 05-02-2020 Episodic Other [...] due to pollen] Onset: 05-11-2023 05-11-2023 Chronic Spondylosis; intervertebral disc disorders; other back problems (20 sources) Other intervertebral disc degeneration, lumbar region; Translations: [Degeneration of lumbar intervertebral disc] Onset: 09-08-2021 Chronic Unclassified (2 sources) CONTACT W/AND (SUSP) EXPOS COVID-19; Translations: [CONTACT W/AND (SUSP) EXPOS COVID-19] Onset: 03-12-2022 Unclassified (7 sources) Obstructive hydronephrosis 06-15-2023 Unclassified (3 sources) Urine finding 08-10-2024 Viral infection (1 source) [...] of ovaries, bilateral] Onset: 05-11-2023 05-11-2023 Episodic Residual codes; unclassified (20 sources) Bilateral lower limb edema; Translations: [Localized edema] Onset: 06-13-2024 06-13-2024 Episodic Unclassified (1 source) CONTACT W/AND (SUSP) EXPOS COVID-19; Translations: [CONTACT W/AND (SUSP) EXPOS COVID-19] Onset: 02-09-2022 Results Test Name Value Interpretation Reference Range Facility Ambulatory Visit Summaryon 0 10-03-2024 Ambulatory Visit Summary Ambulatory Visit Summary JUNE RHODES:1980 Visit Date:10/03/2024 Ambulatory Visit Instructions Your Care Team Attending Physician - NATY ALFARO PA-C Primary Care Physician - HANY IGLESIAS MD This Is Your Medications List acetaminophen-oxycod one (acetaminophen-oxyco done 300 mg-5 mg oral tablet) cariprazine (Vraylar 1.5 mg oral capsule) hydrOXYzine (hydrOXYzine hydrochloride 25 mg Tab) lamotrigine (lamotrigine 150 mg Tab) multivitamin (One-A-Day) multivitamin with minerals (Hair Skin and Nails) multivitamin with minerals (Viactiv Soft Calcium Chews) pantoprazole (Protonix 40 mg oral Granule) potassium bicarbonate (Klor-Con/EF 25 mEq oral tablet, effervescent) prazosin (prazosin 1 mg Cap) Procedures Performed Cystoscopy (12/15/2023), ESWL of kidney (11/11/2023), Gastric sleeve (2022), Complete hernia, Cyst of fallopian tube, Hysterectomy. What to do next Scheduled Follow-Up Appointments 2025 11:40 AM EDT With: PAWAN Khanna APRN, Jaycee Lemons Where: [facility] [address] [place] [address]- Medications What How Much When Instructions Unchanged [...] By Mouth 2 times a day Unchanged potassium bicarbonate (Klor-Con/ EF 25 mEq oral tablet, effervescent) 1 Tablets By Mouth 2 times a day Unchanged [...] you for choosing us for your care. Normal [facility] CHEMISTRYOrdered By: SYSTEM SYSTEM on 10-03-2024 Anion gap [Moles/Vol] 11 mmol/L Normal 6 - 16 mEq/L R emisol Chem Chloride [Moles/Vol] 108 mmol/L Normal 101 - 1 11 mmol/L Remisol Chem CO2 [Moles/Vol] 27 mmol/L Normal 21 - 31 mmol/L Remisol Chem Potassium [Moles/Vol] 3.9 mmol/L Normal 3.5 - 5.3 mmol/L Remisol Chem Sodium [Moles/Vol] 142 mmol/L Normal 135 - 145 mmol/L Remisol Chem Lyteson 10-03-2024 Anion gap [Moles/Vol] 11 mmol/L Normal 6-16 [facility] Comment on above: Performed By: #### 2 [id number] #### [facility] [address] [place] [address] Chloride [Moles/Vol] 108 mmol/L Normal 101-111 [facility] Comment on above: Performed By: #### 2 [id number] #### [facility] [address] [place] [address] CO2 [Moles/Vol] 27 mmol/L Normal 21-31 [facility] Comment on above: Performed By: #### 2 [id number] #### [facility] [address] [place] [address] Potassium [Moles/Vol] 3.9 mmol/L Normal 3.5-5.3 [facility] Comment on above: Performed By: #### 2 [id number] #### [facility] [address] [place] [address] Sodium [Moles/Vol] 142 mmol/L Normal 135-145 [facility] Comment on above: Performed By: #### 2 [id number] #### [facility] [address] [place] [address] XR Abdomen 1 Viewon 08-12-19 25 XR [...] DO Transcribed by: CRISTOPHER Technologist: MAURICIO Lugo [facility] Ambulatory Visit Summaryon 0 08-10-2024 Ambulatory Visit Summary Ambulatory Visit Summary JUNE RHODES :1980 Visit Date:08/10/2024 Ambulatory Visit Instructions Your Diagnosis Ureteral stone Hypocitraturia Kidney stone Flank pain Your Care Team Attending Physician - PAWAN Khanna APRN, Jaycee Lemons Primary Care Physician - HANY IGLESIAS MD [...] APRN, [place] X Where: [facility] [address] [place] [address]- You Need to Schedule the Following Appointments Follow Up with PAWAN Khanna APRN, Jaycee Lemons, FAM, URL When: Where: You Need to Complete the Following XR Abdomen 1 View, 08/10/24, Routine, Order for future visit, Transport Mode: Ambulatory, Reason: Kidney stone, No, Ureteral stone Hypocitraturia Kidney stone Flank pain, pp_set_radiology_sub specialty, [facility] Medications What How Much When Instructions Unchanged [...] ??? Vomiting. (more content not included)... Normal [facility] Urology Office/Clinic Noteon 08-10-2024 Urology Office/Clinic [...] 1. Ureteral stone (N20.1: Calculus of ureter) [facility] ER visit 05/21/23 c/o bilateral lower abdominal [...] Urnls Dip Stick Auto w/o Microscopy POC [id number] XR Abdomen 1 View XR Abdomen 1 [...] Urnls Dip Stick Auto w/o Microscopy POC 25988 XR Abdomen 1 View 3. Kidney stone (N20.0: Calculus of kidney) See #1. Ordered: Urnls Dip Stick Auto w/o Microscopy POC 25177 XR Abdomen 1 View XR Abdomen 1 View 4. Flank pain (R10.9: Unspecified abdominal pain) resolved Ordered: Urnls Dip Stick Auto w/o Microscopy POC 96929 XR Abdomen 1 View XR Abdomen 1 View Orders: potassium bicarbonate, 25 mEq = 1 tab(s), Oral, BID, # 60 tab(s), Refills(s) 11, Pharmacy: [facility], 147.5, cm, 08/10/24 16:08:00 EDT, Height/Length Dosing, 87.9, kg, 08/10/24 16:08:00 EDT, Weight Dosing Follow-up With When Contact Information PAWAN Khanna APRN, Jaycee X, FAM, URL Additional Instructions: Follow up 1yr w/ KUB or sooner if needed. Pt understands and agrees with plan. Patient Education Kidney Stones, [id number] I, Lashay Ramirez, personally scribed for PAWAN Smart APRN on 08/10/2024 16:13:59. Electronically signed by bianca Ramirez on (more content not included)... Normal [facility] Comment on above: Result Comment: Elec tronically Signed By: PAWAN Khanna APRN, Jaycee Vesta\.br\Date and Time Signed: 08/10/24 16:48 EDT\.br\Electronically Co-Signed By: Lashay Ramirez\.br\Date and Time Co-Signed: 08/10/24 16:14 EDT ALL CBC WITH AUTO DIFFon BASOPHILS ABSOLUTE AUTO 0 [facility] Basophils/100 WBC (Bld) 0.2 % 0.2 - 2.0 % [facility] Eosinophils/100 WBC (Bld) 1.8 % 0.9 - 7.0 % [facility] Erythrocyte distribution width (RBC) [Ratio] 12.5 % 11.0 - 15.0 % [facility] Hematocrit (Bld) [Volume fraction] 42.3 % 36.0 - 48.0 % [facility] Hemoglobin (Bld) [Mass/Vol] 14.6 g/dL 12.0 - 16.0 g/dL [facility] IMMATURE GRANULOCYTES ABS AUTO 0.01 [facility] Immature granulocytes/100 WBC (Bld) 0.2 % 0.0 - 0.5 % [facility] LYMPHOCYTES ABSOLUTE AUTO 2 [facility] Lymphocytes/100 WBC (Bld) 43.4 % 20.5 - 60.0 % [facility] MCH (RBC) [Entitic mass] 29 pg 26.7 - 34.0 pg [facility] MCHC (RBC) [Mass/Vol] 34.5 g/dL 29.9 - 35.2 g/dL [facility] MCV (RBC) [Entitic vol] 84.1 fL 81.0 - 99.0 fL [facility] MONOCYTES ABSOLUTE AUTO 0.5 [facility] Monocytes/100 WBC (Bld) 10.4 % 1.7 - 12.0 % [facility] NEUTROPHILS ABSOLUTE AUTO 2 [facility] Neutrophils/100 WBC (Bld) 44 % 43.0 - 75.0 % [facility] Platelet mean volume (Bld) [Entitic vol] 10.4 fL 9.5 - 13.5 fL [facility] EO # 0.1 [facility] PLT 218 [facility] RBC 5.03 [facility] WBC 4.5 [facility] Calculus Analysison 12-26-19 24 Calcium oxalate dihydrate Infrared spectroscopy (Stone) [Mass fraction] 20 % Invalid Interpretation Code [facility] Comment on above: Performed By: #### 1 [id number] #### [facility] [address] [place] [address] Calcium oxalate monohydrate (Stone) [Mass fraction] 60 % Invalid Interpretation Code [facility] Comment on above: Performed By: #### 1 [id number] #### [facility] [address] [place] [address] Calculus analysis [Interp] Comment Invalid Interpretation Code [facility] Comment on above: Result Comment: Calc ium phosphate (hydroxyl form) includes hydroxyapatite, amorphous calcium phosphate, and whitlockite. Hydroxyapatite is the most common of the calcium phosphate salts found in human kidney stones. Performed By: #### 1 [id number] #### [facility] [address] [place] [address] Color (Stone) Stevenson Invalid Interpretation Code [facility] Comment on above: Performed By: #### 1 [id number] #### [facility] [address] [place] [address] Composition Comment Invalid Interpretation Code [facility] Comment on above: Result Comment: Perc entage (Represents the % composition) Performed By: #### 1 [id number] #### [facility] [address] [place] [address] Disclaimer: Comment Invalid Interpretation Code [facility] Comment on above: Result Comment: This test was developed and its performance characteristics determined by [facility]. It has not been cleared or approved by the Food and Drug Administration. Performed at: [facility] [id number] PhD Jamil San Performed By: #### 1 [id number] #### [facility] [address] [place] [address] Hydroxyapatite: 20 % Invalid Interpretation Code [facility] Comment on above: Performed By: #### 1 [id number] #### [facility] [address] [place] [address] Laboratory comment Nikhil (Report) Comment Invalid Interpretation Code [facility] Comment on above: Result Comment: Phys araseli questions regarding Calculi Analysis contact [facility] at: [phone]. Performed By: #### 1 [id number] #### [facility] [address] [place] [address] Please Note: Comment Invalid Interpretation Code [facility] Comment on above: Result Comment: Calc deana report will follow via computer, mail or occupational therapy instructor delivery. Performed By: #### 1 [id number] #### [facility] [address] [place] [address] Size (Stone) [Entitic vol] 2x2 Invalid Interpretation Code [facility] Comment on above: Result Comment: Mult iple pieces received. Dimensions of the largest piece reported. Performed By: #### 1 [id number] #### [facility] [address] [place] [address] Specimen source subject Nom Kidney Invalid Interpretation Code [facility] Comment on above: Performed By: #### 1 [id number] #### [facility] [address] [place] [address] Stone Photo Comment Invalid Interpretation Code [facility] Comment on above: Result Comment: Phot ograph will follow under a separate cover Performed By: #### 1 [id number] #### [facility] [address] [place] [address] Weight (Stone) 8 mg Invalid Interpretation Code [facility] Comment on above: Performed By: #### 1 [id number] #### [facility] [address] [place] [address] Main OR Intraoperative Recor don 12-16-2023 Main OR Intraoperative Record Main OR Intraoperative Record IntraOp Document Type FT Summary Primary Physician: Chencho HANEY MD Finalized Date/Time: 12/16/23 11:46:04 Pt. Name: RHODESJUNE HANCOCK D.O.B./Sex: 1980 Female Med Rec #: [id number] Physician: Chencho HANEY MD Financial #: [id number] Pt. Type: A Room/Bed: [place] [address] Admit/Disch: 12/15/23 13:42:32 - 12/15/23 18:45:00 Institution: [...] 1 Entry 2 Entry 3 Case Attendee Eliane LAINEY, Hernandez HANEY MD, Frida Henry Role Performed Anesthesiologist Surgeon - Primary Vessel Scrapper Helper - Primary Construction Skills Teacher Time In 12/15/23 16:32:00 12/15/23 16:32:00 12/15/23 [...] Courtney M Role Performed Scrub - Primary Corn Picker Corn Picker Time In 12/15/23 16:32:00 12/15/23 16:32:00 12/15/23 [...] Carmona 12/15/23 17:19:18 General Comments: MARIANO TOVAR, TEODORO BRIONES REP, IN ATTENDANCE.DAWNA KOCH RN. Perioperative Protocols [...] Yes Time Out Hernandez Jerez, Given Participants JENNY ARANGO, Chencho Oneal, Frida Carmona, Misha Uriarte, [...] Clean-Contaminated Sp (more content not included)... Normal [facility] Discharge Instructionson Discharge Instructions Discharge Instructions JUNE RHODES :1980 Visit Date:12/15/2023 Inpatient Discharge Instructions Your Care Team Admitting Physician - Chencho HANEY MD Referring Physician - Chencho HNAEY MD Reason for Your Visit KIDNEY STONE [...] an antibiotic prescription to your pharmacy. Where: [address] [place] [address]- [facility] (1) Medications What How Much When Instructions Next Dose New sulfamethoxazole-tri methoprim (Bactrim D.S. 800 mg-160 mg Tab) 1 Tablets By Mouth 2 times a day Duration: 5 Days Pickup at [facility] Unchanged acetaminophen-oxycod one (acetaminophen-oxyco done 300 [...] Once a day (at bedtime) Pharmacy Information [facility]: [address] [place], [place] [id number] [phone] Test Results No qualifying data available. Allergies [...] hydronephrosis Urge incontinence Education Materials [facility] [place], [place] Dr. Chencho Garza Post-operative Instructions for [...] normal di (more content not included)... Normal [facility] Comment on above: Result Comment: Elec tronically Signed By: Wiliam CORTEZ, Saritha Brown\.br\Date and Time Signed: 12/15/23 17:36 EDT Inpatient Patient Summaryon 12-15-2023 Inpatient Patient Summary Inpatient Patient Summary [address] [address] [facility] Clinical Discharge Instructions PERSON INFORMATION Name: JUNE RHODES [facility]ANS Admitting Physician: Chencho HANEY MD Attending Physician: Chencho HANEY MD PCP: HANY IGLESIAS MD Discharge Diagnosis: Comment: PATIENT EDUCATION INFORMATION Instructions: Jtom-Gbon-ec Utereroscopy,Lithotr ipsy, Stone Extraction, Stent Placement (Custom); Post Op Patient Instructions - FT (Custom) (CUSTOM) Medication Leaflets: Follow up: With: Address: When: Chencho HANEY [address] [place] [address], [address], [place] [id number] [facility] (1) Within 6 months Comments: Call for [...] to your pharmacy. MEDICATION LIST New Medications [facility], [address] [place], [place] [id number], [phone] sulfamethoxazole-tri methoprim (Bactrim D.S. 800 mg-160 mg [...] once a day (at bedtime). Comment: Normal [facility] Main OR PACU I Recordon 11-25 Main OR PACU I Record Main OR PACU I Record PACU Phase I Document Type FT Summary Primary Physician: Chencho HANEY MD Finalized Date/Time: 12/15/23 17:49:49 Pt. Name: JUNE RHODES/Sex: 1980 Female Med Rec #: [id number] Physician: Chencho HANEY MD Financial #: [id number] Pt. Type: A Room/Bed: Admit/Disch: 12/15/23 13:42:32 - Institution: Case Times [...] By: RANDY VARNER RN 12/15/23 17:49 Normal [facility] Main OR PACU II Recordon Main OR PACU II Record Main OR PACU II Record PACU Phase II Document Type FT Summary Primary Physician: Chencho HANEY MD Finalized Date/Time: 12/15/23 18:27:49 Pt. Name: JUNE RHODES Gerson TapiaB./Sex: 1980 Female Med Rec #: [id number] Physician: Chencho HANEY MD Financial #: [id number] Pt. Type: Room/Bed: [place] [address] Admit/Disch: 12/15/23 13:42:32 - 12/15/23 18:45:00 Institution: [...] By: Saritha Swain RN 12/15/23 18:27 Normal [facility] Main OR Preoperative Recordo n 12-15-2023 Main OR Preoperative Record Main OR Preoperative Record PreOp Document Type FT Summary Primary Physician: Chencho HANEY MD Finalized Date/Time: 12/15/23 16:42:28 Pt. Name: JUNE RHODES /Sex: 1980 Female Med Rec #: [id number] Physician: Chencho HANEY MD Financial #: [id number] Pt. Type: A Room/Bed: [facility]/24 Admit/Disch: 12/15/23 13:42:32 - Institution: Case Times [...] Signed By: Frida Carmona 12/15/23 16:42 Normal [facility] Operative Reporton Operative Report Operative Report [...] is placed per urethra. A well-lubricated 22 Jamaican is urethroscope with 30 degree lens then [...] it well. She is transferred to the [facility] and then back to PACU [...] Blood Loss: 2 ml. Complications: None. Normal [facility] Comment on above: Result Comment: Elec tronically Signed By: Chencho HANEY MD\.br\Date and Time Signed: 12/15/23 17:25 EDT Outpatient Surgery Discharge Instructionon 12-15-2023 Outpatient Surgery Discharge Instruction Outpatient Surgery Discharge Instruction [place] [id number] Patient Discharge Instructions PERSON INFORMATION Name: JUNE [...] Follow up: With: Address: When: Chencho HANEY [address] [place] [address], [address], [place] [address] Business (1) Within 6 months Comments: Call [...] to serve you. Thank you for choosing [facility] HERE ARE THE MEDICATION CHANGES THAT OCCURRED DURING YOUR HOSPITAL STAY New Medications [facility], [address] [id number], [phone] sulfamethoxazole-tri methoprim (Bactrim D.S. 800 mg-160 mg [...] bedtime). PATIENT EDUCATION INFORMATION Instructions: [facility] [place], [place] Dr. Chencho Garza Post-operative Instructions for [...] should take (more content not included)... Normal [facility] XR Abdomen 1 Viewon 12-15-19 XR Abdomen 1 View Exam Date/Time: 12/15/2023 [...] mGy = na DAP = na Normal [facility] Main OR Intraoperative Recor don 11-12-2023 Main OR Intraoperative Record Main OR Intraoperative Record IntraOp Document Type FT Summary Primary Physician: Chencho HANEY MD Finalized Date/Time: 11/12/23 13:35:24 Pt. Name: JUNE RHODES/Sex: 1980 Female Med Rec #: [id number] Physician: Chencho HANEY MD Financial #: [id number] Pt. Type: A Room/Bed: 03/ Admit/Disch: 11/11/23 09:03:11 - 11/11/23 16:16:29 Institution: [...] Entry 2 Entry 3 Case Attendee Betzy AIR CREW SUPERVISOR, Sonja HANEY MD, Chencho Bailey RN,Paige Brown Role Performed AIR CREW SUPERVISOR Surgeon - Primary Staff - Other [...] Pako CORTEZ, Parveen Yoder CST Role Performed Vessel Scrapper Helper - Primary Scrub - Primary Time In [...] Sonja Bo CRNA, Given Participants JENNY ARANGO, Chencho Oneal, Lynn CORTEZ,Pako Cobb RN, [...] Yes No Primary Surgeon JENNY ARANGO, Chencho HANEY MD, Chencho Oneal Start 11/11/23 13:27:00 11/11/23 13:27:00 Stop 11/11/23 13:48:00 11/11/23 13:48:00 Anesthesia Type General General Surgical Service Urology Urology Wound Class 1 - Clean 2 - Clean-Contaminated Last Modified By: Kristie Min RN, RN, Kristie Lainez 11/11/23 13:57:50 11/11/23 13:57:50 [...] and tissue Entry 1 Skin Integrity Intact, [place], Warm, and Skin Abnormality No Dry Outcomes Met? Yes Last Sandhya (more content not included)... Normal [facility] XR Abdomen 1 Viewon 11-12-19 XR [...] mGy = na DAP = na Normal [facility] Discharge Instructionson Discharge Instructions Discharge Instructions [...] to speak with Elizabeth, she is my equipment scheduler. Please asked to have the abdominal [...] some bladder spasm medications as well. Where: [address] [place] [address] [place] [address]- Business (1) Medications What How Much When Instructions Next Dose New acetaminophen-hydroc odone (acetaminophen-hydro codone 325 mg-5 mg oral tablet) 1 Tablets By Mouth Every 4 hours as needed for Pain Duration: 2 Days Pickup at [facility]447 New ciprofloxacin (Cipro 500 mg Tab) 1 Tablets By Mouth 2 times a day Duration: 5 Days Pickup at [id number] New oxybutynin (oxybutynin 5 mg Tab) 1 Tablets By Mouth 2 times a day Duration: 30 Days Refills: 1 Pickup at [facility][id number] Unchanged hydrOXYzine (hydrOXYzine hydrochloride 25 mg Tab) [...] Once a day (at bedtime) Pharmacy Information [facility][id number]: [address] [place], [place] [id number] [phone] Test Results No qualifying data available. Allergies [...] ? Bl (more content not included)... Normal [facility] Comment on above: Result Comment: Elec tronically Signed By: MyrtleJanene cowan RN\.sophie\Date and Time Signed: 11/11/23 14:47 EDT Inpatient Patient Summaryon 11-11-2023 Inpatient Patient Summary Inpatient Patient Summary [address] [address] [facility] Clinical Discharge Instructions PERSON INFORMATION Name: JUNE RHODES [facility]#:[id number] PHYSICIANS Admitting Physician: Chencho HANEY MD Attending Physician: Chencho HANEY MD PCP: HARRIS ARANGO, HANY Discharge Diagnosis: Comment: PATIENT EDUCATION INFORMATION Instructions: Lithotripsy, Care After Medication Leaflets: Follow up: With: Address: When: Chencho HANEY [address] [place] [address], [address], [address] [address] Business (1) Comments: Please call my office to speak with Elizabeth, she is my equipment scheduler. Please asked to have the abdominal [...] well. MEDICATION LIST New Medications [facility][id number], [address], [place] [id number], [phone] acetaminophen-hydroc odone (acetaminophen-hydro codone 325 mg-5 mg [...] once a day (at bedtime). Comment: Normal [facility] Main OR PACU I Recordon 10-24 Main OR PACU I Record Main OR PACU I Record PACU Phase I Document Type FT Summary Primary Physician: Chencho HANEY MD Finalized Date/Time: 11/11/23 14:56:51 Pt. Name: JUNE RHODES./Sex: 1980 Female Med Rec #: [id number] Physician: Chencho HANEY MD Financial #: [id number] Pt. Type: A Room/Bed: [facility]/ Admit/Disch: 11/11/23 09:03:11 - Institution: Case Times [...] 11/11/23 14:56 Nancy Galloway RN 11/11/23 14:56 [facility] Main OR PACU II Recordon Main OR PACU II Record Main OR PACU II Record PACU Phase II Document Type FT Summary Primary Physician: Chencho HANEY MD Finalized Date/Time: 11/11/23 16:13:12 Pt. Name: JUNE RHODES/Sex: 1980 Female Med Rec #: [id number] Physician: Chencho HANEY MD Financial #: [id number] Pt. Type: A Room/Bed: Admit/Disch: 11/11/23 09:03:11 [...] By: Janene Iraheta RN 11/11/23 16:13 Normal [facility] Main OR Preoperative Recordo n 11-11-2023 Main OR Preoperative Record Main OR Preoperative Record PreOp Document Type FT Summary Primary Physician: Chencho HANEY MD Finalized Date/Time: 11/11/23 13:47:17 Pt. Name: JUNE RHODES/Sex: 1980 Female Med Rec #: [id number] Physician: Chencho HANEY MD Financial #: [id number] Pt. Type: A Room/Bed: 03/ Admit/Disch: 11/11/23 [...] By: Kristie Min RN 11/11/23 13:47 Normal [facility] Operative Reporton Operative Report Operative Report [...] placed per urethra and a well-lubricated 22 Jamaican is urethroscope with 30 degree lens then passed into the bladder without difficulty. Panendoscopy reveals no tumors, no stones, no diverticuli. Ureteral orifices are normal. No suspicious lesions. I was able to cannulate the right ureteral orifice with a point 035 guidewire and over that a 4.9 Jamaican Dornier double-J ureteral stent is then passed [...] it well. She is transferred to the [facility] and then back to PACU in satisfactory condition, stable vital signs. Plan to be for discharge home with plans to follow-up hopefully for stent removal after a KUB next week confirms adequate fragmentation. Discussed this postop with her family and she is in agreement with the plan. Antibiotic prescription as well as [place] as well as oxybutynin sent to the pharmacy. Antibiotic consists of Cipro 500 mg p.o. twice daily #10.. Estimated Blood Loss: 0 ml. Complications: None. Anesthesia type: General. Normal [facility] Comment on above: Result Comment: Elec tronically Signed By: Chencho HANEY MD\.br\Date and Time Signed: 11/11/23 13:48 EDT Outpatient Surgery Discharge Instructionon 11-11-2023 Outpatient Surgery Discharge Instruction Outpatient Surgery Discharge Instruction [address] [address] Patient Discharge Instructions PERSON INFORMATION [...] Follow up: With: Address: When: Chencho HANEY [facility] [address], [address], [place] [phone] Business (1) Comments: Please call my office to speak with Elizabeth, she is my equipment scheduler. Please asked to have the abdominal [...] Information: You may receive a survey from [employer] asking you to rate your care experience. Your feedback is important and will help us understand what we do well and how we can improve the quality of care we provide to you, your loved ones and our community. It?s an honor to serve you. Thank you for choosing [facility] HERE ARE THE MEDICATION CHANGES THAT OCCURRED DURING YOUR HOSPITAL STAY New Medications [facility][id number], [address], [place] [id number], [phone] acetaminophen-hydroc odone (acetaminophen-hydro codone 325 mg-5 mg [...] may m (more content not included)... Normal [facility] BMPon 10-27-2023 Anion gap [Moles/Vol] 10 mmol/L Normal 6-16 [facility] Comment on above: Performed By: #### 2 [id number] #### [facility] [address] [place] [address] Calcium [Mass/Vol] 8.9 mg/dL Normal 8.9-11.1 [facility] Comment on above: Performed By: #### 2 [id number] #### [facility] [address] [place] [address] Chloride [Moles/Vol] 107 mmol/L Normal 101-111 [facility] Comment on above: Performed By: #### 2 [id number] #### [facility] [address] [place] [address] CO2 [Moles/Vol] 28 mmol/L Normal 21-31 [facility] Comment on above: Performed By: #### 2 [id number] #### [facility] [address] [place] [address] Creatinine [Mass/Vol] 0.7 mg/dL Normal 0.5-1.3 [facility] Comment on above: Performed By: #### 2 [id number] #### [facility] [address] [place] [address] Glucose [Mass/Vol] 81 mg/dL Normal 55-199 [facility] Comment on above: Performed By: #### 2 [id number] #### [facility] [address] [place] [address] Potassium [Moles/Vol] 4.2 mmol/L Normal 3.5-5.3 [facility] Comment on above: Performed By: #### 2 [id number] #### [facility] [address] [place] [address] Sodium [Moles/Vol] 141 mmol/L Normal 135-145 [facility] Comment on above: Performed By: #### 2 [id number] #### [facility] [address] [place] [address] Urea nitrogen [Mass/Vol] 18 mg/dL Normal 5-21 [facility] Comment on above: Performed By: #### 2 [id number] #### [facility] [address] [place] [address] Urea nitrogen/Creatinine [Mass ratio] 26 No Units High 10-20 [facility] Comment on above: Performed By: #### 2 [id number] #### [facility] [address] [place] [address] CBC w/ Auto Diffon 4 Basophils/100 WBC (Bld) 0.7 % Normal 0.0-2.0 [facility] Comment on above: Performed By: #### 2 [id number] #### [facility] [address] [place] [address] Basophils/Leukocytes Auto (Bld) [Pure # fraction] 0.0 E9/L Normal 0.0-0.2 [facility] Comment on above: Performed By: #### 2 [id number] #### [facility] [address] [place] [address] Eosinophils (Bld) [#/Vol] 0.2 E9/L Normal 0.0-0.5 [facility] Comment on above: Performed By: #### 2 100957 #### [facility] [address] [place] [address] Eosinophils/100 WBC (Bld) 2.6 % Normal 0.0-8.0 [facility] Comment on above: Performed By: #### 2 [id number] #### [facility] [address] [place] [address] Erythrocyte distribution width (RBC) [Ratio] 13.5 % Normal 10.9-14.2 [facility] Comment on above: Performed By: #### 2 [id number] #### [facility] [address] [place] [address] Hematocrit (Bld) [Volume fraction] 39.3 % Normal 34.0-46.0 [facility] Comment on above: Performed By: #### 2 [id number] #### [facility] [address] [place] [address] Hemoglobin (Bld) [Mass/Vol] 13.9 g/dL Normal 12.0-16.0 [facility] Comment on above: Performed By: #### 2 [id number] #### [facility] [address] [place] [address] Lymphocytes (Bld) [#/Vol] 1.9 E9/L Normal 1.0-4.0 [facility] Comment on above: Performed By: #### 2 [id number] #### [facility] [address] [place] [address] Lymphocytes/100 WBC (Bld) 27.1 % Normal 14.0-50.0 [facility] Comment on above: Performed By: #### 2 [id number] #### [facility] [address] [place] [address] MCH (RBC) [Entitic mass] 29.7 pg Normal 27.0-34.0 [facility] Comment on above: Performed By: #### 2 500705 #### [facility] [address] [place] [address] MCHC (RBC) [Mass/Vol] 35.3 g/dL Normal 31.4-36.0 [facility] Comment on above: Performed By: #### 2 [id number] #### [facility] [address] [place] [address] MCV (RBC) [Entitic vol] 84.2 fL Normal 80.0-100.0 [facility] Comment on above: Performed By: #### 2 [id number] #### [facility] [address] [place] [address] Monocytes (Bld) [#/Vol] 0.5 E9/L Normal 0.2-1.0 [facility] Comment on above: Performed By: #### 2 797103 #### [facility] [address] [place] [address] Neutrophils (Bld) [#/Vol] 4.4 E9/L Normal 2.0-7.5 [facility] Comment on above: Performed By: #### 2 227703 #### [facility] [address] [place] [address] Neutrophils/100 WBC (Bld) 62.1 % Normal 36.0-75.0 [facility] Comment on above: Performed By: #### 2 112074 #### [facility] [address] [place] [address] Platelet 272.0 E9/L Normal 150.0-500.0 [facility] Comment on above: Performed By: #### 2 [id number] #### [facility] [address] [place] [address] Platelet mean volume (Bld) [Entitic vol] 9.8 fL Normal 6.4-10.8 [facility] Comment on above: Performed By: #### 2 [id number] #### [facility] [address] [place] [address] RBC (Bld) [#/Vol] 4.7 E12/L Normal 4.3-5.9 [facility] Comment on above: Performed By: #### 2 [id number] #### [facility] [address] [place] [address] WBC corrected for nucl RBC Auto (Bld) [#/Vol] 7.0 E9/L Normal 4.0-11.0 [facility] Comment on above: Performed By: #### 2 [id number] #### [facility] [address] [place] [address] CHEMISTRYOrdered By: SYSTEM SYSTEM on 10-27-2023 Anion [...] 39.3 s High 25.1 - 36.5 second(s) [facility] Auto Coag Comment on above: Interpretive Data: P arametekaterina 15 days - 4 weeks 1 - [...] the same coagulation reagent and instrumentation as [facility]. Currently there are no coagulation studies available worldwide for children to 14 days, and no normal ranges. Heparin therapeutic range (represented by Anti-Factor Xa activity of 0.2 - 0.4 U/mL) corresponds to PTT of 56.6 - 109.0 sec. INR Coag (PPP) [Relative time] 1.07 {INR} Invalid Interpretation Code [facility] Auto Coag Comment on above: Interpretive Data: I NR results are specifically intended to assess patients stabilized on long-term Anticoagulation therapy suggested INR s Less Intensive Anticoagulation 2.0 3.0 Conventional Range 3.0 4.5 PT Coag (PPP) [Time] 12.0 s Normal 9.4 - 1 2.5 second(s) [facility] [place] Auto Coag Comment on above: Interpretive [...] the same coagulation reagent and instrumentation as [facility]. Currently there are no coagulation studies [...] Coag (PPP) [Time] 39.3 second(s) High 25.1-36.5 [facility] Comment on above: Result Comment: Para [...] the same coagulation reagent and instrumentation as [facility] [place]. Currently there are no coagulation studies available worldwide for children to 14 days, and no normal ranges. Heparin therapeutic range (represented by Anti-Factor Xa activity of 0.2 - 0.4 U/mL) corresponds to PTT of 56.6 - 109.0 sec. Performed By: #### 1 [id number] ####[facility] [address] [place] [address] INR Coag (PPP) [Relative time] 1.07 {INR} Invalid Interpretation Code [facility] Comment on above: Result Comment: INR results are specifically intended to assess patients stabilized on long-term Anticoagulation therapy suggested INR?s ?Less Intensive Anticoagulation? 2.0 ? 3.0 Conventional Range 3.0 ? 4.5 Performed By: #### 1 [id number] ####[facility] [address] [place] [address] PT Coag (PPP) [Time] 12.0 second(s) Normal 9.4-12.5 [facility] Comment on above: Result Comment: 15 [...] the same coagulation reagent and instrumentation as [facility] [place]. Currently there are no coagulation studies available worldwide for children to 14 days, and no normal ranges. Performed By: #### 1 [id number] ####[facility] [address] [place] [address] UA with Cult Rflxon 10-27-19 24 Bacteria Auto Ql (U) Trace Normal Trace Fish [facility] Comment on above: Performed By: #### 4 [id number] #### [facility] [address] [place] [address] Bilirubin Ql (U) Negative Normal Negative [facility] Comment on above: Performed By: #### 4 [id number] #### [facility] [address] [place] [address] Clarity (U) Clear Normal Clear [facility] Comment on above: Performed By: #### 4 [id number] #### [facility] [address] [place] [address] Color (U) Light-Yellow Normal Yellow [facility] Comment on above: Result Comment: Micr oscopic readings are only performed on those samples that meet specific criteria set forth by [facility]. Performed By: #### 4 [id number] #### [facility] [address] [place] [address] Epithelial cells.squamous Auto (Urine sed) [#/Area] 0-2 Invalid Interpretation Code [facility] Comment on above: Performed By: #### 4 [id number] #### [facility] [address] [place] [address] Glucose Ql (U) Negative Normal Negative [facility] Comment on above: Performed By: #### 4 [id number] #### [facility] [address] [place] [address] Hemoglobin Auto test strip (U) [Mass/Vol] Negative Normal Negative [facility] Comment on above: Performed By: #### 4 [id number] #### [facility] [address] [place] [address] Hyaline casts LM Ql (Urine sed) 0-3 Normal 0-3 [facility] Comment on above: Performed By: #### 4 [id number] #### [facility] [address] [place] [address] Ketones Auto test strip Ql (U) Negative Normal Negative [facility] Comment on above: Performed By: #### 4 [id number] #### [facility] [address] [place] [address] Leukocyte esterase Auto test strip Ql (U) 25 Pinky/uL Normal Negative [facility] Comment on above: Performed By: #### 4 [id number] #### [facility] [address] [place] [address] Mucus Auto Ql (U) Trace Normal Negative [facility] Comment on above: Performed By: #### 4 [id number] #### [facility] [address] [place] [address] Nitrite Auto test strip Ql (U) Negative Normal Negative [facility] Comment on above: Performed By: #### 4 [id number] #### [facility] [address] [place] [address] pH (U) 6.0 [pH] Invalid Interpretation Code 5.0-9.0 [facility] Comment on above: Performed By: #### 4 [id number] #### [facility] [address] [place] [address] Protein Ql (U) Negative Normal Negative [facility] Comment on above: Performed By: #### 4 [id number] #### [facility] [address] [place] [address] RBC Ql (U) 4-20 Abnormal 0-3 [facility] Comment on above: Performed By: #### 4 [id number] #### [facility] [address] [place] [address] Specific gravity (U) [Rel density] 1.025 Invalid Interpretation Code 1.005-1.030 [facility] Comment on above: Performed By: #### 4 [id number] #### [facility] [address] [place] [address] Urobilinogen (U) [Mass/Vol] Negative Normal Negative [facility] Comment on above: Performed By: #### 4 [id number] #### [facility] [address] [place] [address] WBC Auto (Urine sed) [#/Area] 0-5 Normal 0-5 [facility] Comment on above: Performed By: #### 4 [id number] #### [facility] [address] [place] [address] Type of Urine collection method Clean Catch Normal [facility] Comment on above: Performed By: #### 4 [id number] #### [facility] [address] [place] [address] URINALYSISOrdered By: SYSTEM SYSTEM on 10-27-2023 Bacteria Auto Ql (U) Trace /HPF Normal Trace/HPF FT UA Auto SS Bilirubin Ql (U) Negative Normal Negativemg/ d L FT UA Auto SS Clarity (U) Clear (10/27/23 10:58 AM) Normal Clear [facility] UA Auto SS Color (U) Light-Yellow 1 (10/27/23 10:58 AM) Normal Yellow [facility] UA Auto SS Comment on above: Interpretive Data: M icroscopic readings are only performed on those samples that meet specific criteria set forth by [facility]. Epithelial cells.squamous Auto (Urine sed) [#/Area] 0-2 graded/HPF Invalid Interpretation Code [facility] UA Auto SS Glucose Ql (U) Negative Normal Negativemg/d L FT UA Auto SS Hemoglobin Auto test strip (U) [Mass/Vol] Negative Normal Negativemg/d L FT UA Auto SS Hyaline casts LM Ql (Urine sed) 0-3 graded/LPF Normal 0-3graded/LP F [facility] UA Auto SS Ketones Auto test strip Ql (U) Negative Normal Negativemg/d L FT UA Auto SS Leukocyte esterase Auto test strip Ql (U) 25 Pinky/uL Pinky/uL Normal NegativeLeu/ uL [facility] UA Auto SS Mucus Auto Ql (U) Trace graded/LPF Normal Negati vegrad ed/LPF FT UA Auto SS Nitrite Auto test strip [...] Desc Clean Catch (10/27/23 10:58 AM) Normal FT UA Auto SS eGFRon 10-27-2023 eGFR 108 mL/min/1.73 m2 Normal >=59 [facility] Comment on above: Order Comment: Order added by Discern Expert. Performed By: #### 1 [id number] #### [facility] [address] [place] [address] Provider Letteron 07-19-2023 Provider Letter July 19, 2023 JUNE RHODES [address] [place] [id number] : 1980 Dear June , We have been trying to reach you with no success. It is important that you return our call regarding your next kidney stone surgery upon receiving this letter. Also, at the time of your call, please provide us with your current information. Thank you for your prompt attention to this matter. Sincerely, Dr. Chencho Haney MD [facility] RAD - MISCon 06-25-2023 [facility] [id number] #1.00TIFF [facility] Lab Reportson 06-16-2023 Lab Reports [id number] #1.00TIFF Normal [facility] RAD - CT Reporton 06-16-2023 RAD - CT Report [id number] #1.00TIFF Normal [facility] RAD - Ultrasound Reporton RAD - Ultrasound Report [id number] #1.00TIFF Normal [facility] Ambulatory Visit Summaryon 0 06-15-2023 Ambulatory [...] the Following Appointments Follow Up with Chencho HANEY MD, SHEA When: Comments: IVP in 1-2wks Where: [address] [place] [id number]- Medications What How Much When Instructions [...] Follow th (more content not included)... Normal [facility] Patient Educationon 06-15-19 Patient Education Urology [...] these instructions at home: Medicines ? Take gkpy-mbr-duorgab and prescription medicines only as told by [...] provider. Document Revised: 12/15/2021 Document Reviewed: 12/15/2021 [employer] Patient Education ? 2022 [employer]. [employer] [facility] Urology Office/Clinic Noteon 06-15-2023 Urology Office/Clinic Note Chief Complaint TBH F/U for lower abdominal pain HPI Staff Pt is here for TBH F/U CT abdominal pelvis wo con @ [facility] 05/21/23 CC lower abdominal pain Last OV was 07/23/20 Previous DX; Kidney stone, flank pain, microscopic hematuria, urge incontinence, hx kidney stones CT @ [facility] on 06/11/23 EMELI @ [facility] 06/11/23 Given Tamsulosin 0.4 mg qd at [facility] She did complete this no concerns with [...] Hydronephrosis with renal and ureteral calculous obstruction) [facility] ER visit 05/21/23 c/o bilateral lower abdominal [...] with voice recognition artificial intelligence software, specifically [employer], [employer] and or [employer]. Substitutions may have occurred due to the inherent limitations of voice recognition and artificial intelligence software. Follow-up With When Contact Information JENNY ARANGO, Chencho Oneal, URL [address] [address]- Additional Instructions: IVP in 1-2wks Patient Education Kidney Stones, Buip-gu-Vwcj Cleo Shaw, personally scribed for Dr. Haney on 06/15/2023 10:54:59. . Documentation recorded by the Cleo valenzuela (more content not included)... Normal [facility] Comment on above: Result Comment: Elec tronically Signed By: Chencho HANEY MD\.br\Date and Time Signed: 06/15/23 21:50 EST\.br\Electronically Co-Signed By: Cleo Bonner\.br\Date and Time Co-Signed: 06/15/23 10:55 EST RAD - MISCon 06-13-2023 RAD - MISC [id number] #1.00TIFF Normal [facility] RAD - Ultrasound Reporton RAD - Ultrasound Report [id number] #1.00TIFF Normal [facility] ED Note-Physicianon 06-08-19 ED Note-Physician [id number] #1.00TIFF Normal [facility] Covid-19 PCR (CVDTB)on 01-24 SARS-CoV-2 (COVID-19) RNA JUDE+probe Ql (Unsp spec) Detected Critically abnormal NOT DETECTED [facility] Comment on above: Result Comment: This test is not yet approved or cleared by the [place] FDA. When there are no FDA-approved or cleared tests available, and other criteria are met, FDA can make tests available under an emergency access mechanism called an Emergency Use Authorization (EUA). The EUA for this test is supported by the [place] of Health and Human Service's (HHS's) declaration [...] used). Performed By: #### C VDTB #### [facility] [address] [place] [address] Dr. Abdelrahman Chisholm XR LSPINE 2_3 VIEWSon [...] by: YOSVANY NEGRO Date: 2021-09-08 15:[address] [facility] Vital Signs Date Time Vital Sign Value Performing Clinician Facility 10-09-2024 10:43-0400 Body mass index (BMI) [Ratio] 39.84 kg/m2 Rosina Barraza PMHNP-BC Work Phone: [facility] 10-09-2024 10:43-0400 Body weight 92.53 kg Rosina Barraza PMHNP-BC Work Phone: [facility] 10-09-2024 10:43-0400 Diastolic blood pressure 72 mm[Hg] Rosina Barraza PMHNP-BC Work Phone: [facility] 10-09-2024 10:43-0400 Heart rate 87 /min Rosina Barraza PMHNP-BC Work Phone: [facility] 10-09-2024 10:43-0400 Systolic blood pressure 110 mm[Hg] Rosina Barraza PMHNP-BC Work Phone: [facility] 09-11-2024 10:48-0400 Body mass index (BMI) [Ratio] 39.45 kg/m2 Rosina Barraza PMHNP-BC Work Phone: [facility] 09-11-2024 10:48-0400 Body weight 91.63 kg Rosina Graciaton PMHNP-BC Work Phone: [facility] 09-11-2024 10:48-0400 Diastolic blood pressure 82 mm[Hg] Rosina Barraza PMHNP-BC Work Phone: [facility] 09-11-2024 10:48-0400 Heart rate 75 /min Rosina Barraza PMHNP-BC Work Phone: [facility] 09-11-2024 10:48-0400 Systolic blood pressure 110 mm[Hg] Rosina Barraza PMHNP-BC Work Phone: [facility] 08-30-2024 08:15-0400 Body height 152.4 cm Hany Iglesias MD Work Phone: [facility] 08-30-2024 08:15-0400 Body mass index (BMI) [Ratio] 38.47 kg/m2 Hany Iglesias MD Work Phone: [facility] 08-30-2024 08:15-0400 Body temperature 97.5 [degF] Hany Iglesias MD Work Phone: [facility] 08-30-2024 08:15-0400 Body weight 89.36 kg Hany Iglesias MD Work Phone: [facility] 08-30-2024 08:15-0400 Diastolic blood pressure 80 mm[Hg] Hany Iglesias MD Work Phone: [facility] 08-30-2024 08:15-0400 Heart rate 91 /min Hany Iglesias MD Work Phone: [facility] 08-30-2024 08:15-0400 Respiratory rate 20 /min Hany Iglesias MD Work Phone: [facility] 08-30-2024 08:15-0400 SaO2% (BldA) [Mass fraction] 98 % Hany Iglesias MD Work Phone: [facility] 08-30-2024 08:15-0400 Systolic blood pressure 106 mm[Hg] Hany Iglesias MD Work Phone: [facility] 08-21-2024 13:52-0400 Body mass index (BMI) [Ratio] 40.43 kg/m2 Rosina Barraza HNP-BC Work Phone: [facility] 08-21-2024 13:52-0400 Body weight 93.89 kg Rosina Barraza PMHNP-BC Work Phone: [facility] 08-21-2024 13:52-0400 Diastolic blood pressure 82 mm[Hg] Rosina Barraza PMHNP-BC Work Phone: [facility] 08-21-2024 13:52-0400 Heart rate 86 /min Rosinabrittany Barraza PMHNP-BC Work Phone: [facility] 08-21-2024 13:52-0400 Systolic blood pressure 126 mm[Hg] Rosinabrittany Barraza PMHNP-BC Work Phone: [facility] 07-24-2024 14:28-0400 Body mass index (BMI) [Ratio] 38.86 kg/m2 Rosinabrittany Barraza PMHNP-BC Work Phone: [facility] 07-24-2024 14:28-0400 Body weight 90.27 kg Rosina Barraza PMHNP-BC Work Phone: [facility] 07-24-2024 14:28-0400 Diastolic blood pressure 82 mm[Hg] Rosinabrittany Barraza PMHNP-BC Work Phone: [facility] 07-24-2024 14:28-0400 Heart rate 78 /min Rosina Barraza PMHNP-BC Work Phone: [facility] 07-24-2024 14:28-0400 Systolic blood pressure 112 mm[Hg] Rosina Graciaton PMHNP-BC Work Phone: [facility] 06-21-2024 08:54-0500 Body mass index (BMI) [Ratio] 38.86 kg/m2 Rosina Graciaton PMHNP-BC Work Phone: [facility] 06-21-2024 08:54-0500 Body weight 90.27 kg Rosina Barraza PMHNP-BC Work Phone: [facility] 06-21-2024 08:54-0500 Diastolic blood pressure 82 mm[Hg] Rosina Barraza HNP-BC Work Phone: [facility] 06-21-2024 08:54-0500 Heart rate 84 /min Rosina Barraza PMHNP-BC Work Phone: [facility] 06-21-2024 08:54-0500 Systolic blood pressure 138 mm[Hg] Rosina Barraza HNP- Work Phone: [facility] 06-13-2024 09:37-0500 Body height 152.4 cm Hany Iglesias MD Work Phone: [facility] 06-13-2024 09:37-0500 Body mass index (BMI) [Ratio] 39.84 kg/m2 Hany Iglesias MD Work Phone: [facility] 06-13-2024 09:37-0500 Body temperature 97.11 [degF] Hany Iglesias MD Work Phone: [facility] 06-13-2024 09:37-0500 Body weight 92.53 kg Hany Iglesias MD Work Phone: [facility] 06-13-2024 09:37-0500 Diastolic blood pressure 84 mm[Hg] Hany Iglesias MD Work Phone: [facility] 06-13-2024 09:37-0500 Heart rate 85 /min Hany Iglesias MD Work Phone: [facility] 06-13-2024 09:37-0500 Respiratory rate 20 /min Hany Iglesias MD Work Phone: [facility] 06-13-2024 09:37-0500 SaO2% (BldA) [Mass fraction] 99 % Hany Iglesias MD Work Phone: [facility] 06-13-2024 09:37-0500 Systolic blood pressure 154 mm[Hg] Hany Iglesias MD Work Phone: [facility] 05-19-2024 09:25-0500 Body height 152.4 cm Hany Iglesias MD Work Phone: [facility] 05-19-2024 09:25-0500 Body mass index (BMI) [Ratio] 39.65 kg/m2 Hany Iglesias MD Work Phone: [facility] 05-19-2024 09:25-0500 Body temperature 97.81 [degF] Hany Iglesias MD Work Phone: [facility] 05-19-2024 09:25-0500 Body weight 92.08 kg Hany Iglesias MD Work Phone: [facility] 05-19-2024 09:25-0500 Diastolic blood pressure 70 mm[Hg] Hany Iglesias MD Work Phone: [facility] 05-19-2024 09:25-0500 Heart rate 86 /min Hany Iglesias MD Work Phone: [facility] 05-19-2024 09:25-0500 Respiratory rate 22 /min Hany Iglesias MD Work Phone: [facility] 05-19-2024 09:25-0500 SaO2% (BldA) [Mass fraction] 99 % Hany Iglesias MD Work Phone: [facility] 05-19-2024 09:25-0500 Systolic blood pressure 126 mm[Hg] Hany Iglesias MD Work Phone: [facility] 04-12-2024 09:42-0500 Body height 147.3 cm Hany Iglesias MD Work Phone: [facility] 04-12-2024 09:42-0500 Body mass index (BMI) [Ratio] 40.34 kg/m2 Hany Iglesias MD Work Phone: [facility] 04-12-2024 09:42-0500 Body temperature 96.6 [degF] Hany Iglesias MD Work Phone: [facility] 04-12-2024 09:42-0500 Body weight 87.54 kg Hany Iglesias MD Work Phone: [facility] 04-12-2024 09:42-0500 Diastolic blood pressure 78 mm[Hg] Hany Iglesias MD Work Phone: [facility] 04-12-2024 09:42-0500 Heart rate 91 /min Hany Iglesias MD Work Phone: [facility] 04-12-2024 09:42-0500 Respiratory rate 20 /min Hany Iglesias MD Work Phone: [facility] 04-12-2024 09:42-0500 SaO2% (BldA) [Mass fraction] 99 % Hany Iglesias MD Work Phone: [facility] 04-12-2024 09:42-0500 Systolic blood pressure 130 mm[Hg] Hany Iglesias MD Work Phone: [facility] 03-01-2024 10:14-0500 Body height 147.3 cm Hany Iglesias MD Work Phone: [facility] 03-01-2024 10:14-0500 Body mass index (BMI) [Ratio] 40.96 kg/m2 Hany Iglesias MD Work Phone: [facility] 03-01-2024 10:14-0500 Body temperature 97.81 [degF] Hany Iglesias MD Work Phone: [facility] 03-01-2024 10:14-0500 Body weight 88.91 kg Hany Iglesias MD Work Phone: [facility] 03-01-2024 10:14-0500 Diastolic blood pressure 70 mm[Hg] Hany Iglesias MD Work Phone: [facility] 03-01-2024 10:14-0500 Heart rate 79 /min Hany Iglesias MD Work Phone: [facility] 03-01-2024 10:14-0500 Respiratory rate 20 /min Hany Iglesias MD Work Phone: [facility] 03-01-2024 10:14-0500 SaO2% (BldA) [Mass fraction] 99 % Hany Iglesias MD Work Phone: [facility] 03-01-2024 10:14-0500 Systolic blood pressure 120 mm[Hg] Hany Iglesias MD Work Phone: [facility] 12-15-2023 17:49-0400 Heart rate 43 /min Chencho COOK [facility] 12-15-2023 17:49-0400 SaO2% (BldA) [Mass fraction] 99 % Chencho COOK [facility] 12-15-2023 17:48-0400 Diastolic blood pressure 69 mm[Hg] Chencho COOK [facility] 12-15-2023 17:48-0400 Mean blood pressure 96 mm[Hg] Chencho COOK [facility] 12-15-2023 17:48-0400 Systolic blood pressure 151 mm[Hg] Chencho COOK [facility] 12-15-2023 17:47-0400 Respiratory rate 16 /min Chencho COOK [facility] 12-15-2023 17:42-0400 Body temperature 98.24 [degF] Chencho COOK [facility] 12-15-2023 17:30-0400 Diastolic blood pressure 93 mm[Hg] Chencho COOK [facility] 12-15-2023 17:30-0400 Heart rate 67 /min Chencho COOK [facility] 12-15-2023 17:30-0400 Mean blood pressure 105 mm[Hg] Chencho COOK [facility] 12-15-2023 17:30-0400 Respiratory rate 11 /min Chencho COOK [facility] 12-15-2023 17:30-0400 SaO2% (BldA) [Mass fraction] 98 % Chencho COOK [facility] 12-15-2023 17:30-0400 Systolic blood pressure 128 mm[Hg] Chencho COOK [facility] 12-15-2023 17:25-0400 Diastolic blood pressure 74 mm[Hg] Chencho COOK [facility] 12-15-2023 17:25-0400 Heart rate 72 /min Chencho COOK [facility] 12-15-2023 17:25-0400 Mean blood pressure 93 mm[Hg] Chencho COOK [facility] 12-15-2023 17:25-0400 Respiratory rate 17 /min Chencho COOK [facility] 12-15-2023 17:25-0400 SaO2% (BldA) [Mass fraction] 100 % Chencho COOK [facility] 12-15-2023 17:25-0400 Systolic blood pressure 131 mm[Hg] Chencho COOK [facility] 12-15-2023 17:20-0400 Mean blood pressure 100 mm[Hg] Chencho COOK [facility] 12-15-2023 17:20-0400 Respiratory rate 15 /min Chencho COOK [facility] 12-15-2023 17:17-0400 Body temperature 97.7 [degF] Chencho COOK [facility] 12-15-2023 14:18-0400 Mean blood pressure 96 mm[Hg] Chencho COOK [facility] 12-15-2023 14:17-0400 Body temperature 98.06 [degF] Chencho COOK [facility] 12-15-2023 14:17-0400 Mean blood pressure 82 mm[Hg] Chencho COOK [facility] 12-15-2023 14:17-0400 Respiratory rate 18 /min Chencho COOK [facility] 11-11-2023 15:43-0400 Heart rate 58 /min Chencho COOK [facility] 11-11-2023 15:42-0400 Heart rate 47 /min Chencho COOK [facility] 11-11-2023 15:42-0400 SaO2% (BldA) [Mass fraction] 97 % Chencho COOK [facility] 11-11-2023 15:42-0400 Respiratory rate 16 /min Chencho HANEY [facility] 11-11-2023 15:42-0400 Diastolic blood pressure 60 mm[Hg] Chencho COOK [facility] 11-11-2023 15:42-0400 Mean blood pressure 72 mm[Hg] Chencho COOK [facility] 11-11-2023 15:42-0400 Systolic blood pressure 97 mm[Hg] Chencho COOK [facility] 11-11-2023 15:00-0400 Body temperature 97.88 [degF] Chencho COOK [facility] 11-11-2023 14:29-0400 Heart rate 45 /min Chencho COOK [facility] 11-11-2023 14:29-0400 SaO2% (BldA) [Mass fraction] 99 % Chencho COOK [facility] 11-11-2023 14:28-0400 Diastolic blood pressure 71 mm[Hg] Chencho HANEY [facility] 11-11-2023 14:28-0400 Mean blood pressure 83 mm[Hg] Chencho COOK [facility] 11-11-2023 14:28-0400 Systolic blood pressure 106 mm[Hg] Chencho COOK [facility] 11-11-2023 14:28-0400 Respiratory rate 16 /min Chencho HANEY [facility] 11-11-2023 14:18-0400 Blood Pressure Location Chencho HANEY [facility] 11-11-2023 14:18-0400 Body temperature 97.7 [degF] Chencho HANEY [facility] 11-11-2023 14:18-0400 Diastolic blood pressure 72 mm[Hg] Chencho HANEY [facility] 11-11-2023 14:18-0400 Respiratory rate 10 /min Chencho HANEY [facility] 11-11-2023 14:18-0400 SaO2% (BldA) [Mass fraction] 97 % Chencho HANEY [facility] 11-11-2023 14:18-0400 Systolic blood pressure 108 mm[Hg] Chencho HANEY [facility] 11-11-2023 14:08-0400 Blood Pressure Location Chencho HANEY [facility] 11-11-2023 14:08-0400 Respiratory rate 9 /min Chencho HANEY [facility] 11-11-2023 14:03-0400 Blood Pressure Location Chencho HANEY [facility] 11-11-2023 14:03-0400 Respiratory rate 10 /min Chencho COOK [facility] 11-11-2023 13:53-0400 Body temperature 97.52 [degF] Chencho COOK [facility] 11-11-2023 09:25-0400 Mean blood pressure 72 mm[Hg] Chencho COOK [facility] 11-11-2023 09:25-0400 Respiratory rate 18 /min Chencho COOK [facility] 11-11-2023 09:25-0400 Heart rate 56 /min Chencho COOK [facility] 11-11-2023 09:24-0400 Body temperature 97.7 [degF] Chencho COOK [facility] 10-27-2023 10:35-0400 Blood Pressure Location Chencho COOK [facility] 10-27-2023 10:35-0400 Diastolic blood pressure 80 mm[Hg] Chencho COOK [facility] 10-27-2023 10:35-0400 Heart rate 79 /min Chencho COOK [facility] 10-27-2023 10:35-0400 Mean blood pressure 94 mm[Hg] Chencho COOK [facility] 10-27-2023 10:35-0400 Systolic blood pressure 120 mm[Hg] Chencho COOK [facility] 10-27-2023 10:34-0400 Heart rate 75 /min Chencho COOK [facility] 10-27-2023 10:34-0400 SaO2% (BldA) [Mass fraction] 98 % Chencho COOK [facility] 10-27-2023 10:34-0400 Respiratory rate 18 /min Chencho HANEY [facility] 10-27-2023 10:34-0400 Blood Pressure Location Chencho HANEY [facility] 10-27-2023 10:34-0400 Diastolic blood pressure 79 mm[Hg] Chencho HANEY [facility] 10-27-2023 10:34-0400 Mean blood pressure 96 mm[Hg] Chencho HANEY [facility] 10-27-2023 10:34-0400 Systolic blood pressure 129 mm[Hg] Chencho HANEY [facility] 10-27-2023 10:34-0400 Body temperature 98.78 [degF] Chencho HANEY [facility] 06-15-2023 09:59-0500 Blood Pressure Location Chencho HANEY [facility] 06-15-2023 09:59-0500 Diastolic blood pressure 84 mm[Hg] Chencho HANEY [facility] 06-15-2023 09:59-0500 Systolic blood pressure 124 mm[Hg] Chencho HANEY [facility] Encounters Encounter Date Encounter Type Care Provider Facility Start: 08-09-2025 ambulatory Jaycee X Orzech Facilit y:[facility] Start: 10-20-2024 End: 10-20-2024 Azalea Iglesias MD Work Phone: [facility] Comment on above: DDD (degenerative di sc disease), lumbar Start: 10-12-2024 End: 10-12-2024 ambulatory JAVY RIVERA Not Available Comment on above: Social anxiety disor levar ; PTSD (post-traumatic stress disorder) ; Cyclothymic disorder Start: 10-12-2024 End: 10-12-2024 Bamboo flowsheet Javy Rivera [employer] [facility] Start: 10-12-2024 End: 10-12-2024 Bamboo flowsheet Javy Rivera [employer] [facility] Start: 10-09-2024 End: 10-09-2024 Bamboo flowsheet Rosina Barraza PMHNP-BC Work Phone: [facility] Start: 10-09-2024 End: 10-09-2024 Bamboo flowsheet Rosina Barraza HNP-BC Work Phone: [facility] Start: 10-09-2024 End: 10-09-2024 Office outpatient visit 25 minutes Rosina Barraza HNP-BC Work Phone: [facility] Comment on above: Social anxiety disor elvar ; PTSD (post-traumatic stress disorder) ; Cyclothymic disorder ; Moderate episode of recurrent major depressive disorder (HCC); Mixed obsessional thoughts and acts ; Generalized anxiety disorder ; Psychophysiological insomnia Start: 10-09-2024 End: 10-09-2024 ambulatory ROSINA BARRAZA Not Available Start: 10-03-2024 End: 10-03-2024 Lab Drop off Jaycee Khanna [facility] Start: 10-03-2024 End: 10-03-2024 ambulatory NATY ALFARO Facility:[facility] Start: 10-03-2024 End: 10-03-2024 Patient encounter procedure NATY ALFARO [facility] Start: 09-26-2024 End: 09-26-2024 Clinical Support Javy DavilaJayRoldan [employer] [facility] Comment on above: Social anxiety disor levar (CMS/HCC); Grief counseling; Panic attack due to post traumatic stress disorder (PTSD) (CMS/HCC) Start: 09-26-2024 End: 09-26-2024 Bamboo flowsheet Javy Johanna-Roldan [employer] [facility] Start: 09-26-2024 End: 09-26-2024 Bamboo flowsheet Javy Paris-Roldan [employer] [facility] Start: 09-21-2024 End: 09-21-2024 Refill Hany Iglesias MD Work Phone: [facility] Comment on above: DDD (degenerative di sc disease), lumbar Start: 09-15-2024 End: 09-15-[address] [facility] Facility:[facility] Start: 09-11-2024 End: 09-11-2024 Office outpatient visit 15 minutes Rosina Barraza [facility]- Work Phone: [facility] Comment on above: PTSD (post-traumatic stress disorder) (CMS/HCC); Social anxiety disorder (CMS/HCC); Cyclothymic disorder (CMS/HCC); Moderate episode of recurrent major depressive disorder (CMS/HCC); Generalized anxiety disorder (CMS/HCC); Mixed obsessional thoughts and acts (CMS/HCC); Psychophysiological insomnia Start: 09-11-2024 End: 09-13-2024 ambulatory ROSINA BARRAZA Not Available Start: 09-06-2024 End: 09-06-2024 Bamboo flowsheet Javy Davila-Roldan [employer] [facility] Start: 09-06-2024 End: 09-06-2024 Bamboo flowsheet Javy Davila-Roldan [employer] [facility] Start: 09-06-2024 End: 09-06-2024 Clinical Support Javy Alanismore-Roldan [employer] [facility] Comment on above: Social anxiety disor levar (CMS/HCC); Panic attack due to post traumatic stress disorder (PTSD) (CMS/HCC) Start: 08-30-2024 End: 08-30-2024 Bamboo flowsheet Hany Iglesias MD Work Phone: [facility] Start: 08-30-2024 End: 08-30-2024 Bamboo flowsheet Hany Iglesias MD Work Phone: [facility] Start: 08-30-2024 End: 08-30-2024 Office outpatient visit 25 minutes Hany Iglesias MD Work Phone: [facility] Comment on above: Essential hypertensi on, [...] 08-30-2024 End: 08-30-2024 Clinical Support Javy Rivera [facility] Comment on above: PTSD (post-traumatic stress disorder) (CMS/HCC); Social anxiety disorder (CMS/HCC); Cyclothymic disorder (CMS/HCC) Start: 08-23-2024 End: 08-23-2024 Refill Hany Iglesias MD Work Phone: [facility] Comment on above: DDD (degenerative di sc disease), lumbar PTSD (post-traumatic stress disorder) (CMS/HCC); Social anxiety disorder (CMS/HCC); Cyclothymic disorder (CMS/HCC) Start: 08-21-2024 End: 08-21-2024 Bamboo flowsheet [email or web address] [facility]- Work Phone: [facility] Start: 08-21-2024 End: 08-21-2024 Bamboo flowsheet [email or web address] [facility]- Work Phone: [facility] Start: 08-21-2024 End: 08-21-2024 Office outpatient visit 25 minutes [email or web address] [facility]- Work Phone: [facility] Comment on above: PTSD (post-traumatic stress disorder) (CMS/HCC); Social anxiety disorder (CMS/HCC); Cyclothymic disorder (CMS/HCC); Moderate episode of recurrent major depressive disorder (CMS/HCC); Generalized anxiety disorder (CMS/HCC); Mixed obsessional thoughts and acts (CMS/HCC); Psychophysiological insomnia Start: 08-21-2024 End: 08-21-2024 ambulatory ROSINA BARRAZA Not Available Start: 08-10-2024 End: 08-10-2024 Patient encounter procedure Jaycee Khanna [facility] Start: 08-10-2024 End: 08-10-2024 ambulatory Jaycee Khanna Facility:[facility] Start: 07-31-2024 End: 07-31-2024 Bamboo flowsheet Amaurimiroslava Davila-Roldan [employer] [facility] Start: 07-31-2024 End: 07-31-2024 Bamboo flowsheet Amaurimiroslava Alanismore-Roldan [employer] [facility] Start: 07-31-2024 End: 07-31-2024 Clinical Support Amaurimiroslava Rivera [employer] [facility] Comment on above: PTSD (post-traumatic stress disorder) (CMS/HCC); Social anxiety disorder (CMS/HCC); Cyclothymic disorder (CMS/HCC) Start: 07-24-2024 End: 07-24-2024 Office outpatient visit 25 minutes Rosina Barraza [facility]- Work Phone: [facility] Comment on above: Cyclothymic disorder (CMS/HCC) ; PTSD (post-traumatic stress disorder) (CMS/HCC); Moderate episode of recurrent major depressive disorder (CMS/HCC); Generalized anxiety disorder (CMS/HCC) ; Mixed obsessional thoughts and acts (CMS/HCC); Social anxiety disorder (CMS/HCC); Psychophysiological insomnia Start: 07-24-2024 End: 07-24-2024 ambulatory ROSINA BARRAZA Not Available Start: 07-24-2024 End: 07-24-2024 Bamboo flowsheet Rosina Barraza [facility] Work Phone: [facility] Start: 07-24-2024 End: 07-24-2024 Bamboo flowsheet Rosina Barraza [facility] Work Phone: [facility] Start: 07-20-2024 End: 07-20-2024 Bamboo flowsheet Amaurimiroslava Johanna-Roldan [employer] [facility] Start: 07-20-2024 End: 07-20-2024 Bamboo flowsheet Rhanda Paris-Roldan [employer] [facility] Start: 07-20-2024 End: 07-20-2024 Clinical Support Rhanda Paris-Roldan [employer] [facility] Comment on above: Social anxiety disor levar (CMS/HCC); Panic attack due to post traumatic stress disorder (PTSD) (CMS/HCC) Start: 07-19-2024 End: 07-19-2024 Refill Hany Iglesias MD Work Phone: [facility] Comment on above: DDD (degenerative di sc disease), lumbar Start: 07-13-2024 End: 07-13-2024 Bamboo flowsheet Rhanda Paris-Roldan [employer] MA[employer] [facility] Start: 07-13-2024 End: 07-13-2024 Bamboo flowsheet Rhanda Paris-Roldan [employer] [facility] Start: 07-13-2024 End: 07-13-2024 ambulatory RHANDA JOHANNA-ROLDAN Not Available Start: 06-29-2024 End: 06-29-2024 Clinisync Result Encounter Generic External Data Provider [facility] External Department Unsolicited Start: 06-29-2024 End: 06-29-2024 Clinisync Result Encounter Generic External Data Provider [facility] External Department Unsolicited Start: 06-22-2024 End: 06-22-2024 Refill Hany Iglesias MD Work Phone: [facility] Comment on above: DDD (degenerative di sc disease), lumbar Start: 06-21-2024 End: 06-21-2024 Bamboo flowsheet Rosina Barraza [facility] Work Phone: [facility] Start: 06-21-2024 End: 06-21-2024 Bamboo flowsheet Rosina Barraza [facility] Work Phone: [facility] Start: 06-21-2024 End: [...] 25 minutes Hany Iglesias MD Work Phone: [facility] Comment on above: Essential hypertensi on, benign [...] 03-09-2024 Refill Hany Iglesias MD Work Phone: [facility] Comment on above: DDD (degenerative di sc disease), lumbar Start: 03-01-2024 End: 03-01-2024 Office outpatient visit 25 minutes Hany Iglesias MD Work Phone: [facility] Comment on above: Essential hypertensi on, benign (CMS/HCC) (Primary Dx); Gastroesophageal reflux disease without esophagitis; Mild mood disorder (CMS/HCC); Generalized anxiety disorder (CMS/HCC); Primary insomnia; Degeneration of 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 back pain and lower extremity pain; Panniculitis Start: 03-01-2024 End: 03-01-2024 ambulatory HANY IGLESIAS Not Available Start: 02-14-2024 End: 02-14-2024 Refill Hany Iglesias MD Work Phone: [facility] Comment on above: DDD (degenerative di sc disease), lumbar Start: 01-17-2024 End: 01-17-2024 Refill Lisette Rodas [facility] Comment on above: DDD (degenerative di sc disease), lumbar Start: 12-17-2023 End: 12-17-2023 Refill Hany Iglesias MD Work Phone: [facility] Comment on above: DDD (degenerative di sc disease), lumbar Start: 12-15-2023 End: 12-15-2023 Admission to same day surgery center Chencho HANEY [facility] Start: 12-15-2023 End: 12-15-2023 ambulatory Chencho HANEY Facility:[facility] Start: 11-29-2023 End: 04-24-2024 Patient encounter procedure Hany Iglesias MD Work Phone: [facility] Start: 11-29-2023 End: 11-29-2023 ambulatory HANY IGLESIAS Not Available Start: 11-11-2023 End: 11-11-2023 Admission to same day surgery center Chencho HANEY [facility] Start: 11-11-2023 End: 11-11-2023 ambulatory Chencho HANEY Facility:[facility] Start: 10-27-2023 End: 10-27-2023 ambulatory Chencho HANEY Facility:[facility] Start: 10-27-2023 End: 10-27-2023 Patient encounter procedure Chencho HANEY [facility] Start: 06-15-2023 End: 06-15-2023 ambulatory Chencho HANEY Facility:[facility] Start: 06-15-2023 End: 06-15-2023 Patient encounter procedure Chencho HANEY [facility] Start: 02-09-2022 End: 08-10-[address] HANY IGLESIAS Facility:[facility] Start: 09-08-2021 End: 09-09-[address] HANY [...] Screening for malign ant neoplasm of colon [facility] Start: 12-25-2024 Influenza vaccination Influenz a Vaccine (Season Ended) [facility] Start: 11-30-2024 End: 11-30-2024 Patient encounter procedure 11/30/2024 10:15 AM EDT Office Visit [facility] [address] [place] [phone] Hany Iglesias MD [address] [place] [phone] [facility] Start: 11-13-2024 End: 11-13-2024 Patient encounter procedure 11/13/2024 11:00 AM EDT Office Visit [facility] [address] [place] [phone] Rosina Barraza HNP- [address] [place] [phone] [facility] Start: 10-26-2024 End: 10-26-2024 Clinical Support 10/26/2024 4:00 PM EDT Clinical Support [facility] [address] [place] [address] Javy Rivera [facility] Start: 10-12-2024 End: 10-12-2024 [facility] Comment on above: Arrived Start: 10-09-2024 End: 10-09-2024 Patient encounter procedure [facility] Comment on above: Social anxiety disor levar ; PTSD (post-traumatic stress disorder) ; Cyclothymic disorder ; Moderate episode of recurrent major depressive disorder (HCC); Mixed obsessional thoughts and acts ; Generalized anxiety disorder ; Psychophysiological insomnia Start: 09-26-2024 End: 09-26-2024 [facility] Comment on above: Arrived Start: 09-14-2024 End: 09-14-2024 Clinical Support 09/14/2024 9:00 AM EDT Clinical Support [facility] [address] [facility] [address] [place] [address] Javy Rivera [facility] Start: 09-11-2024 End: 09-11-2024 Patient encounter procedure 09/11/2024 11:00 AM EDT Office Visit [facility] [address] [facility] [address] [place] [address] Rosina Barraza [facility] [address] [facility] [address] [place] [address] [facility] Start: 09-06-2024 End: 09-06-2024 Clinical Support 09/06/2024 10:00 AM EDT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 2022 [employer] Follow Up Care 06/08/2023 15:05:45 With:JENNY ARANGO, Chencho Oneal, URL Address: [facility] [employer] [address]- When: Unknown Comments:IVP in 1-2wks [facility] Evaluation + Plan note No data available for this section [facility] Evaluation + Plan note Future Appointments Appointment Date:11/11/2023 11:15:00 AM Scheduled Provider: Location:[facility] Appointment Type:Surgery FT [facility] Evaluation + Plan note Future Appointments Appointment Date:08/09/2025 11:40:00 AM Scheduled Provider:PAWAN Khanna APRN Jaycee X Location:[facility] [place] WillinghamMarya Appointment Type:URO Office Visit Future Scheduled TestsElectrolyte Panel 08/10/24XR Abdomen 1 View 08/10/24 [facility] Evaluation + Plan note Future Appointments Appointment Date:08/09/2025 11:40:00 AM Scheduled Provider:PAWAN Khanna APRN Jaycee X Location:[facility] [place] Appointment Type:URO Office Visit Future Scheduled TestsXR Abdomen 1 View 08/10/24 [facility] Evaluation note Diagnosis Essential hypertension, benign [...] Morbid (severe) obesity due to excess calories ([facility]) Body mass index (BMI) 40.0-44.9, adult ([facility]) Essential hypertension, benign (CMS/HCC)- Primary Essential hypertension, [...] Morbid (severe) obesity due to excess calories (CMS/[facility]) Body mass index (BMI) 40.0-44.9, adult (CMS/[facility]) Essential hypertension, benign (CMS/HCC)- Primary Essential hypertension, [...] 39.9 in adult documented in this encounter [facility]* Diagnosis Essential hypertension, benign (CMS/HCC)- [...] of the body documented in this encounter [facility]* Diagnosis Essential hypertension, benign (CMS/HCC)- [...] (CMS/HCC) Body mass index (BMI) 40.0-44.9, adult ([facility]) Essential hypertension, benign (CMS/HCC)- Primary Essential hypertension, [...] Social phobia Cyclothymic disorder (CMS/HCC) Cyclothymic disorder documented in this encounter [facility]* [...] Morbid (severe) obesity due to excess calories ([facility]) Body mass index (BMI) 40.0-44.9, adult ([facility]) Essential hypertension, benign (CMS/[facility])- Primary Essential hypertension, benign Gastroesophageal reflux disease without esophagitis Esophageal reflux Mild mood disorder (CMS/) Unspecified episodic mood disorder Generalized anxiety disorder ([facility]/) Generalized anxiety disorder Primary insomnia Persistent disorder of initiating or maintaining sleep Degeneration of 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 back pain and lower extremity pain Panniculitis Panniculitis, unspecified site Essential hypertension, benign ([facility]/)- Primary Essential hypertension, benign Mild mood disorder (CMS/) Unspecified episodic mood disorder Generalized anxiety disorder ([facility]/) Generalized anxiety disorder Primary insomnia Persistent disorder [...] to 39.9 in adult Essential hypertension, benign ([facility])- Primary Essential hypertension, benign Bilateral leg edema Edema Mild mood disorder (/) Unspecified episodic mood disorder Generalized anxiety disorder ([facility]/HCC) Generalized anxiety disorder Degeneration of 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 back pain and lower extremity pain Primary insomnia Persistent disorder of initiating or maintaining sleep Class 2 obesity due to excess calories without serious comorbidity with body mass index (BMI) of 39.0 to 39.9 in adult Tinea corporis Dermatophytosis of the body PTSD (post-traumatic stress disorder) ([facility]) Posttraumatic stress disorder Social anxiety disorder ([facility]) Social phobia Cyclothymic disorder ([facility]) Cyclothymic disorder Moderate episode of recurrent major depressive disorder ([facility]) Generalized anxiety disorder (CMS/HCC) Generalized anxiety disorder [...] lumbosacral intervertebral disc documented in this encounter [facility]* Diagnosis Essential hypertension, benign (CMS/HCC)- [...] (BMI) of 39.0 to 39.9 in adult DDD (degenerative disc disease), lumbar Degeneration of [...] Bilateral leg edema Edema Mild mood disorder (CMS/[facility]) Unspecified episodic mood disorder Generalized anxiety disorder ([facility]) Generalized anxiety disorder Degeneration of 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 back pain and lower extremity pain Primary insomnia Persistent disorder of initiating or maintaining sleep Class 2 obesity due to excess calories without serious comorbidity with body mass index (BMI) of 39.0 to 39.9 in adult Tinea corporis Dermatophytosis of the body Essential hypertension, benign ([facility])- Primary Essential hypertension, benign Degeneration of 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 back pain and lower extremity pain Bilateral leg edema Edema Chronic pain of both knees Moderate episode of recurrent major depressive disorder ([facility]) Generalized anxiety disorder ([facility]) Generalized anxiety disorder Class 2 obesity due to excess calories without serious comorbidity with body mass index (BMI) of 39.0 to 39.9 in adult Social anxiety disorder ([facility]) Social phobia Grief counseling Panic attack due to post traumatic stress disorder (PTSD) ([facility]) documented in this encounter [facility]* Diagnosis Essential hypertension, benign- Primary Essential hypertension, benign DDD (degenerative disc disease), lumbar Degeneration of lumbar or lumbosacral intervertebral disc Gross hematuria Calculus, renal Calculus of kidney Dyshidrotic eczema Primary insomnia Persistent disorder of initiating or maintaining sleep Mild mood disorder Unspecified episodic mood disorder Generalized anxiety disorder Generalized anxiety disorder Gastroesophageal reflux disease without esophagitis Esophageal reflux Screening mammogram for breast cancer Annual physical exam- Primary Routine general medical examination at a health care facility Renal calculi Calculus of kidney Colon cancer screening Special screening for malignant neoplasms, colon DDD (degenerative disc disease), lumbar Degeneration of lumbar or lumbosacral intervertebral disc Mild mood disorder Unspecified episodic mood disorder Morbid (severe) obesity due to excess calories ([facility]) Body mass index (BMI) 40.0-44.9, adult ([facility]) Essential hypertension, benign- Primary Essential hypertension, benign Gastroesophageal reflux disease without esophagitis Esophageal reflux Mild mood disorder Unspecified episodic mood disorder Generalized anxiety disorder Generalized anxiety disorder Primary insomnia Persistent disorder of initiating or maintaining sleep Degeneration of 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 back pain and lower extremity pain Panniculitis Panniculitis, unspecified site Essential hypertension, benign- Primary Essential hypertension, benign Mild mood disorder Unspecified episodic mood disorder Generalized anxiety disorder Generalized anxiety disorder Primary insomnia Persistent disorder [...] 39.0 to 39.9 in adult Essential hypertension, benign- Primary Essential hypertension, benign Bilateral leg edema Edema Mild mood disorder Unspecified episodic mood disorder Generalized anxiety disorder Generalized anxiety disorder Degeneration of 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 back pain and lower extremity pain Primary insomnia Persistent disorder of initiating or maintaining sleep Class 2 obesity due to excess calories without serious comorbidity with body mass index (BMI) of 39.0 to 39.9 in adult Tinea corporis Dermatophytosis of the body Essential hypertension, benign- Primary Essential hypertension, benign Degeneration of 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 back pain and lower extremity pain Bilateral leg edema Edema Chronic pain of both knees Moderate episode of recurrent major depressive disorder (HCC) Generalized anxiety disorder Generalized anxiety disorder Class 2 obesity due to excess calories without serious comorbidity with body mass index (BMI) of 39.0 to 39.9 in adult Social anxiety disorder Social phobia PTSD (post-traumatic stress disorder) Posttraumatic stress disorder Cyclothymic disorder Cyclothymic disorder Moderate episode of recurrent major depressive disorder (HCC) Mixed obsessional thoughts and acts Generalized anxiety disorder Generalized anxiety disorder Psychophysiological insomnia Persistent disorder of initiating or maintaining sleep documented in this encounter [facility]* Diagnosis Essential hypertension, benign- Primary Essential hypertension, benign DDD (degenerative disc disease), lumbar Degeneration of lumbar or lumbosacral intervertebral disc Gross hematuria Calculus, renal Calculus of kidney Dyshidrotic eczema Primary insomnia Persistent disorder of initiating or maintaining sleep Mild mood disorder Unspecified episodic mood disorder Generalized anxiety disorder Generalized anxiety disorder Gastroesophageal reflux disease without esophagitis Esophageal reflux Screening mammogram for breast cancer Annual physical exam- Primary Routine general medical examination at a health care facility Renal calculi Calculus of kidney Colon cancer screening Special screening for malignant neoplasms, colon DDD (degenerative disc disease), lumbar Degeneration of lumbar or lumbosacral intervertebral disc Mild mood disorder Unspecified episodic mood disorder Morbid (severe) obesity due to excess calories ([facility]-HCC) Body mass index (BMI) 40.0-44.9, adult ([facility]-HCC) Essential hypertension, benign- Primary Essential hypertension, benign Gastroesophageal reflux disease without esophagitis Esophageal reflux Mild mood disorder Unspecified episodic mood disorder Generalized anxiety disorder Generalized anxiety disorder Primary insomnia Persistent disorder of initiating or maintaining sleep Degeneration of 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 back pain and lower extremity pain Panniculitis Panniculitis, unspecified site Essential hypertension, benign- Primary Essential hypertension, benign Mild mood disorder Unspecified episodic mood disorder Generalized anxiety disorder Generalized anxiety disorder Primary insomnia Persistent disorder [...] 39.0 to 39.9 in adult Essential hypertension, benign- Primary Essential hypertension, benign Bilateral leg edema Edema Mild mood disorder Unspecified episodic mood disorder Generalized anxiety disorder Generalized anxiety disorder Degeneration of 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 back pain and lower extremity pain Primary insomnia Persistent disorder of initiating or maintaining sleep Class 2 obesity due to excess calories without serious comorbidity with body mass index (BMI) of 39.0 to 39.9 in adult Tinea corporis Dermatophytosis of the body Essential hypertension, benign- Primary Essential hypertension, benign Degeneration of 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 back pain and lower extremity pain Bilateral leg edema Edema Chronic pain of both knees Moderate episode of recurrent major depressive disorder (HCC) Generalized anxiety disorder Generalized anxiety disorder Class 2 obesity due to excess calories without serious comorbidity with body mass index (BMI) of 39.0 to 39.9 in adult Social anxiety disorder Social phobia PTSD (post-traumatic stress disorder) Posttraumatic stress disorder Cyclothymic disorder Cyclothymic disorder documented in this encounter [facility]* Diagnosis Essential hypertension, benign- Primary Essential hypertension, benign DDD (degenerative disc disease), lumbar Degeneration of lumbar or lumbosacral intervertebral disc Gross hematuria Calculus, renal Calculus of kidney Dyshidrotic eczema Primary insomnia Persistent disorder of initiating or maintaining sleep Mild mood disorder Unspecified episodic mood disorder Generalized anxiety disorder Generalized anxiety disorder Gastroesophageal reflux disease without esophagitis Esophageal reflux Screening mammogram for breast cancer Annual physical exam- Primary Routine general medical examination at a health care facility Renal calculi Calculus of kidney Colon cancer screening Special screening for malignant neoplasms, colon DDD (degenerative disc disease), lumbar Degeneration of lumbar or lumbosacral intervertebral disc Mild mood disorder Unspecified episodic mood disorder Morbid (severe) obesity due to excess calories (CMS-HCC) Body mass index (BMI) 40.0-44.9, adult (CMS-HCC) Essential hypertension, benign- Primary Essential hypertension, benign Gastroesophageal reflux disease without esophagitis Esophageal reflux Mild mood disorder Unspecified episodic mood disorder Generalized anxiety disorder Generalized anxiety disorder Primary insomnia Persistent disorder of initiating or maintaining sleep Degeneration of 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 back pain and lower extremity pain Panniculitis Panniculitis, unspecified site Essential hypertension, benign- Primary Essential hypertension, benign Mild mood disorder Unspecified episodic mood disorder Generalized anxiety disorder Generalized anxiety disorder Primary insomnia Persistent disorder [...] 39.0 to 39.9 in adult Essential hypertension, benign- Primary Essential hypertension, benign Bilateral leg edema Edema Mild mood disorder Unspecified episodic mood disorder Generalized anxiety disorder Generalized anxiety disorder Degeneration of 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 back pain and lower extremity pain Primary insomnia Persistent disorder of initiating or maintaining sleep Class 2 obesity due to excess calories without serious comorbidity with body mass index (BMI) of 39.0 to 39.9 in adult Tinea corporis Dermatophytosis of the body Essential hypertension, benign- Primary Essential hypertension, benign Degeneration of 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 back pain and lower extremity pain Bilateral leg edema Edema Chronic pain of both knees Moderate episode of recurrent major depressive disorder (HCC) Generalized anxiety disorder Generalized anxiety disorder Class 2 obesity due to excess calories without serious comorbidity with body mass index (BMI) of 39.0 to 39.9 in adult DDD (degenerative disc disease), lumbar Degeneration of lumbar or lumbosacral intervertebral disc documented [facility] this encounter [facility] No data available for this section [facility] No data available for this section [facility] Marya Summary Purpose Family History [...] this section No Family History Records Found No data [...] and content) DATE CREATED AUTHOR 08/10/2022 [facility] DATE CREATED AUTHOR AUTHOR'S ORGANIZ ATION 10/28/2023 [facility] DATE CREATED AUTHOR AUTHOR'S ORGANIZ ATION 08/13/2024 [facility] DATE CREATED AUTHOR AUTHOR'S ORGANIZ ATION 10/06/2024 [facility] DATE CREATED AUTHOR AUTHOR'S ORGANIZ ATION 10/14/2024 [facility] DATE CREATED AUTHOR AUTHOR'S ORGANIZ ATION 10/15/2024 [facility] dical Specialists EPIC Patient Care team informatio n (unrecognized section and content) Peer Specialist Relationship Specialty Start Date End Date Hany Iglesias MD [address] [place] [address] PCP - General Family Medicine 11/29/23 Peer Specialist Relationship Specialty Start Date End Date Hany Iglesias MD [address] [place] [address] PCP - General Family Medicine 11/29/23 Peer Specialist Relationship Specialty Start Date End Date Hany Iglesias MD [address] [place] [address] PCP - General Family Medicine 11/29/23 Peer Specialist Relationship Specialty Start Date End Date Hany Iglesias MD [address] [place] [address] PCP - General Family Medicine 11/29/23 Peer Specialist Relationship Specialty Start Date End Date Hany Iglesias MD [address] [place] [address] PCP - General Family Medicine 11/29/23 Peer Specialist Relationship Specialty Start Date End Date Hany Iglesias MD [address] [place] [address] PCP - General Family Medicine 11/29/23 Peer Specialist Relationship Specialty Start Date End Date Hany Iglesias MD [address] [place] [address] PCP - General Family Medicine 11/29/23 Peer Specialist Relationship Specialty Start Date End Date Hany Iglesias MD [address] [place] [address] PCP - General Family Medicine 11/29/23 Peer Specialist Relationship Specialty Start Date End Date Hany Iglesias MD [address] [place] [address] PCP - General Family Medicine 11/29/23 Peer Specialist Relationship Specialty Start Date End Date Hany Iglesias MD [address] [place] [address] PCP - General Family Medicine 11/29/23 Peer Specialist Relationship Specialty Start Date End Date Hany Iglesias MD [address] [place] [address] PCP - General Family Medicine 11/29/23 Peer Specialist Relationship Specialty Start Date End Date Hany Iglesias MD [address] [place] [address] PCP - General Family Medicine 11/29/23 [facility] [address] [facility] [address] [place] [address] Nurse Practitioner Behavioral Health 06/21/24 Chencho Haney MD [address] [place] [address] Referring Physician Urology 06/21/24 Peer Specialist Relationship Specialty Start Date End Date Hany Iglesias MD [address] [place] [address] PCP - General Family Medicine 11/29/23 Rosina Barraza, [facility] [address] [facility] [address] [place] [address] Nurse Practitioner Behavioral Health 06/21/24 Chencho Haney MD [address] [place] [address] Referring Physician Urology 06/21/24 Peer Specialist Relationship Specialty Start Date End Date Hany Iglesias MD [address] [place] [address] PCP - General Family Medicine 11/29/23 [facility] [address] [facility] [address] [place] [address] Nurse Practitioner Behavioral Health 06/21/24 Chencho Haney MD [address] [address] Referring Physician Urology 06/21/24 Peer Specialist Relationship Specialty Start Date End Date Hany Iglesias MD [address] [place] [address] PCP - General Family Medicine 11/29/23 [facility] [address] [address] [place] [address] Nurse Practitioner Behavioral Health 06/21/24 Chencho Haney MD [address] [place] [address] Referring Physician Urology 06/21/24 Peer Specialist Relationship Specialty Start Date End Date Hany Iglesias MD [address] [place] [address] PCP - General Family Medicine 11/29/23 [facility] [address] [facility] [place] [address] Nurse Practitioner Behavioral Health 06/21/24 Chencho Haeny MD [address] [place] [address] Referring Physician Urology 06/21/24 Peer Specialist Relationship Specialty Start Date End Date Hany Iglesias MD [address] [place] [address] PCP - General Family Medicine 11/29/23 Rosina Barraza [facility] [address] [facility] [address] [place] [address] Nurse Practitioner Behavioral Health 06/21/24 Chencho Haney MD [address] [place] [address] Referring Physician Urology 06/21/24 Peer Specialist Relationship Specialty Start Date End Date Hany Iglesias MD [address] [place] [address] PCP - General Family Medicine 11/29/23 Rosina Barraza [facility] [address] [address] [place] [address] Nurse Practitioner Behavioral Health 06/21/24 Chencho Haney MD [address] [place] [address] Referring Physician Urology 06/21/24 Peer Specialist Relationship Specialty Start Date End Date Hany Iglesias MD [address] [place] [address] PCP - General Family Medicine 11/29/23 Rosina Barraza [facility] [address] [facility] [address] [place] [address] Nurse Practitioner Behavioral Health 06/21/24 Chencho Haney MD [address] [address] Referring Physician Urology 06/21/24 Peer Specialist Relationship Specialty Start Date End Date Hany Iglesias MD [address] [place] [address] PCP - General Family Medicine 11/29/23 [facility] [address] [facility] [address] [place] [address] Nurse Practitioner Behavioral Health 06/21/24 Chencho Haney MD [address] [place] [address] Referring Physician Urology 06/21/24 Peer Specialist Relationship Specialty Start Date End Date Hany Iglesias MD [address] [place] [address] PCP - General Family Medicine 11/29/23 [facility] [address] [address] [place] [address] Nurse Practitioner Behavioral Health 06/21/24 Chencho Haney MD [address] [place] [address] Referring Physician Urology 06/21/24 Peer Specialist Relationship Specialty Start Date End Date Hany Iglesias MD [address] [place] [address] PCP - General Family Medicine 11/29/23 Rosina Barraza [facility] [address] [facility] [address] [place] [address] Nurse Practitioner Behavioral Health 06/21/24 Chencho Haney MD [address] [place] [address] Referring Physician Urology 06/21/24 Peer Specialist Relationship Specialty Start Date End Date Hany Iglesias MD [address] [place] [phone] PCP - General Family Medicine 11/29/23 Rosina Barraza, [facility] [address] [facility] [address] [place] [address] Nurse Practitioner Behavioral Health 06/21/24 Chencho Haney MD [address] [place] [address] Referring Physician Urology 06/21/24 Peer Specialist Relationship Specialty Start Date End Date Hany Iglesias MD [address] [place] [address] PCP - General Family Medicine 11/29/23 Rosina Barraza, [facility] [address] [facility] [address] [place] [address] Nurse Practitioner Behavioral Health 06/21/24 Chencho Haney MD [address] [place] [address] Referring Physician Urology 06/21/24 Peer Specialist Relationship Specialty Start Date End Date Hany Iglesias MD [address] [place] [address] PCP - General Family Medicine 11/29/23 [facility] [address] [facility] [address] [place] [address] Nurse Practitioner Behavioral Health 06/21/24 Chencho Haney MD [address] [place] [address] Referring Physician Urology 06/21/24 Peer Specialist Relationship Specialty Start Date End Date Hany Iglesias MD [address] [place] [address] PCP - General Family Medicine 11/29/23 [facility] [address] [address] [place] [address] Nurse Practitioner Behavioral Health 06/21/24 Chencho Haney MD [address] [place] [address] Referring Physician Urology 06/21/24 Peer Specialist Relationship Specialty Start Date End Date Hany Iglesias MD [address] [place] [address] PCP - General Family Medicine 11/29/23 [facility] [address] [facility] [address] [place] [address] Nurse Practitioner Behavioral Health 06/21/24 Chencho Haney MD [address] [place] [address] Referring Physician Urology 06/21/24 Peer Specialist Relationship Specialty Start Date End Date Hany Iglesias MD [address] [place] [address] PCP - General Family Medicine 11/29/23 [facility] [address] [place] [address] Nurse Practitioner Behavioral Health 06/21/24 Chencho Haney MD [address] [place] [address] Referring Physician Urology 06/21/24 Peer Specialist Relationship Specialty Start Date End Date Hany Iglesias MD [address] [place] [address] PCP - General Family Medicine 11/29/23 [facility] [address] [facility] [address] [place] [address] Nurse Practitioner Behavioral Health 06/21/24 Chencho Haney MD [address] [place] [address] Referring Physician Urology 06/21/24 Peer Specialist Relationship Specialty Start Date End Date Hany Iglesias MD [address] [place] [address] PCP - General Family Medicine 11/29/23 Rosina Barraza [facility] [address] [facility] [address] [place] [address] Nurse Practitioner Behavioral Health 06/21/24 Chencho Haney MD [address] [place] [address] Referring Physician Urology 06/21/24 Peer Specialist Relationship Specialty Start Date End Date Hany Iglesias MD [address] [place] [address] PCP - General Family Medicine 11/29/23 Rosina Barraza [facility] [address] [facility] [place] [address] Nurse Practitioner Behavioral Health 06/21/24 Chencho Haney MD [address] [place] [address] Referring Physician Urology 06/21/24 Peer Specialist Relationship Specialty Start Date End Date Hany Iglesias MD [address] [place] [address] PCP - General Family Medicine 11/29/23 Rosina Barraza [facility] [address] [facility] [address] [place] [address] Nurse Practitioner Behavioral Health 06/21/24 Chencho Haney MD [address] [place] [address] Referring Physician Urology 06/21/24 Peer Specialist Relationship Specialty Start Date End Date Hany Ilgesias MD [address] [place] [address] PCP - General Family Medicine 11/29/23 [facility] [address] [facility] [address] [place] [address] Nurse Practitioner Behavioral Health 06/21/24 Chencho Haney MD [address] [place] [address] Referring Physician Urology 06/21/24 Peer Specialist Relationship Specialty Start Date End Date Hany Iglesias MD [address] [place] [address] PCP - General Family Medicine 11/29/23 Rosina Barraza, [facility] [address] [facility] [address] [place] [address] Nurse Practitioner Behavioral Health 06/21/24 Chencho Haney MD [address] [place] [address] Referring Physician Urology 06/21/24 Peer Specialist Relationship Specialty Start Date End Date Hany Iglesias MD [address] [place] [address] PCP - General Family Medicine 11/29/23 Rosina Barraza, [facility] [address] [facility] [address] [place] [address] Nurse Practitioner Behavioral Health 06/21/24 Chencho Haney MD [address] [place] [address] Referring Physician Urology 06/21/24 Reason for Visit [...] disorder (CMS/HCC) Generalized anxiety disorder (CMS/HCC) Procedures LA OFFICE/OUTPATIENT NEW HIGH MDM 60 MINUTES Hany Iglesias MD [address] [place] [address] Phone: tel: fax: Rosina Barraza, [facility] [address] [place] [address] Phone: tel: fax: Referral ID Status Reason Start Date Expiration Date V isits Requested Visits Authorized [id number] Closed Specialty Services Required 03/01/2024 08/28/2024 1 1 Reason Onset Date Comments Med Refill 06/22/2024 Reason Onset Date Comments Med Refill 07/19/2024 Reason Comments Follow-up Anxiety PTSD (Post-Traumatic Stress Disorder) Reason Comments Med Management Follow-up Reason Onset Date Comments Med Refill 08/23/2024 Reason Comments Follow-up 3 m f/upNeeds epipen Reason Comments Med Management Follow-up Reason Onset Date Comments Med Refill 09/21/2024 Reason Comments Follow-up Anxiety PTSD (Post-Traumatic Stress Disorder) Bipolar Reason Onset Date Comments Med Refill 10/20/2024 FOR RECORDS PERTAINING TO PATIENTS WHO ARE [...] BE BASED ON THE PRIMARY CLINICAL RECORDS. [facility] [employer] [facility]. provides no warranty or guarantee of the accuracy or completeness of information in this document.
--- NOTE | 2024-11-05 11:31 | ED.DENTAL1 ---
HPI - Dental/Oral General Chief complaint: Dental/Oral Stated complaint: DENTAL PAIN Time Seen by Provider: 11/05/24 11:25 Source: patient Mode of arrival: walk-in Limitations: no limitations History of Present Illness HPI Narrative: The patient comes to the ER with a dental infection and pain for the last few days that has been going on at least for a week but got worse over the last few days, patient denies any difficulty swallowing or difficulty speaking She was referred by his dentist to maxillofacial surgeon for removal of the #16 tooth and she could not get an appointment yet Related Data Home Medications ?Medication ?Instructions ?Recorded ?Confirmed clonidine HCl 0.1 mg tablet 0.1 mg PO DAILY PRN anxiety 11/02/22 09/21/24 fexofenadine 180 mg tablet 180 mg PO DAILY 11/02/22 09/21/24 montelukast 10 mg tablet 10 mg PO QPM 11/02/22 09/21/24 oxycodone-acetaminophen 5 mg-325 1 tab PO .Q4HRs PRN pain 11/02/22 09/21/24 mg tablet tizanidine 4 mg tablet 4 mg PO TID PRN muscle spasticity 11/02/22 09/21/24 cariprazine 3 mg capsule (Vraylar) 3 mg PO DAILY 09/21/24 09/21/24 furosemide 40 mg tablet 40 mg PO DAILY 09/21/24 09/21/24 lamotrigine 150 mg tablet 150 mg PO DAILY 09/21/24 09/21/24 pantoprazole 40 mg tablet,delayed 40 mg PO Q12H 09/21/24 09/21/24 release paroxetine HCl 40 mg tablet 40 mg PO DAILY 09/21/24 09/21/24 potassium bicarbonate-citric acid 25 meq PO BID 09/21/24 09/21/24 25 mEq effervescent tablet (Effer-K) pramipexole 0.5 mg tablet 0.5 mg PO DAILY 09/21/24 09/21/24 prazosin 5 mg capsule 5 mg PO DAILY 09/21/24 09/21/24 Previous Rx's ?Medication ?Instructions ?Recorded azithromycin 250 mg tablet See Rx Instructions PO .COMPLEX #6 09/21/24 (Zithromax Z-Von) tabs benzonatate 100 mg capsule 100 mg PO TID PRN cough #20 caps 09/21/24 amoxicillin 875 mg-potassium 1 tab PO Q12H #14 tabs 11/05/24 clavulanate 125 mg tablet Allergies Allergy/AdvReac Type Severity Reaction Status Date / Time codeine Allergy Severe Hives Verified 11/05/24 11:09 fentanyl Allergy Severe throat Verified 11/05/24 11:09 swelling morphine Allergy Severe Anaphylaxis Verified 11/05/24 11:09 sulfamethoxazole (From AdvReac Mild itching Verified 11/05/24 11:09 Bactrim) trimethoprim (From Bactrim) AdvReac Mild itching Verified 11/05/24 11:09 Review of Systems ROS Status of ROS 10 or more systems reviewed and unremarkable except as noted in history and below PFSH PFSH Social History Smoking status: Former smoker Little interest or pleasure in doing things: not at all Feeling down, depressed, or hopeless: not at all Exam Narrative Exam Narrative: Nurses notes and vital signs reviewed and patient is not hypoxic. General: Well-appearing and in no apparent distress. Skin: Warm, dry, no pallor noted. No rash. Head: Normocephalic, atraumatic. Neck: Supple, non-tender. Eye: Pupils are equal, round and EOMI. No scleral icterus. Ears, Nose, Mouth, and Throat: TM are clear, no nasal mucosal hypertrophy. Oral mucosa is moist, no posterior oropharynx erythema, uvula is mid-line Dental exam: The patient have a decayed left upper #16 tooth that is showing some inflamed gums around it There is some poor dental hygiene No tenderness on palpation of the roof of the mouth as well as the base of the mouth Constitutional Vital Signs, click to edit/add: Last Vital Signs Temp 98.2 F 11/05/24 11:02 Pulse 75 11/05/24 11:02 Resp 18 11/05/24 11:02 BP 135/93 H 11/05/24 11:02 Pulse Ox 98 11/05/24 11:02 O2 Del Method Room Air 11/05/24 11:02 Course Vital Signs Vital signs: Vital Signs Temperature 98.2 F 11/05/24 11:02 Pulse Rate 75 11/05/24 11:02 Respiratory Rate 18 11/05/24 11:02 Blood Pressure 135/93 H 11/05/24 11:02 Pulse Oximetry 98 11/05/24 11:02 Oxygen Delivery Method Room Air 11/05/24 11:02 Temperature 98.2 F 11/05/24 11:02 Pulse Rate 75 11/05/24 11:02 Respiratory Rate 18 11/05/24 11:02 Blood Pressure 135/93 H 11/05/24 11:02 Pulse Oximetry 98 11/05/24 11:02 Oxygen Delivery Method Room Air 11/05/24 11:02 MDM - Dental/Oral MDM Narrative Medical decision making narrative: Patient presented with a dental pain mostly secondary to dental infection The patient was started on Augmentin as well as local dental anesthesia Discharged home to follow-up with a dentist with outpatient The patient is to follow up with primary care physician in next 2-3 days or to return to the emergency department should any of the signs or symptoms worsen or new symptoms develop. The patient agrees with the following Diagnosis and Treatment plan and the patient will be discharged home. Discharge Plan Discharge Chief Complaint: Dental/Oral Clinical Impression: Pain, dental, Dental infection Patient Disposition: Home, Self-Care Time of Disposition Decision: 11:31 Condition: Good Mode of Transportation: Private Vehicle Prescriptions / Home Meds: New amoxicillin-pot clavulanate 875-125 mg tablet 1 tab PO Q12H Qty: 14 0RF No Action clonidine HCl 0.1 mg tablet 0.1 mg PO DAILY PRN (Reason: anxiety) fexofenadine 180 mg tablet 180 mg PO DAILY montelukast 10 mg tablet 10 mg PO QPM oxycodone-acetaminophen 5-325 mg tablet 1 tab PO .Q4HRs PRN (Reason: pain) tizanidine 4 mg tablet 4 mg PO TID PRN (Reason: muscle spasticity) Vraylar 3 mg capsule 3 mg PO DAILY furosemide 40 mg tablet 40 mg PO DAILY lamotrigine 150 mg tablet 150 mg PO DAILY pantoprazole 40 mg tablet,delayed release (DR/EC) 40 mg PO Q12H paroxetine HCl 40 mg tablet 40 mg PO DAILY azithromycin [Zithromax Z-Von] 250 mg tablet See Rx Instructions .ROUTE .COMPLEX Qty: 6 0RF Rx Instructions: For 250 mg dose pack: take 500 mg today (day 1), then 250 mg for 4 days (days 2-5) benzonatate 100 mg capsule 100 mg PO TID PRN (Reason: cough) Qty: 20 0RF Effer-K 25 mEq tablet, effervescent 25 meq PO BID pramipexole 0.5 mg tablet 0.5 mg PO DAILY prazosin 5 mg capsule 5 mg PO DAILY Print Language: Qatari Instructions: Dental Abscess (ED), Toothache (ED) Referrals: Hany Cohen MD [Primary Care Provider, Family Practice] - 1 week Discharge Date/Time: 11/05/24 11:41
[2024-11-05] MEDS: AMOXICILLIN/POT CLAV 875-125 MG TABLET 1 TAB PO (11:38)
[2024-11-05] MEDS: BENZOCAINE 30 ML, lidocaine HCL 15 ML MM (11:39)
== END 2024-11-05 11:41 | disposition home or self-care (01) ==
PROVIDERS: Emergency Provider Emergency Medicine; PCP Family Medicine
DX: K04.7 Periapical abscess without sinus (principal); K08.89 Other specified disorders of teeth and supporting structures; Z87.891 Personal history of nicotine dependence
CPT/HCPCS: 99283